=== PATIENT | male | born 1945 | race Caucasian/White ===

== ENCOUNTER 2017-05-01 19:16 | Inpatient (IN) | payer MEDICARE, BC ==
[2017-05-01 20:24] LABS: #Eosinphils 0.1 thou/uL (0.0-0.7); #Lymphocytes 1.3 thou/uL (1.20-3.40); #Monocytes 0.9 thou/uL (0.11-0.59); #Neutrophils 10.1 thou/uL (1.40-6.50); %Basophils 0.4 % (0.0-1.0); %Eosinophils 0.8 % (0.0-10.0); %Lymphocytes 10.8 % (21.0-51.0); %Monocytes 7.2 % (0.0-10.0); Hematocrit 45.2 % (42.0-52.0); Red Blood Cell (RBC) Count 4.47 mill/uL (4.70-6.10); White Blood Cell (WBC) Count 12.4 thou/uL (4.8-10.8)
[2017-05-01 20:28] LABS: Bilirubin Negative (Negative); Blood, Urine Negative (Negative); Glucose, Urine (Dipstick) 250 mg/dL (Negative); Ketone, Urine Negative (Negative); Nitrite Negative (Negative); Protein, Urine (Dipstick) Negative (Neg-Trace); Urobilinogen 0.2 mg/dL (0.2-1.0)
--- NOTE | 2017-05-01 20:31 | RAD ---
PORTABLE AP CHEST X-RAY 05/01/17 HISTORY: Chest pain. COMPARISON: 04/02/17. Multilead left subclavian AICD device remains in place. Postsurgical changes related to CABG are aga in noted. The cardiac silhouette remains enlarged. There again noted is calcification at the ventric ular apex. Pulmonary vasculature is within normal limits. Vascular calcifications are seen in the th oracic aorta. The lungs are clear. There has been no interval change from the prior exam. IMPRESSION: 1. No acute cardiopulmonary process. 2. Stable cardiomegaly with stable calcification along the left ventricular apex. POS: [facility]
[2017-05-01 20:47] LABS: ALT (SGPT) 32 U/L (8-55); AST (SGOT) 26 U/L (5-34); Alkaline Phosphatase 40 U/L (40-150); Anion Gap 14 mmol/L (10-20); BUN (Urea Nitrogen) 38 mg/dL (8.4-25.7); Bilirubin, Total 0.5 mg/dL (0.2-1.2); Calc. Creatinine Clearance 0 mL/min (70-130); Calcium 9.5 mg/dL (7.8-10.44); Carbon Dioxide 30 mmol/L (23-31); Chloride 85 mmol/L (98-107); Estimated GFR-MDRD 52; Globulin 3.3 g/dL (2.4-3.5); Lipase 48 U/L (8-78); Magnesium 2.2 mg/dL (1.6-2.6); Protein, Total 7.4 g/dL (5.8-8.1)
[2017-05-01 20:49] LABS: Troponin I 0.076 ng/mL (< 0.028)
[2017-05-01 21:43] LABS: Digoxin 0.42 ng/mL (0.8-2.0)
[2017-05-01] MEDS ORDERED: Ondansetron HCl/PF 4 MG/2 ML Vial ONE (21:49)
[2017-05-01 23:16] LABS: Troponin I 0.072 ng/mL (< 0.028)
[2017-05-02] MEDS ORDERED: HumaLOG 300 UNITS/3 ML VIAL SC PRN (02:07)
[2017-05-02] MEDS ORDERED: cloNIDine HCl 0.1 MG TAB PO PRN (02:07)
[2017-05-02] MEDS ORDERED: Acetaminophen 500 MG TAB PO PRN (02:07)
[2017-05-02] MEDS ORDERED: Dextrose 50% Abboject 50 ML SYRINGE SLOW IVP PRN (02:07)
[2017-05-02] MEDS ORDERED: Ondansetron HCl/PF 4 MG/2 ML Vial IVP PRN (02:07)
[2017-05-02] MEDS ORDERED: Lorazepam 1 MG TAB PO PRN (02:07)
[2017-05-02] MEDS ORDERED: Ondansetron ODT 4 MG TAB PO PRN (02:07)
[2017-05-02] MEDS ORDERED: Dextrose 5% in Water 1,000 ML IV PRN (02:07)
[2017-05-02 02:35] LABS: Hematocrit 39.2 % (42.0-52.0); Red Blood Cell (RBC) Count 3.89 mill/uL (4.70-6.10)
[2017-05-02 02:49] LABS: Anion Gap 13 mmol/L (10-20); BUN (Urea Nitrogen) 32 mg/dL (8.4-25.7); Calc. Creatinine Clearance 0 mL/min (70-130); Calcium 8.9 mg/dL (7.8-10.44); Carbon Dioxide 31 mmol/L (23-31); Chloride 90 mmol/L (98-107); Estimated GFR-MDRD 63
[2017-05-02 02:56] LABS: Band 5 % (5-11); Neutrophil 69 % (42-75)
[2017-05-02 03:00] VITALS: BMI 25.3
--- NOTE | 2017-05-02 03:18 | HP ---
DATE OF ADMISSION: 05/02/2017 PRIMARY CARE PROVIDER: Dr. Eddy Jaime. CHIEF COMPLAINT: Chest pressure and low blood pressure. HISTORY OF PRESENT ILLNESS: This is a 71-year-old male who presented to [facility] complaining of short duration chest pain and pressure with associated general malaise, which began approximately 10:00 a.m. on 05/01/2017. The patient states that he noticed his blood pressure was increasing in the 140 range and decided to take an extra Coreg and lisinopril for elevated bloo d pressure. The patient also states he took additional aspirin and noted that his blood pressure wa s decreasing. The patient became concerned when his blood pressure dropped and called EMS personnel . The patient was given aspirin as well as 500 mL of normal saline and transported to [facility] Emergency Department. The patient states he was just seen by his primary cardi ologist in [place], [place], without specific instructions on taking extra antihypertensive medications . The patient does admit to a significant history of ischemic cardiomyopathy with ejection fraction of 15%. The patient denies any recent fever, chills, cough, congestion, or exposure history. The patient denies any specific increased weight gain or lower extremity edema. The patient was evaluat ed in the emergency department with initial blood pressures in the 93-110 range systolic. The patie nt received an additional intravenous normal saline x1 liter as well as glucagon 2 mg x1 dose and in travenous Zofran. The patient symptomatically improved with supportive measures and IV fluid hydrat ion with overall stabilization of blood pressure readings. PAST MEDICAL HISTORY: 1. Ischemic cardiomyopathy with ejection fraction of 15%-20%. 2. Chronic atrial fibrillation with chronic Coumadin therapy. 3. Hypertension. 4. Diabetes mellitus type 2. 5. Dyslipidemia. 6. Coronary artery disease. 7. Chronic kidney disease stage 3. 8. Status post myocardial infarction. PAST SURGICAL HISTORY: 1. Status post AICD placement. 2. Status post coronary artery bypass grafting. 3. Status post appendectomy. 4. Status post cholecystectomy. 5. Status post cardiac catheterization with stent placement. CURRENT MEDICATIONS: 1. Amiodarone 100 mg 1 tab p.o. daily. 2. Enteric coated aspirin 81 mg 1 tab p.o. daily. 3. Carvedilol 12.5 mg p.o. b.i.d. 4. Vitamin D3 50,000 units p.o. daily. 5. Digoxin 0.125 mg p.o. daily. 6. Ativan 1 mg p.o. at bedtime p.r.n. 7. Potassium chloride 20 mEq one tab p.o. daily. 8. vitamin 1 tab p.o. daily. 9. Crestor 40 mg p.o. at bedtime. 10. Spironolactone/hydrochlorothiazide 25/25 mg 1 tab p.o. daily. 11. Demadex 20 mg p.o. daily. 12. Coumadin 10 mg p.o. daily except 7.5 mg on Friday and Friday. 13. Glyburide 7.5 mg p.o. daily. ALLERGIES: No known drug allergies. FAMILY HISTORY: No inheritable diseases per patient report. SOCIAL HISTORY: The patient is , residing in [place], [place]. Retired. No current alcohol, to bacco or illicit drug use. REVIEW OF SYSTEMS: The following complete review of systems was negative, unless otherwise mentione d in the HPI or below: Constitutional: Weight loss or gain, ability to conduct usual activities. Skin: Rash, itching. Eyes: Double vision, pain. ENT/Mouth: Nose bleeding, neck stiffness, pain, tenderness. Cardiovascular: Palpitations, dyspnea on exertion, orthopnea. Respiratory: Shortness of breath, wheezing, cough, hemoptysis, fever or night sweats. Gastrointestinal: Poor appetite, abdominal pain, heartburn, nausea, vomiting, constipation, or diar vidal. Genitourinary: Urgency, frequency, dysuria, nocturia. Musculoskeletal: Pain, swelling. Neurologic/Psychiatric: Anxiety, depression. Allergy/Immunologic: Skin rash, bleeding tendency. PHYSICAL EXAMINATION: VITAL SIGNS: On admission, blood pressure 113/61, pulse 76, respiratory rate 24, temperature 98.1 d egrees Fahrenheit, O2 saturation 98% on room air. GENERAL APPEARANCE: This is a 71-year-old male, alert and oriented x3, pleasant, conversant, in no acute distress. HEENT: Pupils are equal, round, and reactive to light and accommodation. Extraocular muscles are i ntact. No scleral icterus, no conjunctival injection. Nares patent. OP is clear. Teeth in good r epair. NECK: Supple, no cervical adenopathy, no thyromegaly, no carotid bruits, no JVD appreciated. Cervi denisha spine with full active and passive range of motion. CHEST: Diminished breath sounds in the bases bilaterally. CARDIOVASCULAR: S1, S2 with irregular rate and rhythm. ABDOMEN: Rounded, soft, nontender, nondistended. Bowel sounds are positive in all four quadrants. There is no hepatosplenomegaly, no abdominal bruits, no rebound or guarding appreciated. EXTREMITIES: Warm and dry with fair turgor. No clubbing, cyanosis or asymmetric edema appreciated. Pulses palpable distally at the dorsalis pedis, posterior tibial, and popliteal arteries bilateral ly. Capillary refill less than 2 seconds. NEUROLOGIC: Cranial nerves II through XII are grossly intact. No focal or lateralizing signs appre ciated. PERTINENT LABORATORY DATA AND X-RAY FINDINGS: Sodium 126, potassium 3.4, chloride 85, CO2 of 30, BU N 38, creatinine 1.35 with estimated GFR 52, glucose 211. Lactic acid level 1.0. Calcium 9.5, magn esium 2.2. LFTs within normal limits. Troponin I ranged between 0.072-0.076. BNP 264, albumin 4.1 , lipase 48. CBC showed a white blood cell count 12.4, hemoglobin 15, hematocrit 45, MCV 101, plate let count 211 with 81% neutrophils. Urinalysis positive for glucose. Digoxin level 0.42. Portable chest x-ray dated 05/01/2017 showed no acute cardiopulmonary process. Left subclavian AICD device in place. EKG dated 05/01/2017 by my interpretation shows sequential electronic pacemaker with hear t rates in the 70s. ASSESSMENT AND PLAN: 1. Hypotension, iatrogenic. We will continue symptomatic management. We will hold antihypertensiv e medications. Initially managed with intravenous normal saline. The patient took extra doses of b eta juvencio leading to current presentation. Patient will need education and reinforcement regardin g avoidance of this type of situation in the future. 2. Hyponatremia. Suspect iatrogenic with ongoing use of hydrochlorothiazide. Repeat sodium level in the a.m. 3. Hypokalemia. Mild. Continue potassium chloride supplementation and repeat potassium level in t he a.m. 4. Acute kidney injury on chronic kidney disease stage 3. 5. Status post intravenous normal saline. Avoid nephrotoxic agents and contrast media. Serial cre atinine monitoring. 6. Elevated troponin I. Chronic after review of the electronic medical record. No evidence to sug gest acute coronary syndrome. 7. Ischemic cardiomyopathy with ejection fraction of 15%-20%. Compensated currently. Continue joslyn e medication regimen including amiodarone 100 mg p.o. daily. 8. Chronic atrial fibrillation with chronic anticoagulation with Coumadin. Continue Coumadin 7.5 m g p.o. daily. Continue digoxin 0.125 mg p.o. daily. 9. Prophylaxis. Sequential compression devices while in bed, Pepcid 20 mg p.o. b.i.d. 10. Code status is full. Surrogate medical decision maker is patient's spouse.
[2017-05-02 05:36] LABS: Prothrombin Time 26.4 SEC (12.0-14.7)
[2017-05-02] MEDS ORDERED: Sodium Chloride 0.9% 10 ML ONE (08:00)
[2017-05-02] MEDS: glyBURIDE 5 MG TAB PO SCH (08:29)
[2017-05-02] MEDS: Aspirin 81 mg Enteric Coated Tablet PO SCH (08:30)
[2017-05-02] MEDS: Famotidine 20 MG TAB PO SCH ×2 (08:30→21:07)
[2017-05-02] MEDS ORDERED: FLU VACC TS2017-18 (>65YR) 0.5 ML SYRINGE IM ONE (09:00)
[2017-05-02] MEDS: HumaLOG 300 UNITS/3 ML VIAL SC PRN (12:04)
[2017-05-02] MEDS ORDERED: Warfarin Sodium 7.5 MG TAB PO SCH (17:00)
[2017-05-02] MEDS ORDERED: Milk Of Magnesia 30 ML UDCUP PO PRN (18:16)
--- NOTE | 2017-05-02 18:36 | PDOC.EVN ---
Event Note - Event Note Event Note: Follow up: vital signs improving, SBP rising while off his medications. Patient reports his EF has risen to 25% Denies MCKINNEY, orthopnea, PND, edema, chest pain, dizziness. Lungs: CTA, no rales, s1,s2, no lower ext edema. Patient reports he ingested additional doses of his lisinopril and coreg as his "blood pressure was rising" Now that BP is stable, will resume scheduled home meds in am and observe response.
[2017-05-02] MEDS: Carvedilol 6.25 MG TAB PO SCH (21:08)
[2017-05-02] MEDS ORDERED: guaiFENesin ER 600 MG TAB PO PRN (22:33)
[2017-05-02] MEDS ORDERED: Diabetic Tussin 200 MG/10 ML UDCUP PO PRN (22:33)
[2017-05-02] MEDS ORDERED: Benzonatate 100 MG CAP PO PRN (22:33)
[2017-05-03 06:19] LABS: Hematocrit 40.2 % (42.0-52.0)
[2017-05-03 06:24] LABS: Prothrombin Time 25.3 SEC (12.0-14.7)
[2017-05-03 06:36] LABS: Anion Gap 11 mmol/L (10-20); BUN (Urea Nitrogen) 21 mg/dL (8.4-25.7); Calc. Creatinine Clearance 76 mL/min (70-130); Calcium 9.1 mg/dL (7.8-10.44); Carbon Dioxide 31 mmol/L (23-31); Chloride 98 mmol/L (98-107); Estimated GFR-MDRD 79
[2017-05-03 06:39] LABS: Hematocrit 39.6 % (42.0-52.0); Mean Platelet Volume 8.3 fL (7.4-10.4); Neutrophil 69 % (42-75); Red Blood Cell (RBC) Count 3.88 mill/uL (4.70-6.10); White Blood Cell (WBC) Count 9.6 thou/uL (4.8-10.8)
[2017-05-03] MEDS: glyBURIDE 5 MG TAB PO SCH (08:50)
[2017-05-03] MEDS: Famotidine 20 MG TAB PO SCH (08:50)
[2017-05-03] MEDS: Carvedilol 6.25 MG TAB PO SCH (08:50)
[2017-05-03] MEDS: Aspirin 81 mg Enteric Coated Tablet PO SCH (08:51)
[2017-05-03] MEDS ORDERED: Potassium Chloride 20 MEQ TAB PO SCH (09:00)
[2017-05-03] MEDS ORDERED: Digoxin 0.125 MG TAB PO SCH (09:00)
[2017-05-03] MEDS ORDERED: Torsemide 10 MG TAB PO SCH (09:00)
[2017-05-03] MEDS ORDERED: Spironolactone/Hctz 25 MG/25 MG TABLET PO SCH (09:00)
[2017-05-03 12:23] VITALS: BP 110/70; TEMP 98
[2017-05-03] MEDS: HumaLOG 300 UNITS/3 ML VIAL SC PRN (13:26)
[2017-05-03] MEDS ORDERED: Warfarin Sodium 10 MG TAB PO SCH (17:00)
--- NOTE | 2017-05-03 18:25 | DIS ---
DATE OF ADMISSION: 05/02/2017 DATE OF DISCHARGE: 05/03/2017 IMPRESSION: At the time discharge; 1. Hypotension, iatrogenic resolved. 2. Hyponatremia, iatrogenic from diuretics, improved with sodium of 136 this morning. 3. Hypokalemia, mild, resolved. 4. Acute kidney injury on chronic kidney disease, improved. 5. Elevated troponin I chronic, no evidence to suggest acute coronary syndrome. 6. Ischemic cardiomyopathy with ejection fraction of 15%-20%, compensated currently. 7. Chronic atrial fibrillation with chronic anticoagulation with Coumadin. 8. Diabetes mellitus, type 2. 9. Dyslipidemia. 10. History of coronary artery disease. 11. History of myocardial infarction. 12. AICD in place. HOSPITAL COURSE: The patient is a 71-year-old male, who presented to [facility]. He was complaining about chest pain and pressure with associated some generalized ma laise. The patient noticed while at home that his blood pressure went up to about 140 and decided t o extra Coreg and lisinopril for this elevated blood pressure since his regular blood pressure is ru nning around 120. Then, he took also additional aspirin and noticed that blood pressure was decreas ing, but dropped significantly, so he called EMS. The EMS transported to give him IV fluids, and he was transported to [facility] Emergency Department. The patient has a histo ry of ischemic cardiomyopathy with ejection fraction of 20%. He denied any other symptoms like feve r, chills, cough, congestion and exposure history. He denied any specific increase of weight gain o r lower extremity edema. At the time of blood pressure evaluation in the emergency room, he was giv en IV fluids 1 liter and Zofran along with glucagon 2 mg x1 dose. His symptoms improved and he got admitted to the hospital. At the time of admission, his blood pressure was 113/61, pulse was 76, re spiratory rate was 24, his temperature was 98.1 degrees Fahrenheit. His sodium was 126, potassium 3 .4, chloride 85, creatinine 1.35, BUN 38, glucose 211. Lactic acid was 1.0, magnesium 2.2; troponin I 0.072-0.076. BNP was 264. CBC showed white count of 12.4, hemoglobin 15, hematocrit 45, MCV 101 , platelet count 211,000 with 81% of neutrophils. Urinalysis was positive for glucose. Digoxin lev el was 0.42. Portable chest x-ray was done and showed no acute cardiopulmonary process. Left subcl angelita AICD device in place was noticed. EKG showed electronic pacemaker with heart rate in the 70s. The patient got admitted to the hospital. His antihypertensives were put on hold. His hyponatrem ia was treated with IV fluids and hypokalemia with potassium replacement. His blood pressure recove red and he is feeling good. He had echocardiogram done and we do not have the results back on the t est he had. He is able to ambulate in the room, he ate his breakfast. He is instructed to wait if the blood pressure goes up to 140-150, get some rest, take a nap, and recheck the blood pressure and if the blood pressure is still elevated, contact his primary care physician or business development coordinator for fur ther recommendations how to deal with that. His blood pressure now is 104/58, pulse is 77. PHYSICAL EXAMINATION: LUNGS: Clear. HEART: S1, S2. Somewhat distant. No S3, no S4. ABDOMEN: Soft, nontender, bowel sounds are present. No organomegaly. He was seen and examined before he was discharged. He is going to be discharged home. ACTIVITIES: As tolerated. DIET: 2000 calories ADA diet with low salt is recommended. MEDICATIONS AT THE TIME OF DISCHARGE: vitamin, iron, and folic acid 1 a day, vitamin D3 of 2000 units once a day, aspirin 81 mg once a day, glyburide 7.5 mg once a day, warfarin 10 mg once a day, torsemide 20 mg once a day, spironolactone/hydrochlorothiazide 25 mg once a day, Crestor 40 mg once a day at bedtime, potassium chloride 20 mEq once a day, digoxin 0.125 mg once a day, amiodaron e 100 mg once a day and Coreg 12.5 mg twice a day. The patient is supposed to follow up with [facility] in 1 week. He was seen and examined before his discharge and discharge time is les s than 30 minutes.
== END 2017-05-03 13:55 | disposition home or self-care (01) | DRG 315 ==
LOC: ERS 19:16 → 2NO 22:00
PROVIDERS: ADMIT Family Medicine; ATTEND Family Medicine
DX: I95.89 Other hypotension (principal); I13.0 Hypertensive heart and chronic kidney disease with heart failure and stage 1 through stage 4 chronic kidney disease, or unspecified chronic kidney disease; N17.9 Acute kidney failure, unspecified; E11.22 Type 2 diabetes mellitus with diabetic chronic kidney disease; I50.9 Heart failure, unspecified; I48.2 Chronic atrial fibrillation; E87.1 Hypo-osmolality and hyponatremia; E86.0 Dehydration; E87.6 Hypokalemia; E78.5 Hyperlipidemia, unspecified; I25.2 Old myocardial infarction; Z86.73 Personal history of transient ischemic attack (TIA), and cerebral infarction without residual deficits; Z79.01 Long term (current) use of anticoagulants; N18.3 Chronic kidney disease, stage 3 (moderate); Z95.810 Presence of automatic (implantable) cardiac defibrillator; Z95.1 Presence of aortocoronary bypass graft; Z90.49 Acquired absence of other specified parts of digestive tract; I25.5 Ischemic cardiomyopathy; T44.7X5A Adverse effect of beta-adrenoreceptor antagonists, initial encounter
CPT/HCPCS: 36415; 36416; 71010; 80048; 80053; 80162; 81003; 82553; 83605; 83690; 83735; 83880; 84484; 85007; 85014; 85018; 85025; 85027; 85049; 85610; 90471; 90682; 93005; 93306; 96361; 96374; 96375; A4216; G0008; J1610; J2405; Q2036

== ENCOUNTER 2017-07-25 00:56 | Observation (INO) | payer MEDICARE, BC ==
[2017-07-25 01:46] LABS: #Basophils 0.1 thou/uL (0.0-0.2); #Eosinphils 0.1 thou/uL (0.0-0.7); #Lymphocytes 1.7 thou/uL (1.20-3.40); #Monocytes 0.9 thou/uL (0.11-0.59); #Neutrophils 7.6 thou/uL (1.40-6.50); %Basophils 0.9 % (0.0-1.0); %Eosinophils 1.3 % (0.0-10.0); %Lymphocytes 16.1 % (21.0-51.0); %Monocytes 8.8 % (0.0-10.0); %Neutrophils 72.8 % (42.0-75.0); Hemoglobin 16.6 g/dL (14.0-18.0); Mean Corpuscular HGB CONC 33.9 g/dL (32.0-36.0); Mean Corpuscular Hemoglobin 34.4 pg (27.0-31.0); Mean Platelet Volume 9.1 fL (7.4-10.4); Platelet Count 161 thou/uL (130-400); RBC Distribution Width 12.4 % (11.5-14.5); Red Blood Cell (RBC) Count 4.83 mill/uL (4.70-6.10); White Blood Cell (WBC) Count 10.5 thou/uL (4.8-10.8)
[2017-07-25 01:52] LABS: INR-International Normal Ratio 1.8; PTT 31.7 SEC (22.9-36.1); Prothrombin Time 21.3 SEC (12.0-14.7)
[2017-07-25 02:28] LABS: Magnesium 2.1 mg/dL (1.6-2.6)
[2017-07-25 02:32] LABS: Troponin I 0.151 ng/mL (< 0.028)
[2017-07-25 04:42] LABS: Digoxin 0.57 ng/mL (0.8-2.0)
[2017-07-25] MEDS ORDERED: Ondansetron ODT 4 MG TAB SL PRN (05:17)
[2017-07-25] MEDS ORDERED: Acetaminophen 325 MG TAB PO PRN ×2 (05:17→10:51)
[2017-07-25] MEDS ORDERED: Ondansetron HCl/PF 4 MG/2 ML Vial IVP PRN (05:17)
[2017-07-25 05:18] VITALS: BMI 24.4
[2017-07-25 06:51] LABS: Troponin I 0.184 ng/mL (< 0.028)
--- NOTE | 2017-07-25 08:26 | RAD ---
PORTABLE AP CHEST RADIOGRAPH: Date: 07-25-17 History: Chest pain. Comparison: 04-02-17 FINDINGS: A multi-lead left subclavian AICD device remains in place. Post-surgical changes related to median st ernotomy are again present. Curvilinear calcifications are again seen overlying the left ventricle wh ich may be related to calcifications at the ventricular apex or involving the pericardium. This is a stable finding. Cardiac silhouette is magnified by projection but is stable in size. Pulmonary vascul ature is within normal limits. Vascular calcifications of the thoracic aorta. The lungs are clear. Th ere has been no interval change from the prior exam. IMPRESSION: Stable chest without evidence of acute cardiopulmonary process. POS: [facility]
[2017-07-25 08:56] VITALS: TEMP 98.8
[2017-07-25 09:32] LABS: Troponin I 0.187 ng/mL (< 0.028)
[2017-07-25] MEDS ORDERED: HYDROcodone/Acetaminophen 10/325 mg Tablet PO PRN (10:51)
[2017-07-25] MEDS ORDERED: HYDROcodone/Acetaminophen 5/325 mg Tablet PO PRN (10:51)
[2017-07-25] MEDS ORDERED: Dextrose 5% in Water 1,000 ML IV PRN (10:51)
[2017-07-25] MEDS ORDERED: HumaLOG 300 UNITS/3 ML VIAL SC PRN (10:51)
[2017-07-25] MEDS ORDERED: Dextrose 50% Abboject 50 ML SYRINGE SLOW IVP PRN (10:51)
[2017-07-25] MEDS ORDERED: Ondansetron ODT 4 MG TAB PO PRN (10:51)
[2017-07-25] MEDS ORDERED: Enoxaparin Sodium 40 MG/0.4 ML SYRINGE SC SCH ×2 (11:00→12:15)
[2017-07-25 11:30] LABS: Hemoglobin A1c 7.5 % (4.0-6.0)
[2017-07-25 11:35] LABS: Anion Gap 13 mmol/L (10-20); BUN (Urea Nitrogen) 35 mg/dL (8.4-25.7); Calc. Creatinine Clearance 59 mL/min (70-130); Calcium 10.6 mg/dL (7.8-10.44); Carbon Dioxide 33 mmol/L (23-31); Chloride 90 mmol/L (98-107); Estimated GFR-MDRD 61; Glucose 168 mg/dL (80-115); Potassium 3.3 mmol/L (3.5-5.1); Sodium 133 mmol/L (136-145)
[2017-07-25 11:42] LABS: CKMB 3.6 ng/mL (0-6.6); Troponin I 0.146 ng/mL (< 0.028)
[2017-07-25] MEDS ORDERED: Lorazepam 1 MG TAB PO PRN (11:59)
[2017-07-25 12:03] VITALS: BP 105/68
[2017-07-25] MEDS ORDERED: Digoxin 0.125 MG TAB PO SCH ×2 (12:15→21:00)
[2017-07-25 14:19] LABS: CKMB 3.8 ng/mL (0-6.6); Troponin I 0.116 ng/mL (< 0.028)
--- NOTE | 2017-07-25 15:29 | HP ---
DATE OF ADMISSION: 07/25/2017 TIME OF SERVICE: 0800, placed in observation from the emergency department, 0300. PRIMARY CARE PHYSICIAN: Dr. Eddy Jaime at [facility]. PRIMARY PRINCIPLE INDUSTRIAL HYGIENIST: Dr. Bear Bond, currently. CHIEF COMPLAINT: Chest pain/palpitations. HISTORY OF PRESENT ILLNESS: Mr. Crockett is a 71-year-old male with history of cerebral vascular disease and a CVA in 2011 and 2012, ischemic cardiomyopathy with chronic systolic congestiv e heart failure, diabetes mellitus type 2, hyperlipidemia, and hypertension, coronary artery disease status post [place] in the 80s. He has an akinetic anterior wall. Per Dr. Bond's and my discussion, no chances of viability and negative perfusion studies. The patient states that on the day of admission, he had gone to cardiac rehab as an outpatient, just felt weak and unable to complete his exercises. He said, he had palpitations off and on during then. When he got home, he noted blood pressure varied from 140s-150s, so he decided to come to the emergen cy department for evaluation. There, his workup was negative, but given his history, he was admitted to the hospital. He denies any cough or chest pain, no sputum production, no shortness of breath. He has had no nause a, vomiting, diarrhea or constipation. We placed in observation, serial cardiac biomarkers were obtained after ER workup was negative and I called Dr. Bond. Dr. Bond explained to me that the patient's recurrent coronary artery disease, he had a PTCA and PC I back in May. He had 3 stents placed to the right coronary artery to see if it would improve h is function of the inferior and lateral dove. He did have an echocardiogram done last week that reportedly shows an EF around 25%-30%, which is mar kedly improved from his previous 15. I explained to him in the admission and current plan. He was in agreement. The patient does have a follow up with him next week. Today, the patient has had no further arrhythmias. He remained in the 80s. PAST MEDICAL HISTORY: 1. Cerebrovascular disease. 2. Coronary artery disease. 3. Status post myocardial infarction. 4. 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 5. Diabetes mellitus type 2. 6. Hyperlipidemia. 7. Hypertension. PAST SURGICAL HISTORY: Includes: 1. Appendectomy. 2. Cholecystectomy. 3. Coronary artery bypass grafting in 1984. 4. Pacemaker/AICD placement. 5. PTCA and 3 stents placed in 05/2017. HOME MEDICATIONS: 1. Glyburide 7.5 mg p.o. q.a.m. 2. Lorazepam 0.5-1 mg at bedtime p.r.n. anxiety. 3. Coreg 12.5 mg p.o. q.a.m., 6.25 mg p.o. q.p.m. 4. Digoxin 0.125 mg daily. 5. Crestor 40 mg p.o. at bedtime. 6. Plavix 75 mg daily. 7. Lasix 10 mg daily. 8. Aldactone 12.5 mg daily. 9. Entresto daily or b.i.d., he is not sure. 10. Warfarin 10-7.5 mg daily, changed frequently. 11. Aspirin. ALLERGIES: No known drug allergies. FAMILY HISTORY: Negative for clotting or bleeding disorder, no immune dysfunction. SOCIAL HISTORY: Negative for habits x3. Does have past tobacco, but none recent. REVIEW OF SYSTEMS: A 10-point review of systems was performed, negative for all other systems except as stated as per HPI. He stated he was tired and need to sleep and that was bothering him. PHYSICAL EXAMINATION: VITAL SIGNS: Temperature 98.0, pulse 74, blood pressure 130/67, respiratory 18, satting 95% on room air. Heart rate has been in the 80s to low 90s. GENERAL: He is awake. He is alert. He is oriented x3. He is a well-developed, well-nourished Lati n [place] male appears to be in no distress. HEENT: Head is normocephalic, atraumatic. Pupils equal, round, reactive to light bilaterally. Muco us membranes are moist. There is no visible lesion or thrush. NECK: Supple. There is no lymphadenopathy, JVD or thyromegaly. Normal carotid upstrokes. LUNGS: Clear. He has no wheezing, no rales, no rhonchi. CARDIOVASCULAR: Normal S1 and S2. He has no S3. There is a faint S4. He has an underlying regular rhythm with frequent ectopy. He has no audible murmurs. ABDOMEN: Soft, it is nontender, nondistended, no masses or organomegaly. EXTREMITIES: No cyanosis, no clubbing, no edema. NEUROLOGIC: Cranial nerves II through XII to be grossly intact. He has no focal neurologic deficits . Normal speech. He has 5/5 strength in all 4 extremities. MUSCULOSKELETAL: Normal to inspection. There is no inflamed joints. No palpable effusions. SKIN: Warm, moist and well perfused without rashes or lesions. AICD/pacemaker site is clean, dry, a nd intact. LABORATORY DATA: Magnesium 2.1. CBC showed a white count of 10.5, hemoglobin 16.6, hematocrit 49, a nd platelets of 161,000. CK was 131 with an MB fraction of 4.0, troponin I initially 0.151, repeat 0 .184, subsequent 0.15 and 0.14. BNP is 399. INR 1.8 and digoxin 0.57, slightly low. X-RAY FINDINGS: Chest x-ray showed no acute cardiopulmonary disease. ASSESSMENT AND PLAN: 1. Palpitations, no chest pain. We will get serial cardiac biomarkers. We will interrogate his pac emaker. If these are negative, we will likely sent home. 2. Chronic systolic congestive heart failure, no acute exacerbation. 3. Diabetes mellitus type 2, we will check hemoglobin A1c. Continue home medications. Sliding scal e insulin has been ordered. 4. Hyperlipidemia, on Crestor. 5. Hypertension. Continue regular medications. 6. History of atrial fibrillation. As above.
--- NOTE | 2017-07-25 15:59 | DIS ---
DATE OF ADMISSION: 07/25/2017, started at 0300. DATE OF DISCHARGE: 07/25/2017 at 1450. PRIMARY CARE PHYSICIAN: Dr. Eddy Jaime. PRIMARY FISH HATCHERY SPECIALIST: Dr. Bear Bond at [facility]. DISCHARGE DIAGNOSES: 1. Chronic systolic congestive heart failure. 2. Diabetes. 3. Hyperlipidemia. 4. Hypertension. 5. Palpitations without arrhythmia. PROCEDURE PERFORMED: Pacemaker interrogation on 07/25/2017 that revealed no abnormalities. CONSULTATIONS: None. I did spend approximately 20 minutes on the phone with Dr. Bear darnell history. HISTORY AND PHYSICAL: Mr. Crockett is a 71-year-old male admitted from the ER early this morning to ob servation status for further monitoring. He had developed some palpitations during cardiac rehab on 07/24, and blood pressure was fluctuating between 140 and 150 in the evenings, so he presented to the E mergency Department. Workup there was negative, but he was admitted to our service. HOSPITAL COURSE: The patient was placed in observation at 0300, transferred to the floor. I saw him initially at 0800. At that time, labs were reviewed. He had a magnesium that was normal, a CBC yamel t was normal, and EKG and telemetry that revealed no abnormalities. Cardiac biomarkers were borderli ne at 0.151 and 0.184, and review had been similar in the past. BNP was slightly elevated at 399 and INR was slightly low at 1.8. Digoxin was slightly low at 0.57. The patient was restarted on his home medications, he was given an extra dose of digoxin, and I conta cted Dr. Bond at [facility]. He states he is on Eliquis long-term for his akinetic left anter ior wall and left ventricular clot. He states the patient has only seen him one time and does have a follow up with him next week. He did also state about his coronary disease and where he has a PEYTNO inserting on the right coronary artery. There was some diffuse disease, and he did placed stents in those areas to see if that would improve his overall function. Echo last week showed an EF of around 25% to 30%. No further episodes. Telemetry monitoring was negative. The pacemaker interrogation. He revealed n o abnormalities. Biomarkers remained stable. He was discharged in stable condition. The patient wa s seen and examined on the day of discharge. Discharge plan and disposition was discussed with the patient face to face at the bedside. DISCHARGE MEDICATIONS: Resume his home medications. 1. Glyburide 7.5 mg daily. 2. Lorazepam bedtime as needed. 4. Coreg 12.5 mg p.o. q.a.m. and 6.25 mg p.o. q.p.m. 5. Digoxin 0.125 mg daily. 6. Crestor 40 mg p.o. at bedtime. 7. Plavix 75 mg daily. 8. Lasix 10 mg daily. 9. Aldactone 12.5 mg daily. 10. Entresto 24/ p.o. b.i.d. 11. Aspirin daily. 12. Eliquis 2.5 mg p.o. b.i.d. FOLLOWUP APPOINTMENTS: 1. Primary care physician within a week. 2. Dr. Bear Bond next Friday or as already scheduled. DISCHARGE CONDITION: Good. DISCHARGE DISPOSITION: Being discharged home via private vehicle. DISCHARGE ACTIVITY: Per cardiopulmonary limits. DISCHARGE DIET: As pre-admit. Heart healthy, calcium carbohydrate.
[2017-07-25] MEDS ORDERED: Carvedilol 6.25 MG TAB PO SCH (21:00)
[2017-07-25] MEDS ORDERED: Famotidine 20 MG TAB PO SCH (21:00)
[2017-07-25] MEDS ORDERED: Rosuvastatin 20 MG TAB PO SCH (21:00)
[2017-07-26] MEDS ORDERED: Carvedilol 6.25 MG TAB PO SCH (09:00)
[2017-07-26] MEDS ORDERED: Enoxaparin Sodium 40 MG/0.4 ML SYRINGE SC SCH (09:00)
[2017-07-26] MEDS ORDERED: Clopidogrel Bisulfate 75 MG TAB PO SCH (09:00)
[2017-07-26] MEDS ORDERED: glyBURIDE 5 MG TAB PO SCH (09:00)
[2017-07-26] MEDS ORDERED: Warfarin Sodium 5 MG TAB PO SCH ×2 (09:00→17:00)
--- NOTE | 2017-08-16 17:49 | EKG ---
Test Reason : Blood Pressure : / mmHG Vent. Rate : 083 BPM Atrial Rate : 083 BPM P-R Int : 000 ms QRS Dur : 188 ms QT Int : 462 ms P-R-T Axes : 000 -64 117 degrees QTc Int : 542 ms AV sequential or dual chamber electronic pacemaker Confirmed by JUMA DOCKERY D.O. ([id number]), film editor JACKLYN TAVAREZ ([id number] on 08/16/2017 5:47:49 PM Referred By: Confirmed By:JUMA DOCKERY D.O.
== END 2017-07-25 16:23 | disposition home or self-care (01) ==
LOC: ERS 00:56 → ERHOLD 03:00 → INTOOBSV 03:00 → 2NO 05:02
PROVIDERS: ADMIT Internal Medicine; ATTEND Internal Medicine
DX: I11.0 Hypertensive heart disease with heart failure (principal); I50.22 Chronic systolic (congestive) heart failure; R00.2 Palpitations; I25.10 Atherosclerotic heart disease of native coronary artery without angina pectoris; I25.5 Ischemic cardiomyopathy; I25.2 Old myocardial infarction; I67.9 Cerebrovascular disease, unspecified; I48.91 Unspecified atrial fibrillation; E11.9 Type 2 diabetes mellitus without complications; E78.5 Hyperlipidemia, unspecified; R79.1 Abnormal coagulation profile; Z86.73 Personal history of transient ischemic attack (TIA), and cerebral infarction without residual deficits; Z87.891 Personal history of nicotine dependence; Z79.82 Long term (current) use of aspirin; Z79.4 Long term (current) use of insulin; Z79.01 Long term (current) use of anticoagulants; Z79.899 Other long term (current) drug therapy; Z95.1 Presence of aortocoronary bypass graft; Z95.5 Presence of coronary angioplasty implant and graft; Z95.810 Presence of automatic (implantable) cardiac defibrillator; Z98.890 Other specified postprocedural states
CPT/HCPCS: 71045; 80048; 80162; 82550; 82553 ×2; 82962; 83036; 83735; 83880; 84484 ×2; 85025; 85610; 85730; 93005; 97139; 99285; G0378; 36415; 36416; J1650

== ENCOUNTER 2017-09-10 23:27 | Emergency (ER) | payer MEDICARE, BC ==
[2017-09-10 23:51] LABS: #Basophils 0.1 thou/uL (0.0-0.2); #Eosinphils 0.1 thou/uL (0.0-0.7); #Lymphocytes 2.1 thou/uL (1.20-3.40); #Monocytes 0.9 thou/uL (0.11-0.59); #Neutrophils 5.2 thou/uL (1.40-6.50); %Eosinophils 1.3 % (0.0-10.0); %Lymphocytes 24.8 % (21.0-51.0); %Monocytes 10.9 % (0.0-10.0); %Neutrophils 61.9 % (42.0-75.0); Hemoglobin 16.3 g/dL (14.0-18.0); Mean Corpuscular HGB CONC 32.1 g/dL (32.0-36.0); Mean Corpuscular Hemoglobin 32.3 pg (27.0-31.0); Mean Platelet Volume 8.8 fL (7.4-10.4); Platelet Count 178 thou/uL (130-400); RBC Distribution Width 13.2 % (11.5-14.5); Red Blood Cell (RBC) Count 5.05 mill/uL (4.70-6.10); White Blood Cell (WBC) Count 8.4 thou/uL (4.8-10.8)
--- NOTE | 2017-09-11 00:02 | RAD ---
PORTABLE UPRIGHT FRONTAL CHEST RADIOGRAPH 09/10/17 COMPARISON: 07/25/17 HISTORY: Chest pain. FINDINGS: There is curvilinear calcification overlying the cardiac silhouette in the region of the cardiac apex suggesting either calcification aneurysm or pericardial calcification, unchanged when compared to CT exam performed 07/20/16. Midline sternotomy wires and multilead left sided AICD noted, stable. No pn eumothorax, pleural fluid, focal consolidation, or alveolar edema. IMPRESSION: No acute findings. POS: [facility]
[2017-09-11 00:13] LABS: ALT (SGPT) 20 U/L (8-55); AST (SGOT) 26 U/L (5-34); Albumin 4.8 g/dL (3.4-4.8); Alkaline Phosphatase 47 U/L (40-150); Anion Gap 14 mmol/L (10-20); BUN (Urea Nitrogen) 21 mg/dL (8.4-25.7); Bilirubin, Total 0.5 mg/dL (0.2-1.2); CK (CPK) 192 U/L (30-200); Calc. Creatinine Clearance 0 mL/min (70-130); Calcium 10.5 mg/dL (7.8-10.44); Carbon Dioxide 33 mmol/L (23-31); Chloride 91 mmol/L (98-107); Estimated GFR-MDRD 60; Globulin 3.7 g/dL (2.4-3.5); Glucose 74 mg/dL (80-115); Potassium 3.6 mmol/L (3.5-5.1); Protein, Total 8.5 g/dL (5.8-8.1); Sodium 134 mmol/L (136-145)
[2017-09-11 00:18] LABS: CKMB 4.3 ng/mL (0-6.6); Troponin I 0.081 ng/mL (< 0.028)
[2017-09-11] MEDS ORDERED: Nitroglycerin 0.4 MG TAB (25 Tab Bottle) ONE (01:28)
== END 2017-09-11 03:10 | disposition short-term general hospital (02) ==
LOC: ERS 23:27
DX: I20.0 Unstable angina (principal); I11.0 Hypertensive heart disease with heart failure; I50.9 Heart failure, unspecified; E11.9 Type 2 diabetes mellitus without complications; E78.5 Hyperlipidemia, unspecified; Z87.891 Personal history of nicotine dependence; Z86.73 Personal history of transient ischemic attack (TIA), and cerebral infarction without residual deficits; Z79.84 Long term (current) use of oral hypoglycemic drugs; Z79.899 Other long term (current) drug therapy
CPT/HCPCS: 36416; 71045; 80053; 82550; 82553; 83880; 84484; 85025; 93005

== ENCOUNTER 2017-10-02 15:58 | Observation (INO) | payer MEDICARE, BC ==
[2017-10-02 16:34] LABS: #Eosinphils 0.1 thou/uL (0.0-0.7); #Lymphocytes 1.3 thou/uL (1.20-3.40); #Monocytes 0.9 thou/uL (0.11-0.59); #Neutrophils 7.3 thou/uL (1.40-6.50); %Basophils 0.4 % (0.0-1.0); %Eosinophils 0.8 % (0.0-10.0); %Lymphocytes 13.8 % (21.0-51.0); %Monocytes 9.3 % (0.0-10.0); %Neutrophils 75.7 % (42.0-75.0); Hemoglobin 15.2 g/dL (14.0-18.0); Mean Corpuscular HGB CONC 33.1 g/dL (32.0-36.0); Mean Corpuscular Volume 99.7 fl (80.0-94.0); Mean Platelet Volume 8.6 fL (7.4-10.4); Platelet Count 186 thou/uL (130-400); Red Blood Cell (RBC) Count 4.59 mill/uL (4.70-6.10); White Blood Cell (WBC) Count 9.6 thou/uL (4.8-10.8)
[2017-10-02 16:54] LABS: ALT (SGPT) 23 U/L (8-55); AST (SGOT) 25 U/L (5-34); Albumin 4.4 g/dL (3.4-4.8); Alkaline Phosphatase 38 U/L (40-150); Anion Gap 13 mmol/L (10-20); BUN (Urea Nitrogen) 27 mg/dL (8.4-25.7); Bilirubin, Total 0.7 mg/dL (0.2-1.2); CK (CPK) 231 U/L (30-200); Calc. Creatinine Clearance 0 mL/min (70-130); Calcium 9.6 mg/dL (7.8-10.44); Carbon Dioxide 31 mmol/L (23-31); Chloride 93 mmol/L (98-107); Estimated GFR-MDRD 54; Glucose 161 mg/dL (80-115); Potassium 3.8 mmol/L (3.5-5.1); Protein, Total 7.4 g/dL (5.8-8.1); Sodium 133 mmol/L (136-145)
[2017-10-02 16:59] LABS: CKMB 4.7 ng/mL (0-6.6); Troponin I 0.097 ng/mL (< 0.028)
--- NOTE | 2017-10-02 17:38 | RAD ---
PORTABLE CHEST ONE VIEW: 10/02/17 at 4:09 p.m. HISTORY: Chest pain. FINDINGS: Comparison is made with the exam dated 09/10/17. There are changes of median sternotomy. Left sided AICD remains in place. The heart size is stable. C urvilinear calcification overlying the cardiac silhouette is again noted. Lungs are well expanded wit hout focal areas of consolidation, pneumothorax, ayush pulmonary edema or pleural effusions. IMPRESSION: No radiographic evidence of acute cardiopulmonary process. POS: [facility]
[2017-10-02 19:56] LABS: CKMB 3.9 ng/mL (0-6.6); Troponin I 0.112 ng/mL (< 0.028)
[2017-10-02] MEDS ORDERED: Acetaminophen 325 MG TAB PO PRN (21:57)
[2017-10-02] MEDS ORDERED: Nitroglycerin 2% Ointment 1 INCH/1 GM Packet TOP SCH (22:00)
[2017-10-02 22:54] LABS: Troponin I 0.137 ng/mL (< 0.028)
[2017-10-02 23:16] VITALS: BMI 24.9
[2017-10-02] MEDS ORDERED: Lorazepam 1 MG TAB PO PRN (23:34)
[2017-10-03] MEDS ORDERED: Acetaminophen 325 MG TAB PO PRN (00:44)
[2017-10-03] MEDS ORDERED: Nitroglycerin 0.4 MG TAB (25 Tab Bottle) PO PRN (00:44)
[2017-10-03] MEDS ORDERED: Lorazepam 1 MG TAB PO PRN (00:44)
[2017-10-03] MEDS ORDERED: Ondansetron HCl/PF 4 MG/2 ML Vial IVP PRN (00:44)
[2017-10-03] MEDS ORDERED: Guaifenesin DM 100-10/5 ML UDCUP PO PRN (00:44)
[2017-10-03] MEDS ORDERED: Bisacodyl 5 MG TAB PO SCH ×2 (00:45→09:00)
[2017-10-03] MEDS ORDERED: Rosuvastatin 20 MG TAB PO SCH ×2 (01:00→21:00)
[2017-10-03] MEDS ORDERED: Digoxin 0.125 MG TAB PO SCH ×2 (01:00→21:00)
[2017-10-03 01:15] LABS: Prothrombin Time 32.1 SEC (12.0-14.7)
--- NOTE | 2017-10-03 01:29 | HP ---
REASON FOR ADMISSION: Palpitations, chest pain. HISTORY OF PRESENT ILLNESS: The patient gives history of taking half a tablet of Entresto in the morning. Thirty minutes after, the patient started to have generalized discomfort. He checked his heart rate to be in the 40s. This discomfort was coming off and on, lasting 5-10 minutes. Finally, it eased off and patient went to take his garbage can out. When he came back, he checked his blood pressure. The diastolic pressure was 89. The patient took his Coreg and went to his [place] outpatient cardiac rehabilitation. He was on the treadmill and he was found to have irregular heart rate then. The staff at [facility] advised him to go to the emergency room. Patient follows up with Dr. Bond for Cardiology at [facility] and he also follows up with Dr. Houser for his AICD pacemaker. His AICD was placed in 03/2012 and he states his battery still has 1 more year to go. He has a followup appointment on the to see Dr. Houser. Currently, he has no complaints of chest pain, palpitation, PND or orthopnea. He states he has been progressing well with his outpatient rehab. PAST MEDICAL AND SURGICAL HISTORY: History of CHF with ejection fraction of 30% , coronary artery disease with nearly 5 stents, last cardiac catheterization was in 03/2017 when he had 3 stents. He has had 2 stents placed in 2000. The patient has had coronary artery bypass graft [place] [address] Gallo, AICD likely biventricular pacer placed in 03/2012, varicose vein surgery, history of CVA with no residual weakness, prior history of HI, diabetes mellitus type 2, dyslipidemia, hypertension, appendectomy, cholecystectomy. CURRENT MEDICATIONS: Please note, patient does not recall all his medications. He goes to [facility] on [address] [place] [address] and we will obtain accurate list from them. Per prior records, patient is on glyburide 7.5 mg twice daily, lorazepam 0.5 mg at bedtime, Coreg 12.5 mg twice daily, digoxin 0.125 mg p.o. daily, Plavix 75 mg daily, Protonix 40 mg daily, Trulicity 0.7 mg subcu once a week, Coumadin, he is on Entresto half a tablet twice daily, Torsemide 10 mg daily, aspirin 81 mg daily. ALLERGIES: No known drug allergies. PERSONAL HISTORY: Quit smoking in 1984, prior to which has smoked 1 pack for a period of 5 years. Does not abuse alcohol or drugs. Lives with his . FAMILY HISTORY: Mother at the age of 91. She has had history of coronary artery disease. Father of HI at the age of 76 years. REVIEW OF SYSTEMS: The following complete review of systems was negative, unless otherwise mentioned in the HPI or below: Constitutional: Weight loss or gain, ability to conduct usual activities. Skin: Rash, itching. Eyes: Double vision, pain. ENT/Mouth: Nose bleeding, neck stiffness, pain, tenderness. Cardiovascular: Palpitations, dyspnea on exertion, orthopnea. Respiratory: Shortness of breath, wheezing, cough, hemoptysis, fever or night sweats. Gastrointestinal: Poor appetite, abdominal pain, heartburn, nausea, vomiting, constipation, or diarrhea. Genitourinary: Urgency, frequency, dysuria, nocturia. Musculoskeletal: Pain, swelling. Neurologic/Psychiatric: Anxiety, depression. Allergy/Immunologic: Skin rash, bleeding tendency. PHYSICAL EXAMINATION: GENERAL: The patient is a 72-year-old male who is currently not in any acute distress. VITAL SIGNS: Blood pressure 136/36, pulse 94 per minute, respiratory rate 18 per minute, temperature 97.7 degrees Fahrenheit, saturating 98% on room air. NECK: Supple, no elevated JVD. HEENT: Eyes, extraocular muscles intact. Pupils reacting to light. Oral cavity mucous membranes are moist. No exudates or congestion. CARDIOVASCULAR: S1, S2 heard. Regular rhythm. RESPIRATORY: Air entry 1+ bilateral. No rales or rhonchi. ABDOMEN: Soft, bowel sounds heard. No tenderness, rigidity or guarding. EXTREMITIES: No peripheral edema or calf tenderness. VASCULAR SYSTEM: Peripheral pulses 1+ bilateral, no ischemic ulcerations or gangrene. CENTRAL NERVOUS SYSTEM: No gross focal deficits seen. Patient is alert, awake , and oriented well. PSYCHIATRIC: The patient's mood is euthymic. No hallucinations or delusions. LABORATORY DATA AND X-RAY FINDINGS: EKG done shows atrial fibrillation at 88 beats per minute. White count of 9.6, H&H is 15 and 45, platelet count 186, MCV is 99 with 75% neutrophils. Sodium 133, serum bicarbonate 31, BUN 27, creatinine 1.3, glucose 161. Liver enzymes within normal limits. CK-MB 4.7, troponin I 0.09, second set is 0.11. BNP is 352, albumin is 4.4. Chest x-ray done shows no acute cardiopulmonary abnormalities. CLINICAL IMPRESSION AND PLAN: The patient will be under observation on telemetry for recurrent episodes of generalized discomfort, bradycardia despite having pacemaker with heart rates dipping into 40s and chest discomfort. The patient is currently asymptomatic. His initial EKG also showed atrial fibrillation, which is rate controlled at 88 beats per minute. We will obtain his [employer] pacemaker printout. We will also consult Cardiology application development team lead here. The patient has followup appointment with Dr. Houser on the . If his pacemaker is working appropriately, he can be safely discharged, I believe. The patient has known history of coronary artery disease likely ischemic cardiomyopathy with EF of around 30%. This has improved from prior EF of around 15%-20% per patient. His cardiac medications are also optimized and he is closely following up with his right of way supervisor, Dr. Bond. We will continue all his medications including digoxin, Plavix, Entresto, Coumadin along with glyburide, Trulicity for his diabetes. His Coreg will be held until the pacemaker printout to make sure he is not bradycardic. He is on Coumadin and we will continue the same dose here. Please note I have seen and examined patient on 10/02/2017. OLYA
[2017-10-03] MEDS ORDERED: Warfarin Sodium 10 MG TAB PO SCH ×2 (01:30→17:00)
[2017-10-03 04:58] LABS: #Basophils 0.1 thou/uL (0.0-0.2); #Eosinphils 0.1 thou/uL (0.0-0.7); #Lymphocytes 2.1 thou/uL (1.20-3.40); #Monocytes 0.8 thou/uL (0.11-0.59); %Basophils 0.6 % (0.0-1.0); %Eosinophils 1.4 % (0.0-10.0); %Lymphocytes 23.3 % (21.0-51.0); %Neutrophils 65.6 % (42.0-75.0); Mean Corpuscular Volume 97.1 fl (80.0-94.0); Mean Platelet Volume 8.3 fL (7.4-10.4); Platelet Count 160 thou/uL (130-400); RBC Distribution Width 13.1 % (11.5-14.5); Red Blood Cell (RBC) Count 4.25 mill/uL (4.70-6.10); White Blood Cell (WBC) Count 9.2 thou/uL (4.8-10.8)
[2017-10-03 05:21] LABS: Anion Gap 10 mmol/L (10-20); BUN (Urea Nitrogen) 16 mg/dL (8.4-25.7); Calc. Creatinine Clearance 83 mL/min (70-130); Calcium 9.4 mg/dL (7.8-10.44); Carbon Dioxide 32 mmol/L (23-31); Cardiac Risk 4.3 (Less than 4.5); Chloride 97 mmol/L (98-107); Cholesterol 138 mg/dl (< 200 Desired); Estimated GFR-MDRD 90; Glucose 96 mg/dL (80-115); HDL Cholesterol 32 mg/dL (>60 Neg Risk); LDL Cholesterol, Calculated 92 mg/dL; Potassium 3.4 mmol/L (3.5-5.1); Sodium 136 mmol/L (136-145); Triglycerides 72 mg/dL (Less than 150)
[2017-10-03] MEDS ORDERED: glyBURIDE 5 MG TAB PO SCH (08:00)
[2017-10-03] MEDS ORDERED: Aspirin 325 mg Enteric Coated Tablet PO SCH (09:00)
[2017-10-03] MEDS ORDERED: Clopidogrel Bisulfate 75 MG TAB PO SCH (09:00)
[2017-10-03] MEDS ORDERED: Sacubitril 24.5 MG/Valsartan 25.5 MG TABLET PO SCH (09:00)
[2017-10-03 11:29] LABS: Hemoglobin 15.2 g/dL (14.0-18.0); Platelet Count 167 thou/uL (130-400)
[2017-10-03] MEDS ORDERED: Carvedilol 3.125 MG TAB PO SCH ×2 (11:45→17:00)
[2017-10-03] MEDS ORDERED: Warfarin Sodium 7.5 MG TAB PO SCH (17:00)
[2017-10-03 19:35] VITALS: BP 123/69; TEMP 97.7
--- NOTE | 2017-10-03 22:20 | CON ---
DATE OF CONSULTATION: 10/03/2017 HISTORY OF PRESENT ILLNESS: Jeffery Crockett is a pleasant 72-year-old white male, who is followed with Dr. Ruiz in the past, who has longstanding cardiac history. He has had CABG as well as severe left ventricular dysfunction with placement of a biventricular ICD. He also has undergone coronary artery stent placement in 03/2017 with 3 stents being placed. Yesterday, he took his one- half dose of Entresto in the morning and 30 minutes later started to feel weak. He checked his heart rate and this was in the 40s on his wrist monitor. He then went to [facility] cardiac rehabilitation and on the treadmill was found to have an irregular heart rate. Recommend he go to the emergency room. He denies any chest discomfort at this time. PAST MEDICAL HISTORY: Coronary artery disease, diabetes, hypertension, hyperlipidemia, history of CVA, and varicose vein surgery. OPERATIONS: CABG, coronary artery stent placement most recently in 03/2017, biventricular ICD placement in 03/2012, appendectomy, and cholecystectomy. MEDICATIONS: Dulcolax 5 daily, carvedilol 3.125 b.i.d., Plavix 75 daily, digoxin 0.125 daily, Trulicity 0.5 mL every 7 days, glyburide 7.5 daily, Ativan 1 mg p.r.n., pantoprazole 40 daily, Crestor 40 at bedtime, Entresto / one- half tablet b.i.d., spironolactone/hydrochlorothiazide 25 daily, torsemide 10 mg daily, and warfarin 10 mg daily. ALLERGIES: None. SOCIAL HISTORY: He smoked 1 pack per day, but stopped in the 80s. He does not drink alcohol. FAMILY HISTORY: Mother had coronary artery disease. REVIEW OF SYSTEMS: Ten-point review of systems otherwise unremarkable. PHYSICAL EXAMINATION: HEENT: PERRL. NECK: Supple. CHEST: Clear. CARDIAC: S1 and S2 normal, without any S3, S4, or murmurs. ABDOMEN: Normal bowel sounds, without tenderness, organomegaly. EXTREMITIES: Revealed trace pretibial edema. NEUROLOGIC: Grossly intact. SKIN: Warm and dry. LABORATORY DATA: EKG revealed atrial fibrillation with rate of 88 per minute, nonspecific interventricular block. Another EKG shows ventricular pacing. ICD was interrogated and since early August been in atrial fibrillation 56% of the time. He is ventricularly paced 81% of the time. Also, his severe elevation of his fluid status which was higher that could be measured. Hemoglobin 14.0, hematocrit 41.3, white count 9200, platelets 160,000. INR 3.0. Sodium 136, potassium 3.4, chloride 97, carbon dioxide 32, BUN 16, creatinine 0.84. Cholesterol 138, triglycerides 72, HDL 32, LDL 92. Troponin I 0.137. CK-MB is normal. BNP 352.4. IMPRESSION: 1. Heart rate monitor at home registering 40 per minute; however, his ICD is functioning normally. 2. Paroxysmal atrial fibrillation with 56% of the time in atrial fibrillation and only ventricularly pacing 81% of the time. He is on beta juvencio and digoxin. 3. Elevated fluid status on checking the ICD. 4. History of coronary artery bypass grafting. 5. History of stent placement. 6. Hypertension. 7. Diabetes. 8. Hyperlipidemia, under poor control. 9. Distant smoker. 10. Positive family history. PLAN: I would tend to believe that his ICD is functioning normally rather than the wrist monitor that told him that he had a heart rate in the 40s. He certainly could have had PVCs that the device did not sense. He also has increased atrial fibrillation. I do not feel any further evaluation is needed at this time. I did recommend that he take torsemide and Aldactazide in the morning and at 2 or 3 in the afternoon for 3 days in the hopes of his elevated fluid status. He was also advised to see Dr. Bond in a week to 10 days for followup of this. OLYA
[2017-10-04] MEDS ORDERED: Warfarin Sodium 7.5 MG TAB PO SCH (17:00)
[2017-10-08] MEDS ORDERED: DULAGLUTIDE 0.75 MG/0.5 ML SC SCH (09:00)
== END 2017-10-03 19:57 | disposition home or self-care (01) ==
LOC: ERS 15:58 → 2SW 20:45
PROVIDERS: ADMIT Emergency Medicine; ATTEND Emergency Medicine
DX: R53.1 Weakness (principal); I25.10 Atherosclerotic heart disease of native coronary artery without angina pectoris; I25.2 Old myocardial infarction; E11.9 Type 2 diabetes mellitus without complications; E78.5 Hyperlipidemia, unspecified; I10 Essential (primary) hypertension; Z98.890 Other specified postprocedural states; Z79.84 Long term (current) use of oral hypoglycemic drugs; Z79.02 Long term (current) use of antithrombotics/antiplatelets; Z79.01 Long term (current) use of anticoagulants; Z79.899 Other long term (current) drug therapy; Z95.1 Presence of aortocoronary bypass graft; Z95.0 Presence of cardiac pacemaker; Z90.49 Acquired absence of other specified parts of digestive tract; Z86.73 Personal history of transient ischemic attack (TIA), and cerebral infarction without residual deficits; Z87.891 Personal history of nicotine dependence
CPT/HCPCS: 71045; 80048; 80053; 80061; 82550 ×2; 82553 ×2; 82962 ×3; 83880; 84484 ×2; 85014; 85018; 85025 ×2; 85049; 85610; 93005; 94760 ×2; 97139; 99285; G0378; 36415; 36416

== ENCOUNTER 2017-10-25 22:03 | Emergency (ER) | payer MEDICARE, BC ==
[2017-10-25 22:42] LABS: #Eosinphils 0.1 thou/uL (0.0-0.7); #Lymphocytes 1.2 thou/uL (1.20-3.40); #Monocytes 0.7 thou/uL (0.11-0.59); #Neutrophils 7.3 thou/uL (1.40-6.50); %Basophils 0.5 % (0.0-1.0); %Eosinophils 1.2 % (0.0-10.0); %Lymphocytes 13.1 % (21.0-51.0); %Monocytes 7.9 % (0.0-10.0); %Neutrophils 77.3 % (42.0-75.0); Hemoglobin 13.8 g/dL (14.0-18.0); Mean Corpuscular HGB CONC 34.1 g/dL (32.0-36.0); Mean Corpuscular Hemoglobin 33.8 pg (27.0-31.0); Mean Corpuscular Volume 99.2 fl (80.0-94.0); Mean Platelet Volume 8.2 fL (7.4-10.4); Platelet Count 196 thou/uL (130-400); Red Blood Cell (RBC) Count 4.07 mill/uL (4.70-6.10); White Blood Cell (WBC) Count 9.4 thou/uL (4.8-10.8)
[2017-10-25 22:48] LABS: INR-International Normal Ratio 1.9; Prothrombin Time 22.2 SEC (12.0-14.7)
--- NOTE | 2017-10-25 22:52 | RAD ---
PORTABLE AP CHEST X-RAY 10/25/17 HISTORY: High blood pressure, chest pain. COMPARISON: 10/02/17. FINDINGS: A multilead left subclavian AICD device remains in place. Postsurgical changes related to median ster notomy are present. The cardiac silhouette remains enlarged. Curvilinear calcifications are again see n overlying the left ventricle which may represent calcification of the ventricular apex or pericardi al calcifications. Pulmonary vasculature is within normal limits. Lungs are clear. IMPRESSION: 1. Stable chest without evidence of an acute cardiopulmonary process. 2. Cardiomegaly with stable calcifications overlying the left ventricle which may represent eith er calcifications of the pericardium or left ventricular apex. POS: [facility]
[2017-10-25 23:02] LABS: Digoxin 0.45 ng/mL (0.8-2.0)
[2017-10-25 23:04] LABS: ALT (SGPT) 31 U/L (8-55); AST (SGOT) 27 U/L (5-34); Albumin 4.1 g/dL (3.4-4.8); Alkaline Phosphatase 33 U/L (40-150); Anion Gap 15 mmol/L (10-20); BUN (Urea Nitrogen) 21 mg/dL (8.4-25.7); Bilirubin, Total 0.6 mg/dL (0.2-1.2); CK (CPK) 197 U/L (30-200); Calc. Creatinine Clearance 0 mL/min (70-130); Calcium 9.2 mg/dL (7.8-10.44); Carbon Dioxide 28 mmol/L (23-31); Chloride 96 mmol/L (98-107); Estimated GFR-MDRD 58; Globulin 2.9 g/dL (2.4-3.5); Glucose 175 mg/dL (80-115); Lipase 42 U/L (8-78); Potassium 3.8 mmol/L (3.5-5.1); Sodium 135 mmol/L (136-145)
[2017-10-25 23:06] LABS: CKMB 3.9 ng/mL (0-6.6); Troponin I 0.095 ng/mL (< 0.028)
== END 2017-10-26 00:17 | disposition home or self-care (01) ==
LOC: ERS 22:03
DX: Z87.891 Personal history of nicotine dependence; Z79.899 Other long term (current) drug therapy; Z86.73 Personal history of transient ischemic attack (TIA), and cerebral infarction without residual deficits; Z79.01 Long term (current) use of anticoagulants; I50.9 Heart failure, unspecified; I11.0 Hypertensive heart disease with heart failure
CPT/HCPCS: 71045; 80053; 80162; 82553; 83690; 84484; 85025; 85610; 85730; 93005

== ENCOUNTER 2017-11-05 16:53 | Observation (INO) | payer MEDICARE, BC ==
[2017-11-05 18:56] LABS: #Basophils 0.1 thou/uL (0.0-0.2); #Lymphocytes 1.3 thou/uL (1.20-3.40); #Monocytes 0.8 thou/uL (0.11-0.59); %Basophils 0.5 % (0.0-1.0); %Eosinophils 0.4 % (0.0-10.0); %Lymphocytes 11.6 % (21.0-51.0); %Monocytes 7.5 % (0.0-10.0); Mean Corpuscular HGB CONC 33.9 g/dL (32.0-36.0); Mean Corpuscular Hemoglobin 33.5 pg (27.0-31.0); Mean Corpuscular Volume 98.8 fl (80.0-94.0); Platelet Count 243 thou/uL (130-400); RBC Distribution Width 13.5 % (11.5-14.5); Red Blood Cell (RBC) Count 4.17 mill/uL (4.70-6.10); White Blood Cell (WBC) Count 11.2 thou/uL (4.8-10.8)
[2017-11-05 19:04] LABS: INR-International Normal Ratio 1.8
[2017-11-05 19:15] LABS: ALT (SGPT) 22 U/L (8-55); AST (SGOT) 23 U/L (5-34); Albumin 4.1 g/dL (3.4-4.8); Alkaline Phosphatase 35 U/L (40-150); Anion Gap 14 mmol/L (10-20); BUN (Urea Nitrogen) 20 mg/dL (8.4-25.7); Bilirubin, Total 0.8 mg/dL (0.2-1.2); CK (CPK) 64 U/L (30-200); Calc. Creatinine Clearance 0 mL/min (70-130); Calcium 9.4 mg/dL (7.8-10.44); Carbon Dioxide 28 mmol/L (23-31); Chloride 94 mmol/L (98-107); Estimated GFR-MDRD 81; Globulin 2.8 g/dL (2.4-3.5); Glucose 137 mg/dL (80-115); Lipase 30 U/L (8-78); Magnesium 2.3 mg/dL (1.6-2.6); Protein, Total 6.9 g/dL (5.8-8.1); Sodium 132 mmol/L (136-145)
[2017-11-05 19:19] LABS: Troponin I 0.063 ng/mL (< 0.028)
[2017-11-05 20:36] LABS: Bilirubin Negative (Negative); Blood, Urine Negative (Negative); Clarity CLEAR (Clear); Glucose, Urine (Dipstick) Negative (Negative); Leukocyte Negative (Negative); Nitrite Negative (Negative); Protein, Urine (Dipstick) Negative (Neg-Trace); Specific Gravity, Urine 1.002 (1.002-1.036); Urobilinogen 0.2 mg/dL (0.2-1.0); pH, Urine 7.5 (5.0-9.0)
--- NOTE | 2017-11-05 21:02 | RAD ---
SINGLE VIEW CHEST: INDICATIONS: Elevated blood pressure. Epigastric abdominal pain. COMPARISON: 10/25/2017 FINDINGS: There is stable moderate cardiomegaly. The calcification involving the left ventricle appears stable . Midline sternotomy changes are stable. AICD is unchanged. The pulmonary vasculature is within no rmal limits. No focal consolidation, pleural effusion, or pneumothorax is evident. No acute osseous abnormality is evident. IMPRESSION: 1. Stable cardiomegaly without evidence of cardiac decompensation. 2. Stable calcification involving the left ventricle. POS: [facility]
[2017-11-05 23:18] LABS: Troponin I 0.068 ng/mL (< 0.028)
[2017-11-05] MEDS ORDERED: Polyethylene Glycol 3350 17 GM Packet PO PRN (23:25)
[2017-11-05] MEDS ORDERED: Warfarin Sodium 7.5 MG TAB PO SCH (23:30)
[2017-11-05] MEDS ORDERED: Lorazepam 0.5 MG TAB PO SCH (23:30)
[2017-11-05] MEDS ORDERED: Clopidogrel Bisulfate 75 MG TAB PO SCH (23:30)
[2017-11-05 23:52] VITALS: BMI 24.0
[2017-11-06] MEDS ORDERED: Ondansetron HCl/PF 4 MG/2 ML Vial IVP PRN (00:02)
[2017-11-06] MEDS ORDERED: Acetaminophen 325 MG TAB PO PRN ×2 (00:02→05:42)
[2017-11-06] MEDS ORDERED: Ondansetron ODT 4 MG TAB SL PRN (00:02)
[2017-11-06 02:29] LABS: Troponin I 0.072 ng/mL (< 0.028)
[2017-11-06] MEDS ORDERED: Dextrose 50% Abboject 50 ML SYRINGE SLOW IVP PRN (05:42)
[2017-11-06] MEDS ORDERED: Nitroglycerin 0.4 MG TAB (25 Tab Bottle) PO PRN (05:42)
[2017-11-06] MEDS ORDERED: Calcium Carbonate 500 MG ChewTAB PO PRN (05:42)
[2017-11-06] MEDS ORDERED: Dextrose 5% in Water 1,000 ML IV PRN (05:42)
[2017-11-06] MEDS ORDERED: Senokot 8.6 MG TAB PO PRN (05:42)
[2017-11-06] MEDS ORDERED: Mag-Al 1200 mg/1200 mg/30 ML UDCUP PO PRN (05:42)
[2017-11-06] MEDS ORDERED: Insulin Regular 300 UNITS/3 ML VIAL SC PRN ×2 (05:42)
[2017-11-06] MEDS ORDERED: Milk Of Magnesia 30 ML UDCUP PO PRN (05:42)
[2017-11-06] MEDS ORDERED: traMADol HCl 50 MG TAB PO PRN (05:46)
--- NOTE | 2017-11-06 06:22 | HP ---
DATE OF ADMISSION: 11/05/2017 The patient was seen and examined on 11/05/2017. CHIEF COMPLAINT: Chest discomfort. HISTORY OF PRESENT ILLNESS: Patient is a 72-year-old male with coronary artery disease, status post stent and CABG; chronic systolic heart failure, ejection fraction 30% range, status post AICD; hypert ension; diabetes mellitus type 2; and dyslipidemia, who presented to the emergency room with chest di scomfort since this morning. The chest discomfort was mainly localized in the epigastric region radi ating towards the precordial area. It was more or less constant without any aggravating or relieving factor. He also noticed that his blood pressure was high and he took 2 sublingual nitroglycerin wit h improvement in his symptoms. He denies any palpitations or syncope. No recent immobilization, tra win, fever, chills, heartburn reported. He was recently diagnosed with H. pylori and was unable to t olerate the treatment after 9 days. In the emergency room, initial vital signs showed temperature 97.5, respiration of 10, pulse rate of 97 with blood pressure of 117/75 with O2 saturation 95% on room air. His EKG showed paced rhythm. H e received 1 liter IV fluid in the emergency room due to blood pressure in the lower range. PAST MEDICAL HISTORY: 1. Chronic systolic heart failure, ejection fraction 30% range, status post AICD. 2. Coronary artery disease, status post stent placement and CABG. 3. Carotid artery stenosis, status post recent stent placement. 4. History of CVA without significant residual deficit. 5. Hypertension. 6. Hyperlipidemia. 7. Diabetes mellitus type 2. 8. Paroxysmal atrial fibrillation, on anticoagulation. PAST SURGICAL HISTORY: 1. AICD placement. 2. Appendectomy. 3. Cholecystectomy. ALLERGIES: No known drug allergies. CURRENT HOME MEDICATIONS: Family to get accurate list of medication. He is unable to recall all of his medications. SOCIAL HISTORY: Patient currently lives at home. He has quit smoking in 1984. No alcohol or drug u se. He makes his own decisions with the help of his family. He is FULL CODE. FAMILY HISTORY: Heart disease runs in his family. REVIEW OF SYSTEMS: The following complete review of systems was negative, unless otherwise mentioned in the HPI or below: Constitutional: Weight loss or gain, ability to conduct usual activities. Sk in: Rash, itching. Eyes: Double vision, pain. ENT/Mouth: Nose bleeding, neck stiffness, pain, te nderness. Cardiovascular: Palpitations, dyspnea on exertion, orthopnea. Respiratory: Shortness of breath, wheezing, cough, hemoptysis, fever or night sweats. Gastrointestinal: Poor appetite, abdom inal pain, heartburn, nausea, vomiting, constipation, or diarrhea. Genitourinary: Urgency, frequenc y, dysuria, nocturia. Musculoskeletal: Pain, swelling. Neurologic/Psychiatric: Anxiety, depressio n. Allergy/Immunologic: Skin rash, bleeding tendency. PHYSICAL EXAMINATION: VITAL SIGNS: In the emergency room showed temperature 97.5, respiration of 18, pulse rate of 97, blo od pressure 117/75 with O2 saturation 95% on room air. GENERAL: A 72-year-old male in no apparent distress, chest discomfort improved after nitroglycerin. HEENT: Head atraumatic, normocephalic. Sclerae are anicteric. Moist mucous membrane. No oral lesi on. NECK: Supple. No JVD appreciated. No carotid bruit. LUNGS: Clear to auscultation bilaterally. No wheezing or rales. HEART: S1, S2 present. Regular rate and rhythm. 2/6 systolic murmur over the mitral area. No heav es or pulsation. Healed midline scar from previous CABG. ABDOMEN: Soft, nontender, bowel sounds present. EXTREMITIES: No edema or calf tenderness. NEUROLOGIC: Grossly nonfocal. Moves all four extremities. PSYCHIATRY: Alert, awake, oriented x3. SKIN: Warm and dry. LYMPH NODES: No palpable lymph nodes in the neck. PERIPHERAL VASCULAR: Radial pulses palpable bilaterally. MUSCULOSKELETAL: No joint swelling or tenderness. LABORATORY FINDINGS: CBC showed WBC 11.2 with hemoglobin 14, hematocrit 41.2, platelet 243. INR was 1.8. Chemistries showed sodium 132, potassium 4, chloride 94, bicarbonate 28, BUN 20, creatinine 0. 92. BNP was 346. Troponin 0.068. Urinalysis was negative. Chest x-ray by my review showed cardiom egaly. EKG by my review as discussed above. IMPRESSION: 1. Atypical chest pain, improved after nitroglycerin. 2. Elevated troponins, probably secondary to demand ischemia. Please note that patient has chronica lly elevated troponins. 3. Recent diagnosis of H. pylori at [place] [facility] [place]. Patient was unable to tolerate the treatment a fter 9 days. 4. Mild hyponatremia, probably secondary to diuretics. 5. Chronic systolic heart failure, ejection fraction 30% range, status post automated implantable ca rdioverter defibrillator. 6. Paroxysmal atrial fibrillation on anticoagulation. INR is therapeutic. 7. Coronary artery disease, status post coronary artery bypass graft and stent placement. 8. Hypertension. 9. Hyperlipidemia. 10. Diabetes mellitus type 2. 11. Former smoker. 12. Positive family history. PLAN: The patient will be monitored on the telemetry unit as observation. Serial troponins will be obtained. We will continue Plavix with Coumadin. His echocardiogram last year showed ejection fract ion 20-25% range. We will resume his home medications once confirmed. He was advised to follow up w [facility] at [facility] after discharge. Plan of care was discussed with the patient in detail, he stated understanding.
[2017-11-06 07:13] LABS: INR-International Normal Ratio 1.9; Prothrombin Time 21.9 SEC (12.0-14.7)
[2017-11-06 07:24] LABS: Troponin I 0.084 ng/mL (< 0.028)
[2017-11-06] MEDS ORDERED: Spironolactone/Hctz 25 MG/25 MG TABLET PO SCH (09:00)
[2017-11-06] MEDS ORDERED: Carvedilol 3.125 MG TAB PO SCH (09:00)
--- NOTE | 2017-11-06 09:35 | PDOC.PN ---
- Subjective Encounter Start Date: 11/06/17 Encounter Start Time: 09:33 Subjective: patient gets sob with exertion, feels like BP, takes NTG and gets faint - Objective Resuscitation Status: Resuscitation Status FULL:Full Resuscitation MAR Reviewed: Yes Vital Signs & Weight: Vital Signs (12 hours) Temp Pulse Resp BP Pulse Ox 11/06/17 07:50 98.4 F 76 16 11/06/17 07:46 98.4 F 76 16 93/60 97 11/06/17 03:38 75 16 100/59 L 95 11/05/17 23:49 98.5 F 75 22 H 100/57 L 96 Weight Weight 153 lb 6.4 oz I&O: 11/05/17 11/06/17 11/07/17 06:59 06:59 06:59 Intake Total 100 Output Total 400 Balance -300 Result Diagrams: 11/05/17 18:44 11/05/17 18:25 Additional Labs: Accuchecks 11/06/17 11/06/17 06:09 00:00 POC Glucose 96 161 H Phys Exam - Physical Examination Neck: no JVD Respiratory: clear to auscultation bilateral Cardiovascular: no significant murmur, irregular Gastrointestinal: soft, non-tender, positive bowel sounds Musculoskeletal: no edema Dx/Plan (1) Demand ischemia Code(s): I24.8 - OTHER FORMS OF ACUTE ISCHEMIC HEART DISEASE Status: Chronic (2) Atrial fibrillation Code(s): I48.91 - UNSPECIFIED ATRIAL FIBRILLATION Status: Chronic Qualifiers: Atrial fibrillation type: chronic Qualified Code(s): I48.2 - Chronic atrial fibrillation (3) CAD (coronary artery disease) Code(s): I25.10 - ATHSCL HEART DISEASE OF [place] CORONARY ARTERY W/O ANG PCTRS Status: Chronic Qualifiers: Coronary Disease-Associated Artery/Lesion type: [place] artery [place] vs. transplanted heart: [place] heart Associated angina: without angina Qualified Code(s): I25.10 - Atherosclerotic heart disease of [place] coronary artery without angina pectoris (4) Chronic anticoagulation Code(s): Z79.01 - HALF-WAY (CURRENT) USE OF ANTICOAGULANTS Status: Chronic (5) DM type 2 (diabetes mellitus, type 2) Status: Chronic Qualifiers: Diabetes mellitus complication status: without complication (6) Dyslipidemia Code(s): E78.5 - HYPERLIPIDEMIA, UNSPECIFIED Status: Chronic (7) Hypertension Code(s): I10 - ESSENTIAL (PRIMARY) HYPERTENSION Status: Chronic (8) Ischemic cardiomyopathy Code(s): I25.5 - ISCHEMIC CARDIOMYOPATHY Status: Chronic - Plan suspect patient taking NTG for symptomatic, AF WITH RVR -: cont home meds, consult cardiology * .
[2017-11-06] MEDS: Docusate 100 MG CAP PO SCH ×2 (10:21→20:21)
[2017-11-06] MEDS: Sacubitril 24.5 MG/Valsartan 25.5 MG TABLET PO SCH ×2 (10:23→11:40)
[2017-11-06] MEDS ORDERED: Hydrochlorothiazide 25 MG TAB PO SCH (11:45)
[2017-11-06] MEDS ORDERED: Spironolactone 25 MG TAB PO SCH (11:45)
[2017-11-06] MEDS: Torsemide 10 MG TAB PO SCH (12:58)
--- NOTE | 2017-11-06 16:10 | CON ---
DATE OF CONSULTATION: 11/06/2017 HISTORY OF PRESENT ILLNESS: The patient is a pleasant 72-year-old gentleman with a history of ischemic cardiomyopathy who presents after developing abdominal and chest discomfort. The patient has a long history of coronary artery disease. In March of last year, he also had several stents placed. The patient has been admitted on several occasions with chest discomfort and dyspnea. He states that yesterday he noted that his blood pressure was elevated. He developed midsternal chest discomfort and epigastric discomfort. He took a nitroglycerin. After taking nitroglycerin, his chest pain resolved and returned later in the day. He eventually came to the emergency room for further evaluation. The patient notes when his blood pressure is elevated, he develops discomfort. PAST MEDICAL HISTORY: 1. Coronary artery disease. 2. Cardiomyopathy. 3. Hypertension. 4. Cerebrovascular accident. 5. Diabetes mellitus. 6. Hypertension. 7. Hyperlipidemia. 8. Paroxysmal atrial fibrillation. PAST SURGICAL HISTORY: Cholecystectomy. MEDICATIONS: See nursing list. ALLERGIES: None. SOCIAL HISTORY: Former smoker. FAMILY HISTORY: Strong family history of heart disease. REVIEW OF SYSTEMS: Unremarkable. No history of bright red blood per rectum, hematuria. PHYSICAL EXAMINATION: GENERAL: Well-developed gentleman in no acute distress. VITAL SIGNS: Blood pressure 109/66. NECK: No jugular distention, no carotid bruits. LUNGS: Clear to auscultation. HEART: Regular rate and rhythm, normal S1 and S2. ABDOMEN: Distended. EXTREMITIES: Show trace edema. VASCULAR: Radial pulses are 2+. NEUROLOGIC: Examination is nonfocal. LABORATORY DATA AND IMAGING DATA: White blood cell count 11.2, hemoglobin 14.0 , hematocrit 41.2, his platelets are 243. Sodium is 132, potassium 4.0, chloride 94, bicarbonate 28, BUN 20, creatinine 0.92, glucose 137, troponin was 0.68. His EKG revealed dual chamber electronic pacemaker. IMPRESSION: 1. Chest pain/abdominal discomfort. 2. Hypertension. 3. History of atrial flutter. 4. History of coronary bypass surgery. 5. History of automated implantable cardioverter-defibrillator placement. 6. History of paroxysmal atrial fibrillation. 7. History of cerebrovascular accident. 8. Diabetes mellitus. 9. Hypertension. This gentleman presents with chest and abdominal discomfort. He states that whenever his blood pressure is high, he develops discomfort. He uses nitro to lower his blood pressure. He also has difficulty with hypotension. From a cardiac standpoint, I would recommend that he spread his medication now throughout the day while slowly increase the dosing and monitoring it several times throughout the day. We will change his medications to four times daily. We will monitor his blood pressure through his hospitalization. OLYA
[2017-11-06] MEDS ORDERED: Warfarin Sodium 5 MG TAB PO SCH ×2 (17:00)
--- NOTE | 2017-11-06 17:09 | PDOC.EVN ---
Event Note - Event Note Event Note: now complains of abd pain x 24hrs.mild RUQ tenderness. order abd US
[2017-11-06] MEDS: Carvedilol 6.25 MG TAB PO SCH (20:21)
--- NOTE | 2017-11-06 20:46 | ULT ---
COMPLETE ABDOMINAL ULTRASOUND: 11/06/17 INDICATION: Abdominal pain. FINDINGS: Overlying bowel gas heavily limits image detail. Visualized aspects of the proximal abdominal aorta appear within normal limits. IVC was normal appear ing. There is diffuse increased echogenicity of the liver. The spleen measures 8.8 cm. The gallbladder was normal appearing. No sonographic Infante's sign was reported. The common bile duct measures 4 mm. The pancreas is obscured by overlying bowel gas. The right kidney measures 10.2 x 4.6 x 5 cm. The left kidney measures 10.9 x 4.7 x 5.3 cm. No focal r enal lesion or hydronephrosis is evident. IMPRESSION: 1. Fatty liver. 2. Limitation to the examination due to overlying bowel gas. POS: [facility]
[2017-11-06] MEDS ORDERED: Rosuvastatin 20 MG TAB PO SCH (21:00)
[2017-11-06] MEDS ORDERED: Clopidogrel Bisulfate 75 MG TAB PO SCH (21:00)
[2017-11-06] MEDS ORDERED: Lorazepam 1 MG TAB PO SCH (22:15)
[2017-11-07] MEDS: Sacubitril 24.5 MG/Valsartan 25.5 MG TABLET PO SCH ×2 (00:17→12:11)
[2017-11-07] MEDS ORDERED: Lorazepam 0.5 MG TAB PO SCH (00:30)
[2017-11-07 04:52] LABS: INR-International Normal Ratio 1.9; Prothrombin Time 22.3 SEC (12.0-14.7)
[2017-11-07 04:57] LABS: Anion Gap 14 mmol/L (10-20); BUN (Urea Nitrogen) 14 mg/dL (8.4-25.7); Calc. Creatinine Clearance 74 mL/min (70-130); Calcium 9.4 mg/dL (7.8-10.44); Carbon Dioxide 31 mmol/L (23-31); Chloride 92 mmol/L (98-107); Estimated GFR-MDRD 81; Glucose 103 mg/dL (80-115); Potassium 3.3 mmol/L (3.5-5.1); Sodium 134 mmol/L (136-145)
[2017-11-07] MEDS: Carvedilol 6.25 MG TAB PO SCH (06:37)
[2017-11-07] MEDS ORDERED: Spironolactone 25 MG TAB PO SCH ×2 (08:00)
[2017-11-07] MEDS ORDERED: Hydrochlorothiazide 25 MG TAB PO SCH (08:00)
[2017-11-07] MEDS: Torsemide 10 MG TAB PO SCH (09:05)
[2017-11-07] MEDS: Docusate 100 MG CAP PO SCH (09:05)
[2017-11-07 10:17] LABS: Platelet Count 243 thou/uL (130-400)
[2017-11-07 11:45] VITALS: TEMP 97.5
[2017-11-07] MEDS ORDERED: Saccharomyces boulardii 250 MG CAP PO SCH (12:45)
[2017-11-07 13:26] VITALS: BP 123/83
--- NOTE | 2017-11-07 14:19 | DIS ---
DATE OF ADMISSION: 11/05/2017 DATE OF DISCHARGE: 11/07/2017 DISCHARGE DIAGNOSES: 1. Chest pain, atypical, noncardiac. 2. Elevated troponin I secondary to demand ischemia, chronic. 3. Chronic hyponatremia. 4. Chronic systolic congestive heart failure with ejection fraction of 30%, compensated. 5. Paroxysmal atrial fibrillation, on chronic anticoagulation. 6. Coronary artery disease, chronic and stable. 7. Abdominal pain, questionable etiology. CONSULTATION: Dr. Burden with Cardiology Service. PERTINENT LABORATORY AND X-RAY FINDINGS: Sodium 132, creatinine 0.92, magnesium is 2.3. LFTs within normal limits. Troponin I ranged between 0.063-0.084. BNP 346, previously noted 352 on 10/02/2017. Lipase is 30. CBC showed a white blood cell count 11.2, hemoglobin 15, hematocrit 44, and platelet count 243. PT 22.3, INR 1.9. Portable chest x-ray dated 11/05/2017 showed no acute cardiopulmonary process. Abdominal ultrasound dated 11/06/2017 showed fatty liver changes. No acute process identi fied. HOSPITAL COURSE: The patient was observed on the telemetry unit after initially presenting with ches t pain in the context of known coronary artery disease and chronic systolic congestive heart failure. The patient underwent serial troponin I showing chronic elevation without evidence of acute process and consistent with demand ischemia, which is chronic. The patient was evaluated by the Cardiology Service without recommendations for an acute intervention. The patient was continued on his home med ication regimen to include Plavix 75 mg daily. The patient did complain of dizziness and some genera lized weakness, undergoing extensive evaluation metabolically and radiographically without specific e tiology identified. The patient underwent interrogation of his AICD device showing normal functionin g mechanism and chronic atrial fibrillation. Vital signs remained stable throughout the hospital cou rse and the patient was able to tolerate regular p.o. intake. I have examined the patient at the mj e of discharge and discussed laboratory findings, radiological studies and answer all questions regar ding disposition and discharge planning. The patient verbalizes understanding and ready for discharg e on 11/07/2017. DISCHARGE MEDICATIONS: 1. Carvedilol 3.125 mg p.o. b.i.d. 2. Vitamin D3 of 2000 units p.o. daily. 3. Plavix 75 mg 1 tablet p.o. daily. 4. Digoxin 0.125 mg p.o. at bedtime. 5. Trulicity 0.75 mg subcutaneously every 7 days. 6. Glyburide 7.5 mg p.o. daily. 7. Ativan 1 mg p.o. at bedtime p.r.n. 8. Protonix 40 mg 1 tablet p.o. daily. 9. Crestor 40 mg p.o. at bedtime. 10. Florastor 250 mg p.o. daily. 11. Entresto 24/26 mg half a tablet p.o. b.i.d. 12. Aldactazide 25/25 mg 1 tablet p.o. daily. 13. Demadex 20 mg p.o. daily. 14. Tramadol 50 mg p.o. q.6 hours p.r.n. 15. Coumadin 2 mg p.o. daily. FOLLOWUP: The patient is to follow up with Dr. Jaime at [facility] and to call his office for appointment time and date. The patient will follow up with the Heart Failure Clinic at [facility]. The patient will follow up with the Coumadin Clinic for INR monitoring. CONDITION ON DISCHARGE: Stable. ACTIVITY: Ad evelia. DIET: Heart healthy and ADA. CODE STATUS: FULL. DISPOSITION: Home on 11/07/2017.
[2017-11-07] MEDS ORDERED: Warfarin Sodium 7.5 MG TAB PO SCH (17:00)
== END 2017-11-07 14:39 | disposition home or self-care (01) ==
LOC: ERS 16:53 → 2SW 22:31
PROVIDERS: ADMIT Internal Medicine; ATTEND Internal Medicine
DX: R07.89 Other chest pain (principal); I24.8 Other forms of acute ischemic heart disease; E87.1 Hypo-osmolality and hyponatremia; I11.0 Hypertensive heart disease with heart failure; I50.22 Chronic systolic (congestive) heart failure; I48.0 Paroxysmal atrial fibrillation; I25.10 Atherosclerotic heart disease of native coronary artery without angina pectoris; R10.9 Unspecified abdominal pain; E78.5 Hyperlipidemia, unspecified; B96.81 Helicobacter pylori [H. pylori] as the cause of diseases classified elsewhere; I48.92 Unspecified atrial flutter; Z79.84 Long term (current) use of oral hypoglycemic drugs; Z79.02 Long term (current) use of antithrombotics/antiplatelets; Z79.01 Long term (current) use of anticoagulants; Z79.899 Other long term (current) drug therapy; Z95.1 Presence of aortocoronary bypass graft; Z95.5 Presence of coronary angioplasty implant and graft; Z95.810 Presence of automatic (implantable) cardiac defibrillator; Z90.49 Acquired absence of other specified parts of digestive tract; Z86.73 Personal history of transient ischemic attack (TIA), and cerebral infarction without residual deficits; Z87.891 Personal history of nicotine dependence
CPT/HCPCS: 71045; 76700; 80048; 80053; 81003; 82550; 82553; 82962 ×3; 83690; 83735; 83880; 84484 ×4; 85014; 85018; 85025; 85049; 85610 ×3; 93005; 94760; 96360; 96361; 97139; 99285; G0378; 36415; 36416

== ENCOUNTER 2018-11-27 01:14 | Inpatient (IN) | payer MEDICARE, BC ==
[2018-11-27] MEDS ORDERED: methylPREDNISolone Sod Succ/PF 125 MG/2 ML VIAL ONE (01:18)
[2018-11-27] MEDS ORDERED: Furosemide 40 MG/4 ML VIAL ONE (01:21)
[2018-11-27 01:38] LABS: Actual Bicarbonate (HCO3a) 20.9 mEq/L (22-28); Analyzer IN Cardio ER; Base Excess (BEa) -8.1 mEq/L (-2.0 to +3.0); CO2 Tension 55.7 mmHg (35.0-45.0); Calcium, Ionized 1.08 mmol/L (1.12-1.30); Carboxyhemoglobin (COHb) 0.2 gm% (0.0-3.0); Hemoglobin (Hb) 17.9 g/dL (14.0-18.0); O2 Tension (PaO2) 76.1 mmHg (> 70.0); Potassium - ABG Lab 4.74 mmol/L (3.70-5.30)
[2018-11-27 01:39] LABS: pH, Arterial 7.19 (7.35-7.45)
[2018-11-27 01:40] LABS: ALV-art Gradient 210.775 (0-20)
[2018-11-27 01:56] LABS: Hemoglobin 17.1 g/dL (14.0-18.0); Mean Corpuscular HGB CONC 32.8 g/dL (32.0-36.0); Mean Corpuscular Hemoglobin 34.4 pg (27.0-31.0); Mean Platelet Volume 9.8 fL (7.4-10.4); Platelet Count 155 thou/uL (130-400); RBC Distribution Width 12.8 % (11.5-14.5); Red Blood Cell (RBC) Count 4.96 mill/uL (4.70-6.10); White Blood Cell (WBC) Count 14.3 thou/uL (4.8-10.8)
[2018-11-27 02:13] LABS: ALT (SGPT) 36 U/L (8-55); AST (SGOT) 53 U/L (5-34); Albumin 4.4 g/dL (3.4-4.8); Alkaline Phosphatase 85 U/L (40-150); Anion Gap 24 mmol/L (10-20); BUN (Urea Nitrogen) 26 mg/dL (8.4-25.7); Bilirubin, Total 0.8 mg/dL (0.2-1.2); Calc. Creatinine Clearance 0 mL/min (70-130); Calcium 9.6 mg/dL (7.8-10.44); Carbon Dioxide 23 mmol/L (23-31); Chloride 90 mmol/L (98-107); Estimated GFR-MDRD 33; Globulin 3.5 g/dL (2.4-3.5); Glucose 339 mg/dL (83-110); Potassium 4.5 mmol/L (3.5-5.1); Protein, Total 7.9 g/dL (5.8-8.1); Sodium 132 mmol/L (136-145)
[2018-11-27] MEDS ORDERED: Nitroglycerin 50 MG/250 ML BOT 250 ML ONE (02:14)
[2018-11-27 02:16] LABS: #Basophils 0.1 thou/uL (0.0-0.2); #Eosinphils 0.2 thou/uL (0.0-0.7); #Lymphocytes 4.8 thou/uL (1.20-3.40); #Monocytes 1.2 thou/uL (0.11-0.59); #Neutrophils 8.1 thou/uL (1.40-6.50); %Basophils 0.5 % (0.0-1.0); %Eosinophils 1.4 % (0.0-10.0); %Lymphocytes 33.4 % (21.0-51.0); %Monocytes 8.5 % (0.0-10.0); %Neutrophils 56.2 % (42.0-75.0); MDiff Complete? YES; Macrocytosis SLIGHT = 6-15 cells (100X) (0-5/hpf); Platelet Morphology Comment Appears Adequate
[2018-11-27] MEDS ORDERED: Lidocaine Viscous Sol 2% 15 ml UD Cup ONE (02:27)
[2018-11-27 02:35] LABS: CKMB 2.5 ng/mL (0-6.6)
[2018-11-27 02:48] LABS: INR-International Normal Ratio 2.3; PTT 35.1 SEC (22.9-36.1); Prothrombin Time 24.9 SEC (12.0-14.7)
[2018-11-27] MEDS ORDERED: Ondansetron PF 4 MG/2 ML Vial IVP PRN (02:59)
[2018-11-27] MEDS ORDERED: Ondansetron ODT 4 MG TAB PO PRN (02:59)
[2018-11-27] MEDS ORDERED: cefTRIAXone\\ROCEPHIN 1 GM VIAL ONE (03:16)
[2018-11-27] MEDS ORDERED: Dextrose 5% in Water 1,000 ML IV PRN ×2 (03:48→15:32)
[2018-11-27] MEDS ORDERED: HumaLOG 300 UNITS/3 ML VIAL SC PRN (03:48)
[2018-11-27] MEDS ORDERED: Dextrose 50% Abboject 50 ML SYRINGE SLOW IVP PRN ×2 (03:48→15:32)
[2018-11-27 04:51] VITALS: BMI 24.5
--- NOTE | 2018-11-27 04:51 | HP ---
PRIMARY CARE PHYSICIAN: The patient goes to [facility]. CODE STATUS: Full code. TIME OF EVALUATION: 3:00 a.m. CHIEF COMPLAINT: Shortness of breath. HISTORY OF PRESENT ILLNESS: This is a 73-year-old male patient with past medical history of CVA, congestive heart failure, diabetes, hyperlipidemia, hypertension , came to the hospital after having severe gradually worsening shortness of breath , symptoms started suddenly when the patient was ready to go to sleep. Prior to the symptoms onset, he was asymptomatic. The saturation dropped to the 70s. He received some nitroglycerins and DuoNebs and the patient did not improve. He was brought in and found to be hypertensive, placed on nitroglycerin drip and BiPAP. Chest x-ray show flash pulmonary edema. The patient is getting better now. Symptoms are severe. REVIEW OF SYSTEMS: CONSTITUTIONAL: No fever, chills, or generalized weakness. RESPIRATORY: The patient has cough, sputum production that is whitish, shortness of breath. CARDIOVASCULAR: No chest pain, or palpitation. GASTROINTESTINAL: No nausea, vomiting, diarrhea, or abdominal pain. SOFTWARE DESIGN ENGINEER: No dizziness, headache, or feeling lightheaded. GENITOURINARY: No burning on urination. EXTREMITIES: Bilateral leg swelling. All other systems were reviewed and negative except for the findings mentioned above. PAST MEDICAL HISTORY: As mentioned in HPI. PAST SURGICAL HISTORY: CABG, 2 vessels, pacemaker, varicose vein surgery. PSYCHIATRIC HISTORY: No previous psychiatric history. FAMILY HISTORY: Reviewed and noncontributory for current presentation. SOCIAL HISTORY: No alcohol, no drugs. No smoking history. The patient lives with his spouse. KNOWN ALLERGIES: No known drug allergies. REPORTED MEDICATIONS: 1. Calcium. 2. Carvedilol. 3. Digoxin. 4. Trulicity. 5. Eplerenone. 6. Famotidine. 7. Glyburide. 8. Hydrochlorothiazide. 9. Isosorbide mononitrate. 10. Lorazepam. 11. Nitroglycerin. 12. Pantoprazole. 13. MiraLAX. 14. Potassium chloride. 15. Ranexa. 16. Crestor. 17. Florastor. 18. Torsemide. 19. Tramadol. 20. Warfarin. PHYSICAL EXAMINATION: VITAL SIGNS: On presentation, the patient had a blood pressure of 150/107, heart rate 89, respiratory rate was 33, oxygen saturation was 93% on BiPAP. GENERAL APPEARANCE: The patient is alert, oriented, mild respiratory distress. HEENT: Eyes, normal conjunctivae. Moist oral mucosa. Anicteric. Bilateral JVD. RESPIRATORY: The patient has bilateral air entry. Has decreased bilateral rales and wheezing and rhonchi. Symmetric expansion. The patient is on BiPAP. CARDIOVASCULAR: The patient is tachycardic. Regular rhythm. No murmurs. No gallop. Bilateral leg edema. ABDOMEN: Soft. Normal bowel sounds. MUSCULOSKELETAL: Baseline range of motion and strength. No tenderness. SKIN: Warm, intact. No pallor. No rash. No redness. Peripheral pulses are present. Capillary refill seems to be intact. NEUROLOGIC: No evidence of any new focal weakness. Baseline speech. Cranial nerves seems to be intact. PSYCHIATRIC: The patient is in good mood. No anxiety. Optimal judgment. IMAGING STUDIES: EKG shows sinus tachycardia with a paced rhythm, some PVCs. Chest x-ray was reviewed. The official report is pending. The patient had AICD and pacemaker in place. The patient has a sternotomy. The patient has bilateral pulmonary edema, some air distention in the stomach and NG tube in the right side. LABORATORY DATA: Labs were reviewed. White count 14.3, hemoglobin 17.1, MCV 105, platelet count 155. Coagulation; PT 24.9, INR 2.3, PTT 35.1, D-dimer 2.22. Blood gas; pH 7.19, pCO2 55.7, PO2 76.1. Chemistry; sodium 132, potassium 4.5, chloride 90, carbon dioxide 23, anion gap 24, BUN 26, creatinine 1.99, GFR 33, glucose 339, lactic acid 6.9, calcium 9.6, total bilirubin 0.8, AST 53, ALT 36, alkaline phosphatase 85. Troponin 0.121. Beta-natriuretic peptide . ASSESSMENT AND PLAN: The patient will be placed in the hospital with following medical problems: 1. Flash pulmonary edema. The patient is in BiPAP due to acute hypoxic respiratory failure. We will continue for now. The patient is improving. The patient is also being treated with nitroglycerin drip. Blood pressure is in the normal range right now, mildly tachycardic, we will continue diuresis, reconcile home medications once updated. 2. Acute hypoxic respiratory failure secondary to flash pulmonary edema. Treatment as above. 3. Severe acute respiratory acidosis with pH 7.19 and pCO2 55.7. The patient is clinically improving. We will monitor and place in ICU and consult Pulmonary. 4. Hyponatremia of 132. This is likely dilutional due to underlying congestive heart failure, the patient receiving diuresis. This can be monitored and treatment to be adjusted as per the patient's clinical response. 5. Acute kidney injury. The patient has creatinine 1.99, previous creatinine was 0.92. The patient is likely cardiorenal and the patient is receiving diuresis. We will monitor kidney function, adjust as needed. If not improving, might need Nephrology transition assistant with the patient. 6. Uncontrolled diabetes. The patient's glucose is 339. We will place the patient on sliding scale. 7. Lactic acidosis. Lactic acid 6.9 is likely secondary to hypoxia due to congestive heart failure. We will treat underlying condition. 8. Vow-[id number] myocardial infarction likely type 2. The patient has troponin 0.121. We will trend troponins, we will treat accordingly. Cardiology consultation. 9. Hyperlipidemia. Low-cholesterol diet is advised. Reconcile home medications. 10. Hypertensive emergency. The patient presented with hypertension and flash pulmonary edema needing nitroglycerin drip for control of the blood pressure, we will place him in ICU and nitroglycerin drip. We will monitor. Medications to be adjusted when the patient is well controlled. Job ID: [id number] MTDD
[2018-11-27] MEDS: cefTRIAXone\\ROCEPHIN 1 GM in Sodium Chloride 0.9% 100 ML IVPB SCH (06:01)
[2018-11-27 06:08] LABS: Lactic Acid 2.9 mmol/L (0.5-2.2)
[2018-11-27 06:24] LABS: Troponin I 0.256 ng/mL (< 0.028)
--- NOTE | 2018-11-27 06:24 | ULT ---
VENOUS DOPPLER ULTRASOUND OF BILATERAL LOWER EXTREMITIES: INDICATIONS: Bilateral lower extremity pain and swelling with dyspnea and elevated D-dimer. TECHNIQUE: Gonsalves-scale, color Doppler, and vascular duplex with spectral analysis was performed of the deep venou s structures of both lower extremities. The common femoral vein, superficial femoral vein, popliteal vein, posterior tibial vein, proximal greater saphenous, and proximal profunda veins were assessed bi laterally. FINDINGS: There is normal compression, flow, and augmentation seen within the deep venous structures of both lo wer extremities. IMPRESSION: No evidence of deep venous thrombosis in both lower extremities. POS: BH
--- NOTE | 2018-11-27 06:31 | RAD ---
CHEST ONE VIEW: INDICATIONS: Post NG tube placement. COMPARISON: Prior exam dated 11/27/2018. FINDINGS: Bilateral infrahilar opacities are stable. Calcification involving the left heart border is stable. Cardiomegaly is similar appearing. Pulmonary vascular congestion persists. AICD is unchanged. Mid line sternotomy change is similar appearing. Gastric catheter projects in the region of a gastric fu ndus. No pneumothorax is evident. Osseous structures are unchanged. IMPRESSION: 1. Largely stable examination. 2. Interval placement of gastric catheter with tip projecting in the region of the gastric fundus. POS: BH
[2018-11-27] MEDS: Furosemide 40 MG/4 ML VIAL SLOW IVP SCH ×2 (06:47→14:27)
--- NOTE | 2018-11-27 06:52 | RAD ---
CHEST ONE VIEW: INDICATIONS: Worsening dyspnea. COMPARISON: Prior exam dated 11/05/2017. FINDINGS: Calcification along the left heart border is stable. There is pulmonary vascular congestion with himanshu ateral perihilar opacity, suspicious for edema. There are small bilateral pleural effusions. No pne umothorax is evident. There is a multilead AICD overlying the left chest wall. There are midline st ernotomy changes. No acute osseous abnormality is evident. IMPRESSION: Findings suspicious for congestive heart failure. Pulmonary vascular congestion, cardiomegaly, and p erihilar air space opacity, suspicious for edema. Atypical infectious process inducing the perihilar infiltrates cannot be entirely excluded. POS: BH
[2018-11-27] MEDS ORDERED: Nitroglycerin 50 MG/250 ML BOT 250 ML IVPB SCH (08:00)
[2018-11-27] MEDS: Heparin 5,000 UNITS/ML VIAL SC SCH (08:13)
[2018-11-27 08:29] LABS: Troponin I 0.398 ng/mL (< 0.028)
[2018-11-27] MEDS ORDERED: Nitroglycerin 0.4 MG TAB (25 Tab Bottle) SL SCH (09:45)
[2018-11-27] MEDS ORDERED: Aspirin 81 mg Enteric Coated Tablet PO SCH (10:00)
[2018-11-27] MEDS: Digoxin 0.25 MG TAB PO SCH (10:42)
[2018-11-27] MEDS: Sacubitril 24.5 MG/Valsartan 25.5 MG TABLET PO SCH ×2 (10:42→21:12)
[2018-11-27 11:40] LABS: CKMB 5.1 ng/mL (0-6.6)
[2018-11-27] MEDS: Lorazepam 0.5 MG TAB PO PRN ×2 (12:16→21:13)
[2018-11-27] MEDS: Nitroglycerin 2% Ointment 1 INCH/1 GM Packet TOP SCH ×2 (14:26→21:13)
--- NOTE | 2018-11-27 15:17 | PDOC.PN ---
- Subjective Encounter Start Date: 11/27/18 Encounter Start Time: 15:15 Subjective: feels a little better.off of Bipap and hungry -: mild SOB w exertion.no chest pain -: at bedside and all Qs answered regarding home meds - Objective Resuscitation Status - Order Detail: 11/27/18 02:59 Resuscitation Status Routine Resuscitation Status: FULL: Full Resuscitation MAR Reviewed: Yes Vital Signs & Weight: Vital Signs (12 hours) Temp Pulse Pulse Ox 11/27/18 12:00 98.5 F 11/27/18 10:42 90 11/27/18 09:00 98.1 F 11/27/18 08:00 100 11/27/18 06:45 99 11/27/18 05:00 98.9 F 11/27/18 04:34 90 11/27/18 04:30 98 Weight Weight 156 lb 15.506 oz Most Recent Monitor Data Heart Rate from ECG 80 NIBP 95/57 NIBP BP-Mean 69 Respiration from ECG 20 SpO2 98 I&O: 11/26/18 11/27/18 11/28/18 06:59 06:59 06:59 Intake Total 290 Output Total 500 1100 Balance -500 -810 Result Diagrams: 11/27/18 01:36 11/27/18 01:36 Additional Labs: Accuchecks 11/27/18 11/27/18 11/27/18 12:03 11:02 05:27 POC Glucose 277 H 293 H 299 H Laboratory Tests 11/06/17 11/27/18 11/27/18 06:57 01:36 01:36 INR Lactic Acid 6.9 H* Troponin I 0.084 H 0.121 H 11/27/18 11/27/18 11/27/18 01:36 04:50 05:32 INR 2.3 Lactic Acid 2.9 H Troponin I 0.256 H 11/27/18 11/27/18 07:45 10:26 INR Lactic Acid Troponin I 0.398 H* 0.372 H* Phys Exam - Physical Examination Constitutional: NAD pale and tried looking HEENT: PERRLA, moist MMs, sclera anicteric, oral pharynx no lesions Neck: no nodes, no JVD, supple, full ROM Respiratory: no wheezing, no rales, no rhonchi, clear to auscultation bilateral Cardiovascular: RRR, no significant murmur Gastrointestinal: soft, non-tender, no distention, positive bowel sounds Musculoskeletal: no edema, pulses present Neurological: non-focal, normal sensation, moves all 4 limbs Psychiatric: normal affect, A&O x 3 Skin: no rash Dx/Plan (1) Acute respiratory failure with hypoxia and hypercapnia Code(s): J96.01 - ACUTE RESPIRATORY FAILURE WITH HYPOXIA; J96.02 - ACUTE RESPIRATORY FAILURE WITH HYPERCAPNIA Status: Acute Comment: Improving w BP control and fluid removal w diuresis. Due to flash pumonary edema. (2) Acute cardiac pulmonary edema Status: Acute Comment: cont lasix. strict I/Os. (3) Hypertensive urgency Code(s): I16.0 - HYPERTENSIVE URGENCY Status: Acute Comment: Stop NG drip and add TD NG paste.restart Ranexa,Entresto.Restart Coreg if BP not too low (4) Type [address] elevation Code(s): I21.A1 - MYOCARDIAL INFARCTION TYPE 2 Status: Acute Comment: Due to #1 and #2.trending troponin.ECHO ordered. ASA 1 dose . Cant gibve any thrombolytics as pt on Coumadin & INR therapeutic. Restart ranexa, Entresto,Elprenone,BB as BP permits (5) Afib Code(s): I48.91 - UNSPECIFIED ATRIAL FIBRILLATION Status: Chronic Qualifiers: Comment: restart Digoxin.Cont Coumadin.Monitor INR daily.rate controlled. restart BB if BP permits (6) CAD (coronary artery disease) Code(s): I25.10 - ATHSCL HEART DISEASE OF [place] CORONARY ARTERY W/O ANG PCTRS Status: Chronic Qualifiers: Comment: restart cardioprudent meds as per # 4. (7) Chronic anticoagulation Code(s): Z79.01 - SCIENTIFIC ILLUSTRATOR (CURRENT) USE OF ANTICOAGULANTS Status: Chronic Comment: Pharmcy to dose and monitor (8) DM type 2 (diabetes mellitus, type 2) Status: Chronic Comment: On Trulicity.Hold glipizide.add ISS w accuchecks (9) Dyslipidemia Code(s): E78.5 - HYPERLIPIDEMIA, UNSPECIFIED Status: Chronic (10) Hypertension Code(s): I10 - ESSENTIAL (PRIMARY) HYPERTENSION Status: Chronic (11) Ischemic cardiomyopathy Code(s): I25.5 - ISCHEMIC CARDIOMYOPATHY Status: Chronic Comment: last EF 20 -25% in [address]Primary computer analyst supervisor is Dr. Bond (12) Chronic systolic CHF, NYHA class 2 and ABIGAIL/AHA stage C Code(s): I50.22 - CHRONIC SYSTOLIC (CONGESTIVE) HEART FAILURE Status: Chronic - Plan continue antibiotics, PT/OT, respiratory therapy, incentive spirometry, out of bed/ambulate, DVT proph w/SCDs empiric ABx though not sure if there is any PNA.off of Bipap -: restart home meds and await further cardiology recs -: am labs -: lactic acid trending down.likley due to tissue hypoperfusion from hypoxia * . Review of Systems - Review of Systems Constitutional: weakness, malaise Respiratory: SOB with Excertion. negative: Cough, Dry, Shortness of Breath, Hemoptysis, Pleuritic Pain, Sputum, Wheezing Cardiovascular: negative: chest pain, palpitations, orthopnea, paroxysmal nocturnal dyspnea, edema, light headedness, other Gastrointestinal: Nausea. negative: Vomiting, Abdominal Pain, Diarrhea, Constipation, Melena, Hematochezia, Other Genitourinary: negative: Dysuria, Frequency, Incontinence, Hematuria, Retention , Other Musculoskeletal: negative: Neck Pain, Shoulder Pain, Arm Pain, Back Pain, Hand Pain, Leg Pain, Foot Pain, Other Skin: negative: Rash, Lesions, Isai, Bruising, Other Neurological: negative: Weakness, Numbness, Incoordination, Change in Speech, Confusion, Seizures, Other - Medications/Allergies Allergies/Adverse Reactions: Allergies Allergy/AdvReac Type Severity Reaction Status Date / Time No Known Drug Allergies Allergy Verified 11/06/17 00:05 Medications: Current Medications Acetaminophen (Tylenol) 650 mg PO Q4H PRN PRN Reason: Headache/Fever/Mild Pain (1-3) Betamethasone Valerate (Valisone 0.1% Cream) 0 gm TOP BID PRN PRN Reason: ECZEMA Dextrose/Water (Dextrose 50%) 25 gm SLOW IVP PRN PRN PRN Reason: Hypoglycemia Digoxin (Lanoxin) 0.25 mg PO DAILY [facility] Last Admin: 11/27/18 10:42 Dose: 0.25 mg Furosemide (Lasix) 40 mg SLOW IVP 0600,1400 [facility] Last Admin: 11/27/18 14:27 Dose: 40 mg Glucagon (Glucagon) 1 mg IM PRN PRN PRN Reason: Hypoglycemia Ceftriaxone Sodium 1 gm/ (Sodium Chloride) 100 mls @ 200 mls/hr IVPB Q24HR [facility] Last Admin: 11/27/18 06:01 Dose: Not Given Azithromycin 500 mg/ Sodium (Chloride) 250 mls @ 250 mls/hr IVPB Q24HR [facility] Dextrose/Water (D5w) 1,000 mls @ 0 mls/hr IV .Q0M PRN PRN Reason: Hypoglycemia Insulin Human Lispro (Humalog) 0 units SC .MILD SLIDING SCALE PRN PRN Reason: Mild Correctional Scale Last Admin: 11/27/18 11:01 Dose: 4 unit Lorazepam (Ativan) 0.5 mg PO Q8H PRN PRN Reason: Anxiety Last Admin: 11/27/18 12:16 Dose: 0.5 mg Miscellaneous Medication (Pharmacy To Dose) 0 each PO 1700 [facility] Nitroglycerin (Nitro-Bid 2% Ointment) 0.5 inch TOP Q8HR [facility] Last Admin: 11/27/18 14:26 Dose: 0.5 inch Nitroglycerin (Nitrostat) 0.4 mg SL Q5MIN [facility] Non-Formulary Medication (Eplerenone [Eplerenone]) 25 mg PO DAILY [facility] Ondansetron HCl (Zofran Odt) 4 mg PO Q6H PRN PRN Reason: Nausea/Vomiting Ondansetron HCl (Zofran) 4 mg IVP Q6H PRN PRN Reason: Nausea/Vomiting Pantoprazole Sodium (Protonix) 40 mg PO DAILY [facility] Last Admin: 11/27/18 10:39 Dose: 40 mg Ranolazine (Ranexa) 500 mg PO BID [facility] Last Admin: 11/27/18 13:02 Dose: 500 mg Rosuvastatin Calcium (Crestor) 40 mg PO HS [facility] Sacubitril/Valsartan (Entresto 24.5 Mg-25.5 Mg Tablet) 1 tab PO BID [facility] Last Admin: 11/27/18 10:42 Dose: 1 tab Sodium Chloride (Flush - Normal Saline) 10 ml IVF Q12HR [facility] Last Admin: 11/27/18 10:44 Dose: 10 ml Sodium Chloride (Flush - Normal Saline) 10 ml IVF PRN PRN PRN Reason: Saline Flush Warfarin Sodium (Coumadin) 10 mg PO 1700 [facility]
[2018-11-27] MEDS ORDERED: Warfarin Sodium 5 MG TAB PO SCH (17:00)
[2018-11-27] MEDS: HumaLOG 300 UNITS/3 ML VIAL SC PRN ×2 (17:16→21:14)
--- NOTE | 2018-11-27 19:27 | CON ---
DATE OF CONSULTATION: 11/27/2018 HISTORY OF PRESENT ILLNESS: Mr. Crockett is a 73-year-old male followed by Dr. Miller. He presented with two days of shortness of breath. He has a history of a cardiomyopathy. Denied having chest pain associated with this. He says he feels better now. He denies purulent sputum, cough, or fever prior to admission. PAST MEDICAL HISTORY: Remarkable for; 1. CVA in the past. 2. History of cardiomyopathy. 3. History of diabetes. 4. History of lipid disorder. 5. History of hypertension. 6. History of coronary artery bypass grafting in the past. 7. History of multiple admissions last year for cardiac issues. 8. History of an ejection fraction of 30%. 9. History of placement of five stents according to old records in the past. 10. History of coronary artery bypass grafting [place] [address] Gallo. 11. History of a defibrillator placed in 2011. 12. History of varicose vein stripping. 13. History of myocardial infarction in the past. 14. History of an appendectomy. 15. History of cholecystectomy. SOCIAL HISTORY: He is a smoker till 1984, not a drinker. ALLERGIES: HE HAS NO DRUG ALLERGIES. FAMILY HISTORY: Mother at 91 with vascular disease. Father passed at 76 with vascular disease. REVIEW OF SYSTEMS: A 10-point review of systems completed, otherwise negative. PHYSICAL EXAMINATION: GENERAL: He is on a nitroglycerin drip. VITAL SIGNS: Blood pressure is 112/61, heart rate is 94, respiratory rate is 18 , and oximetry is in the mid 90s. HEENT: Pupils are equal. Sclerae are anicteric. Extraocular movements are full. Throat is clear. NECK: Supple. No lymphadenopathy. LUNGS: Remarkable for crackles both lung bases residential up. HEART: Regular rhythm. S1 and S2 are normal. ABDOMEN: Soft and nontender. EXTREMITIES: Without clubbing, cyanosis, or edema. ABDOMEN: He says his abdomen was hurting yesterday, but he has no tenderness today. LABORATORY DATA: White count 14.3, hemoglobin 17.1, and platelets 155,000. Sodium 132, potassium 4.5, chloride 90, bicarb 23, BUN 26, and creatinine 1.99 and creatinine a year ago was 0.92. Chest radiograph reviewed by me shows pulmonary findings consistent with pulmonary edema. BNP was 722 and in 2017, it was as high as 1598. IMPRESSION AND PLAN: 1. Congestive heart failure, clinically improved. 2. Hypertension, poorly controlled on admission, reportedly improved. 3. Borderline erythrocytosis. With his elevated creatinine, I wonder if he would intravascularly volume depleted, although pulmonary edema was related to elevated blood pressure. I will be happy to follow the other physicians caring for him. TIME SPENT: This was a 70-minute consult, with greater than 50% time was spent on the unit coordinating care. Job ID: [id number] MTDD
[2018-11-27] MEDS ORDERED: Betamethasone 0.1% Cream 15 GM TUBE TOP PRN (21:00)
[2018-11-27] MEDS: Rosuvastatin 20 MG TAB PO SCH (21:11)
[2018-11-27] MEDS: Acetaminophen 325 MG TAB PO PRN (21:13)
--- NOTE | 2018-11-27 21:32 | CON ---
DATE OF CONSULTATION: HISTORY: Jeffery Crockett is a 73-year-old male with history of ischemic cardiomyopathy. He has been followed by Dr. Ruiz in the past, but then apparently started seeing Anmol and Franky doctors and is followed by Dr. Bond at the present time. He has undergone CABG as well as stent placement and placement of a biventricular ICD, which is a [employer] device. He was getting ready to go to bed last night and he had increasing shortness of breath. His oxygen saturation dropped to the 70s. With nitroglycerin, DuoNebs , he did not have any improvement and was brought to the emergency room and placed on BiPAP. Chest x-ray shows pulmonary edema. At the present time, he denies any chest discomfort or shortness of breath. He also did not have any chest discomfort last night. PAST MEDICAL HISTORY: Coronary artery disease, diabetes, hypertension, hyperlipidemia, history of CVA, varicose vein surgery. PAST SURGICAL HISTORY: CABG, coronary artery stent placement, most recently in about August,; biventricular ICD placement in March 2012; appendectomy; and cholecystectomy. MEDICATIONS: As listed in the chart. ALLERGIES: NONE. SOCIAL HISTORY: He does not smoke or drink. REVIEW OF SYSTEMS: 12-point review of systems otherwise unremarkable except for the shortness of breath. PHYSICAL EXAMINATION: VITAL SIGNS: Blood pressure 112/61, pulse of 91. HEENT: PERRL. NECK: Supple. CHEST: Reveals crackles at the bases. CARDIOVASCULAR EXAMINATION: S1, S2 normal without any S3, S4, or murmurs. ABDOMEN: Normal bowel sounds without tenderness or organomegaly. EXTREMITIES: Reveals no clubbing, cyanosis, or edema. NEUROLOGIC: Grossly intact except for some mild dysarthria. LABORATORY DATA: EKG revealed paced rhythm. Chest x-ray reveals pulmonary edema. Hemoglobin 17.1, hematocrit 52.0, white count 14,300, platelets 155,000. INR 2.3. PH 7.19, pCO2 of 55.7, PO2 of 76.1. Troponin I 0.398. Lactic acid 6.9. Sodium 133, potassium 4.5, chloride 90, carbon dioxide 23, BUN 26, creatinine 1.99. IMPRESSION: 1. Acute pulmonary edema. 2. Hypoxic respiratory failure. 3. Respiratory acidosis. 4. Acute kidney injury. 5. History of ischemic cardiomyopathy. 6. History of biventricular ICD. 7. Hyperlipidemia. 8. Chronic atrial fibrillation. 9. CABG and stent placement. 11.Hypertension. 12. History of CVA. PLAN: The patient will continue to be diuresed. His ICD was interrogated and is programmed to VVIR. I will follow the patient with you. Job ID: [id number] MTDD
[2018-11-28] MEDS: cefTRIAXone\\ROCEPHIN 1 GM in Sodium Chloride 0.9% 100 ML IVPB SCH (03:37)
[2018-11-28] MEDS: Heparin 5,000 UNITS/ML VIAL SC SCH (04:00)
[2018-11-28] MEDS: Azithromycin 500 MG in Sodium Chloride 0.9% 250 ML 250 ML IVPB SCH (05:36)
[2018-11-28] MEDS: Furosemide 40 MG/4 ML VIAL SLOW IVP SCH ×2 (05:36→11:32)
[2018-11-28] MEDS: Nitroglycerin 2% Ointment 1 INCH/1 GM Packet TOP SCH ×3 (05:36→22:06)
[2018-11-28] MEDS: HumaLOG 300 UNITS/3 ML VIAL SC PRN ×2 (05:48→11:34)
[2018-11-28 06:31] LABS: INR-International Normal Ratio 2.9; Prothrombin Time 30.5 SEC (12.0-14.7)
[2018-11-28 06:44] LABS: Anion Gap 16 mmol/L (10-20); BUN (Urea Nitrogen) 35 mg/dL (8.4-25.7); Calc. Creatinine Clearance 43 mL/min (70-130); Calcium 8.8 mg/dL (7.8-10.44); Carbon Dioxide 28 mmol/L (23-31); Chloride 93 mmol/L (98-107); Estimated GFR-MDRD 43; Glucose 211 mg/dL (83-110); Potassium 3.8 mmol/L (3.5-5.1); Sodium 133 mmol/L (136-145)
[2018-11-28 06:55] LABS: Band 2 % (5-11); Hemoglobin 15.3 g/dL (14.0-18.0); Lymphocytes 2 % (21-51); MDiff Complete? YES; Mean Corpuscular HGB CONC 33.7 g/dL (32.0-36.0); Mean Platelet Volume 9.6 fL (7.4-10.4); Monocytes 5 % (0-10); Neutrophil 91 % (42-75); Platelet Count 143 thou/uL (130-400); RBC Distribution Width 12.9 % (11.5-14.5); White Blood Cell (WBC) Count 24.6 thou/uL (4.8-10.8)
[2018-11-28] MEDS ORDERED: Warfarin Sodium 5 MG TAB PO SCH ×2 (09:38→17:00)
[2018-11-28] MEDS: Sacubitril 24.5 MG/Valsartan 25.5 MG TABLET PO SCH ×2 (10:05→22:08)
[2018-11-28] MEDS: Digoxin 0.25 MG TAB PO SCH (10:05)
[2018-11-28] MEDS ORDERED: Phytonadione 10 MG/ML AMP PO SCH (12:30)
--- NOTE | 2018-11-28 13:13 | PRG ---
DATE OF SERVICE: 11/28/2018 SUBJECTIVE: Mr. Crockett states he wants to go home. His wants him to go home as well. OBJECTIVE: VITAL SIGNS: Heart rate 90, blood pressure 104/59, respiratory rate 16, and oximetry is 99%. LUNGS: Still remarkable for crackles in both lung bases, but his exam is improved compared to yesterday. HEART: Regular rhythm. ABDOMEN: Soft and nontender. EXTREMITIES: Without edema. DIAGNOSTIC DATA: Echocardiogram shows an ejection fraction of 25% to 30%. IMPRESSION: 1. Congestive heart failure. 2. Pulmonary edema. 3. Acute on chronic kidney disease. 4. History of an ischemic cardiomyopathy with multiple akinetic segments on echocardiogram. 5. History of defibrillator. 6. Chronic atrial fibrillation. 7. History of coronary artery bypass grafting and stenting in the past. 8. Hypertension. 9. History of cerebrovascular accident. PLAN: He is clinically stable at this point, can move out of the critical care unit. I do not feel he is ready to go home. This will ultimately be something that needs to be cleared with Cardiology. Job ID: [id number]
--- NOTE | 2018-11-28 14:10 | PDOC.PN ---
- Subjective Encounter Start Date: 11/28/18 Encounter Start Time: 14:09 Subjective: feels better. no more SOB.no Chest pain -: no overnight events - Objective Resuscitation Status - Order Detail: 11/27/18 02:59 Resuscitation Status Routine Resuscitation Status: FULL: Full Resuscitation MAR Reviewed: Yes Vital Signs & Weight: Vital Signs (12 hours) Temp Pulse Pulse Ox 11/28/18 12:00 98 F 11/28/18 10:05 90 11/28/18 08:00 98.7 F 96 11/28/18 04:00 98.1 F Weight Weight 156 lb 15.506 oz Most Recent Monitor Data Heart Rate from ECG 83 NIBP 99/68 NIBP BP-Mean 78 Respiration from ECG 17 SpO2 99 I&O: 11/27/18 11/28/18 11/29/18 06:59 06:59 06:59 Intake Total 1260 620 Output Total 500 2875 650 Balance -500 -1615 -30 Result Diagrams: 11/28/18 06:14 11/28/18 06:14 Additional Labs: Accuchecks 11/28/18 11/28/18 11/28/18 11:26 05:49 00:18 POC Glucose 280 H 188 H 192 H 11/27/18 11/27/18 19:53 17:14 POC Glucose 251 H 297 H Microbiology 11/27/18 02:04 Nasal swab Influenza Types A,B Direct EIA - Final 11/27/18 03:25 Venous blood - Right Hand Blood Culture - Preliminary Specimen has been received and culture in progress. No Growth to date. 11/27/18 03:21 Venous blood - Left Arm Blood Culture - Preliminary Specimen has been received and culture in progress. No Growth to date. Laboratory Tests 11/27/18 11/27/18 11/27/18 01:36 01:36 01:36 INR 2.3 Creatinine 1.99 H B-Natriuretic Peptide 722.6 H 11/28/18 11/28/18 06:14 06:14 INR 2.9 Creatinine 1.58 H B-Natriuretic Peptide Phys Exam - Physical Examination Constitutional: NAD HEENT: PERRLA, moist MMs, sclera anicteric, oral pharynx no lesions Neck: no nodes, no JVD, supple, full ROM Respiratory: no wheezing, no rales, no rhonchi, clear to auscultation bilateral Cardiovascular: RRR, no significant murmur Gastrointestinal: soft, non-tender, no distention, positive bowel sounds Musculoskeletal: no edema, pulses present Neurological: non-focal, normal sensation, moves all 4 limbs Psychiatric: normal affect, A&O x 3 Skin: no rash Dx/Plan (1) Acute respiratory failure with hypoxia and hypercapnia Code(s): J96.01 - ACUTE RESPIRATORY FAILURE WITH HYPOXIA; J96.02 - ACUTE RESPIRATORY FAILURE WITH HYPERCAPNIA Status: Acute Comment: Improving w BP control and fluid removal w diuresis. Due to flash pumonary edema. (2) Acute cardiac pulmonary edema Status: Acute Comment: cont lasix. strict I/Os.change to OD as BP on lower side (3) Hypertensive urgency Code(s): I16.0 - HYPERTENSIVE URGENCY Status: Acute Comment: Stop TD NG paste.restarted Ranexa,Entresto.Restart Coreg if BP not too low (4) Type [address] elevation Code(s): I21.A1 - MYOCARDIAL INFARCTION TYPE 2 Status: Acute Comment: Due to #1 and #2.trending troponin.ECHO ordered. ASA 1 dose . Cant give any thrombolytics as pt on Coumadin & INR therapeutic. Restart ranexa, Entresto,Elprenone,BB as BP permits (5) Afib Code(s): I48.91 - UNSPECIFIED ATRIAL FIBRILLATION Status: Chronic Qualifiers: Comment: restart Digoxin.Cont Coumadin.Monitor INR daily.rate controlled. restart BB if BP permits (6) CAD (coronary artery disease) Code(s): I25.10 - ATHSCL HEART DISEASE OF [place] CORONARY ARTERY W/O ANG PCTRS Status: Chronic Qualifiers: Comment: restart cardioprudent meds as per # 4. (7) Chronic anticoagulation Code(s): Z79.01 - LEVEL VIAL SETTER (CURRENT) USE OF ANTICOAGULANTS Status: Chronic Comment: Pharmcy to dose and monitor (8) DM type 2 (diabetes mellitus, type 2) Status: Chronic Comment: On Trulicity.Hold glipizide.add ISS w accuchecks (9) Dyslipidemia Code(s): E78.5 - HYPERLIPIDEMIA, UNSPECIFIED Status: Chronic (10) Hypertension Code(s): I10 - ESSENTIAL (PRIMARY) HYPERTENSION Status: Chronic (11) Ischemic cardiomyopathy Code(s): I25.5 - ISCHEMIC CARDIOMYOPATHY Status: Chronic Comment: last EF 20 -25% in [address]Primary installation & maintenance executive is Dr. Bond (12) Chronic systolic CHF, NYHA class 2 and ABIGAIL/AHA stage C Code(s): I50.22 - CHRONIC SYSTOLIC (CONGESTIVE) HEART FAILURE Status: Chronic - Plan continue antibiotics, PT/OT, respiratory therapy, incentive spirometry, out of bed/ambulate, DVT proph w/SCDs cont care as above -: follwo cardiology recs -: change lasix to once a day .Monitor BP -: OK to transfer to tele -: daily INR .BMP in am * . Review of Systems - Review of Systems Constitutional: weakness. negative: fever, chills, sweats, malaise, other ENT: negative: Ear Pain, Ear Discharge, Nose Pain, Nose Discharge, Nose Congestion, Mouth Pain, Mouth Swelling, Throat Pain, Throat Swelling, Other Respiratory: negative: Cough, Dry, Shortness of Breath, Hemoptysis, SOB with Excertion, Pleuritic Pain, Sputum, Wheezing Cardiovascular: negative: chest pain, palpitations, orthopnea, paroxysmal nocturnal dyspnea, edema, light headedness, other Gastrointestinal: negative: Nausea, Vomiting, Abdominal Pain, Diarrhea, Constipation, Melena, Hematochezia, Other Genitourinary: negative: Dysuria, Frequency, Incontinence, Hematuria, Retention , Other Musculoskeletal: negative: Neck Pain, Shoulder Pain, Arm Pain, Back Pain, Hand Pain, Leg Pain, Foot Pain, Other Skin: negative: Rash, Lesions, Isai, Bruising, Other Neurological: negative: Weakness, Numbness, Incoordination, Change in Speech, Confusion, Seizures, Other - Medications/Allergies Allergies/Adverse Reactions: Allergies Allergy/AdvReac Type Severity Reaction Status Date / Time No Known Drug Allergies Allergy Verified 11/06/17 00:05 Medications: Current Medications Acetaminophen (Tylenol) 650 mg PO Q4H PRN PRN Reason: Headache/Fever/Mild Pain (1-3) Last Admin: 11/27/18 21:13 Dose: 650 mg Betamethasone Valerate (Valisone 0.1% Cream) 0 gm TOP BID PRN PRN Reason: ECZEMA Dextrose/Water (Dextrose 50%) 25 gm SLOW IVP PRN PRN PRN Reason: Hypoglycemia Digoxin (Lanoxin) 0.25 mg PO DAILY [facility] Last Admin: 11/28/18 10:05 Dose: 0.25 mg Furosemide (Lasix) 40 mg SLOW IVP 0600 [facility] Glucagon (Glucagon) 1 mg IM PRN PRN PRN Reason: Hypoglycemia Ceftriaxone Sodium 1 gm/ (Sodium Chloride) 100 mls @ 200 mls/hr IVPB Q24HR [facility] Last Admin: 11/28/18 03:37 Dose: 100 mls Azithromycin 500 mg/ Sodium (Chloride) 250 mls @ 250 mls/hr IVPB Q24HR [facility] Last Admin: 11/28/18 05:36 Dose: 250 mls Dextrose/Water (D5w) 1,000 mls @ 0 mls/hr IV .Q0M PRN PRN Reason: Hypoglycemia Insulin Human Lispro (Humalog) 0 units SC .MODERATE SLIDING SC PRN PRN Reason: Moderate Correctional Scale Last Admin: 11/28/18 11:34 Dose: 6 unit Lorazepam (Ativan) 0.5 mg PO Q8H PRN PRN Reason: Anxiety Last Admin: 11/27/18 21:13 Dose: 0.5 mg Miscellaneous Medication (Pharmacy To Dose) 0 each PO 1700 [facility] Last Admin: 11/28/18 11:33 Dose: Not Given Nitroglycerin (Nitro-Bid 2% Ointment) 0.5 inch TOP Q8HR [facility] Last Admin: 11/28/18 11:32 Dose: Not Given Nitroglycerin (Nitrostat) 0.4 mg SL Q5MIN [facility] Non-Formulary Medication (Eplerenone [Eplerenone]) 25 mg PO DAILY [facility] Ondansetron HCl (Zofran Odt) 4 mg PO Q6H PRN PRN Reason: Nausea/Vomiting Ondansetron HCl (Zofran) 4 mg IVP Q6H PRN PRN Reason: Nausea/Vomiting Pantoprazole Sodium (Protonix) 40 mg PO DAILY [facility] Last Admin: 11/28/18 10:05 Dose: 40 mg Phytonadione (Aquamephyton) 10 mg PO NOW [facility] Stop: 11/28/18 14:30 Last Admin: 11/28/18 12:47 Dose: 10 mg Ranolazine (Ranexa) 500 mg PO BID [facility] Last Admin: 11/28/18 10:06 Dose: 500 mg Rosuvastatin Calcium (Crestor) 40 mg PO HS [facility] Last Admin: 11/27/18 21:11 Dose: 40 mg Sacubitril/Valsartan (Entresto 24.5 Mg-25.5 Mg Tablet) 1 tab PO BID [facility] Last Admin: 11/28/18 10:05 Dose: 1 tab Sodium Chloride (Flush - Normal Saline) 10 ml IVF Q12HR [facility] Last Admin: 11/28/18 10:07 Dose: 10 ml Sodium Chloride (Flush - Normal Saline) 10 ml IVF PRN PRN PRN Reason: Saline Flush
[2018-11-28] MEDS ORDERED: Warfarin Sodium 2 MG TAB PO SCH (17:00)
[2018-11-28] MEDS: Rosuvastatin 20 MG TAB PO SCH (22:07)
[2018-11-28] MEDS: Lorazepam 0.5 MG TAB PO PRN (22:08)
[2018-11-29] MEDS: cefTRIAXone\\ROCEPHIN 1 GM in Sodium Chloride 0.9% 100 ML IVPB SCH (03:32)
[2018-11-29] MEDS: Acetaminophen 325 MG TAB PO PRN (04:22)
[2018-11-29] MEDS: Azithromycin 500 MG in Sodium Chloride 0.9% 250 ML 250 ML IVPB SCH (04:22)
[2018-11-29 04:41] LABS: INR-International Normal Ratio 1.6; Prothrombin Time 18.7 SEC (12.0-14.7)
[2018-11-29 04:54] LABS: Anion Gap 12 mmol/L (10-20); BUN (Urea Nitrogen) 31 mg/dL (8.4-25.7); Calc. Creatinine Clearance 61 mL/min (70-130); Calcium 9.2 mg/dL (7.8-10.44); Carbon Dioxide 30 mmol/L (23-31); Cardiac Risk 3.8 (Less than 4.5); Chloride 97 mmol/L (98-107); Cholesterol 132 mg/dl (< 200 Desired); Digoxin 1.74 ng/mL (0.8-2.0); Estimated GFR-MDRD 65; Glucose 173 mg/dL (83-110); HDL Cholesterol 35 mg/dL (>60 Neg Risk); LDL Cholesterol, Calculated 60 mg/dL; Sodium 135 mmol/L (136-145); Triglycerides 185 mg/dL (Less than 150)
[2018-11-29] MEDS: Nitroglycerin 2% Ointment 1 INCH/1 GM Packet TOP SCH ×3 (05:58→20:44)
[2018-11-29] MEDS ORDERED: Furosemide 40 MG/4 ML VIAL SLOW IVP SCH (06:00)
--- NOTE | 2018-11-29 07:38 | RAD ---
XR Chest 1 View History: [Pulmonary edema] Comparison: Radiograph November 27, 2018 Findings: The pulmonary edema has improved. Heart size is markedly enlarged. Left ventricular calcifications are similar with dilatation of the left ventricle. No pneumothorax. Impression: Interval improvement of pulmonary edema.
[2018-11-29] MEDS: Sacubitril 24.5 MG/Valsartan 25.5 MG TABLET PO SCH ×2 (09:20→20:39)
[2018-11-29] MEDS: Digoxin 0.25 MG TAB PO SCH (09:20)
[2018-11-29] MEDS ORDERED: Polyethylene Glycol 3350 17 GM Packet PO PRN (10:55)
[2018-11-29] MEDS: HumaLOG 300 UNITS/3 ML VIAL SC PRN (12:24)
--- NOTE | 2018-11-29 13:54 | PDOC.PN ---
- Subjective Encounter Start Date: 11/29/18 Encounter Start Time: 13:48 Subjective: c/p epigastric pain."Brea gastritis".no N/V/D -: no chest pain. breathing better - Objective Resuscitation Status - Order Detail: 11/27/18 02:59 Resuscitation Status Routine Resuscitation Status: FULL: Full Resuscitation MAR Reviewed: Yes Vital Signs & Weight: Vital Signs (12 hours) Temp Pulse Resp BP Pulse Ox 11/29/18 12:26 97.6 F 69 17 110/61 97 11/29/18 09:21 80 17 108/59 L 11/29/18 07:36 98.3 F 73 17 104/71 98 11/29/18 03:24 97 11/29/18 03:02 97.5 F L 85 16 96/53 L 95 Weight Weight 154 lb 12.8 oz Most Recent Monitor Data Heart Rate from ECG 81 NIBP 99/68 NIBP BP-Mean 78 Respiration from ECG 19 SpO2 99 I&O: 11/28/18 11/29/18 11/30/18 06:59 06:59 06:59 Intake Total 1260 1370 Output Total 2875 1790 Balance -1615 -420 Result Diagrams: 11/28/18 06:14 11/29/18 04:04 Additional Labs: Accuchecks 11/29/18 11/29/18 11/28/18 11:02 05:09 23:37 POC Glucose 173 H 214 H 150 H 11/28/18 11/28/18 20:32 16:55 POC Glucose 204 H 150 H Phys Exam - Physical Examination Constitutional: NAD HEENT: PERRLA, moist MMs, sclera anicteric, oral pharynx no lesions Neck: no nodes, no JVD, supple, full ROM Respiratory: no wheezing, no rales, no rhonchi, clear to auscultation bilateral Cardiovascular: RRR, no significant murmur Gastrointestinal: soft, non-tender, no distention, positive bowel sounds epigastric tenderness Musculoskeletal: no edema, pulses present Neurological: non-focal, normal sensation, moves all 4 limbs Psychiatric: normal affect, A&O x 3 Skin: no rash Dx/Plan (1) Acute respiratory failure with hypoxia and hypercapnia Code(s): J96.01 - ACUTE RESPIRATORY FAILURE WITH HYPOXIA; J96.02 - ACUTE RESPIRATORY FAILURE WITH HYPERCAPNIA Status: Acute Comment: Improving w BP control and fluid removal w diuresis. Due to flash pumonary edema. (2) Acute cardiac pulmonary edema Status: Acute Comment: Hold lasix as clinically on dry side now . strict I/Os. (3) Hypertensive urgency Code(s): I16.0 - HYPERTENSIVE URGENCY Status: Acute Comment: Stoped TD NG paste.restarted Ranexa,Entresto.Restart Coreg if BP not too low (4) Type [address] elevation Code(s): I21.A1 - MYOCARDIAL INFARCTION TYPE 2 Status: Acute Comment: Due to #1 and #2.trending troponin.ECHO ordered. ASA 1 dose . Cant give any thrombolytics as pt on Coumadin & INR therapeutic. Restart ranexa, Entresto,Elprenone,BB as BP permits (5) Afib Code(s): I48.91 - UNSPECIFIED ATRIAL FIBRILLATION Status: Chronic Qualifiers: Comment: restart Digoxin.Cont Coumadin.Monitor INR daily.rate controlled. restart BB if BP permits (6) CAD (coronary artery disease) Code(s): I25.10 - ATHSCL HEART DISEASE OF [place] CORONARY ARTERY W/O ANG PCTRS Status: Chronic Qualifiers: Comment: restart cardioprudent meds as per # 4. (7) Chronic anticoagulation Code(s): Z79.01 - BELLSTAFF (CURRENT) USE OF ANTICOAGULANTS Status: Chronic Comment: Pharmcy to dose and monitor (8) DM type 2 (diabetes mellitus, type 2) Status: Chronic Comment: On Trulicity.Hold glipizide.add ISS w accuchecks (9) Dyslipidemia Code(s): E78.5 - HYPERLIPIDEMIA, UNSPECIFIED Status: Chronic (10) Hypertension Code(s): I10 - ESSENTIAL (PRIMARY) HYPERTENSION Status: Chronic (11) Ischemic cardiomyopathy Code(s): I25.5 - ISCHEMIC CARDIOMYOPATHY Status: Chronic Comment: last EF 20 -25% in [address]Primary cpo is Dr. Bond (12) Chronic systolic CHF, NYHA class 2 and ABIGAIL/AHA stage C Code(s): I50.22 - CHRONIC SYSTOLIC (CONGESTIVE) HEART FAILURE Status: Chronic - Plan PT/OT, respiratory therapy, incentive spirometry, DVT proph w/lovenox, DVT proph w/SCDs add Miralax and Maalox.cont PPI for possible gastritis -: Hold coumadin and 1 dose Vit K in anticipation of cath tomorrow -: HD stable.BP still on lower side for restarting Coreg -: DC lasix. Monitor renal Fx as Cr slightly high.am labs * . Review of Systems - Review of Systems Constitutional: weakness, malaise. negative: fever, chills, sweats, other ENT: negative: Ear Pain, Ear Discharge, Nose Pain, Nose Discharge, Nose Congestion, Mouth Pain, Mouth Swelling, Throat Pain, Throat Swelling, Other Respiratory: negative: Cough, Dry, Shortness of Breath, Hemoptysis, SOB with Excertion, Pleuritic Pain, Sputum, Wheezing Cardiovascular: negative: chest pain, palpitations, orthopnea, paroxysmal nocturnal dyspnea, edema, light headedness, other Gastrointestinal: negative: Nausea, Vomiting, Abdominal Pain, Diarrhea, Constipation, Melena, Hematochezia, Other Genitourinary: negative: Dysuria, Frequency, Incontinence, Hematuria, Retention , Other Musculoskeletal: negative: Neck Pain, Shoulder Pain, Arm Pain, Back Pain, Hand Pain, Leg Pain, Foot Pain, Other Neurological: negative: Weakness, Numbness, Incoordination, Change in Speech, Confusion, Seizures, Other - Medications/Allergies Allergies/Adverse Reactions: Allergies Allergy/AdvReac Type Severity Reaction Status Date / Time No Known Drug Allergies Allergy Verified 11/06/17 00:05 Medications: Current Medications Acetaminophen (Tylenol) 650 mg PO Q4H PRN PRN Reason: Headache/Fever/Mild Pain (1-3) Last Admin: 11/29/18 04:22 Dose: 650 mg Al Hydroxide/Mg Hydroxide (Maalox Plus) 30 ml PO Q6H PRN PRN Reason: Heartburn or Indigestion Betamethasone Valerate (Valisone 0.1% Cream) 0 gm TOP BID PRN PRN Reason: ECZEMA Dextrose/Water (Dextrose 50%) 25 gm SLOW IVP PRN PRN PRN Reason: Hypoglycemia Digoxin (Lanoxin) 0.25 mg PO DAILY [facility] Last Admin: 11/29/18 09:20 Dose: 0.25 mg Glucagon (Glucagon) 1 mg IM PRN PRN PRN Reason: Hypoglycemia Ceftriaxone Sodium 1 gm/ (Sodium Chloride) 100 mls @ 200 mls/hr IVPB Q24HR [facility] Last Admin: 11/29/18 03:32 Dose: 100 mls Azithromycin 500 mg/ Sodium (Chloride) 250 mls @ 250 mls/hr IVPB Q24HR [facility] Last Admin: 11/29/18 04:22 Dose: 250 mls Dextrose/Water (D5w) 1,000 mls @ 0 mls/hr IV .Q0M PRN PRN Reason: Hypoglycemia Insulin Human Lispro (Humalog) 0 units SC .MODERATE SLIDING SC PRN PRN Reason: Moderate Correctional Scale Last Admin: 11/29/18 12:24 Dose: 2 unit Lorazepam (Ativan) 0.5 mg PO Q8H PRN PRN Reason: Anxiety Last Admin: 11/28/18 22:08 Dose: 0.5 mg Miscellaneous Medication (Pharmacy To Dose) 0 each PO 1700 [facility] Last Admin: 11/28/18 11:33 Dose: Not Given Nitroglycerin (Nitro-Bid 2% Ointment) 0.5 inch TOP Q8HR [facility] Last Admin: 11/29/18 05:58 Dose: Not Given Nitroglycerin (Nitrostat) 0.4 mg SL Q5MIN [facility] Ondansetron HCl (Zofran Odt) 4 mg PO Q6H PRN PRN Reason: Nausea/Vomiting Ondansetron HCl (Zofran) 4 mg IVP Q6H PRN PRN Reason: Nausea/Vomiting Pantoprazole Sodium (Protonix) 40 mg PO DAILY [facility] Last Admin: 11/29/18 09:20 Dose: 40 mg Eplerenone 25 Mg Tab 0 each PO DAILY [facility] Polyethylene Glycol (Miralax) 17 gm PO DAILY [facility] Polyethylene Glycol (Miralax) 17 gm PO DAILYPRN PRN PRN Reason: Constipation Ranolazine (Ranexa) 500 mg PO BID [facility] Last Admin: 11/29/18 09:20 Dose: 500 mg Rosuvastatin Calcium (Crestor) 40 mg PO HS [facility] Last Admin: 11/28/18 22:07 Dose: 40 mg Sacubitril/Valsartan (Entresto 24.5 Mg-25.5 Mg Tablet) 1 tab PO BID [facility] Last Admin: 11/29/18 09:20 Dose: 1 tab Sodium Chloride (Flush - Normal Saline) 10 ml IVF Q12HR [facility] Last Admin: 11/29/18 09:21 Dose: 10 ml Sodium Chloride (Flush - Normal Saline) 10 ml IVF PRN PRN PRN Reason: Saline Flush
--- NOTE | 2018-11-29 15:32 | PRG ---
DATE OF SERVICE: 11/29/2018 SUBJECTIVE: Mr. Crockett says he feels better. He has no complaints. OBJECTIVE: VITAL SIGNS: He is afebrile. Heart rate 69, respiratory rate 17, oximetry is 97% on room air, blood pressure 110/61. LUNGS: Remarkable for improved crackles at both bases. HEART: Regular rhythm. S1 and S2 are normal. ABDOMEN: Soft and nontender. EXTREMITIES: Without edema. IMAGING: Chest radiograph today shows improved edema. ASSESSMENT AND PLAN: The patient tells me that he is being considered for cardiac catheterization tomorrow. The actually had numerous questions that are more appropriate for the license and permit specialist that I could not answer. He does appear to be improving. Yesterday, she told me she wanted him to go home that he was fine and she again said that today. I have encouraged her to allow us to complete the workup and care for him while he is in the hospital. Job ID: [id number]
[2018-11-29] MEDS ORDERED: Enoxaparin Sodium 80 MG/0.8 ML SYRINGE SC SCH (17:15)
[2018-11-29] MEDS ORDERED: Communication Order-Pharmacy FS SCH (17:45)
[2018-11-29] MEDS: Rosuvastatin 20 MG TAB PO SCH (20:34)
[2018-11-29] MEDS: Lorazepam 0.5 MG TAB PO PRN (22:50)
[2018-11-30] MEDS: Acetaminophen 325 MG TAB PO PRN (02:53)
[2018-11-30] MEDS: cefTRIAXone\\ROCEPHIN 1 GM in Sodium Chloride 0.9% 100 ML IVPB SCH (04:30)
[2018-11-30] MEDS: Azithromycin 500 MG in Sodium Chloride 0.9% 250 ML 250 ML IVPB SCH (04:40)
[2018-11-30] MEDS: Nitroglycerin 2% Ointment 1 INCH/1 GM Packet TOP SCH ×4 (05:32→23:12)
[2018-11-30] MEDS: Digoxin 0.25 MG TAB PO SCH (05:34)
[2018-11-30] MEDS: Sacubitril 24.5 MG/Valsartan 25.5 MG TABLET PO SCH ×2 (05:47→20:47)
[2018-11-30] MEDS ORDERED: Sodium Chloride 0.9% 1,000 ML IV SCH ×2 (06:00→12:14)
[2018-11-30] MEDS ORDERED: Furosemide 40 MG TAB PO SCH (07:30)
[2018-11-30 07:41] LABS: INR-International Normal Ratio 1.2; Prothrombin Time 15.6 SEC (12.0-14.7)
[2018-11-30 07:57] LABS: Anion Gap 11 mmol/L (10-20); BUN (Urea Nitrogen) 27 mg/dL (8.4-25.7); Calc. Creatinine Clearance 57 mL/min (70-130); Calcium 8.9 mg/dL (7.8-10.44); Carbon Dioxide 31 mmol/L (23-31); Chloride 101 mmol/L (98-107); Estimated GFR-MDRD 62; Glucose 127 mg/dL (83-110); Potassium 4.1 mmol/L (3.5-5.1); Sodium 139 mmol/L (136-145)
[2018-11-30] MEDS ORDERED: Heparin 10,000 UNITS/1 ML VIAL ONE (09:36)
--- NOTE | 2018-11-30 10:37 | PRG ---
DATE OF SERVICE: 11/30/2018 SERVICE: Pulmonary Medicine. INTERVAL HISTORY: The patient is doing really well from respiratory standpoint. He has been weaned back down to room air. Denies any current chest pain, fevers, chills, nausea, vomiting, or diarrhea. Otherwise, there has been no change to his condition. PHYSICAL EXAMINATION: VITAL SIGNS: Afebrile, pulse 81, blood pressure 104/63, respirations 18, and saturation 96% on room air. GENERAL: The patient is awake and alert, in no apparent distress. LUNGS: Decent air entry. Dependent crackles are much improved. HEART: Normal rate and regular. ABDOMEN: Soft, nontender, and nondistended. Bowel sounds are positive. MUSCULOSKELETAL: No cyanosis or clubbing. There is no pitting in the bilateral lower extremities. NEUROLOGIC: Grossly nonfocal. LABORATORY DATA: INR 1.2. A pH 7.19, pCO2 of 56, pO2 of 76. Creatinine 1.16, and roughly stable. Basic metabolic profile is otherwise unremarkable. Bicarb 31 and stable. Blood cultures x2 are negative. Influenza A and B are negative. ASSESSMENT: 1. Acute hypoxic and hypercapnic respiratory failure, resolved. 2. Acute on chronic systolic heart failure. 3. Atrial fibrillation, chronic. 4. Hypertensive emergency, resolved. 5. Acute kidney injury. DISCUSSION AND PLAN: At this point, the patient has no additional requirements for inpatient Pulmonary or Critical Care opinion. As such, we will follow from a distance. Please call with additional questions or concerns through time. Job ID: [id number] MTDD
[2018-11-30] MEDS ORDERED: Midazolam HCl 2 mg/2 ml Vial ONE (10:55)
[2018-11-30] MEDS ORDERED: Fentanyl 100 MCG/2 ML VIAL ONE (10:56)
[2018-11-30] MEDS ORDERED: Bivalirudin 250 MG VIAL ONE (11:22)
[2018-11-30] MEDS ORDERED: Iopamidol 370 76% 100 ML VIAL ONE (11:47)
[2018-11-30] MEDS ORDERED: Iopamidol 370 76% 50 ML VIAL FS ONE (11:47)
[2018-11-30] MEDS ORDERED: Clopidogrel Bisulfate 300 MG TAB ONE (11:51)
[2018-11-30] MEDS ORDERED: Mag-Al 1200 mg/1200 mg/30 ML UDCUP ONE (13:00)
[2018-11-30] MEDS ORDERED: Acetaminophen 500 MG TAB ONE (13:01)
[2018-11-30] MEDS ORDERED: Mag-Al 1200 mg/1200 mg/30 ML UDCUP PO SCH (13:30)
--- NOTE | 2018-11-30 16:22 | PDOC.PN ---
- Subjective Encounter Start Date: 11/30/18 Encounter Start Time: 16:20 Subjective: no overnight events ,no new complaints. Abd pain is better.Anitha for cath tod -: Pt's very upset about the delay in Cath & become agitated during visit -: reassurance provided but she feels that he doesn't need any Cardiac Workup She keeps repeating that ; "he did not have a heart attack" tried to educate about the diagnosis and treatment plan again but she would not let me talk. Charge nurse notified - Objective Resuscitation Status - Order Detail: 11/27/18 02:59 Resuscitation Status Routine Resuscitation Status: FULL: Full Resuscitation MAR Reviewed: Yes Vital Signs & Weight: Vital Signs (12 hours) Temp Pulse Resp BP Pulse Ox 11/30/18 07:15 98.3 F 60 18 87/52 L 95 11/30/18 05:34 81 11/30/18 05:30 81 104/63 11/30/18 04:28 96 Weight Weight 152 lb 8 oz Most Recent Monitor Data Heart Rate from ECG 81 NIBP 99/68 NIBP BP-Mean 78 Respiration from ECG 19 SpO2 99 I&O: 11/29/18 11/30/18 12/01/18 06:59 06:59 06:59 Intake Total 1370 800 Output Total 1790 500 Balance -420 300 Result Diagrams: 11/28/18 06:14 11/30/18 07:10 Additional Labs: Accuchecks 11/30/18 11/29/18 11/29/18 05:46 20:42 20:14 POC Glucose 133 H 182 H 208 H 11/29/18 16:57 POC Glucose 185 H Laboratory Tests 11/27/18 11/27/18 11/28/18 01:36 01:36 06:14 INR 2.3 2.9 Creatinine 1.99 H 11/28/18 11/29/18 11/29/18 06:14 04:04 04:04 INR 1.6 Creatinine 1.58 H 1.11 11/30/18 11/30/18 07:10 07:10 INR 1.2 Creatinine 1.16 Phys Exam - Physical Examination Constitutional: NAD HEENT: PERRLA, moist MMs, sclera anicteric, oral pharynx no lesions Neck: no nodes, no JVD, supple, full ROM Respiratory: no wheezing, no rales, no rhonchi, clear to auscultation bilateral Cardiovascular: RRR, no significant murmur Gastrointestinal: soft, non-tender, no distention, positive bowel sounds Musculoskeletal: no edema, pulses present Neurological: non-focal, normal sensation, moves all 4 limbs Psychiatric: normal affect, A&O x 3 Skin: no rash Dx/Plan (1) Acute respiratory failure with hypoxia and hypercapnia Code(s): J96.01 - ACUTE RESPIRATORY FAILURE WITH HYPOXIA; J96.02 - ACUTE RESPIRATORY FAILURE WITH HYPERCAPNIA Status: Acute Comment: Improving w BP control and fluid removal w diuresis. Due to flash pumonary edema. CARDIAC CATH TODAY (2) Acute cardiac pulmonary edema Status: Acute Comment: Hold lasix as clinically on dry side now . strict I/Os. (3) Hypertensive urgency Code(s): I16.0 - HYPERTENSIVE URGENCY Status: Acute Comment: Stoped TD NG paste.restarted Ranexa,Entresto.Restart Coreg if BP not too low (4) Type [address] elevation Code(s): I21.A1 - MYOCARDIAL INFARCTION TYPE 2 Status: Acute Comment: Due to #1 and #2.trending troponin.ECHO ordered. ASA 1 dose . Cant give any thrombolytics as pt on Coumadin & INR therapeutic. Restart ranexa, Entresto,Elprenone,BB as BP permits (5) Afib Code(s): I48.91 - UNSPECIFIED ATRIAL FIBRILLATION Status: Chronic Qualifiers: Comment: restart Digoxin.Cont Coumadin.Monitor INR daily.rate controlled. restart BB if BP permits (6) CAD (coronary artery disease) Code(s): I25.10 - ATHSCL HEART DISEASE OF [place] CORONARY ARTERY W/O ANG PCTRS Status: Chronic Qualifiers: Comment: restart cardioprudent meds as per # 4. (7) Chronic anticoagulation Code(s): Z79.01 - LONG-TERM (CURRENT) USE OF ANTICOAGULANTS Status: Chronic Comment: Pharmcy to dose and monitor (8) DM type 2 (diabetes mellitus, type 2) Status: Chronic Comment: On Trulicity.Hold glipizide.add ISS w accuchecks (9) Dyslipidemia Code(s): E78.5 - HYPERLIPIDEMIA, UNSPECIFIED Status: Chronic (10) Hypertension Code(s): I10 - ESSENTIAL (PRIMARY) HYPERTENSION Status: Chronic (11) Ischemic cardiomyopathy Code(s): I25.5 - ISCHEMIC CARDIOMYOPATHY Status: Chronic Comment: last EF 20 -25% in [address]Primary correctional treatment specialist is Dr. Bond (12) Chronic systolic CHF, NYHA class 2 and ABIGAIL/AHA stage C Code(s): I50.22 - CHRONIC SYSTOLIC (CONGESTIVE) HEART FAILURE Status: Chronic - Plan respiratory therapy, incentive spirometry, out of bed/ambulate, DVT proph w/SCDs clinically better and HD stable. -: follow Cath results -: cont cardioprudent meds as above outlined -: likley home in next 24 hours * . Review of Systems - Review of Systems Constitutional: negative: fever, chills, sweats, weakness, malaise, other Respiratory: negative: Cough, Dry, Shortness of Breath, Hemoptysis, SOB with Excertion, Pleuritic Pain, Sputum, Wheezing Other: limited ROS due to 's aggressive behaviour.She hampered my interview with pt - Medications/Allergies Allergies/Adverse Reactions: Allergies Allergy/AdvReac Type Severity Reaction Status Date / Time No Known Drug Allergies Allergy Verified 11/06/17 00:05 Medications: Current Medications Acetaminophen (Tylenol) 650 mg PO Q4H PRN PRN Reason: Headache/Fever/Mild Pain (1-3) Last Admin: 11/30/18 02:53 Dose: 650 mg Acetaminophen (Tylenol) 1,000 mg PO Q6H PRN PRN Reason: Pain Al Hydroxide/Mg Hydroxide (Maalox Plus) 30 ml PO Q6H PRN PRN Reason: Heartburn or Indigestion Aspirin (Aspirin Chewable) 81 mg PO DAILY [facility] Betamethasone Valerate (Valisone 0.1% Cream) 0 gm TOP BID PRN PRN Reason: ECZEMA Clopidogrel Bisulfate (Plavix) 75 mg PO DAILY [facility] Dextrose/Water (Dextrose 50%) 25 gm SLOW IVP PRN PRN PRN Reason: Hypoglycemia Digoxin (Lanoxin) 0.25 mg PO DAILY [facility] Last Admin: 11/30/18 05:34 Dose: 0.25 mg Glucagon (Glucagon) 1 mg IM PRN PRN PRN Reason: Hypoglycemia Ceftriaxone Sodium 1 gm/ (Sodium Chloride) 100 mls @ 200 mls/hr IVPB Q24HR [facility] Last Admin: 11/30/18 04:30 Dose: 100 mls Azithromycin 500 mg/ Sodium (Chloride) 250 mls @ 250 mls/hr IVPB Q24HR [facility] Last Admin: 11/30/18 04:40 Dose: 250 mls Dextrose/Water (D5w) 1,000 mls @ 0 mls/hr IV .Q0M PRN PRN Reason: Hypoglycemia Sodium Chloride (Normal Saline 0.9%) 1,000 mls @ 125 mls/hr IV .Q8H [facility] Stop: 11/30/18 17:00 Insulin Human Lispro (Humalog) 0 units SC .MODERATE SLIDING SC PRN PRN Reason: Moderate Correctional Scale Last Admin: 11/29/18 12:24 Dose: 2 unit Lorazepam (Ativan) 0.5 mg PO Q8H PRN PRN Reason: Anxiety Last Admin: 11/29/18 22:50 Dose: 0.5 mg Miscellaneous Medication (Pharmacy To Dose) 0 each PO 1700 [facility] Last Admin: 11/29/18 17:48 Dose: Not Given Nitroglycerin (Nitro-Bid 2% Ointment) 0.5 inch TOP Q8HR [facility] Last Admin: 11/30/18 05:32 Dose: Not Given Nitroglycerin (Nitrostat) 0.4 mg SL Q5MIN [facility] Ondansetron HCl (Zofran Odt) 4 mg PO Q6H PRN PRN Reason: Nausea/Vomiting Ondansetron HCl (Zofran) 4 mg IVP Q6H PRN PRN Reason: Nausea/Vomiting Pantoprazole Sodium (Protonix) 40 mg PO DAILY [facility] Last Admin: 11/30/18 05:35 Dose: 40 mg Eplerenone 25 Mg Tab 0 each PO DAILY [facility] Polyethylene Glycol (Miralax) 17 gm PO DAILY [facility] Polyethylene Glycol (Miralax) 17 gm PO DAILYPRN PRN PRN Reason: Constipation Last Admin: 11/29/18 15:51 Dose: 17 gm Ranolazine (Ranexa) 500 mg PO BID [facility] Last Admin: 11/29/18 20:39 Dose: 500 mg Rosuvastatin Calcium (Crestor) 40 mg PO HS [facility] Last Admin: 11/29/18 20:34 Dose: 40 mg Sacubitril/Valsartan (Entresto 24.5 Mg-25.5 Mg Tablet) 1 tab PO BID [facility] Last Admin: 11/30/18 05:47 Dose: 1 tab Sodium Chloride (Flush - Normal Saline) 10 ml IVF Q12HR [facility] Last Admin: 11/30/18 05:36 Dose: Not Given Sodium Chloride (Flush - Normal Saline) 10 ml IVF PRN PRN PRN Reason: Saline Flush Torsemide (Demadex) 20 mg PO DAILY [facility] Warfarin Sodium (Coumadin) 7.5 mg PO 1700 ANITHA
[2018-11-30] MEDS: Polyethylene Glycol 3350 17 GM Packet PO SCH (16:59)
--- NOTE | 2018-11-30 17:29 | EKG ---
Test Reason : POST STENT Blood Pressure : / mmHG Vent. Rate : 084 BPM Atrial Rate : 084 BPM P-R Int : 000 ms QRS Dur : 208 ms QT Int : 460 ms P-R-T Axes : 000 -86 096 degrees QTc Int : 543 ms Paced with frequent PVC's Abnormal ECG When compared with ECG of 05-NOV-2017 17:05, (Unconfirmed) Current undetermined rhythm precludes rhythm comparison, needs review Confirmed by DR. Lilly CURRAN (3) on 11/30/2018 5:28:33 PM Referred By: CARY Confirmed By:DR. Lilly CURRAN
[2018-11-30] MEDS: Warfarin Sodium 7.5 MG TAB PO SCH (17:55)
[2018-11-30] MEDS: Eplerenone 25 MG TAB PO SCH (17:56)
[2018-11-30] MEDS: Rosuvastatin 20 MG TAB PO SCH (20:47)
[2018-11-30] MEDS: Acetaminophen 500 MG TAB PO PRN (22:27)
[2018-11-30] MEDS: Lorazepam 0.5 MG TAB PO PRN (22:28)
[2018-11-30] MEDS: Mag-Al Plus 1200 MG/1200 MG/120 MG/30 ML UDCUP PO PRN (22:51)
[2018-12-01] MEDS: cefTRIAXone\\ROCEPHIN 1 GM in Sodium Chloride 0.9% 100 ML IVPB SCH (05:06)
[2018-12-01] MEDS: Azithromycin 500 MG in Sodium Chloride 0.9% 250 ML 250 ML IVPB SCH (05:06)
[2018-12-01] MEDS: Nitroglycerin 2% Ointment 1 INCH/1 GM Packet TOP SCH (05:06)
[2018-12-01 07:26] LABS: #Basophils 0.1 thou/uL (0.0-0.2); #Eosinphils 0.2 thou/uL (0.0-0.7); #Lymphocytes 1.7 thou/uL (1.20-3.40); #Monocytes 0.9 thou/uL (0.11-0.59); #Neutrophils 7.7 thou/uL (1.40-6.50); %Basophils 0.5 % (0.0-1.0); %Eosinophils 2.2 % (0.0-10.0); %Lymphocytes 15.8 % (21.0-51.0); %Monocytes 8.5 % (0.0-10.0); %Neutrophils 72.9 % (42.0-75.0); Hemoglobin 15.2 g/dL (14.0-18.0); Mean Platelet Volume 9.5 fL (7.4-10.4); Platelet Count 156 thou/uL (130-400); Red Blood Cell (RBC) Count 4.33 mill/uL (4.70-6.10); White Blood Cell (WBC) Count 10.6 thou/uL (4.8-10.8)
[2018-12-01 07:30] LABS: INR-International Normal Ratio 1.1; Prothrombin Time 14.5 SEC (12.0-14.7)
[2018-12-01 07:47] LABS: ALT (SGPT) 18 U/L (8-55); AST (SGOT) 31 U/L (5-34); Albumin 3.6 g/dL (3.4-4.8); Alkaline Phosphatase 43 U/L (40-150); Anion Gap 11 mmol/L (10-20); BUN (Urea Nitrogen) 17 mg/dL (8.4-25.7); Bilirubin, Total 1.2 mg/dL (0.2-1.2); Calc. Creatinine Clearance 64 mL/min (70-130); Calcium 9.1 mg/dL (7.8-10.44); Carbon Dioxide 30 mmol/L (23-31); Chloride 100 mmol/L (98-107); Estimated GFR-MDRD 68; Globulin 2.7 g/dL (2.4-3.5); Glucose 134 mg/dL (83-110); Potassium 4.3 mmol/L (3.5-5.1); Protein, Total 6.3 g/dL (5.8-8.1); Sodium 137 mmol/L (136-145)
[2018-12-01] MEDS: Polyethylene Glycol 3350 17 GM Packet PO SCH (09:42)
[2018-12-01] MEDS: Clopidogrel Bisulfate 75 MG TAB PO SCH (09:43)
[2018-12-01] MEDS: Aspirin Chewable 81 MG TAB PO SCH (09:43)
[2018-12-01] MEDS: Sacubitril 24.5 MG/Valsartan 25.5 MG TABLET PO SCH ×2 (09:43→19:50)
[2018-12-01] MEDS: Torsemide 20 MG TAB PO SCH (09:43)
[2018-12-01] MEDS: Digoxin 0.25 MG TAB PO SCH (09:43)
[2018-12-01] MEDS: Eplerenone 25 MG TAB PO SCH (10:07)
[2018-12-01] MEDS: HumaLOG 300 UNITS/3 ML VIAL SC PRN (12:36)
[2018-12-01 13:38] LABS: Magnesium 2.3 mg/dL (1.6-2.6); Phosphorus 2.6 mg/dL (2.3-4.7)
--- NOTE | 2018-12-01 13:46 | PDOC.PN ---
- Subjective Encounter Start Date: 12/01/18 Encounter Start Time: 13:44 Subjective: feels better -: RN reports 22 sec run of Vtach yesterday w HR as high as 250s -: feels better this morning.no palpitations/chest pain/sob - Objective Resuscitation Status - Order Detail: 11/27/18 02:59 Resuscitation Status Routine Resuscitation Status: FULL: Full Resuscitation Vital Signs & Weight: Vital Signs (12 hours) Temp Pulse Resp BP Pulse Ox 12/01/18 09:43 83 12/01/18 08:00 96 12/01/18 07:40 97.8 F 83 20 98/59 L 96 12/01/18 03:20 98.4 F 80 20 110/62 99 Weight Weight 156 lb 9.6 oz Most Recent Monitor Data Heart Rate from ECG 81 NIBP 99/68 NIBP BP-Mean 78 Respiration from ECG 19 SpO2 99 I&O: 11/30/18 12/01/18 12/02/18 06:59 06:59 06:59 Intake Total 800 400 Output Total 500 500 Balance 300 -100 Result Diagrams: 12/01/18 07:11 12/01/18 07:11 Additional Labs: Accuchecks 12/01/18 12/01/18 11/30/18 11:12 05:35 22:33 POC Glucose 219 H 111 H 139 H 11/30/18 11/30/18 20:12 17:23 POC Glucose 131 H 130 H Laboratory Tests 11/27/18 11/27/18 11/28/18 01:36 01:36 06:14 WBC 14.3 H INR 2.3 2.9 Phosphorus Magnesium Total Bilirubin AST ALT Alkaline Phosphatase 11/28/18 11/29/18 11/30/18 06:14 04:04 07:10 WBC 24.6 H INR 1.6 1.2 Phosphorus Magnesium Total Bilirubin AST ALT Alkaline Phosphatase 12/01/18 12/01/18 12/01/18 07:11 07:11 07:11 WBC 10.6 INR 1.1 Phosphorus Magnesium Total Bilirubin 1.2 AST 31 ALT 18 Alkaline Phosphatase 43 12/01/18 07:11 WBC INR Phosphorus 2.6 Magnesium 2.3 Total Bilirubin AST ALT Alkaline Phosphatase Phys Exam - Physical Examination Constitutional: NAD HEENT: PERRLA, moist MMs, sclera anicteric, oral pharynx no lesions Neck: no nodes, no JVD, supple, full ROM Respiratory: no wheezing, no rales, no rhonchi, clear to auscultation bilateral Cardiovascular: RRR, no significant murmur Gastrointestinal: soft, non-tender, no distention, positive bowel sounds Musculoskeletal: no edema, pulses present Neurological: non-focal, normal sensation, moves all 4 limbs Psychiatric: normal affect, A&O x 3 Skin: no rash Dx/Plan (1) Acute respiratory failure with hypoxia and hypercapnia Code(s): J96.01 - ACUTE RESPIRATORY FAILURE WITH HYPOXIA; J96.02 - ACUTE RESPIRATORY FAILURE WITH HYPERCAPNIA Status: Acute Comment: Improving w BP control and fluid removal w diuresis. Due to flash pumonary edema. CARDIAC CATH 11/30/18 w TERE in R PDA in-stent restenosis (2) Acute cardiac pulmonary edema Status: Acute Comment: Euvolemic now. restart Demadex at home dose . strict I/Os. (3) Hypertensive urgency Code(s): I16.0 - HYPERTENSIVE URGENCY Status: Acute Comment: Stoped TD NG paste.restarted Ranexa,Entresto.Restart Coreg if BP not too low (4) Type [address] elevation Code(s): I21.A1 - MYOCARDIAL INFARCTION TYPE 2 Status: Acute Comment: Due to #1 and #2.trending troponin.ECHO ordered. ASA 1 dose . Cant give any thrombolytics as pt on Coumadin & INR therapeutic. Restart ranexa, Entresto,Elprenone,BB as BP permits (5) Afib Code(s): I48.91 - UNSPECIFIED ATRIAL FIBRILLATION Status: Chronic Qualifiers: Comment: restart Digoxin.Cont Coumadin.Monitor INR daily.rate controlled. restart BB if BP permits (6) CAD (coronary artery disease) Code(s): I25.10 - ATHSCL HEART DISEASE OF [place] CORONARY ARTERY W/O ANG PCTRS Status: Chronic Qualifiers: Comment: restart cardioprudent meds as per # 4. (7) Chronic anticoagulation Code(s): Z79.01 - ROENTGENOLOGIST (CURRENT) USE OF ANTICOAGULANTS Status: Chronic Comment: Pharmcy to dose and monitor (8) DM type 2 (diabetes mellitus, type 2) Status: Chronic Comment: On Trulicity.Hold glipizide.add ISS w accuchecks (9) Dyslipidemia Code(s): E78.5 - HYPERLIPIDEMIA, UNSPECIFIED Status: Chronic (10) Hypertension Code(s): I10 - ESSENTIAL (PRIMARY) HYPERTENSION Status: Chronic (11) Ischemic cardiomyopathy Code(s): I25.5 - ISCHEMIC CARDIOMYOPATHY Status: Chronic Comment: last EF 20 -25% in [address]Primary carpenter railcar is Dr. Bond (12) Chronic systolic CHF, NYHA class 2 and ABIGAIL/AHA stage C Code(s): I50.22 - CHRONIC SYSTOLIC (CONGESTIVE) HEART FAILURE Status: Chronic - Plan PT/OT, incentive spirometry, out of bed/ambulate, DVT proph w/heparin Plavix for 1 year w ASA.cont statin,ranexa,entresto -: Monitor for arrythmias -: Discussed w Cardiology.Mag /Phos and lytes WNL today -: Arrythmia expected w cardiomyopathy.EF 25% -: marlene NAIK w OP CR tomorrow. feels tired today * . Review of Systems - Review of Systems Constitutional: weakness. negative: fever, chills, sweats, malaise, other ENT: negative: Ear Pain, Ear Discharge, Nose Pain, Nose Discharge, Nose Congestion, Mouth Pain, Mouth Swelling, Throat Pain, Throat Swelling, Other Respiratory: negative: Cough, Dry, Shortness of Breath, Hemoptysis, SOB with Excertion, Pleuritic Pain, Sputum, Wheezing Cardiovascular: negative: chest pain, palpitations, orthopnea, paroxysmal nocturnal dyspnea, edema, light headedness, other Gastrointestinal: negative: Nausea, Vomiting, Abdominal Pain, Diarrhea, Constipation, Melena, Hematochezia, Other Genitourinary: negative: Dysuria, Frequency, Incontinence, Hematuria, Retention , Other Musculoskeletal: negative: Neck Pain, Shoulder Pain, Arm Pain, Back Pain, Hand Pain, Leg Pain, Foot Pain, Other Skin: negative: Rash, Lesions, Isai, Bruising, Other Neurological: negative: Weakness, Numbness, Incoordination, Change in Speech, Confusion, Seizures, Other - Medications/Allergies Allergies/Adverse Reactions: Allergies Allergy/AdvReac Type Severity Reaction Status Date / Time No Known Drug Allergies Allergy Verified 11/06/17 00:05 Medications: Current Medications Acetaminophen (Tylenol) 650 mg PO Q4H PRN PRN Reason: Headache/Fever/Mild Pain (1-3) Last Admin: 11/30/18 02:53 Dose: 650 mg Acetaminophen (Tylenol) 1,000 mg PO Q6H PRN PRN Reason: Pain Last Admin: 11/30/18 22:27 Dose: 1,000 mg Al Hydroxide/Mg Hydroxide (Maalox Plus) 30 ml PO Q6H PRN PRN Reason: Heartburn or Indigestion Last Admin: 11/30/18 22:51 Dose: 30 ml Aspirin (Aspirin Chewable) 81 mg PO DAILY [facility] Last Admin: 12/01/18 09:43 Dose: 81 mg Betamethasone Valerate (Valisone 0.1% Cream) 0 gm TOP BID PRN PRN Reason: ECZEMA Clopidogrel Bisulfate (Plavix) 75 mg PO DAILY [facility] Last Admin: 12/01/18 09:43 Dose: 75 mg Dextrose/Water (Dextrose 50%) 25 gm SLOW IVP PRN PRN PRN Reason: Hypoglycemia Digoxin (Lanoxin) 0.25 mg PO DAILY [facility] Last Admin: 12/01/18 09:43 Dose: 0.25 mg Glucagon (Glucagon) 1 mg IM PRN PRN PRN Reason: Hypoglycemia Dextrose/Water (D5w) 1,000 mls @ 0 mls/hr IV .Q0M PRN PRN Reason: Hypoglycemia Insulin Human Lispro (Humalog) 0 units SC .MODERATE SLIDING SC PRN PRN Reason: Moderate Correctional Scale Last Admin: 12/01/18 12:36 Dose: 4 unit Levofloxacin (Levaquin) 500 mg PO 1000 [facility] Stop: 12/03/18 10:01 Last Admin: 12/01/18 10:10 Dose: 500 mg Lorazepam (Ativan) 0.5 mg PO Q8H PRN PRN Reason: Anxiety Last Admin: 11/30/18 22:28 Dose: 0.5 mg Miscellaneous Medication (Pharmacy To Dose) 0 each PO 1700 [facility] Last Admin: 11/30/18 18:21 Dose: 7.5 each Nitroglycerin (Nitrostat) 0.4 mg SL Q5MIN [facility] Ondansetron HCl (Zofran Odt) 4 mg PO Q6H PRN PRN Reason: Nausea/Vomiting Ondansetron HCl (Zofran) 4 mg IVP Q6H PRN PRN Reason: Nausea/Vomiting Pantoprazole Sodium (Protonix) 40 mg PO DAILY [facility] Last Admin: 12/01/18 09:43 Dose: 40 mg Eplerenone 25 Mg Tab 0 each PO DAILY [facility] Last Admin: 12/01/18 10:07 Dose: 1 each Polyethylene Glycol (Miralax) 17 gm PO DAILY [facility] Last Admin: 12/01/18 09:42 Dose: 17 gm Polyethylene Glycol (Miralax) 17 gm PO DAILYPRN PRN PRN Reason: Constipation Last Admin: 11/29/18 15:51 Dose: 17 gm Ranolazine (Ranexa) 500 mg PO BID [facility] Last Admin: 12/01/18 09:43 Dose: 500 mg Rosuvastatin Calcium (Crestor) 40 mg PO HS [facility] Last Admin: 11/30/18 20:47 Dose: 40 mg Sacubitril/Valsartan (Entresto 24.5 Mg-25.5 Mg Tablet) 1 tab PO BID [facility] Last Admin: 12/01/18 09:43 Dose: 1 tab Sodium Chloride (Flush - Normal Saline) 10 ml IVF Q12HR [facility] Last Admin: 12/01/18 09:46 Dose: 10 ml Sodium Chloride (Flush - Normal Saline) 10 ml IVF PRN PRN PRN Reason: Saline Flush Torsemide (Demadex) 20 mg PO DAILY [facility] Last Admin: 12/01/18 09:43 Dose: 20 mg Warfarin Sodium (Coumadin) 7.5 mg PO 1700 [facility] Last Admin: 11/30/18 17:55 Dose: 7.5 mg
--- NOTE | 2018-12-01 16:49 | EKG ---
Test Reason : Blood Pressure : / mmHG Vent. Rate : 092 BPM Atrial Rate : 192 BPM P-R Int : 150 ms QRS Dur : 140 ms QT Int : 374 ms P-R-T Axes : 147 254 098 degrees QTc Int : 462 ms Paced rhythm with frequent ectopics When compared with ECG of 30-NOV-2018 12:40, Current undetermined rhythm precludes rhythm comparison, needs review Questionable change in QRS duration Questionable change in initial forces of Anterior leads Questionable change in initial forces of Inferior leads Confirmed by DR. Lilly CURRAN (3) on 12/01/2018 4:49:09 PM Referred By: CHANTELL Confirmed By:DR. Lilly CURRAN
--- NOTE | 2018-12-01 16:52 | EKG ---
Test Reason : Blood Pressure : / mmHG Vent. Rate : 086 BPM Atrial Rate : 092 BPM P-R Int : 000 ms QRS Dur : 194 ms QT Int : 460 ms P-R-T Axes : 000 -13 089 degrees QTc Int : 550 ms Electronic ventricular pacemaker Frequent ectopics When compared with ECG of 30-NOV-2018 23:00, (Unconfirmed) Previous ECG has undetermined rhythm, needs review Confirmed by DR. Lilly CURRAN (3) on 12/01/2018 4:51:56 PM Referred By: CARY Confirmed By:DR. Lilly CURRAN
[2018-12-01] MEDS: Warfarin Sodium 7.5 MG TAB PO SCH (17:18)
[2018-12-01] MEDS: Rosuvastatin 20 MG TAB PO SCH (19:50)
[2018-12-01] MEDS: Lorazepam 0.5 MG TAB PO PRN (19:50)
[2018-12-02] MEDS: Mag-Al Plus 1200 MG/1200 MG/120 MG/30 ML UDCUP PO PRN (03:40)
[2018-12-02] MEDS: Acetaminophen 500 MG TAB PO PRN (03:40)
[2018-12-02 07:20] LABS: INR-International Normal Ratio 1.3; Prothrombin Time 15.9 SEC (12.0-14.7)
[2018-12-02 07:33] LABS: Anion Gap 12 mmol/L (10-20); BUN (Urea Nitrogen) 21 mg/dL (8.4-25.7); Calc. Creatinine Clearance 60 mL/min (70-130); Calcium 9.9 mg/dL (7.8-10.44); Carbon Dioxide 32 mmol/L (23-31); Chloride 95 mmol/L (98-107); Estimated GFR-MDRD 65; Glucose 127 mg/dL (83-110); Potassium 3.7 mmol/L (3.5-5.1); Sodium 135 mmol/L (136-145)
[2018-12-02 10:45] VITALS: TEMP 97.8
[2018-12-02] MEDS: Digoxin 0.25 MG TAB PO SCH (10:47)
[2018-12-02] MEDS: Clopidogrel Bisulfate 75 MG TAB PO SCH (10:47)
[2018-12-02] MEDS: Aspirin Chewable 81 MG TAB PO SCH (10:47)
[2018-12-02] MEDS: Polyethylene Glycol 3350 17 GM Packet PO SCH (10:48)
[2018-12-02] MEDS: Eplerenone 25 MG TAB PO SCH (10:48)
[2018-12-02] MEDS: Torsemide 20 MG TAB PO SCH (10:49)
[2018-12-02] MEDS: Sacubitril 24.5 MG/Valsartan 25.5 MG TABLET PO SCH (10:49)
[2018-12-02] MEDS: HumaLOG 300 UNITS/3 ML VIAL SC PRN (11:17)
--- NOTE | 2018-12-02 12:39 | PQF ---
DATE: 12-02-18 ATTN: DR. PORTIA BOLAND Please exercise your independent, professional judgment in responding to the clarification form. Clinical indicators are provided on the bottom of this form for your review Please check appropriate box(s): HEART FAILURE: A. TYPE: [ X ] Systolic / HFrEF [ ] Diastolic / HFpEF [ ] Combined Systolic / Diastolic B. ACUITY [ ] Acute [ ] Acute on Chronic [ X ] Chronic [ ] Other diagnosis [ ] Unable to determine In addition, please specify: Present on Admission (POA): [ X] Yes [ ] No [ ] Unable to determine For continuity of documentation, please document condition throughout progress notes and discharge summary. Thank You. CLINICAL INDICATORS - SIGNS / SYMPTOMS / LABS: 11-27 (Jacobo): CHF clinically improved 11-27 (Aishwarya): acute cardiac pulmonary edema ; chronic systolic CHF 11-28 (Jacobo): CHF pulmonary edema 11-30 (Cleve): acute on chronic systolic heart failure 11-28 ECHO: EF 25-30% BNP: 11-27-18: 722.6 11-28-18: 795.1 RISKS: H&P: HX OF CVA, CHF, DIABETES, HYPERLIPIDEMIA, HTN, CXR SHOW FLASH PULMONARY EDEMA ER: HX CVA, CHF, DM, HYPERLIPEMIA, HTN, CABG, FORMER SMOKER TREATMENTS: ER: NITRO IV, LASIX IV MAR: 12-01-18: ASA, PLAVIX, DIGOXIN, DEMADEX CARDIOLOGY CONSULT 11-27-18 (This form is maintained as a part of the permanent medical record) 2014 [employer]. All Rights Reserved [email or web address] Office: [phone] [facility]
[2018-12-02 15:31] VITALS: BP 121/73
--- NOTE | 2018-12-02 16:38 | DIS ---
DATE OF ADMISSION: 11/27/2018 DATE OF DISCHARGE: 12/02/2018 CONDITION AT THE TIME OF DISCHARGE: Stable and improved. DISCHARGE DISPOSITION: Home with outpatient cardiac rehab. PRIMARY CARE PHYSICIAN: Dr. Jaime. PRIMARY E LEARNING DEVELOPER: Dr. Bond. DISCHARGE DIAGNOSES: 1. Acute respiratory failure with hypoxia and hypercapnia. 2. Acute cardiac pulmonary edema, resolved. 3. Hypertensive urgency, resolved. 4. Type 2 myocardial infarction due to acute cardiopulmonary edema and uncontrolled hypertension. 5. Chronic atrial fibrillation, on chronic Coumadin. 6. Coronary artery disease. 7. Chronic anticoagulation with Coumadin for chronic atrial fibrillation. 8. Diabetes mellitus, type 2. 9. Dyslipidemia. 10. Hypertension. 11. History of ischemic cardiomyopathy with ejection fraction of 20% to 25% with automatic implantable cardioverter defibrillator in place. 12. Chronic systolic congestive heart failure, [place] Heart Association class 2. DISCHARGE MEDICATIONS: 1. Stop medication hydrochlorothiazide. 2. Hold medication for systolic blood pressure less than 110, isosorbide. 3. New medications. a. Levofloxacin 500 mg p.o. daily for 3 more days. b. Plavix 75 mg daily. c. Aspirin 81 mg daily. 4. Resume home medications as follows: a. Carvedilol 3.125 mg p.o. b.i.d. b. Digoxin 0.25 mg daily. c. Sublingual nitroglycerin p.r.n. d. MiraLAX p.r.n. e. Kenalog cream p.r.n. f. Multivitamin, vitamin D, and calcium daily. g. Trulicity 0.5 mL subcu every 7 days. h. Eplerenone 25 mg daily. i. Ativan p.r.n. j. Protonix 40 mg daily. k. Klor-Con 20 mEq daily. l. Ranexa 500 mg p.o. b.i.d. m. Crestor 40 mg daily. n. Florastor 500 mg daily. o. Entresto one tablet p.o. b.i.d. p. Demadex 20 mg daily. q. Warfarin 10 mg daily. r. Glyburide 7.5 mg daily. IN-HOUSE CONSULTATIONS: 1. Pulmonary Medicine, Dr. Centeno. 2. Cardiology, Dr. Umana. PROCEDURES DONE IN THE HOSPITAL: 1. Doppler ultrasound of bilateral lower extremities. This is negative for any evidence of DVT. 2. Cardiac catheterization, which shows left main and 3-vessel coronary artery disease and one out of two bypass grafts patent. He has severely impaired ventricular function. He underwent a successful placement of drug-eluting stent of the right posterior descending coronary artery in-stent restenosis. 3. Transthoracic echocardiogram, which shows severely depressed left ventricular function with EF of 25% to 30% and akinesis of the apical inferior and septal wall in the left ventricle. Defibrillator via the right ventricle. He has [id number] tricuspid regurgitation. Left atrium is also dilated. HISTORY OF PRESENTING ILLNESS: Mr. Crockett is a pleasant 73-year-old male with past medical history of chronic systolic congestive heart failure as well as coronary artery disease, history of CVA, dyslipidemia, hypertension, and diabetes, who presented to the emergency room with complaints of worsening shortness of breath. His oxygen saturation dropped to 70s according to the EMS. He was brought into the emergency room and was found to be significantly hypertensive. He was started on nitroglycerin drip and BiPAP. Chest x-ray done in the ER showed flash pulmonary edema. He was admitted to Critical Care Unit on nitroglycerin drip. He was started on diuresis as well. Cardiology was consulted. Pulmonary and Critical Care Medicine were also consulted. His troponin on admission was elevated to 0.121 and lactic acid was elevated to 6.9. Please see admission history and physical dictated by Dr. Razo on 11/27/2018 for full details. HOSPITAL COURSE: The patient was weaned off BiPAP quickly after good diuresis was obtained and his blood pressure was under control. Nitroglycerin drip was slowly tapered off and he was restarted on his home medications. He was also treated with transdermal nitroglycerin after the nitroglycerin drip was switched off. His cardiac enzymes were trended and his troponin levels went from 0.256 to as high as 0.398 and then started to trend down again at 0.372. Cardiology saw the patient and Dr. Umana's recommended a cardiac catheterization. The patient underwent cardiac cath on 11/30/2018 and underwent placement of a new drug-eluting stent in the right proximal descending artery. He was started on aspirin and Plavix for this. His echocardiogram was done and it also showed findings consistent with low ejection fraction as known from earlier. Medications were restarted, but he was hypotensive for the rest of his hospitalizations with systolic hovering from 80s to 90s. For this, the patient was asymptomatic. At this time, his hydrochlorothiazide is stopped and his isosorbide has been held. I have educated this patient extensively with regard to taking his medications, especially the Ranexa, Entresto, and carvedilol by time to prevent significant hypotension and to monitor his blood pressure at least 2 or 3 times a day until he is seen by his own health and safety tech, Dr. Bond. His INR was monitored throughout his hospitalization. It was 2.3 upon presentation, but the Coumadin was held for cardiac catheterization. Now, the Coumadin has been restarted and his discharge INR is 1.3. He will resume his home dosages and follow up with his primary care physician for the INR workup early next week. This has been discussed with the patient extensively as well. He was treated with empiric IV antibiotics for some questionable opacities in the lower lung zones. He had no signs or symptoms to suggest infection and his elevated lactic acid was most likely secondary to hypoxic respiratory failure. It improved to 2.9 the next day. Antibiotics were interrupted and he was just continued on oral levofloxacin, but there was no clear evidence of infection. Blood cultures were negative. Influenza testing was negative. As of this morning, he is feeling well and has been cleared to discharge from Pulmonary and Cardiology standpoint. I have seen and examined the patient prior to discharge. PHYSICAL EXAMINATION: This morning, VITAL SIGNS: Temperature 97.8, pulse of 81, respirations 20, saturating 95% on room air, and blood pressure 105/60. GENERAL: No acute distress. Awake, alert, and oriented x3. CHEST: Clear to auscultation bilaterally without any wheezing, rales, or rhonchi. Rate and rhythm are regular without any murmurs, rubs, or gallops. DISCHARGE PLAN: Discharge planning was discussed with the patient who verbalized understanding. Discharge planning was also discussed with his primary care physician, Dr. Jaime. The patient is at high risk of bleeding complications as he is now on aspirin, Plavix, and Coumadin. I have clarified this with our health and safety tech, Dr. Umana, and at this time, the patient requires all 3 because of his complex cardiac history. TIME SPENT: Total time spent in the discharge, 38 minutes. Job ID: [id number]
== END 2018-12-02 14:48 | disposition home or self-care (01) | DRG 246 ==
LOC: ERS 01:14 → CCU 02:54 → 2NO 11-28 16:34
PROVIDERS: ADMIT Hospitalist; ATTEND Hospitalist
PROC: 5A09357 Assistance with Respiratory Ventilation, Less than 24 Consecutive Hours, Continuous Positive Airway Pressure (ICD-10-PCS; principal; 2018-11-27)
PROC: 027034Z Dilation of Coronary Artery, One Artery with Drug-eluting Intraluminal Device, Percutaneous Approach (ICD-10-PCS; 2018-11-30)
PROC: 4A023N7 Measurement of Cardiac Sampling and Pressure, Left Heart, Percutaneous Approach (ICD-10-PCS; 2018-11-30)
PROC: B2111ZZ Fluoroscopy of Multiple Coronary Arteries using Low Osmolar Contrast (ICD-10-PCS; 2018-11-30)
PROC: B2151ZZ Fluoroscopy of Left Heart using Low Osmolar Contrast (ICD-10-PCS; 2018-11-30)
PROC: B2121ZZ Fluoroscopy of Single Coronary Artery Bypass Graft using Low Osmolar Contrast (ICD-10-PCS; 2018-11-30)
PROC: B2171ZZ Fluoroscopy of Right Internal Mammary Bypass Graft using Low Osmolar Contrast (ICD-10-PCS; 2018-11-30)
DX: I11.0 Hypertensive heart disease with heart failure (principal); I21.A1 Myocardial infarction type 2; J96.01 Acute respiratory failure with hypoxia; J96.02 Acute respiratory failure with hypercapnia; E87.2 Acidosis; E87.1 Hypo-osmolality and hyponatremia; N17.9 Acute kidney failure, unspecified; T82.855A Stenosis of coronary artery stent, initial encounter; I16.0 Hypertensive urgency; I50.22 Chronic systolic (congestive) heart failure; E11.65 Type 2 diabetes mellitus with hyperglycemia; I95.9 Hypotension, unspecified; I25.10 Atherosclerotic heart disease of native coronary artery without angina pectoris; I48.2 Chronic atrial fibrillation; E78.5 Hyperlipidemia, unspecified; I25.5 Ischemic cardiomyopathy; Z86.73 Personal history of transient ischemic attack (TIA), and cerebral infarction without residual deficits; Z87.891 Personal history of nicotine dependence; Z79.01 Long term (current) use of anticoagulants; Z79.84 Long term (current) use of oral hypoglycemic drugs; Z79.899 Other long term (current) drug therapy; Z95.1 Presence of aortocoronary bypass graft; Z95.810 Presence of automatic (implantable) cardiac defibrillator; Z95.5 Presence of coronary angioplasty implant and graft; Y83.1 Surgical operation with implant of artificial internal device as the cause of abnormal reaction of the patient, or of later complication, without mention of misadventure at the time of the procedure
CPT/HCPCS: 36415; 36416; 71045; 80048; 80053; 80061; 80162; 82553; 82805; 83605; 83735; 83880; 84100; 84484; 85025; 85347; 85379; 85610; 85730; 87040; 87804; 92928; 93005; 93010; 93306; 93459; 93798; 93970; 94640; 94660; 96365; 96366; 96368; 96375; 99152; 99153; C1725; C1769; C1874; C1887; C9600; J0456; J0583; J0696; J1644; J1650; J1940; J2250; J2930; J3010; J3430; J3490; J7050; J7620; Q0162; Q9967

== ENCOUNTER 2019-01-11 01:36 | Inpatient (IN) | payer MEDICARE, BC ==
[2019-01-11 02:22] LABS: Analyzer IN Cardio ER; Base Excess (BEa) -5.2 mEq/L (-2.0 to +3.0); CO2 Tension 38.6 mmHg (35.0-45.0); Calcium, Ionized 1.13 mmol/L (1.12-1.30); Carboxyhemoglobin (COHb) 0.3 gm% (0.0-3.0); Hemoglobin (Hb) 18.9 g/dL (14.0-18.0); O2 Tension (PaO2) 88.1 mmHg (> 70.0); pH, Arterial 7.33 (7.35-7.45)
[2019-01-11 02:22] LABS: ALT (SGPT) 26 U/L (8-55); AST (SGOT) 39 U/L (5-34); Albumin 5.1 g/dL (3.4-4.8); Alkaline Phosphatase 50 U/L (40-150); Anion Gap 26 mmol/L (10-20); BUN (Urea Nitrogen) 35 mg/dL (8.4-25.7); Bilirubin, Total 1.2 mg/dL (0.2-1.2); Calc. Creatinine Clearance 0 mL/min (70-130); Carbon Dioxide 22 mmol/L (23-31); Chloride 91 mmol/L (98-107); Estimated GFR-MDRD 36; Globulin 4.6 g/dL (2.4-3.5); Glucose 273 mg/dL (83-110); Potassium 5.7 mmol/L (3.5-5.1); Protein, Total 9.7 g/dL (5.8-8.1); Sodium 133 mmol/L (136-145)
[2019-01-11 02:24] LABS: Puncture Site RBA
[2019-01-11 02:46] LABS: Band 3 % (5-11); Eosinophils 3 % (0-10); Hemoglobin 18.4 g/dL (14.0-18.0); Lymphocytes 22 % (21-51); MDiff Complete? YES; Mean Corpuscular Hemoglobin 34.1 pg (27.0-31.0); Mean Platelet Volume 9.9 fL (7.4-10.4); Monocytes 8 % (0-10); Neutrophil 64 % (42-75); Platelet Count 191 thou/uL (130-400); White Blood Cell (WBC) Count 17.8 thou/uL (4.8-10.8)
[2019-01-11] MEDS ORDERED: Piperacillin/Tazobactam 4.5 GM VIAL ONE (03:05)
[2019-01-11] MEDS ORDERED: Lorazepam 2 MG/ML VIAL ONE (03:13)
[2019-01-11] MEDS ORDERED: Acetaminophen 650 MG Suppository PR PRN (04:19)
[2019-01-11] MEDS ORDERED: Ondansetron ODT 4 MG TAB PO PRN (04:19)
[2019-01-11] MEDS ORDERED: Ondansetron PF 4 MG/2 ML Vial IVP PRN (04:19)
[2019-01-11] MEDS ORDERED: Dextrose 5% in Water 1,000 ML IV PRN (04:28)
[2019-01-11] MEDS ORDERED: Dextrose 50% Abboject 50 ML SYRINGE SLOW IVP PRN (04:28)
[2019-01-11] MEDS ORDERED: Ondansetron PF 4 MG/2 ML Vial ONE (04:37)
[2019-01-11] MEDS ORDERED: Rocuronium Bromide 10 MG/ML (10ML VIAL) ONE (04:42)
[2019-01-11] MEDS ORDERED: Midazolam HCl 5 mg/ml Vial ONE (05:03)
[2019-01-11 05:15] LABS: Actual Bicarbonate (HCO3a) 20.5 mEq/L (22-28); Analyzer IN Cardio ER; Base Excess (BEa) -6.3 mEq/L (-2.0 to +3.0); CO2 Tension 45.2 mmHg (35.0-45.0); Calcium, Ionized 1.09 mmol/L (1.12-1.30); Carboxyhemoglobin (COHb) 0.2 gm% (0.0-3.0); Hemoglobin (Hb) 16.7 g/dL (14.0-18.0); O2 Tension (PaO2) 104.3 mmHg (> 70.0); Potassium - ABG Lab 4.88 mmol/L (3.70-5.30); pH, Arterial 7.28 (7.35-7.45)
[2019-01-11] MEDS ORDERED: Norepinephrine 4 MG/4 ML VIAL ONE ×2 (05:20)
[2019-01-11] MEDS ORDERED: Ventilator Sedation Protocol 1 EACH FS SCH (05:54)
[2019-01-11 05:56] LABS: Puncture Site LBA
[2019-01-11] MEDS ORDERED: DISCONTINUE PREVIOUS NARCOTIC PAIN MEDICATIONS AND BENZODIAZEPINES FS SCH (06:09)
[2019-01-11] MEDS ORDERED: Lorazepam 2 MG/ML VIAL SLOW IVP PRN (06:09)
[2019-01-11] MEDS ORDERED: Morphine 2 MG/ML SYRINGE SLOW IVP PRN (06:09)
[2019-01-11] MEDS ORDERED: Propofol BOLUS 1,000 MG/100 ML VIAL IV PRN (06:09)
[2019-01-11] MEDS ORDERED: fentaNYL Citrate/PF 2,000 MCG in Sodium Chloride 0.9% 60 ML IV SCH (06:09)
[2019-01-11] MEDS ORDERED: Fentanyl BOLUS 250 ML IVPB PRN (06:09)
[2019-01-11] MEDS: Propofol 1,000 MG/100 ML VIAL IV PRN ×3 (06:19→23:43)
[2019-01-11] MEDS: HumaLOG 300 UNITS/3 ML VIAL SC PRN ×4 (06:28→23:43)
[2019-01-11 06:34] LABS: Lactic Acid 2.1 mmol/L (0.5-2.2)
[2019-01-11 06:43] LABS: Troponin I 0.291 ng/mL (< 0.028)
[2019-01-11] MEDS ORDERED: Norepinephrine 8 MG in Sodium Chloride 0.9% 250 ML 250 ML IVPB PRN (06:55)
[2019-01-11] MEDS: Nitroglycerin 2% Ointment 1 INCH/1 GM Packet TOP SCH ×3 (07:26→23:40)
--- NOTE | 2019-01-11 07:52 | RAD ---
EXAM: Single view of the chest HISTORY: Status post intubation for respiratory failure COMPARISON: 01/11/2019 FINDINGS: Single view of the chest shows an enlarged but stable cardiomediastinal silhouette. The pa cemaker is unchanged in position. The patient is status post sternotomy. An endotracheal tube is seen with its tip at the lower border of the clavicles. An NG tube courses off the inferior aspect of the film. Diffuse hazy airspace opacities are seen in both lungs. IMPRESSION: 1. Appropriate position of endotracheal tube and NG tube 2. Diffuse hazy opacities may represent pulmonary edema or infiltrates.
--- NOTE | 2019-01-11 07:54 | RAD ---
EXAM: Single view of the chest HISTORY: Dyspnea/CHF COMPARISON: 11/27/2018 FINDINGS: Single view of the chest shows an enlarged but stable cardiomediastinal silhouette. The pa tient is status post sternotomy. The pacemaker is unchanged in position. Calcifications projecting over the left heart may represent calcifications in the heart or pericardium. Diffuse mixed hazy opa cities are seen in the lungs. Degenerative changes are seen in the spine. IMPRESSION: Diffuse hazy opacities in the lungs may represent volume overload.
--- NOTE | 2019-01-11 07:57 | RAD ---
EXAM: Single view of the chest HISTORY: Central line placement COMPARISON: 01/11/2019 at 4:49 AM FINDINGS: Single view of the chest shows an enlarged but stable cardiomediastinal silhouette. The pa tient is status post sternotomy. The pacemaker is unchanged in position. The endotracheal tube and NG tube are unchanged in position. There is a right subclavian central venous catheter with its tip i n the superior vena cava. No pneumothorax is seen. Diffuse hazy opacities in the lungs may represent volume overload/pulmonary edema. IMPRESSION: Status post central line placement without evidence of pneumothorax.
[2019-01-11] MEDS ORDERED: Albumin 25% 25 GM/100 ML BOT IVPB ONE (08:15)
[2019-01-11] MEDS ORDERED: Vancomycin HCl 500 MG in Sodium Chloride 0.9% 100 ML IVPB SCH ×2 (08:45→09:45)
[2019-01-11] MEDS ORDERED: HOLD VANCOMYCIN FOR LEVEL >20 FS SCH (08:45)
[2019-01-11] MEDS ORDERED: Vancomycin HCl 750 MG in Sodium Chloride 0.9% 250 ML 250 ML IVPB SCH (08:45)
[2019-01-11] MEDS ORDERED: Prevnar 13-Val Conj/PF 0.5 ML SYRINGE IM ONE (08:45)
[2019-01-11] MEDS ORDERED: Vancomycin HCl 250 MG in Sodium Chloride 0.9% 100 ML IVPB SCH (08:45)
[2019-01-11] MEDS ORDERED: Vancomycin Sliding Scale 1 EACH FS ONE (08:45)
[2019-01-11] MEDS ORDERED: Vancomycin HCl 1 GM in Premix Bag 1 BAG IVPB SCH (08:45)
[2019-01-11] MEDS ORDERED: Cefepime 1 GM in Sodium Chloride 0.9% 100 ML IVPB SCH (09:00)
[2019-01-11] MEDS ORDERED: Famotidine/PF 20 mg/2ml Vial SLOW IVP SCH (09:00)
[2019-01-11] MEDS ORDERED: Enoxaparin Sodium 30 MG/0.3 ML SYRINGE SC SCH (09:00)
[2019-01-11 09:03] LABS: Troponin I 0.294 ng/mL (< 0.028)
[2019-01-11] MEDS: Furosemide 40 MG/4 ML VIAL SLOW IVP SCH ×2 (09:22→13:38)
[2019-01-11] MEDS: Sodium Chloride 0.9% 1,000 ML IV SCH (09:35)
[2019-01-11] MEDS: Cefepime 1 GM in Sodium Chloride 0.9% 100 ML IVPB SCH (10:06)
[2019-01-11 10:30] LABS: INR-International Normal Ratio 1.9; Prothrombin Time 21.4 SEC (12.0-14.7)
--- NOTE | 2019-01-11 10:39 | CON ---
DATE OF CONSULTATION: 01/11/2019 HISTORY OF PRESENT ILLNESS: This is a 73-year-old white male, I am seeing in the ICU A06, here at [facility]. He is intubated so I can get no history. There is no family here currently. Apparently, he was admitted late last night from the emergency room here where he came in with shortness of breath and high blood pressure. He is intubated currently. I am assuming is intubated downstairs in the ER. He has history of diabetes, hypertension. When he came in, I think he felt like he was in congestive heart failure. In talking with the nurse here in the ICU here, that is his third working diagnosis. He has been in the hospital many times in looking at his history here at [facility]. PAST MEDICAL HISTORY: He has medical history of CVA that has left him with some mild deficit. He has a history of congestive heart failure, history of diabetes, history of hyperlipidemia, and history of hypertension. PAST SURGICAL HISTORY: He has had bypass surgery. He has had a pacemaker placement. He has had varicose vein surgery on his lower extremities. ALLERGIES: HE HAS NO KNOWN DRUG ALLERGIES. MEDICATIONS: He takes a number of different medicines, which are listed on the computer, but they do include Plavix and Coumadin. I have been asked to see him as he does not have a Garcia catheter, and then, two of the nurses and one of the doctors in the ER were unable to pass a Garcia catheter. On examining him, he has no incisions along his lower abdomen nor any tattoos that would suggest that he has had prior prostate surgery. I see nothing that would suggest near hip replacement surgery. He is circumcised. There are no lesions. Testicles are descended. No mass tenderness. The bladder was not obviously distended. We did not do a rectal. I went ahead and prepped and draped him. The nurse here at his bedside, gave him a dose of some pain medicine, and when we were able to pass an 18-Algerian coude tip catheter into the bladder and obtained clear urine which was sent for urinalysis and a culture. 10 mL was placed in the balloon and it was secured to a drainage bag. It can be left in until it is no longer really needed for monitoring. I will check on him tomorrow, and hopefully, they will talk to his and see if he has already established care with the urologist here. We could transfer his care back to him. If not, I can follow while they are in the hospital. Job ID: [id number]
[2019-01-11] MEDS ORDERED: Piperacillin/Tazobactam 4.5 GM in Sodium Chloride 0.9% 100 ML IVPB SCH (12:00)
[2019-01-11 14:23] LABS: Anion Gap 15 mmol/L (10-20); BUN (Urea Nitrogen) 38 mg/dL (8.4-25.7); Calc. Creatinine Clearance 43 mL/min (70-130); Calcium 8.8 mg/dL (7.8-10.44); Carbon Dioxide 28 mmol/L (23-31); Chloride 97 mmol/L (98-107); Estimated GFR-MDRD 42; Glucose 173 mg/dL (83-110); Potassium 4.1 mmol/L (3.5-5.1); Sodium 136 mmol/L (136-145)
[2019-01-11] MEDS ORDERED: Warfarin Sodium 10 MG TAB PO SCH (17:00)
--- NOTE | 2019-01-11 21:09 | CON ---
DATE OF CONSULTATION: HISTORY: This is a 73-year-old gentleman, who was just discharged from the hospital no more than 2 weeks ago, presented to the ER with shortness of breath. Respiratory rate was 30, blood pressure 155/102. Upon arrival, he was diaphoretic. History is extensively outlined in his recent medical records. He was unable to breathe. He was intubated. PAST MEDICAL HISTORY: Pertinent for CVA in 2012, history of coronary disease, congestive heart failure being followed at [facility], history of hyperlipidemia, hypertension. PAST SURGICAL HISTORY: Bypass, pacemaker, leg surgery. HABITS: Alcohol, none. Tobacco, none, former smoker. HOME MEDICATIONS: Prior to discharge included presumably, 1. Coumadin 7.5. 2. Tramadol 50. 3. Demadex 20. 4. Entresto one tablet twice a day. 5. Ranexa 500. 6. Potassium. 7. Nitroglycerin. 8. Digoxin 0.25. 9. Coreg 3.125. ALLERGIES: NONE. SOCIAL HISTORY: Unobtainable. FAMILY HISTORY: Unobtainable. PHYSICAL EXAMINATION: GENERAL: Intubated in the vent, responsive. VITAL SIGNS: He is on Levophed with , pulse 89, saturations 98%, . CHEST: Bilateral crackles. CARDIAC: Normal S1, S2. No gallops. ABDOMEN: Soft without any masses. NEUROLOGIC: He opens eyes. Moves all 4 extremities. IMAGING DATA: His x-ray shows congestive heart failure. LABORATORY DATA: His lab otherwise shows this morning, white count 17,000, H and H of 18 and 55, platelet count is normal. His PO2 is 104, pCO2 45, pH 7.28, at a rate of 18, 8 of PEEP. Creatinine 1.86 was normal 2 weeks ago. Glucose 325. BNP is 499. ASSESSMENT: Respiratory failure secondary to congestive heart failure. Previous echo shows ejection fraction of 30%, hypertension, renal failure. PLAN: At this stage, he is not weanable. We will start low-dose nutrition. Continue cardiac care as per Cardiology. Albumin is given. Empiric antibiotics. We will wean when stable in the next 24 to 48 hours. This is a 45-minute critical care. Job ID: [id number]
--- NOTE | 2019-01-11 21:34 | HP ---
PRIMARY CARE DOCTOR: Dr. Eddy Jaime CODE STATUS: Full code. TIME OF EVALUATION: 04:34 a.m. CHIEF COMPLAINT: Shortness of breath. HISTORY OF PRESENT ILLNESS: This is a 73-year-old male patient with past medical history of CVA in the past, congestive heart failure, diabetes, hyperlipidemia, hypertension, came to the hospital after having severe gradually worsening shortness of breath. The symptoms started around 01:00 a.m. with no clear triggers, no alleviating factors, associated with diaphoresis. The patient went into respiratory failure, needing BiPAP and that is the reason why he is admitted to ICU. We will place the patient and monitor him closely the patient will need intubation, although he seems to start recovering right now. REVIEW OF SYSTEMS: CONSTITUTIONAL: No fever or chills. The patient has generalized weakness. RESPIRATORY: The patient has cough. No sputum production, shortness of breath, wheezing, or crackles. CARDIOVASCULAR: No chest pain or palpitations. The patient is diaphoretic. GASTROINTESTINAL: No nausea, vomiting, diarrhea, or abdominal pain. BRAKE DRUM LATHE OPERATOR: No dizziness, headache, or feeling lightheaded. GENITOURINARY: urinary retention. The patient is urinating well. EXTREMITIES: No leg swelling. All other systems were reviewed and negative except for the findings mentioned above. PAST MEDICAL HISTORY: As mentioned in the HPI. FAMILY HISTORY: Reviewed, noncontributory for current presentation. PAST SURGICAL HISTORY: CABG x2 vessels, pacemaker placement, varicose vein surgery. PSYCHIATRIC HISTORY: No previous psych history. SOCIAL HISTORY: No alcohol. No drugs. The patient smokes cigarettes. The patient lives with his spouse. KNOWN ALLERGIES: No known drug allergies. REPORTED MEDICATIONS: 1. Calcium 600. 2. Carvedilol. 3. Digoxin. 4. Trulicity. 5. Eplerenone. 6. Famotidine. 7. Glyburide. 8. Hydrochlorothiazide. 9. Isosorbide. 10. Lorazepam. 11. Nitroglycerin. 12. Pantoprazole. 13. MiraLAX. 14. Potassium chloride. 15. Ranexa. 16. Crestor. 17. Florastor. 18. Torsemide. 19. Tramadol. 20. Warfarin. PHYSICAL EXAMINATION: VITAL SIGNS: On presentation, blood pressure 155/102 with heart rate 82, respiratory rate was 30, oxygen saturation was 90 on 3 L. The patient is on BiPAP. GENERAL APPEARANCE: The patient is alert, oriented, in distress due to respiratory failure. HEENT: Eyes, normal conjunctiva. Moist oral mucosa. Bilateral JVD. RESPIRATORY: Bilateral air entry is decreased. The patient has bilateral rales, wheezing. Symmetric expansion. CARDIOVASCULAR: The patient is tachycardic. Regular rhythm. No murmurs. No gallop. Bilateral leg edema. ABDOMEN: Soft. Normal bowel sounds. MUSCULOSKELETAL: Baseline range of motion and strength. Skin is warm and intact. No pallor. No rash. No redness. Capillary refill seems to be intact. NEUROLOGIC: No evidence of any new focal weakness. Cranial nerves seem to be intact. PSYCH: The patient is anxious due to respiratory distress. DIAGNOSTIC STUDIES: EKG was reviewed. The patient has atrial fibrillation with rapid ventricular response, LBBB, ventricular rate 104, QRS 198, QT corrected 536. Chest x-ray was reviewed. The patient has bilateral pulmonary edema, AICD and pacemaker in place. LABORATORY DATA: Reviewed. The patient has white count 17.8, hemoglobin 18.4, MCV 104, platelet count 191. ABG was done, pH 7.33, pCO2 38.6, pO2 88 that was on BiPAP at 40% inspired oxygen, 04/24. Chemistry; sodium 133, potassium 5.7, chloride 91, carbon dioxide 22, anion gap 36, BUN 35, creatinine 1.86, in previous admission the creatinine was 1.1, GFR 36, glucose 273, lactic acid 7.7, total bilirubin 1.2, AST 39, ALT 26, alkaline phosphatase 50. Troponin 0.177. Beta-natriuretic peptide 499. Serum total protein 9.7, albumin 5.1, globulin 4.6, albumin-globulin ratio is 1.1. ASSESSMENT AND PLAN: The patient will be placed in the hospital with following medical problems: 1. Acute severe congestive heart failure exacerbation. The patient went into respiratory failure. The patient initially was started on BiPAP with no significant improvement and the patient is being intubated as we dictate this note by the ER physician. We will place in the ICU, we will call Pulmonary for assistance. We will continue diuresis. Reconcile home medications. 2. Possible pneumonia, underlying pulmonary edema is difficult to say. The patient has leukocytosis, has been started on broad-spectrum antibiotics, we will continue for now until we get some cultures back and can make a decision on continuing the coverage or not. 3. Acute hypoxic respiratory failure due to congestive heart failure exacerbation. Treatment as mentioned above. 4. Hyponatremia, sodium 133, this is likely dilutional. The patient is on diureses and fluid restriction. We will monitor and treat accordingly. 5. Hyperkalemia. Potassium 5.7. The patient is receiving high dose of Lasix, we will monitor potassium and treat accordingly. 6. High anion gap metabolic acidosis. The patient has lactic acidosis of 7.7 and also has a creatinine of 1.8. This is likely secondary to lactic acidosis and kidney failure. We will treat underlying condition. 7. Acute kidney injury. On previous admission, the patient had a creatinine of 1.1; in this admission, the creatinine is 1.8, there is an increase of more than 0.3 mg/dL. We will treat the underlying condition. Possible etiologies could be probably cardiorenal syndrome, we will diurese and monitor creatinine. If not improving, might need Nephrology for assistance with fluid balance and kidney function. 8. Uncontrolled diabetes, blood sugar 273. We will place the patient on sliding scale for optimal control. 9. Lactic acidosis likely secondary to hypoxia or possible underlying hyperadrenergic state of sepsis. We will treat the underlying condition. 10. Hypercalcemia, calcium 11. We will monitor and treat accordingly. Not likely the etiology for current presentation. 11. Elevated troponin of 0.177. The patient has no significant EKG changes, probably could be secondary to underlying congestive heart failure. 12. Deep venous thrombosis prophylaxis. We will reconcile . Job ID: [id number]
--- NOTE | 2019-01-11 23:03 | CON ---
DATE OF CONSULTATION: 01/11/2019 REASON FOR CONSULTATION: Heart failure. HISTORY OF PRESENT ILLNESS: Mr. Crockett is a 73-year-old gentleman who comes to the hospital for shortness of breath. He had gradually worsening shortness of breath per chart review. He eventually was seen in the ER and initially was placed on a BiPAP, but eventually became more tachypneic and hypoxic, so he had to be intubated to protect his airway. On my evaluation, he is sedated, intubated and unable to give any more history. PAST MEDICAL HISTORY: 1. Chronic systolic heart failure, EF of 15% to 20%. 2. History of CVA in the past. 3. Type 2 diabetes. 4. Hyperlipidemia. 5. Hypertension. SURGICAL HISTORY: 1. Varicose vein surgery. 2. CABG x3. 3. Stents as recent as August 2017. 4. Biventricular AICD in March 2012. 5. Appendectomy. 6. Cholecystectomy. OUTPATIENT MEDICATIONS: Include: 1. Tramadol. 2. Glyburide. 3. Warfarin. 4. Triamcinolone cream. 5. Torsemide 20 mg daily. 6. Entresto 24/26 b.i.d. 7. Florastor. 8. Crestor 40 mg at bedtime. 9. Ranexa 500 mg b.i.d. 10. Potassium chloride. 11. MiraLAX. 12. Pantoprazole. 13. Sublingual nitroglycerin. 14. Maalox. 15. Ativan. 16. Levaquin. 17. Imdur. 18. Famotidine. 19. Eplerenone 25 mg daily. 20. Trulicity. 21. Digoxin 0.25 daily. 22. Plavix 75 mg daily. 23. Vitamin D3. 24. Coreg 3.125 b.i.d. 25. Aspirin 81 daily. 26. Tylenol p.r.n. ALLERGIES: NO KNOWN DRUG ALLERGIES. FAMILY HISTORY: Noncontributory. SOCIAL HISTORY: No alcohol, tobacco, or drugs. REVIEW OF SYSTEMS: Unobtainable as he is intubated and sedated. PHYSICAL EXAMINATION: VITAL SIGNS: Temperature 100.5, pulse 20, respiratory rate is 18, satting 98% on 30% FiO2. GENERAL: Sedated, intubated. LUNGS: Clear anteriorly. CARDIOVASCULAR: S1 and S2. No S3 or S4. ABDOMEN: Soft. EXTREMITIES: No edema. SKIN: Warm and dry. LABORATORY DATA: Laboratory work was reviewed. White count of 17, hemoglobin of 18, hematocrit 55, platelet count a 191. Coags, INR are 1.9. ABG was reviewed. Chemistry with a BUN of 38, creatinine 1.63, creatinine decreased decrease from 1.8 to 1.6 with diuresis. Troponin is in the indeterminate range at 0.17, 0.29, 0.29. Cortisol was 22. BNP was 499, certainly not as high as it has been in the past, up to 1500. IMAGING: Most recent echocardiogram was done a month ago with EF at 25% to 30%. ASSESSMENT AND PLAN: 1. Recent heart catheterization showed left main and three vessel coronary artery disease. There was 1 of 2 bypass grafts patent with severely reduced left ventricular function. 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 This was just about a little bit over a month ago. 2. [id number]-wrhxsvd systolic heart failure. 3. Severe ischemic cardiomyopathy. 4. Fever and elevated white count. Concern for an infectious process. PLAN: 1. Agree with empiric antibiotics. 2. Continue IV diuresis as tolerated. 3. Wean Levophed off and if this is weaned off, we need to restart a pressor. I would actually pick an inotrope, I would do dobutamine instead. 4. We will follow. Job ID: [id number]
[2019-01-12 03:16] LABS: #Basophils 0.1 thou/uL (0.0-0.2); #Lymphocytes 1.7 thou/uL (1.20-3.40); #Monocytes 1.2 thou/uL (0.11-0.59); #Neutrophils 14.5 thou/uL (1.40-6.50); %Basophils 0.5 % (0.0-1.0); %Eosinophils 0.1 % (0.0-10.0); %Lymphocytes 9.5 % (21.0-51.0); Hemoglobin 14.5 g/dL (14.0-18.0); Mean Corpuscular HGB CONC 34.4 g/dL (32.0-36.0); Mean Corpuscular Hemoglobin 34.8 pg (27.0-31.0); Mean Platelet Volume 9.3 fL (7.4-10.4); Platelet Count 169 thou/uL (130-400); RBC Distribution Width 12.9 % (11.5-14.5); Red Blood Cell (RBC) Count 4.17 mill/uL (4.70-6.10); White Blood Cell (WBC) Count 17.4 thou/uL (4.8-10.8)
[2019-01-12 03:21] LABS: INR-International Normal Ratio 1.8; Prothrombin Time 21.2 SEC (12.0-14.7)
[2019-01-12 03:36] LABS: Vancomycin, Trough 5.5 ug/mL
[2019-01-12 03:44] LABS: Anion Gap 14 mmol/L (10-20); BUN (Urea Nitrogen) 33 mg/dL (8.4-25.7); Calc. Creatinine Clearance 48 mL/min (70-130); Calcium 9.5 mg/dL (7.8-10.44); Carbon Dioxide 30 mmol/L (23-31); Chloride 97 mmol/L (98-107); Estimated GFR-MDRD 48; Glucose 188 mg/dL (83-110); Potassium 3.6 mmol/L (3.5-5.1); Sodium 137 mmol/L (136-145)
[2019-01-12] MEDS: Acetaminophen 325 MG TAB PO PRN ×2 (03:44→21:21)
[2019-01-12] MEDS: HumaLOG 300 UNITS/3 ML VIAL SC PRN ×4 (04:50→21:18)
[2019-01-12] MEDS: Vancomycin HCl 1 GM in Premix Bag 1 BAG IVPB SCH (04:57)
[2019-01-12] MEDS: Furosemide 40 MG/4 ML VIAL SLOW IVP SCH ×2 (05:21→14:09)
[2019-01-12 06:42] LABS: Base Excess (BEa) 4.9 mEq/L (-2.0 to +3.0); CO2 Tension 28.8 mmHg (35.0-45.0); Calcium, Ionized 1.11 mmol/L (1.12-1.30); Carboxyhemoglobin (COHb) 0.7 gm% (0.0-3.0); Hemoglobin (Hb) 14.9 g/dL (14.0-18.0); O2 Tension (PaO2) 138.1 mmHg (> 70.0); Potassium - ABG Lab 3.21 mmol/L (3.70-5.30)
[2019-01-12 07:12] LABS: Puncture Site RBA; pH, Arterial 7.57 (7.35-7.45)
[2019-01-12] MEDS: Sodium Chloride 0.9% 1,000 ML IV SCH (08:02)
[2019-01-12] MEDS: Nitroglycerin 2% Ointment 1 INCH/1 GM Packet TOP SCH ×3 (08:02→22:38)
--- NOTE | 2019-01-12 08:05 | RAD ---
PORTABLE CHEST: Date: 01/12/19 HISTORY: Respiratory distress. COMPARISON: Prior day's study. FINDINGS: Heart size is enlarged. Calcification is again noted along the left ventricle. This has been shown to be dystrophic calcification along the ventricular wall. Pulmonary vessels are engorged with some inc reased parahilar markings. These changes are improved. Endotracheal and NG tubes are in satisfactory position. Right subclavian line is unchanged. IMPRESSION: Improving pulmonary edema. POS: MEMO
[2019-01-12] MEDS: Cefepime 1 GM in Sodium Chloride 0.9% 100 ML IVPB SCH (08:53)
[2019-01-12] MEDS ORDERED: Famotidine/PF 20 mg/2ml Vial SLOW IVP SCH (09:00)
--- NOTE | 2019-01-12 09:57 | PDOC.CTH ---
Cardiology Progress Note - Subjective Remains sedated, intubated. - Objective Vital Signs Temp Pulse Resp BP Pulse Ox 01/12/19 08:48 99 01/12/19 08:45 98 01/12/19 08:00 99.1 F 16 01/12/19 07:00 99.1 F 01/12/19 06:31 99 106/68 01/12/19 06:30 84 20 99 01/12/19 06:00 100 F H 20 01/12/19 05:26 20 01/12/19 05:00 101.2 F H 01/12/19 04:00 101 F H 20 01/12/19 03:29 88 99 01/12/19 03:00 100.5 F H 01/12/19 02:00 100.3 F H 20 01/12/19 01:00 100.6 F H 01/12/19 00:00 100.3 F H 20 01/11/19 23:11 94 109/80 01/11/19 23:00 100.5 F H 01/11/19 22:00 20 Admit Weight 159 lb 9.8 oz Weight 158 lb 4.67 oz 01/11/19 01/12/19 01/13/19 06:59 06:59 06:59 Intake Total 8.9 2031 30 Output Total 0 2935 1055 Balance 8.9 904 -1025 - Physical Examination General/Neuro: other: (S/I) Neck: no JVD present Lungs: unlabored respirations Heart: RRR Abdomen: NT/ND Extremities: other: (no edema) - Telemetry Telemetry Rhythm: Paced rhythm - Labs Result Diagrams: 01/12/19 03:05 01/12/19 03:05 Troponin/CKMB CK-MB (CK-2) 3.0 ng/mL (0-6.6) 01/11/19 01:42 Troponin I 0.294 ng/mL (< 0.028) H 01/11/19 08:26 - Assessment/Plan 1. Acute on chronic systolic heart failure 2. Severe ischemic CM EF at 15-20% 3. CAD s//p CABg, 1/2 bypasses patent with TERE to RPDA 1 month ago with good results. 4. Fever/elevated WBC 5. Acute hypoxic respiratory insufficiency. PLAN: - Continue diuresis. - Supportive care. - Pulmonary edema improving. - Would do Innotrope if hypotensive.
[2019-01-12 12:10] LABS: Bilirubin Negative (Negative); Blood, Urine Trace (Negative); Clarity Clear (Clear); Glucose, Urine (Dipstick) >=1000 mg/dL (Negative); Leukocyte Negative (Negative); Nitrite Negative (Negative); Protein, Urine (Dipstick) 30 mg/dL (Neg-Trace); Specific Gravity, Urine 1.015 (1.005-1.030); Urobilinogen 0.2 mg/dL (0.2-1.0); pH, Urine 5.5 (5.0-9.0)
[2019-01-12 12:17] LABS: Bacteria/HPF None Seen HPF (None Seen); Hyaline Casts/LPF NONE SEEN LPF (0-3 Hyaline); RBC/HPF None Seen HPF (0-3); Squamous Epithelial 0-3 HPF (0-3); WBC/HPF None Seen HPF (0-3)
--- NOTE | 2019-01-12 12:59 | PRG ---
DATE OF SERVICE: 01/12/2019 This patient was seen in the ICU bed A6. His is present with him today. He has had a low-grade temperature since yesterday, 99.1 at 8 this morning, 100 degrees at 6:00 a.m., and 101.2 at 5:00 a.m. His vital signs have otherwise been stable. He has had good urine output through the Garcia catheter and the urine is clear. His white count is still elevated at 17.4, hemoglobin is stable. Platelet count is normal. Creatinine is 1.45, it was 1.6 yesterday. Blood culture set up that are still in preliminary, but are negative. I cannot find urinalysis, urine culture, and retained urine from his catheter placement yesterday. I called microbiology. They have urine down there, but they did not receive any orders, so I have written order for urinalysis, sent for urine culture to be done on this. He is currently still on cefepime. I was able to talk with him and his . He has been in [facility] many times. He had a Garcia catheter only one time before that was years ago assuming possibly when he had his bypass. He has not had a catheter since. He generally has no trouble urinating. No history of prostate cancer, prostate surgery, urinary tract infections, burning with urination, blood in the urine, or any significant difficulty with urination. As mentioned today, his urine is clear. He has never seen another urologist. He sees many just Dr. Jaime his family practice doctor. I have placed an order for the lab to do the urine culture and urinalysis. He is currently on antibiotics. I think his Garcia catheter could be removed whenever it is no longer needed for monitoring. I will leave that up to his primary team to make that decision. I will check on him tomorrow and the next day until the culture results and urinalysis are final. Job ID: [id number]
--- NOTE | 2019-01-12 14:28 | PRG ---
DATE OF SERVICE: 01/12/2019 SUBJECTIVE: This patient is well known to me from past admissions. OBJECTIVE: GENERAL: He is in no distress. VITAL SIGNS: He is afebrile. Heart rate is 86, blood pressure 109/67, respiratory rate 19, oximetry is 98%. Intake and outputs -1200. LUNGS: Clear. HEART: Regular rhythm. ABDOMEN: Soft. He is having a bowel movement when I am in the room. IMAGING DATA: He is in a paced rhythm. LABORATORY DATA: Hemoglobin 14.5, white count 17.4, platelets 169. BUN is 33, creatinine 1.45. IMPRESSION: 1. Acute on chronic systolic heart failure. 2. Severe ischemic cardiomyopathy. 3. Pulmonary edema, clinically improved. 4. Coronary artery disease, status post coronary artery bypass grafting with one occluded graft. 5. Fever this admission. Blood cultures are negative so far. urine culture. His fever will continue to be monitored. It does not appear clinically that he has pneumonia. I answered all the 's questions. Job ID: [id number]
[2019-01-12] MEDS ORDERED: Warfarin Sodium 7.5 MG TAB PO SCH (17:00)
--- NOTE | 2019-01-12 20:18 | PDOC.PN ---
- Subjective Encounter Start Date: 01/12/19 Encounter Start Time: 16:00 Patient seen and examined for resp failure/CHF. Sitting on chair. SOB improving. Dry cough +. No new complaints. No overnight events - Objective Resuscitation Status - Order Detail: 01/11/19 04:19 Resuscitation Status Routine Resuscitation Status: FULL: Full Resuscitation MAR Reviewed: Yes Vital Signs & Weight: Vital Signs (12 hours) Temp Pulse Resp BP Pulse Ox 01/12/19 18:38 98.1 F 86 18 130/62 100 01/12/19 18:26 88 16 96 01/12/19 16:00 98 F 01/12/19 14:23 81 16 95 01/12/19 12:00 98.1 F 01/12/19 10:36 94 19 99 01/12/19 08:48 99 01/12/19 08:45 98 Weight Admit Weight 158 lb 4.67 oz Weight 158 lb 4.67 oz Most Recent Monitor Data Heart Rate from ECG 100 NIBP 117/69 NIBP BP-Mean 85 Respiration from ECG 27 SpO2 97 I&O: 01/11/19 01/12/19 01/13/19 06:59 06:59 06:59 Intake Total 8.9 2031 880 Output Total 0 2935 2390 Balance 8.9 904 -1510 Result Diagrams: 01/13/19 05:47 01/12/19 03:05 Additional Labs: Accuchecks 01/11/19 22:05 POC Glucose 185 H Radiology Reviewed by me: Yes (CXR - CHF) EKG Reviewed by me: Yes (Tele paced) Phys Exam - Physical Examination Constitutional: NAD Respiratory: no wheezing, no rhonchi few rales at bases, Symmetrical, no accessory muscle use Cardiovascular: RRR, no rub no heaves/pulsations Gastrointestinal: soft, non-tender, no distention, positive bowel sounds helms+ Musculoskeletal: no edema, pulses present Neurological: non-focal, normal sensation, moves all 4 limbs Psychiatric: normal affect, A&O x 3 Dx/Plan - Plan DVT proph w/lovenox, DVT proph w/SCDs IMPRESSION: Acute hypoxic resp failure s/p mech ventilation. Extubated today Acute on chronic systolic HF exacerbation Sepsis with acute organ dysfunction ?etio - on Cefepime JUSTIN on CKD 2 Hyperkalemia due to Metabolic acidoiss Lactic acidosis due to Sepsis vs hypoperfusion Hypotension requiring pressors ?Cardiogenic shock Chronic anticoag with Warfarin Ischemic CM DM2 PLAN: Transfer to tele Resume Ranexa/ASA/Plavix and Nitrates DC Nitro patch AM labs Resume Entresto and Eplerenone once renal function improves PT/INR daily with Warfarin monitoring Add fluid restriction DC Helms at discharge (Was placed by Dr Godinez) Cardiac rehab Counselled on CHF Cont sliding scale Resume Glyburide once renal function improves Review of Systems - Review of Systems Cardiovascular: negative: chest pain, palpitations, orthopnea, paroxysmal nocturnal dyspnea, edema, light headedness, other Gastrointestinal: negative: Nausea, Vomiting, Abdominal Pain, Diarrhea, Constipation, Melena, Hematochezia, Other - Medications/Allergies Allergies/Adverse Reactions: Allergies Allergy/AdvReac Type Severity Reaction Status Date / Time No Known Drug Allergies Allergy Verified 11/06/17 00:05 Medications: Current Medications Acetaminophen (Tylenol) 650 mg PO Q4H PRN PRN Reason: Headache/Fever/Mild Pain (1-3) Last Admin: 01/12/19 03:44 Dose: 650 mg Acetaminophen (Tylenol) 650 mg MI Q4H PRN PRN Reason: Headache/Fever/Mild Pain (1-3) Albuterol/Ipratropium (Duoneb) 3 ml NEB [id number] [facility] Last Admin: 01/12/19 18:26 Dose: 3 ml Dextrose/Water (Dextrose 50%) 25 gm SLOW IVP PRN PRN PRN Reason: Hypoglycemia Famotidine (Pepcid) 20 mg SLOW IVP DAILY [facility] Last Admin: 01/12/19 08:54 Dose: 20 mg Furosemide (Lasix) 40 mg SLOW IVP 0600,1400 [facility] Last Admin: 01/12/19 14:09 Dose: 40 mg Glucagon (Glucagon) 1 mg IM PRN PRN PRN Reason: Hypoglycemia Dextrose/Water (D5w) 1,000 mls @ 0 mls/hr IV .Q0M PRN PRN Reason: Hypoglycemia Midazolam HCl (Versed) 100 mls @ 0 mls/hr IVPB INF ANA; Protocol Fentanyl Citrate 2,000 mcg/ (Sodium Chloride) 100 mls @ 0 mls/hr IV INF ANA; Protocol Stop: 02/10/19 06:09 Fentanyl Citrate (Fentanyl Bolus) 250 mls @ 0 mls/hr IVPB PRN PRN PRN Reason: Breakthrough pain/agitation Stop: 02/10/19 06:09 Norepinephrine Bitartrate 8 mg (/ Sodium Chloride) 258 mls @ 0 mls/hr IVPB INF PRN PRN Reason: Blood Pressure Last Admin: 01/12/19 04:58 Dose: 258 mls Cefepime HCl 1 gm/ Sodium (Chloride) 100 mls @ 200 mls/hr IVPB Q24HR [facility] Last Admin: 01/12/19 08:53 Dose: 100 mls Vancomycin HCl 1 gm/ Device 200 mls @ 200 mls/hr IVPB 0500 [facility] Last Admin: 01/12/19 04:57 Dose: 200 mls Insulin Human Lispro (Humalog) 0 units SC .MILD SLIDING SCALE PRN PRN Reason: Mild Correctional Scale Last Admin: 01/12/19 16:28 Dose: 2 unit Lorazepam (Ativan) 2 mg SLOW IVP Q1H PRN PRN Reason: Breakthrough agitation Stop: 02/10/19 06:09 Miscellaneous Medication (Pharmacy To Dose) 1 each IVPB ASDIR [facility] Miscellaneous Medication (Ventilator Sedation Protocol) 1 each FS ASDIR [facility] Miscellaneous Medication (Pharmacy To Dose) 1 each PO .WARFARIN [facility] Morphine Sulfate (Morphine) 2 mg SLOW IVP Q1H PRN PRN Reason: BREAKTHROUGH PAIN/Agitation Stop: 02/10/19 06:09 Nitroglycerin (Nitro-Bid 2% Ointment) 0.5 inch TOP Q8HR [facility] Last Admin: 01/12/19 12:01 Dose: Not Given Discontinue Previous Narcotic Pain Medications And Benzodiazepines 1 each FS .ONE [facility] Stop: 02/10/19 06:09 Ondansetron HCl (Zofran Odt) 4 mg PO Q6H PRN PRN Reason: Nausea/Vomiting Ondansetron HCl (Zofran) 4 mg IVP Q6H PRN PRN Reason: Nausea/Vomiting Propofol (Diprivan) 1,000 mg IV INF PRN; Protocol PRN Reason: TO ACHIEVE GOAL RASS Stop: 02/10/19 06:09 Last Admin: 01/11/19 23:43 Dose: 1,000 mg Propofol (Diprivan Bolus) 20 mg IV Q5MIN PRN PRN Reason: BREAKTHROUGH AGITATION Stop: 02/10/19 06:09 Sodium Chloride (Flush - Normal Saline) 10 ml IVF Q12HR [facility] Last Admin: 01/12/19 08:54 Dose: 10 ml Sodium Chloride (Flush - Normal Saline) 10 ml IVF PRN PRN PRN Reason: Saline Flush Warfarin Sodium (Coumadin) 10 mg PO MWF@1700 [facility] Last Admin: 01/11/19 17:12 Dose: 10 mg Warfarin Sodium (Coumadin) 7.5 mg PO SuTuThSa@1700 [facility] Last Admin: 01/12/19 16:28 Dose: 7.5 mg
[2019-01-13] MEDS: Vancomycin HCl 1 GM in Premix Bag 1 BAG IVPB SCH (05:48)
[2019-01-13] MEDS: Furosemide 40 MG/4 ML VIAL SLOW IVP SCH ×2 (05:48→14:47)
[2019-01-13] MEDS: Nitroglycerin 2% Ointment 1 INCH/1 GM Packet TOP SCH (05:52)
[2019-01-13 05:58] LABS: #Basophils 0.1 thou/uL (0.0-0.2); #Eosinphils 0.1 thou/uL (0.0-0.7); #Lymphocytes 1.4 thou/uL (1.20-3.40); #Monocytes 1.1 thou/uL (0.11-0.59); %Basophils 0.7 % (0.0-1.0); %Eosinophils 1.1 % (0.0-10.0); %Lymphocytes 10.9 % (21.0-51.0); %Monocytes 8.4 % (0.0-10.0); %Neutrophils 78.8 % (42.0-75.0); Hemoglobin 13.3 g/dL (14.0-18.0); Mean Corpuscular HGB CONC 33.4 g/dL (32.0-36.0); Mean Corpuscular Hemoglobin 34.2 pg (27.0-31.0); Mean Platelet Volume 8.9 fL (7.4-10.4); Platelet Count 149 thou/uL (130-400); RBC Distribution Width 12.8 % (11.5-14.5); Red Blood Cell (RBC) Count 3.88 mill/uL (4.70-6.10); White Blood Cell (WBC) Count 12.7 thou/uL (4.8-10.8)
[2019-01-13 06:04] LABS: INR-International Normal Ratio 2.1; Prothrombin Time 23.2 SEC (12.0-14.7)
[2019-01-13] MEDS ORDERED: DC Sedation Protocol FS ONE (06:25)
[2019-01-13] MEDS ORDERED: Polyethylene Glycol 3350 17 GM Packet PO PRN (06:26)
[2019-01-13] MEDS ORDERED: Non-Formulary Item 1 EACH (Acetaminophen [Acetaminophen] 650 MG) PO PRN (06:26)
[2019-01-13 06:31] LABS: Vancomycin, Trough 6.7 ug/mL
[2019-01-13 06:42] LABS: Anion Gap 13 mmol/L (10-20); BUN (Urea Nitrogen) 31 mg/dL (8.4-25.7); Calc. Creatinine Clearance 67 mL/min (70-130); Calcium 9.3 mg/dL (7.8-10.44); Carbon Dioxide 35 mmol/L (23-31); Chloride 94 mmol/L (98-107); Estimated GFR-MDRD 71; Glucose 127 mg/dL (83-110); Magnesium 1.9 mg/dL (1.6-2.6); Potassium 3.5 mmol/L (3.5-5.1); Sodium 138 mmol/L (136-145)
[2019-01-13] MEDS ORDERED: Non-Formulary Item 1 EACH (Cholecalciferol (Vitamin D3) [D3-2000] 2,000 UNIT) PO SCH (09:00)
[2019-01-13] MEDS ORDERED: Non-Formulary Item 1 EACH (Carvedilol [Carvedilol] 3.125 MG) PO SCH (09:00)
[2019-01-13] MEDS: Polyethylene Glycol 3350 17 GM Packet PO SCH (09:19)
[2019-01-13] MEDS: Potassium Chloride 10 MEQ TAB PO SCH (09:20)
[2019-01-13] MEDS: Saccharomyces boulardii 250 MG CAP PO SCH (09:21)
[2019-01-13] MEDS: Clopidogrel Bisulfate 75 MG TAB PO SCH (09:21)
[2019-01-13] MEDS: Aspirin Chewable 81 MG TAB PO SCH (09:22)
[2019-01-13] MEDS: Cefepime 1 GM in Sodium Chloride 0.9% 100 ML IVPB SCH (09:23)
[2019-01-13] MEDS: Carvedilol 3.125 MG TAB PO SCH ×2 (09:49→20:28)
[2019-01-13] MEDS: HumaLOG 300 UNITS/3 ML VIAL SC PRN (10:57)
[2019-01-13] MEDS ORDERED: Nitroglycerin 0.4 MG TAB (25 Tab Bottle) SL PRN (11:24)
--- NOTE | 2019-01-13 11:46 | PDOC.PN ---
- Subjective Encounter Start Date: 01/13/19 (f/u heart failure) Encounter Start Time: 11:44 Subjective: Pt without complaints today, had nausea/vomiting last night, had some -: blood around the helms cath today, and some leakage. - Objective Resuscitation Status - Order Detail: 01/11/19 04:19 Resuscitation Status Routine Resuscitation Status: FULL: Full Resuscitation Vital Signs & Weight: Vital Signs (12 hours) Temp Pulse Resp BP BP Pulse Ox 01/13/19 07:35 97.9 F 65 16 102/58 L 96 01/13/19 03:43 98.1 F 109 H 14 128/75 96 Weight Admit Weight 158 lb 4.67 oz Weight 158 lb 4.67 oz Most Recent Monitor Data Heart Rate from ECG 100 NIBP 117/69 NIBP BP-Mean 85 Respiration from ECG 27 SpO2 97 I&O: 01/12/19 01/13/19 01/14/19 06:59 06:59 06:59 Intake Total 2031 880 Output Total 2930 2840 Balance -904 -1960 Result Diagrams: 01/13/19 16:16 01/13/19 05:47 Additional Labs: Accuchecks 01/13/19 01/13/19 01/12/19 10:34 05:07 20:22 POC Glucose 260 H 112 H 191 H 01/12/19 01/12/19 15:56 10:07 POC Glucose 192 H 182 H EKG Reviewed by me: Yes (tele - v paced with underlying a fib 80-90's) Phys Exam - Physical Examination Constitutional: NAD Respiratory: no wheezing, no rales, no rhonchi, clear to auscultation bilateral Cardiovascular: no significant murmur, irregular Gastrointestinal: soft, non-tender, no distention, positive bowel sounds Musculoskeletal: no edema Neurological: non-focal, moves all 4 limbs Psychiatric: normal affect Dx/Plan (1) Acute on chronic systolic (congestive) heart failure Code(s): I50.23 - ACUTE ON CHRONIC SYSTOLIC (CONGESTIVE) HEART FAILURE Status : Acute (2) Acute respiratory failure with hypoxia and hypercapnia Code(s): J96.01 - ACUTE RESPIRATORY FAILURE WITH HYPOXIA; J96.02 - ACUTE RESPIRATORY FAILURE WITH HYPERCAPNIA Status: Acute (3) Atrial fibrillation Code(s): I48.91 - UNSPECIFIED ATRIAL FIBRILLATION Status: Chronic Qualifiers: Atrial fibrillation type: chronic Qualified Code(s): I48.2 - Chronic atrial fibrillation (4) CAD (coronary artery disease) Code(s): I25.10 - ATHSCL HEART DISEASE OF [place] CORONARY ARTERY W/O ANG PCTRS Status: Chronic Qualifiers: Coronary Disease-Associated Artery/Lesion type: bypass graft (5) DM type 2 (diabetes mellitus, type 2) Status: Chronic Qualifiers: Diabetes mellitus halfway insulin use: unspecified long term care pharmacist insulin use status (6) Dyslipidemia Code(s): E78.5 - HYPERLIPIDEMIA, UNSPECIFIED Status: Chronic (7) Hypertension Code(s): I10 - ESSENTIAL (PRIMARY) HYPERTENSION Status: Chronic - Plan * Systolic HF - appreciate Cards consult - responding well to diuresis with IV lasix bid * continue holding some home meds * DM - holding home meds, continue ISS with meals/bedtime * d/c helms cath - appreciate Urology consult, urine cx neg * Fever on admission - last fever yesterday morning, and neg blood/urine cultures so far. * d/c Vanc * if remains afebrile and cx neg - will d/c cefepime tomorrow. * follow fever curve * d/c nitropaste - has a patch on chest now * * dvt prophy - fully anti-coag with coumadin (pharmacy dosing) * gi prophy - on ppi and h2 juvencio at home - resume h2 juvencio * code status full * * reviewed plan of care with patient/, no questions or further needs at end of eval * pt remains at high risk in current condition
--- NOTE | 2019-01-13 12:20 | PRG ---
DATE OF SERVICE: 01/13/2019 This patient is now on the telemetry floor, room 286. He has been afebrile overnight. His urine is clear. His urinalysis following the catheter was placed was negative. Urine cultures, no growth at 24 hours. His white count is down to normal. His creatinine has improved to 1.03. He seems to clinically be doing better. I think his Garcia catheter can be removed whenever it is no longer needed for monitoring. I will sign off on him at this time. Job ID: [id number]
[2019-01-13 12:30] VITALS: BMI 24.7
--- NOTE | 2019-01-13 14:26 | PQF ---
YUAN MEREDITH DENA [id number] [facility]-286 [id number] CLINICAL DOCUMENTATION IMPROVEMENT CLARIFICATION FORM: ICD-10 Updated PLEASE DO AN ADDENDUM TO THE PROGRESS NOTE WITH ANY DOCUMENTATION UPDATES OR ADDITIONS AND CARRY THROUGH TO DC SUMMARY. THANK YOU. DATE: 01/13/19 ATTN:DR. Alfonzo GUSTAFSON Please exercise your independent, professional judgment in responding to the clarification form. Clinical indicators are provided on the bottom of this form for your review. Please check appropriate box(s): [ ] Empirically treating Gram Negative Pneumonia [ ] Empirically treating Anaerobic Pneumonia [ ] Simple Pneumonia (community acquired - nosocomial) [ ] Other diagnosis [ XX ] Unable to determine - more likely pulmonary edema In addition, please specify: Present on Admission (POA): [ XX] Yes [ ] No [ ] Unable to determine For continuity of documentation, please document condition throughout progress notes and discharge summary. Thank You. CLINICAL INDICATORS - SIGNS / SYMPTOMS / LABS 01/11 ED PHYSICIAN DX: PULMONARY EDEMA 01/11 H & P (JOSE) ASSESSMENT AND PLAN: 2). POSSIBLE PNEUMONIA, UNDERLYING PULMONARY EDEMA IS DIFFICULT TO SAY. THE PT HAS LEUKOCYTOSIS, HAS BEEN STARTED ON BROAD SPECTRUM ANTIBIOTICS, WE WILL CONTINUE FOR NOW UNTIL WE GET SOME CULTURES BACK AND CAN MAKE A DECISION ON CONTINUING THE COVERAGE OR NOT. 01/11 CONSULT (COURTNEY) ASSESSMENT AND PLAN: 4) FEVER AND ELEVATED WHITE COUNT. CONCERN FOR INFECTIOUS PROCESS. 01/11 CHEST X-RAY IMPRESSION: DIFFUSE HAZY OPACITIES MAY REPRESENT PULMONARY EDEMA OR INFILTRATES 01/12 CHEST X-RAY IMPRESSION: IMPROVING PULMONARY EDEMA NO FURTHER MENTION OF PNEUMONIA TO DATE RISK: INTUBATED (01/11-01/12) DX OF SEPSIS (LADHA PN) ADVANCED AGE ( 73) HX OF CHF (COURTNEY H & P) TREATMENT MAXIPIME IV ( 01/11-PRESENT) SERIAL CXR PLMONOLOGY CONSULT THANK YOU! [employer]CHA (This form is maintained as a part of the permanent medical record) 2014 [email or web address]. All Rights Reserved [email or web address] [phone] MTDD
[2019-01-13] MEDS: traMADol HCl 50 MG TAB PO SCH ×2 (14:47→23:29)
--- NOTE | 2019-01-13 15:24 | PRG ---
DATE OF SERVICE: 01/13/2019 SUBJECTIVE: Mr. Crockett has no complaints. He says he is feeling better. OBJECTIVE: VITAL SIGNS: He is afebrile, heart rate is 84, respiratory rate 18, oximetry is 98% on room air, blood pressure 122/56. LUNGS: Remarkable for fine crackles at lung bases. HEART: Regular rhythm. ABDOMEN: Soft. IMPRESSION: 1. Congestive heart failure, clinically improved with diuresis. 2. Atrial fibrillation. 3. Coronary artery disease. 4. Diabetes. 5. Lipid disorder. 6. Hypertension. 7. Fever. No clear-cut source of infection at this point. PLAN: Answered all of 's questions which today, there were none. My past experience was that every time we made rounds she said he was ready to go home. In any event, he appears to be stable. We will sign off. Job ID: [id number]
--- NOTE | 2019-01-13 16:05 | PDOC.EVN ---
Event Note - Event Note Event Note: Informed by the RN that pt had bm and urine - blood in toilet bowl. He did have blood around the helms catheter earlier. Pt on aspirin, plavix and fully anti=coagulated with coumadin. Will hold tonight's dose of coumadin and check urine for the amount of blood. Will also check stool for blood, and check h/h now.
[2019-01-13] MEDS ORDERED: Vancomycin HCl 750 MG in Sodium Chloride 0.9% 250 ML 250 ML IVPB SCH (17:00)
--- NOTE | 2019-01-13 18:30 | PDOC.CTH ---
Cardiology Progress Note - Subjective He is doing much better. No chest pain, tightness, pressure, SOB. - Objective Vital Signs Temp Pulse Resp BP BP Pulse Ox 01/13/19 16:50 97.8 F 58 L 18 103/66 97 01/13/19 12:50 98.7 F 84 18 122/56 L 98 01/13/19 07:35 97.9 F 65 16 102/58 L 96 Admit Weight 158 lb 4.67 oz Weight 158 lb 4.67 oz 01/12/19 01/13/19 01/14/19 06:59 06:59 06:59 Intake Total 1 880 Output Total 2935 2840 950 Balance -604 -0961 -668 - Physical Examination General/Neuro: alert & oriented x3, NAD Neck: no JVD present Lungs: CTA, unlabored respirations Heart: RRR Abdomen: NT/ND Extremities: other: (no edema.) - Telemetry Telemetry Rhythm: NSR - Labs Result Diagrams: 01/13/19 16:16 01/13/19 05:47 Troponin/CKMB CK-MB (CK-2) 3.0 ng/mL (0-6.6) 01/11/19 01:42 Troponin I 0.294 ng/mL (< 0.028) H 01/11/19 08:26 - Assessment/Plan 1. Acute on chronic systolic heart failure 2. Severe ischemic CM EF at 15-20% 3. CAD s/p CABG, 1/2 bypasses patent with TERE to RPDA 1 month ago with good results. 4. Fever/elevated WBC 5. Acute hypoxic respiratory insufficiency, resolved. PLAN: - Continue diuresis. - Pulmonary edema resolved. - He seems at his baseline as far as volume. - Will switch IV lasix to his home PO dose of torsemide.
[2019-01-13] MEDS: Acetaminophen 325 MG TAB PO PRN (20:30)
[2019-01-14] MEDS ORDERED: Lorazepam 0.5 MG TAB PO SCH (01:45)
[2019-01-14 05:25] LABS: #Basophils 0.1 thou/uL (0.0-0.2); #Eosinphils 0.2 thou/uL (0.0-0.7); #Lymphocytes 1.7 thou/uL (1.20-3.40); #Monocytes 1.1 thou/uL (0.11-0.59); #Neutrophils 6.9 thou/uL (1.40-6.50); %Basophils 0.9 % (0.0-1.0); %Eosinophils 2.2 % (0.0-10.0); %Lymphocytes 16.7 % (21.0-51.0); %Monocytes 10.8 % (0.0-10.0); %Neutrophils 69.4 % (42.0-75.0); Hemoglobin 13.2 g/dL (14.0-18.0); Mean Corpuscular HGB CONC 34.3 g/dL (32.0-36.0); Mean Corpuscular Hemoglobin 35.1 pg (27.0-31.0); Mean Platelet Volume 9.1 fL (7.4-10.4); Platelet Count 155 thou/uL (130-400); RBC Distribution Width 12.7 % (11.5-14.5); Red Blood Cell (RBC) Count 3.77 mill/uL (4.70-6.10); White Blood Cell (WBC) Count 9.9 thou/uL (4.8-10.8)
[2019-01-14 05:32] LABS: Prothrombin Time 22.3 SEC (12.0-14.7)
[2019-01-14 05:47] LABS: Anion Gap 13 mmol/L (10-20); BUN (Urea Nitrogen) 31 mg/dL (8.4-25.7); Calc. Creatinine Clearance 63 mL/min (70-130); Calcium 9.5 mg/dL (7.8-10.44); Carbon Dioxide 33 mmol/L (23-31); Chloride 93 mmol/L (98-107); Estimated GFR-MDRD 67; Glucose 125 mg/dL (83-110); Sodium 135 mmol/L (136-145)
[2019-01-14] MEDS: traMADol HCl 50 MG TAB PO SCH ×3 (05:58→22:23)
[2019-01-14] MEDS: Polyethylene Glycol 3350 17 GM Packet PO SCH (08:37)
[2019-01-14] MEDS: Clopidogrel Bisulfate 75 MG TAB PO SCH (08:38)
[2019-01-14] MEDS: Carvedilol 3.125 MG TAB PO SCH ×2 (08:39→19:41)
[2019-01-14] MEDS: Potassium Chloride 10 MEQ TAB PO SCH (08:39)
[2019-01-14] MEDS: Aspirin Chewable 81 MG TAB PO SCH (08:39)
[2019-01-14] MEDS: Torsemide 20 MG TAB PO SCH (08:39)
[2019-01-14] MEDS: Cefepime 1 GM in Sodium Chloride 0.9% 100 ML IVPB SCH (08:42)
[2019-01-14] MEDS: Saccharomyces boulardii 250 MG CAP PO SCH (10:16)
[2019-01-14] MEDS ORDERED: Lorazepam 0.5 MG TAB PO PRN (10:58)
--- NOTE | 2019-01-14 11:24 | PDOC.PN ---
- Subjective Encounter Start Date: 01/14/19 (f/u heart failure) Encounter Start Time: 11:21 Subjective: Pt continues to have hematuria s/p helms cath removal yesterday. Denies -: any pain. - Objective Resuscitation Status - Order Detail: 01/11/19 04:19 Resuscitation Status Routine Resuscitation Status: FULL: Full Resuscitation Vital Signs & Weight: Vital Signs (12 hours) Temp Pulse Resp BP Pulse Ox 01/14/19 03:45 97.9 F 80 14 111/67 99 Weight Admit Weight 158 lb 4.67 oz Weight 151 lb 11.2 oz Most Recent Monitor Data Heart Rate from ECG 100 NIBP 117/69 NIBP BP-Mean 85 Respiration from ECG 27 SpO2 97 I&O: 01/13/19 01/14/19 01/15/19 06:59 06:59 06:59 Intake Total 880 695 Output Total 2840 1350 Balance -1960 -655 Result Diagrams: 01/14/19 04:51 01/14/19 04:51 Additional Labs: Accuchecks 01/14/19 01/14/19 01/13/19 10:52 05:20 20:32 POC Glucose 180 H 125 H 179 H 01/13/19 16:18 POC Glucose 165 H EKG Reviewed by me: Yes (tele - v paced with afib 70-100's, 7 beats of NSVT) Phys Exam - Physical Examination Constitutional: NAD Respiratory: no wheezing, no rales, no rhonchi, clear to auscultation bilateral Cardiovascular: no significant murmur, irregular Gastrointestinal: soft, non-tender, no distention, positive bowel sounds Musculoskeletal: no edema Psychiatric: normal affect Skin: no rash Dx/Plan (1) Acute on chronic systolic (congestive) heart failure Code(s): I50.23 - ACUTE ON CHRONIC SYSTOLIC (CONGESTIVE) HEART FAILURE Status : Acute (2) Acute respiratory failure with hypoxia and hypercapnia Code(s): J96.01 - ACUTE RESPIRATORY FAILURE WITH HYPOXIA; J96.02 - ACUTE RESPIRATORY FAILURE WITH HYPERCAPNIA Status: Acute (3) Atrial fibrillation Code(s): I48.91 - UNSPECIFIED ATRIAL FIBRILLATION Status: Chronic Qualifiers: Atrial fibrillation type: chronic Qualified Code(s): I48.2 - Chronic atrial fibrillation (4) CAD (coronary artery disease) Code(s): I25.10 - ATHSCL HEART DISEASE OF [place] CORONARY ARTERY W/O ANG PCTRS Status: Chronic Qualifiers: Coronary Disease-Associated Artery/Lesion type: bypass graft (5) DM type 2 (diabetes mellitus, type 2) Status: Chronic Qualifiers: Diabetes mellitus terminal worker insulin use: unspecified terminal worker insulin use status (6) Dyslipidemia Code(s): E78.5 - HYPERLIPIDEMIA, UNSPECIFIED Status: Chronic (7) Hypertension Code(s): I10 - ESSENTIAL (PRIMARY) HYPERTENSION Status: Chronic - Plan * Systolic HF - appreciate Cards consult - responded well to IV lasix, now back on oral torsemide * continue holding some home meds such as entresto and eplerenone. Plan to resume entresto first - when bp can tolerate (120 systolic or above) * 7 beats VT - his AICD did not discharge. Check mag level * DM - holding home meds, continue ISS with meals/bedtime * hematuria with neg culture - requested that Dr. Godinez be contacted with this information, warfarin held last night. Will continue to hold until cleared by Urology. Hb stable, no indication to reverse the coumadin * Fever on admission - last fever 2 days ago and cultures neg. Vanc d/c yesterday and will d/c cefepime today. * dvt prophy - fully anti-coag with coumadin (pharmacy dosing) * gi prophy - on ppi and h2 juvencio at home - resume h2 juvencio * code status full * * reviewed plan of care with patient, no questions or further needs at end of eval * pt remains at high risk in current condition. * pt here for monitoring of hematuria at this point, anticipate d/c to home soon.
[2019-01-14] MEDS: HumaLOG 300 UNITS/3 ML VIAL SC PRN (12:08)
--- NOTE | 2019-01-14 17:48 | PRG ---
DATE OF SERVICE: 01/14/2019 I am seeing Mr. Crockett today at the request of the hospitalist. The nurse has called me and told me that he had had blood in his urine this morning. He is on Coumadin and he is on Plavix. I believe his Coumadin dose was held last night because there may have been some blood in his urine last night also. I asked him to send off a urine culture. It does not appear that the culture has been set up. His initial culture was negative. His initial urinalysis was negative. Looking at his vital signs, he just had a temperature of 99.1. His white count is completely normal at 9.9. His hemoglobin is 13.2. His creatinine is 1.09. His INR this morning was 2.0. On talking with the patient again, he has never had blood in his urine. I have looked at a serial 3-glass urine that was set up after the nurse has called me earlier today and his urine right now is grossly clear yellow, it is not bloody. I think I would not further hold this patient's Coumadin pass tonight. He could probably hold it tonight, but then restart it tomorrow. We will see what his urine culture shows. I will get an office followup for him in 4-6 weeks to recheck his urine in the office. At this point, I think most likely, the bleeding is related to the use of Plavix, Coumadin, and the fact that he had 2-3 attempts at passage of a Garcia catheter when he was in the emergency center without success. I think this is probably why he has had some hematuria. My initial urinalysis from when I placed the catheter was clear. I would not at this point run through any upper tract studies and do nothing more than just a check the urine culture which has already been ordered. Job ID: [id number]
--- NOTE | 2019-01-14 17:55 | PDOC.EVN ---
Event Note - Event Note Event Note: talked with RN - no gross hematuria visualized today. By report Dr. Godinez stopped by - unable to reach by phone (cell or answering service that is deferring to another Urologist for tonight) for his recommendations. Given the improvement in hematuria, will resume the coumadin at his usual 7.5 mg dose.
[2019-01-14] MEDS ORDERED: Warfarin Sodium 7.5 MG TAB PO SCH (18:00)
--- NOTE | 2019-01-14 18:47 | PDOC.CTH ---
Cardiology Progress Note - Subjective He is doing much better. Breathing back to baseline. - Objective Vital Signs Temp Pulse Pulse Pulse Resp BP BP 01/14/19 14:32 80 75 106/63 107/72 01/14/19 12:15 97.7 F 88 16 01/14/19 08:35 01/14/19 07:45 99.1 F 77 14 BP BP Pulse Ox Pulse Ox Pulse Ox 01/14/19 14:32 93 L 96 01/14/19 12:15 114/73 99 01/14/19 08:35 133/90 01/14/19 07:45 118/71 98 Admit Weight 158 lb 4.67 oz Weight 151 lb 11.2 oz 01/13/19 01/14/19 01/15/19 06:59 06:59 06:59 Intake Total 880 695 Output Total 2840 1350 Balance -1960 -655 - Physical Examination General/Neuro: alert & oriented x3, NAD Neck: no JVD present Lungs: CTA, unlabored respirations Heart: RRR Abdomen: NT/ND Extremities: other: (no ederma) - Telemetry Telemetry Rhythm: 7 beat run of VT - Labs Result Diagrams: 01/14/19 04:51 01/14/19 04:51 Troponin/CKMB CK-MB (CK-2) 3.0 ng/mL (0-6.6) 01/11/19 01:42 Troponin I 0.294 ng/mL (< 0.028) H 01/11/19 08:26 - Assessment/Plan 1. Acute on chronic systolic heart failure 2. Severe ischemic CM EF at 15-20% 3. CAD s/p CABG, 1/2 bypasses patent with TERE to RPDA 1 month ago with good results. 4. Fever/elevated WBC 5. Acute hypoxic respiratory insufficiency, resolved. 6. Non sutained VT. He has had several episodes in the past, all non sustained. PLAN: - Pulmonary edema resolved. - He seems at his baseline as far as volume. - May discharge home any time from cardiac perspective. - Follow up with his Senior Electronics Engineer in 2-4 weeks.
[2019-01-14] MEDS: Acetaminophen 325 MG TAB PO PRN (19:42)
[2019-01-15 05:48] LABS: #Basophils 0.1 thou/uL (0.0-0.2); #Eosinphils 0.3 thou/uL (0.0-0.7); #Lymphocytes 1.7 thou/uL (1.20-3.40); #Neutrophils 6.3 thou/uL (1.40-6.50); %Monocytes 10.6 % (0.0-10.0); %Neutrophils 67.4 % (42.0-75.0); Hemoglobin 13.2 g/dL (14.0-18.0); Mean Corpuscular HGB CONC 32.5 g/dL (32.0-36.0); Mean Corpuscular Hemoglobin 33.3 pg (27.0-31.0); Mean Platelet Volume 9.2 fL (7.4-10.4); Platelet Count 178 thou/uL (130-400); RBC Distribution Width 12.6 % (11.5-14.5); Red Blood Cell (RBC) Count 3.98 mill/uL (4.70-6.10); White Blood Cell (WBC) Count 9.4 thou/uL (4.8-10.8)
[2019-01-15 05:53] LABS: INR-International Normal Ratio 1.5; Prothrombin Time 18.3 SEC (12.0-14.7)
[2019-01-15 06:09] LABS: Anion Gap 14 mmol/L (10-20); BUN (Urea Nitrogen) 31 mg/dL (8.4-25.7); Calc. Creatinine Clearance 53 mL/min (70-130); Calcium 9.4 mg/dL (7.8-10.44); Carbon Dioxide 32 mmol/L (23-31); Chloride 92 mmol/L (98-107); Estimated GFR-MDRD 59; Glucose 125 mg/dL (83-110); Sodium 134 mmol/L (136-145)
[2019-01-15] MEDS: traMADol HCl 50 MG TAB PO SCH ×3 (07:12→14:06)
[2019-01-15] MEDS: Clopidogrel Bisulfate 75 MG TAB PO SCH (08:39)
[2019-01-15] MEDS: Carvedilol 3.125 MG TAB PO SCH (08:39)
[2019-01-15] MEDS: Saccharomyces boulardii 250 MG CAP PO SCH (08:40)
[2019-01-15] MEDS: Torsemide 20 MG TAB PO SCH (08:40)
[2019-01-15] MEDS: Potassium Chloride 10 MEQ TAB PO SCH (08:40)
[2019-01-15] MEDS: Polyethylene Glycol 3350 17 GM Packet PO SCH (08:42)
[2019-01-15] MEDS: Acetaminophen 325 MG TAB PO PRN (08:42)
[2019-01-15] MEDS: Aspirin Chewable 81 MG TAB PO SCH (08:43)
[2019-01-15] MEDS ORDERED: Famotidine 20 MG TAB PO SCH (09:00)
[2019-01-15] MEDS: HumaLOG 300 UNITS/3 ML VIAL SC PRN (11:22)
--- NOTE | 2019-01-15 11:25 | PDOC.PN ---
- Subjective Encounter Start Date: 01/15/19 (f/u resp failure) Encounter Start Time: 11:23 Subjective: Pt feeling good today, denies any complaints today, is walking with -: cardiac rehab. Denies any cp/sob - Objective Resuscitation Status - Order Detail: 01/11/19 04:19 Resuscitation Status Routine Resuscitation Status: FULL: Full Resuscitation Vital Signs & Weight: Vital Signs (12 hours) Temp Pulse Resp BP Pulse Ox 01/15/19 07:14 98.0 F 80 16 109/63 96 01/15/19 03:25 98.7 F 72 18 97 Weight Admit Weight 158 lb 4.67 oz Weight 149 lb 14.4 oz Most Recent Monitor Data Heart Rate from ECG 100 NIBP 117/69 NIBP BP-Mean 85 Respiration from ECG 27 SpO2 97 I&O: 01/14/19 01/15/19 01/16/19 06:59 06:59 06:59 Intake Total 695 Output Total 1350 Balance -655 Result Diagrams: 01/15/19 05:23 01/15/19 05:23 Additional Labs: Accuchecks 01/15/19 01/14/19 01/14/19 05:27 21:11 16:33 POC Glucose 131 H 152 H 161 H EKG Reviewed by me: Yes (tele - v paced 70-80 with underlying a fib) Phys Exam - Physical Examination Constitutional: NAD Respiratory: no wheezing, no rales, no rhonchi, clear to auscultation bilateral Cardiovascular: no significant murmur, irregular Gastrointestinal: soft, non-tender, no distention, positive bowel sounds Musculoskeletal: no edema Neurological: non-focal, moves all 4 limbs Dx/Plan (1) Acute on chronic systolic (congestive) heart failure Code(s): I50.23 - ACUTE ON CHRONIC SYSTOLIC (CONGESTIVE) HEART FAILURE Status : Acute (2) Acute respiratory failure with hypoxia and hypercapnia Code(s): J96.01 - ACUTE RESPIRATORY FAILURE WITH HYPOXIA; J96.02 - ACUTE RESPIRATORY FAILURE WITH HYPERCAPNIA Status: Acute (3) Atrial fibrillation Code(s): I48.91 - UNSPECIFIED ATRIAL FIBRILLATION Status: Chronic Qualifiers: Atrial fibrillation type: chronic Qualified Code(s): I48.2 - Chronic atrial fibrillation (4) CAD (coronary artery disease) Code(s): I25.10 - ATHSCL HEART DISEASE OF [place] CORONARY ARTERY W/O ANG PCTRS Status: Chronic Qualifiers: Coronary Disease-Associated Artery/Lesion type: bypass graft (5) DM type 2 (diabetes mellitus, type 2) Status: Chronic Qualifiers: Diabetes mellitus penitentiary insulin use: unspecified terminal supervisor insulin use status (6) Dyslipidemia Code(s): E78.5 - HYPERLIPIDEMIA, UNSPECIFIED Status: Chronic (7) Hypertension Code(s): I10 - ESSENTIAL (PRIMARY) HYPERTENSION Status: Chronic - Plan * * Systolic HF - appreciate Cards consult - responded well and now back on oral torsemide * continue holding some home meds such as entresto and eplerenone. Plan to resume entresto first - when bp can tolerate (120 systolic or above) * INR subtherapeutic = 1 dose of coumadin was held 2 nights ago due to gross hematuria. It was resumed last night at 7.5 mg and today INR is 1.5. Will recheck this afternoon and determine with pharmacist what dose to rx tonight. Will keep patient in the hospital until INR is closer to goal. D/w Dr. Paige - hold on covering with lovenox due to gross hematuria that resolved yesterday. * DM - holding home meds, continue ISS with meals/bedtime * hematuria resolved - appreciate Dr. Godinez following patient - pt to f/u in 4- 6 weeks as an outpatient. Cx from yesterday is negative. * Fever on admission - resolved, blood and urine cx negative, cefepime was d/c yesterday, and vanc d/c 2 days ago. * * dvt prophy - subtherapeutic on coumadin - adjusting dosing, and ambulatory * gi prophy - on ppi and h2 juvencio per home routine * code status full * * reviewed plan of care with patient, no questions or further needs at end of eval * pt remains at high risk in current condition. * pt here for monitoring of INR
--- NOTE | 2019-01-15 12:08 | EKG ---
Test Reason : INCREASED PAIN Blood Pressure : / mmHG Vent. Rate : 104 BPM Atrial Rate : 072 BPM P-R Int : 000 ms QRS Dur : 198 ms QT Int : 408 ms P-R-T Axes : 000 122 006 degrees QTc Int : 536 ms Atrial fibrillation with rapid ventricular response with premature ventricular or aberrantly conducte d complexes Left bundle branch block Abnormal ECG Confirmed by RACQUEL VOGT DO ([id number]), material expeditor ASIYA VILLELA ([id number]) on 01/15/2019 12:07:42 PM Referred By: RUTH Confirmed By:RACQUEL VOGT DO
[2019-01-15 12:22] VITALS: TEMP 97.8
--- NOTE | 2019-01-15 12:45 | PRG ---
DATE OF SERVICE: 01/15/2019 This patient maintained stable vital signs, voiding without difficulty, and urine remains clear yellow. My office is setting up a visit for him in four to six weeks. We will check his urine in the office. I would not further workup the hematuria at this time. He does not seem to be having any difficulty with urination since his Garcia has been removed and his urine culture, which we repeated yesterday is no growth at 24 hours. I will see him as an outpatient in my office. Job ID: [id number]
[2019-01-15 15:10] LABS: INR-International Normal Ratio 1.5; Prothrombin Time 17.8 SEC (12.0-14.7)
[2019-01-15 15:17] VITALS: BP 130/70
[2019-01-15] MEDS ORDERED: Warfarin Sodium 10 MG TAB PO SCH (17:00)
--- NOTE | 2019-01-15 17:17 | PDOC.CTH ---
Cardiology Progress Note - Subjective No new issues. Back to baseline. - Objective Vital Signs Temp Pulse Pulse Pulse Resp BP BP 01/15/19 11:25 97.8 F 83 18 01/15/19 11:01 92 78 130/70 116/71 01/15/19 07:14 98.0 F 80 16 BP Pulse Ox Pulse Ox Pulse Ox 01/15/19 11:25 117/77 98 01/15/19 11:01 96 98 01/15/19 07:14 109/63 96 Admit Weight 158 lb 4.67 oz Weight 149 lb 14.4 oz 01/14/19 01/15/19 01/16/19 06:59 06:59 06:59 Intake Total 695 Output Total 1350 Balance -655 - Physical Examination General/Neuro: alert & oriented x3, NAD Neck: no JVD present Lungs: CTA, unlabored respirations Heart: RRR Abdomen: NT/ND Extremities: other: (no edema.) - Telemetry Telemetry Rhythm: Afib HR 60's. - Labs Result Diagrams: 01/15/19 05:23 01/15/19 05:23 Troponin/CKMB CK-MB (CK-2) 3.0 ng/mL (0-6.6) 01/11/19 01:42 Troponin I 0.294 ng/mL (< 0.028) H 01/11/19 08:26 - Assessment/Plan 1. Acute on chronic systolic heart failure 2. Severe ischemic CM EF at 15-20% 3. CAD s/p CABG, 1/2 bypasses patent with TERE to RPDA 1 month ago with good results. 4. Fever/elevated WBC 5. Acute hypoxic respiratory insufficiency, resolved. 6. Non sutained VT. He has had several episodes in the past, all non sustained. 7. Chronic fib, rate controlled. PLAN: - Pulmonary edema resolved. - At his baseline as far as volume. - May discharge home any time from cardiac perspective. - Follow up with his Application Coordinator in 2-4 weeks. - Will sign off. Please call with any questions.
--- NOTE | 2019-01-15 23:46 | DIS ---
DATE OF ADMISSION: 01/11/2019 DATE OF DISCHARGE: 01/15/2019 CONSULTANTS: 1. Pulmonology, Dr. Centeno. 2. Urology, Dr. Godinez. 3. Cardiology, Dr. Paige. PROCEDURE PERFORMED: Intubation secondary to respiratory distress. MEDICATIONS: Medications are reconciled at discharge. Changed medication: 1. Warfarin 5 mg changed to 10 mg Friday night, 10 mg Friday night, 7.5 mg Friday night, and an INR check on Friday with [facility]. Medication discontinued: 1. Spironolactone hydrochlorothiazide, discontinued temporarily until followup with Dr. Miller, the rubber stamp maker. Medications to resume are: 1. Acetaminophen 650 mg as needed every 6 hours. 2. Calcium and vitamin D 1 tablet daily. 3. Carvedilol 3.125 b.i.d. 4. Plavix 75 mg daily. 5. Digoxin 0.25 mg daily. 6. Trulicity 1.5 mg subcutaneous q.7 days. 7. Famotidine 20 mg at bedtime. 8. Hydrocortisone cream b.i.d. 9. Imdur extended release one-half tablet daily of the 30 mg dose. 10. Ketoconazole topical at bedtime. 11. Ativan 1 mg q.8 hours p.r.n. anxiety. 12. Nitroglycerin 0.4 mg sublingual every 5 minutes as needed. 13. Pantoprazole 40 mg daily. 14. MiraLAX 17 g daily as needed. 15. Potassium chloride 20 mEq daily. 16. Rosuvastatin 40 mg daily. 17. Florastor 500 mg daily. 18. Entresto 24-26 mg one tablet b.i.d. 19. Torsemide 20 mg daily. 20. Kenalog cream twice daily as needed. 21. Glyburide 7.5 mg b.i.d. with meals. 22. Tramadol 50 mg every 8 hours as needed. Of note, the patient's current medication list was obtained from [facility] from his health portal today to reconcile this. FINAL DIAGNOSES: 1. Acute hypoxic respiratory failure, resolved. 2. Acute on chronic systolic heart failure with exacerbation, now compensated 3. Hyponatremia, resolved. 4. Hyperkalemia, resolved. 5. Acute kidney injury, resolved. 6. Fever, resolved. 7. Chronic atrial fibrillation on full anticoagulation with warfarin. 8. Mild anemia. SECONDARY DIAGNOSES: 1. Diabetes mellitus. 2. Coronary artery disease. 3. Dyslipidemia. 4. History of stroke. HISTORY OF PRESENT ILLNESS: Mr. Crockett is a 73-year-old male, who presented to the emergency room with shortness of breath that had been gradually worsening without any precipitating events. He has known systolic heart failure with an EF of 15 % to 20%. He was started on BiPAP and eventually because of respiratory distress, he was intubated and transferred to the ICU. HOSPITAL COURSE: The patient was started on broad-spectrum antibiotics due to fever and concern of a possible pneumonia. His cultures have been negative, both blood and urine. Vancomycin was stopped 2 days ago and cefepime was stopped yesterday. The patient is not having any symptoms of infection, has been afebrile, no indication for antibiotics at discharge. His initial WBC count was 17.8 and has decreased to 9.4 today. For acute on chronic systolic heart failure, the patient was diuresed with IV Lasix and responded well. He was transitioned back to his oral torsemide and will be discharged with this. He was kept on his beta juvencio through this hospitalization. However, his normal Entresto, hydrochlorothiazide, spironolactone were discontinued. The other medications that were continued here are the Ranexa and Imdur. The patient is breathing well, ambulating well. He will resume his Entresto, this was not restarted as his blood pressures have been 100-110 systolic here, after discharge. He will follow up closely with Dr. Miller, his rubber stamp maker, in the outpatient setting to determine when to resume the hydrochlorothiazide spironolactone. It was unknown until the day of discharge, the patient was on digoxin, this will be resumed at discharge for the known chronic atrial fibrillation. The patient is ventricularly paced. The patient's diabetes medications have been held while here. His blood sugars have ranged from 125-187 over the past 24 hours. He will resume his usual glyburide and Trulicity. The patient did have gross hematuria while here. He did have traumatic Garcia attempts on admission. Dr. Godinez was consulted, who was able to place a Garcia catheter. The gross hematuria was attributed to the catheter and has since resolved. No intervention was indicated. However, because of this, one dose of his Coumadin on January 13 was held. The hematuria has completely resolved and his Coumadin was resumed last night. He will need followup with Dr. Godinez in the next 4 to 6 weeks for outpatient follow up on the hematuria. The patient is fully anticoagulated due to atrial fibrillation on Coumadin. His Coumadin was continued while here and his INR ranged from 1.8 until 2.1, until today, with the exception of 1 dose held for gross hematuria. Please note, the patient's medications were reconciled as has being on aspirin, consistent with his last discharge from here last month. In discussion with both the patient and his as well as Dr. Miller, his rubber stamp maker, the aspirin was discontinued in the outpatient setting due to a history of GI bleeding. Given the gross hematuria here, the patient was kept on Coumadin was held for 1 dose, and the patient's INR is 1.5 today. The aspirin is being discontinued at discharge, and the patient and his were aware that these were continued while here. The attempts at a Garcia catheter placement as well as dual anti-platelet therapy and full anticoagulation are considered the source of the gross hematuria, again which has since resolved. The patient will be discharged to continue the Plavix. His INR today is 1.5 and I discussed this with him and his . They do have good support at the [facility] at [facility] and will follow up there on Friday. Our plan is that instead of his usual routine of 7.5 mg alternating with 10 mg, he will instead take 10 mg tonight, 10 mg tomorrow night , 7.5 mg on Friday night, and have his INR checked on Friday. The goal is to gradually trend up to an INR goal between 2 and 3. The patient and his are aware that the purpose of Coumadin is for stroke risk reduction associated with chronic atrial fibrillation, and that with an INR of 1.5 places him at a higher risk. I reviewed this with Dr. Miller, who reports the patient has been off Coumadin in the past and has tolerated it. The patient and his do request discharge to home, rather than monitoring here in the hospital and adjustment here in the hospital over the weekend. PHYSICAL EXAMINATION: Please see note on the chart for today. GUERRERO FINDINGS AND TEST RESULTS: CBC; 9.4, 13.2, 40.7, 178. INR today is 1.5. On 01/11, 1.9; 01/12, it was 1.8; 01/13, 2.1; 01/14, 2.0. His chemistry 134, 4.0, 92, 32, 31, 1.22, 125 with a calcium of 9.4. Troponin series 0.291. BNP 499. LFTs on admission: AST 39, ALT 26, alkaline phosphatase 50, total protein 9.7, albumin 5.1. Chest x-ray on 01/12, showed improving pulmonary edema. Chest x-ray on 01/11, status post central line placement without evidence of pneumothorax. Chest x-ray on 01/11, diffuse hazy opacities may represent volume overload. Chest x-ray prior to that, appropriate position of the endotracheal tube and NG tubes. Micro urine culture on 01/14, no growth at 24 hours. Urine culture on 01/11, no growth at 48 hours. Blood cultures on January 11, negative x2. DIET: Diabetic heart healthy, fluid restricted diet. ACTIVITY: As tolerated. FOLLOWUP: 1. Follow up is with Dr. Godinez of Urology in 4-[address] Jaime recommend early next week to review this hospitalization and address any other health issues. 3. Follow up with Dr. Miller. An appointment is set up as a work-in appointment on February 03 at 11:30, however, please call to discuss a sooner appointment to discuss when to resume the spironolactone hydrochlorothiazide. 4. Follow up with Coumadin Clinic on Friday, three days from now for an INR check and instructions on how to proceed to become therapeutic with an INR between 2 and 3. 5. Follow up with the [facility]. Reviewed with the patient and his all of the events of this hospitalization to include the INR, the medication changes, the importance of followup and to seek care precautions. They demonstrate understanding and again stated a preference to go home and follow up closely with the Coumadin Clinic. No questions or further needs at the end of discharge. The patient is at high risk for recurrent admissions due to heart failure given the known severe chronic systolic heart failure. TIME SPENT: Total time coordinating discharge has been 90 minutes. Job ID: [id number] [facility]PITALAlfonzo
[2019-01-16] MEDS ORDERED: Warfarin Sodium 7.5 MG TAB PO SCH ×2 (17:00)
== END 2019-01-15 17:40 | disposition home or self-care (01) | DRG 291 ==
LOC: ERS 01:36 → CCU 03:24 → 2NO 01-12 18:56
PROVIDERS: ADMIT Hospitalist; ATTEND Hospitalist
PROC: 0BH17EZ Insertion of Endotracheal Airway into Trachea, Via Natural or Artificial Opening (ICD-10-PCS; principal; 2019-01-11)
PROC: 5A1945Z Respiratory Ventilation, 24-96 Consecutive Hours (ICD-10-PCS; 2019-01-11)
PROC: 5A09357 Assistance with Respiratory Ventilation, Less than 24 Consecutive Hours, Continuous Positive Airway Pressure (ICD-10-PCS; 2019-01-11)
PROC: 0T9B70Z Drainage of Bladder with Drainage Device, Via Natural or Artificial Opening (ICD-10-PCS; 2019-01-11)
DX: I11.0 Hypertensive heart disease with heart failure (principal); J96.01 Acute respiratory failure with hypoxia; J96.02 Acute respiratory failure with hypercapnia; E87.1 Hypo-osmolality and hyponatremia; N17.9 Acute kidney failure, unspecified; E87.2 Acidosis; J81.1 Chronic pulmonary edema; E11.9 Type 2 diabetes mellitus without complications; E78.5 Hyperlipidemia, unspecified; E87.5 Hyperkalemia; E83.52 Hypercalcemia; I25.10 Atherosclerotic heart disease of native coronary artery without angina pectoris; I25.5 Ischemic cardiomyopathy; I50.23 Acute on chronic systolic (congestive) heart failure; I48.2 Chronic atrial fibrillation; D64.9 Anemia, unspecified; T45.525A Adverse effect of antithrombotic drugs, initial encounter; R31.9 Hematuria, unspecified; Z95.1 Presence of aortocoronary bypass graft; Z79.899 Other long term (current) drug therapy; Z79.01 Long term (current) use of anticoagulants; Z86.73 Personal history of transient ischemic attack (TIA), and cerebral infarction without residual deficits; Z79.4 Long term (current) use of insulin; Z79.84 Long term (current) use of oral hypoglycemic drugs; Z90.49 Acquired absence of other specified parts of digestive tract; Z95.810 Presence of automatic (implantable) cardiac defibrillator; Z79.82 Long term (current) use of aspirin
CPT/HCPCS: 31500; 36415; 36416; 36556; 71045; 80048; 80053; 80202; 81001; 82533; 82553; 82805; 83605; 83735; 83880; 84484; 85025; 85610; 87040; 87086; 93005; 93798; 94002; 94003; 94640; 94660; 94760; 96361; 96365; 96367; 96375; J0692; J1650; J1940; J2060; J2250; J2405; J2543; J2704; J3370; J3490; J7050; J7620; P9047; S0028

== ENCOUNTER 2019-09-10 18:20 | Inpatient (IN) | payer MEDICARE, BC ==
[2019-09-10] MEDS ORDERED: Furosemide 40 MG/4 ML VIAL ONE ×3 (18:43→20:40)
[2019-09-10] MEDS ORDERED: Nitroglycerin 50 MG/250 ML BOT 250 ML ONE (18:43)
[2019-09-10 18:55] LABS: Hemoglobin 17.3 g/dL (14.0-18.0); Mean Corpuscular HGB CONC 33.4 g/dL (32.0-36.0); Mean Corpuscular Hemoglobin 35.3 pg (27.0-31.0); Mean Platelet Volume 10.2 fL (7.4-10.4); Platelet Count 170 thou/uL (130-400); RBC Distribution Width 12.8 % (11.5-14.5); White Blood Cell (WBC) Count 19.9 thou/uL (4.8-10.8)
[2019-09-10 19:00] LABS: INR-International Normal Ratio 1.9; PTT 35.2 SEC (22.9-36.1); Prothrombin Time 21.5 SEC (12.0-14.7)
--- NOTE | 2019-09-10 19:14 | RAD ---
Chest one view HISTORY: Dyspnea. COMPARISON: 01/12/2019. FINDINGS: Cardiac silhouette is magnified and enlarged. Pulmonary vasculature more engorged with bila teral perihilar and bibasilar infiltrates. Mediastinum is midline with aortic calcification, postoperative changes, and a multi lead left subclavian cardiac electronic device. Calcification over the left ventricle. No evidence of pneumothorax. IMPRESSION: Cardiomegaly with pulmonary edema. CHF. Atherosclerosis. Other chronic-type findings are stable.
[2019-09-10 19:17] LABS: #Basophils 0.2 thou/uL (0.0-0.2); #Eosinphils 0.4 thou/uL (0.0-0.7); #Lymphocytes 4.8 thou/uL (1.20-3.40); #Monocytes 1.6 thou/uL (0.11-0.59); #Neutrophils 12.9 thou/uL (1.40-6.50); %Basophils 0.9 % (0.0-1.0); %Eosinophils 2.2 % (0.0-10.0); %Lymphocytes 24.1 % (21.0-51.0); %Neutrophils 64.8 % (42.0-75.0); Large Platelets SLIGHT; MDiff Complete? YES; Macrocytosis SLIGHT = 6-15 cells (100X) (0-5/hpf); Platelet Clumps SLIGHT; Platelet Morphology Comment Appears Adequate
[2019-09-10] MEDS ORDERED: Insulin Regular 300 UNITS/3 ML VIAL ONE (19:34)
[2019-09-10 19:36] LABS: CKMB 3.5 ng/mL (0-6.6)
[2019-09-10 19:42] LABS: Actual Bicarbonate (HCO3a) 18.6 mEq/L (22-28); Analyzer IN Cardio ER; Base Excess (BEa) -8.3 mEq/L (-2.0 to +3.0); CO2 Tension 43.2 mmHg (35.0-45.0); Calcium, Ionized 1.05 mmol/L (1.12-1.30); Carboxyhemoglobin (COHb) 0.2 gm% (0.0-3.0); Hemoglobin (Hb) 17.2 g/dL (14.0-18.0); O2 Tension (PaO2) 135.5 mmHg (> 70.0); Potassium - ABG Lab 6.04 mmol/L (3.70-5.30)
[2019-09-10 19:43] LABS: pH, Arterial 7.25 (7.35-7.45)
[2019-09-10 19:58] LABS: Calcium 8.6 mg/dL (7.8-10.44); Chloride 92 mmol/L (98-107); Sodium 126 mmol/L (136-145)
[2019-09-10 19:59] LABS: Globulin 3.1 g/dL (2.4-3.5); Glucose 413 mg/dL (83-110); Protein, Total 7.1 g/dL (5.8-8.1)
[2019-09-10 20:00] LABS: Anion Gap 19 mmol/L (10-20); Carbon Dioxide 23 mmol/L (23-31)
[2019-09-10 20:01] LABS: Bilirubin, Total 0.6 mg/dL (0.2-1.2)
[2019-09-10 20:02] LABS: Alkaline Phosphatase 51 U/L (40-110); Calc. Creatinine Clearance 0 mL/min (70-130); Estimated GFR-MDRD 31
[2019-09-10 20:03] LABS: BUN (Urea Nitrogen) 26 mg/dL (8.4-25.7)
[2019-09-10 20:04] LABS: AST (SGOT) 49 U/L (5-34)
[2019-09-10 20:05] LABS: ALT (SGPT) 42 U/L (8-55); CK (CPK) 122 U/L (30-200)
[2019-09-10 20:08] LABS: Potassium 7.7 mmol/L (3.5-5.1)
[2019-09-10] MEDS ORDERED: Albuterol Sulfate 2.5 mg/3 ml Neb ONE (20:18)
[2019-09-10] MEDS ORDERED: Sodium Bicarb 50 MEQ/50 ML VIAL ONE (20:19)
[2019-09-10] MEDS ORDERED: Dextrose 50% Abboject 50 ML SYRINGE ONE (20:19)
[2019-09-10 20:40] LABS: Digoxin 1.78 ng/mL (0.8-2.0)
[2019-09-10 22:23] LABS: Troponin I 0.611 ng/mL (< 0.028)
[2019-09-10] MEDS ORDERED: Dextrose 50% Abboject 50 ML SYRINGE SLOW IVP PRN (23:14)
[2019-09-10] MEDS ORDERED: Senokot S 8.6-50 MG TAB PO PRN (23:14)
[2019-09-10] MEDS ORDERED: Bisacodyl 10 MG SUPP PR PRN (23:14)
[2019-09-10] MEDS ORDERED: Dextrose 5% in Water 1,000 ML IV PRN (23:14)
[2019-09-10] MEDS ORDERED: Guaifenesin DM 100-10/5 ML UDCUP PO PRN (23:14)
[2019-09-10] MEDS ORDERED: Ondansetron PF 4 MG/2 ML Vial IVP PRN (23:14)
[2019-09-10] MEDS ORDERED: Acetaminophen 650 MG Suppository PR PRN (23:14)
[2019-09-10] MEDS ORDERED: Sodium Chloride 0.45% 1,000 ML IV SCH (23:45)
[2019-09-10] MEDS ORDERED: cefTRIAXone\\ROCEPHIN 1 GM in Sodium Chloride 0.9% 100 ML IVPB SCH (23:59)
--- NOTE | 2019-09-11 00:01 | HP ---
REASON FOR ADMISSION: Acute respiratory failure with hypoxia, CHF exacerbation with known systolic dysfunction, hyperkalemia, acute kidney injury on top of chronic kidney disease, hyponatremia. HISTORY OF PRESENTING ILLNESS: The patient gives history of being on the treadmill this morning which he normally does at an outpatient rehab. He was on it for 10 minutes then developed shortness of breath. He normally goes on for 20 minutes. This was unusual for him. This progressively got worse by afternoon. His called EMS and the patient was brought here. He has known history of CHF with ejection fraction of around 20% to 25%. He sees Dr. Bond at [facility]. The also mentions that he has had a change in his medications around 2 months back. He was previously on spironolactone and torsemide, which was changed over to eplerenone and torsemide. Currently, has no complaints of chest pain or palpitation. No complaints of PND, but had orthopnea prior to arrival here. Mr. Crockett states he is very active in life. He was in fact normal yesterday. He follows strict diet and takes all his medications. The at bedside also confirms the same. No complaints of fever, cough, or expectoration. No history of diarrhea. No abdominal pain, nausea, or vomiting. His last bowel movement was this afternoon, which was looking normal per patient. PAST MEDICAL AND SURGICAL HISTORY: History of CABG for 3-vessel disease, AICD, biventricular pacer. Last echo done in November of 2018 showed ejection fraction of 25% with multiple wall motion abnormalities. History of CVA with no residual paralysis. The patient is a right-handed person. The CVA was on the right side. Diabetes mellitus type 2, hypertension, dyslipidemia, chronic kidney disease. The prior history of nearly 5 stents for his coronary artery disease, varicose vein surgery, appendectomy, cholecystectomy. PERSONAL HISTORY: Does not abuse alcohol or drugs. No history of smoking. He lives with his . FAMILY HISTORY: Mother at the age of 91. She had history of coronary artery disease. Father at the age of 76 years from natural causes as far as he knows. CURRENT MEDICATIONS: The patient is on; 1. Carvedilol 3.125 mg p.o. twice daily. 2. Digoxin 0.25 mg p.o. daily. 3. Trulicity 1.5 mg subcu weekly. 4. Glyburide 7.5 mg twice daily. 5. Protonix 40 mg daily. 6. MiraLAX 17 g daily. 7. K-Dur 20 mEq p.o. daily. 8. Crestor 40 mg p.o. daily. 9. Entresto 24/26 mg 1 tablet twice daily. 10. Demadex 20 mg daily. 11. Ultram p.r.n. for pain. 12. Plavix 75 mg daily. 13. Imdur extended release 15 mg daily. 14. Coumadin 2 mg p.o. at bedtime. ALLERGIES: NO KNOWN DRUG ALLERGIES. CODE STATUS: Full. Power of senior benefits specialist is his review. REVIEW OF SYSTEMS: CONSTITUTIONAL: Negative for weight loss or gain, ability to conduct usual activities. SKIN: Negative for rash, itching. EYES: Negative for double vision, pain. ENT/MOUTH: Negative for nose bleeding, neck stiffness, pain, tenderness. CARDIOVASCULAR: Negative for palpitations, dyspnea on exertion, orthopnea. RESPIRATORY: Negative for shortness of breath, wheezing, cough, hemoptysis, fever or night sweats. GASTROINTESTINAL: Negative for poor appetite, abdominal pain, heartburn, nausea , vomiting, constipation, or diarrhea. GENITOURINARY: Negative for urgency, frequency, dysuria, nocturia. MUSCULOSKELETAL: Negative for pain, swelling. NEUROLOGIC/PSYCHIATRIC: Negative for anxiety, depression. ALLERGY/IMMUNOLOGIC: Negative for skin rash, bleeding tendency. PHYSICAL EXAMINATION: GENERAL: The patient is a 73-year-old male, who is currently on BiPAP and is comfortable breathing through it. VITAL SIGNS: Blood pressure 140/86, pulse 100 per minute, respiratory rate 22 per minute, saturating 100% on BiPAP, temperature is 96.8 degrees Fahrenheit. NECK: Supple. There is elevated JVD. HEENT: Eyes; extraocular muscles intact. Pupils reacting to light. Oral cavity, mucous membranes are dry. No exudates or congestion. CARDIOVASCULAR SYSTEM: S1, S2 heard. Murmur plus. RESPIRATORY SYSTEM: Air entry 1+ bilateral. Scattered rales plus bilateral, rhonchi plus bilateral. ABDOMEN: Soft. Bowel sounds heard. No tenderness, rigidity, or guarding. EXTREMITIES: No peripheral edema or calf tenderness. VASCULAR SYSTEM: Peripheral pulses 1+ bilateral. No ischemic ulcerations or gangrene. CENTRAL NERVOUS SYSTEM: No gross focal motor deficits noted. The patient is alert, awake, and oriented well. PSYCHIATRIC SYSTEM: The patient's mood is euthymic. No hallucinations or delusions. LABORATORY DATA: EKG done shows paced rhythm at 84 beats per minute, QRS duration is 170 milliseconds, corrected QT is 491 milliseconds. White count of 19, H and H 17 and 51, MCV 105, platelet count is 170 with 64% neutrophils, PT/INR, and PTT are 21, 1.9, and 35. Blood gas done shows a pH of 7.25, pCO2 43, PO2 135, bicarb is 18 on the blood gas. Potassium is 6.0 on the blood gas. Serum sodium is 126, serum potassium 7.7, serum bicarb 23, BUN 26, creatinine 2.1, serum glucose 413. BNP 795. Troponin I 0.13, second set 0.61. Albumin 4.0. Digoxin levels are 1.78. Chest x-ray done shows pulmonary vascular congestion with cardiomegaly. CLINICAL IMPRESSION AND PLAN: The patient will be admitted to ICU for acute respiratory failure with hypoxia secondary to congestive heart failure exacerbation. The patient also has elevated white count with multiple electrolyte abnormalities including hyperkalemia, metabolic acidosis, acute kidney injury on top of chronic kidney disease. We will give a dose of Kayexalate now. He has received Lasix 80 mg x2 doses in the ER along with hyperkalemia cocktail including insulin, dextrose , 1 amp of bicarb, albuterol nebulization. He was also placed on nitroglycerin drip in the ER for uncontrolled hypertension, which will be discontinued now. We will obtain blood cultures and urine cultures. We will repeat a metabolic panel to see if his hyperkalemia is resolved. He has combination of hyponatremia and hyperkalemia with clinical findings of dehydration as well. The patient wants to be full code. I have discussed this with him and his . He has known ejection fraction of around 25%. We will continue him on small dose of Coreg, Lasix, aspirin, Plavix , Humalog coverage, Protonix, Crestor for now. We will obtain a repeat echo with 2D Doppler for LV function. I have spoken to Dr. Tinoco who will be consulting for Nephrology and we will place a consult for Dr. Yo and Dr. Ruiz for the morning. His overall prognosis is guarded. Job ID: [id number] [facility]
[2019-09-11 00:04] LABS: Anion Gap 16 mmol/L (10-20); BUN (Urea Nitrogen) 33 mg/dL (8.4-25.7); Calc. Creatinine Clearance 44 mL/min (70-130); Calcium 8.3 mg/dL (7.8-10.44); Carbon Dioxide 27 mmol/L (23-31); Chloride 95 mmol/L (98-107); Estimated GFR-MDRD 40; Glucose 266 mg/dL (83-110); Potassium 4.1 mmol/L (3.5-5.1); Sodium 134 mmol/L (136-145)
[2019-09-11] MEDS: Acetaminophen 325 MG TAB PO PRN ×2 (00:34→23:09)
[2019-09-11] MEDS: HumaLOG 300 UNITS/3 ML VIAL SC PRN ×4 (00:48→17:10)
[2019-09-11 01:38] LABS: Troponin I 1.992 ng/mL (< 0.028)
[2019-09-11 01:55] LABS: Bacteria/HPF None Seen HPF (None Seen); Bilirubin Negative (Negative); Blood, Urine Trace (Negative); Clarity Clear (Clear); Glucose, Urine (Dipstick) 500 mg/dL (Negative); Leukocyte Negative Leu/uL (Negative); Nitrite Negative (Negative); Protein, Urine (Dipstick) Negative (Neg-Trace); RBC/HPF 0-3 HPF (0-3); Squamous Epithelial 0-3 HPF (0-3); Urobilinogen Normal mg/dL (Less than 2); WBC/HPF 0-3 HPF (0-3)
[2019-09-11 01:56] LABS: Urine Culture Reflex No No
[2019-09-11] MEDS ORDERED: Sodium Chloride 0.45% 1,000 ML IV SCH (02:45)
[2019-09-11] MEDS ORDERED: Lorazepam 1 MG TAB PO SCH (02:45)
[2019-09-11] MEDS ORDERED: Furosemide 40 MG/4 ML VIAL SLOW IVP SCH (06:00)
[2019-09-11 06:47] VITALS: BMI 26.4
[2019-09-11] MEDS: Rosuvastatin 20 MG TAB PO SCH (08:57)
[2019-09-11] MEDS: Saccharomyces boulardii 250 MG CAP PO SCH (08:58)
[2019-09-11] MEDS: Carvedilol 6.25 MG TAB PO SCH ×2 (08:58→17:12)
[2019-09-11] MEDS: Aspirin Chewable 81 MG TAB PO SCH (08:58)
[2019-09-11] MEDS: Clopidogrel Bisulfate 75 MG TAB PO SCH (08:58)
[2019-09-11] MEDS: Heparin 5,000 UNITS/ML VIAL SC SCH ×2 (08:58→22:08)
[2019-09-11] MEDS ORDERED: Carvedilol 3.125 MG TAB PO SCH (09:00)
[2019-09-11 09:11] LABS: Mean Corpuscular Hemoglobin 35.1 pg (27.0-31.0); Mean Platelet Volume 9.4 fL (7.4-10.4); Platelet Count 202 thou/uL (130-400); RBC Distribution Width 12.8 % (11.5-14.5); Red Blood Cell (RBC) Count 4.26 mill/uL (4.70-6.10); White Blood Cell (WBC) Count 26.6 thou/uL (4.8-10.8)
[2019-09-11 09:28] LABS: Anion Gap 18 mmol/L (10-20); BUN (Urea Nitrogen) 29 mg/dL (8.4-25.7); Calc. Creatinine Clearance 47 mL/min (70-130); Carbon Dioxide 27 mmol/L (23-31); Chloride 94 mmol/L (98-107); Estimated GFR-MDRD 44; Glucose 262 mg/dL (83-110); Potassium 3.7 mmol/L (3.5-5.1); Sodium 135 mmol/L (136-145)
[2019-09-11 09:38] LABS: Band 2 % (5-11); Lymphocytes 7 % (21-51); MDiff Complete? YES; Monocytes 5 % (0-10); Neutrophil 86 % (42-75); Ovalocytes SLIGHT = 2-5 cells (100X) (0-1/hpf); Platelet Morphology Comment Appears Adequate
[2019-09-11] MEDS: Piperacillin/Tazobactam 3.375 GM in Sodium Chloride 0.9% 100 ML IVPB SCH ×2 (11:47→22:08)
--- NOTE | 2019-09-11 14:11 | CON ---
DATE OF CONSULTATION: 09/11/2019 REASON FOR CONSULTATION: ICU care. HISTORY OF PRESENT ILLNESS: This patient was apparently at outpatient rehab yesterday. He developed some shortness of breath, got in the car, in about a mile from the hospital, called EMS because of the shortness of breath. He was thought to be in heart failure. He was put on a nitroglycerin drip. He was also found to be acutely hyperkalemic, but his potassium is easily corrected with Kayexalate. I do not think he ever was really put on the BiPAP. He looks fine this morning and has no complaints. He denies any fever, chills, nausea, vomiting, or chest pain. PAST MEDICAL HISTORY: 1. Coronary artery disease, requiring bypass surgery. 2. Cardiomyopathy. 3. Diabetes mellitus. 4. Hyperlipidemia. 5. Hypertension. 6. Defibrillator placement. 7. Varicose vein stripping. 8. Appendectomy. 9. Cholecystectomy. SOCIAL HISTORY: Quit smoking in 1984. Does not consume alcohol. ALLERGIES: NONE. FAMILY MEDICAL HISTORY: Remarkable for peripheral vascular disease. REVIEW OF SYSTEMS: Twelve-point review of systems is otherwise negative. PHYSICAL EXAMINATION: VITAL SIGNS: Temperature 98.5, pulse 91, blood pressure 103/48, and O2 saturation 100%. GENERAL: He is resting comfortably in bed and is in no distress. HEENT: Unremarkable. NECK: No adenopathy, JVD, or bruits. CHEST: He has a palpable pacemaker defibrillator in left upper quadrant. His heart rhythm is partially paced and is regular. His breath sounds are clear. ABDOMEN: Soft and nontender. EXTREMITIES: No clubbing, cyanosis, or edema. NEUROLOGIC: Nonfocal. LABORATORY DATA: Sodium 135, potassium 3.7, chloride 94, CO2 of 27, BUN 29, creatinine 1.6, and glucose 262. Troponin 1.9. White blood cell count 26.6, hematocrit 44, and platelet count 202. IMAGING DATA: His chest x-ray showed bilateral infiltrates suggestive of heart failure. ASSESSMENT: 1. Acute hypoxic respiratory failure, probably secondary to congestive heart failure, but cannot completely rule out the possibility of pneumonia. 2. Hyperkalemia, resolved. 3. Underlying cardiomyopathy. 4. Multiple other medical problems listed above. PLAN: 1. This patient can be moved out to the floor. 2. We would continue the antibiotics for at least 48 hours until we better know what we are dealing with. 3. Stop IV fluids. 4. We would recommend resuming most of his home medications. Job ID: [id number]
[2019-09-11] MEDS ORDERED: Famotidine 20 MG TAB PO SCH (14:15)
[2019-09-11] MEDS: Mag-Al 1200 mg/1200 mg/30 ML UDCUP PO PRN (15:04)
--- NOTE | 2019-09-11 15:23 | PDOC.HOSPP ---
- Subjective Encounter Date: 09/11/19 Encounter Time: 12:10 Subjective: off nitro gtt, pt and wnats to [facility]. wbcs high. prefers transfer. - Objective Vital Signs & Weight: Vital Signs (12 hours) Temp BP Pulse Ox 09/11/19 08:58 122/48 L 09/11/19 07:11 100 09/11/19 05:00 98.5 F 09/11/19 04:00 100 Weight Weight 168 lb 10.458 oz Most Recent Monitor Data Heart Rate from ECG 83 NIBP 90/59 NIBP BP-Mean 69 Respiration from ECG 20 SpO2 100 I&O: 09/10/19 09/11/19 09/12/19 06:59 06:59 06:59 Intake Total 1790 Output Total 1135 Balance 655 Result Diagrams: 09/11/19 08:31 09/11/19 08:31 Additional Labs: Accuchecks 09/11/19 09/11/19 09/11/19 11:38 06:45 00:43 POC Glucose 168 H 210 H 255 H 09/10/19 09/10/19 22:04 19:25 POC Glucose 263 H 375 H Hospitalist ROS - Medication Medications: Active Medications Generic Name Dose Route Start Last Admin Trade Name Freq PRN Reason Stop Dose Admin Acetaminophen 650 mg 09/10/19 23:14 09/11/19 00:34 Tylenol PO 650 mg Q4H PRN Administration Headache/Fever/Mild Pain (1-3) Al Hydroxide/Mg Hydroxide 30 ml 09/11/19 14:05 09/11/19 15:04 Maalox PO 30 ml Q4H PRN Administration Heartburn or Indigestion Aspirin 81 mg 09/11/19 09:00 09/11/19 08:58 Aspirin Chewable PO 81 mg DAILY ANA Administration Carvedilol 6.25 mg 09/11/19 08:00 09/11/19 08:58 Coreg PO 6.25 mg BID-WM ANA Administration Clopidogrel Bisulfate 75 mg 09/11/19 09:00 09/11/19 08:58 Plavix PO 75 mg DAILY ANA Administration Famotidine 20 mg 09/11/19 14:15 09/11/19 15:08 Pepcid PO 09/11/19 16:00 20 mg NOW ANA Administration Heparin Sodium (Porcine) 5,000 units 09/11/19 09:00 09/11/19 08:58 Heparin SC 5,000 units BID ANA Administration Piperacillin Sod/Tazobactam 100 mls @ 200 mls/hr 09/11/19 10:00 09/11/19 11: 47 Sod 3.375 gm/ Sodium Chloride IVPB 100 mls 1000,2200 ANA Administration Insulin Human Lispro 0 units 09/10/19 23:14 09/11/19 11:36 Humalog SC 2 unit .MODERATE SLIDING SC PRN Administration Moderate Correctional Scale Insulin Human Lispro 0 units 09/10/19 23:14 09/11/19 00:48 Humalog SC 3 unit .BEDTIME SLIDING SC PRN Administration Bedtime Correctional Scale Pantoprazole Sodium 40 mg 09/11/19 09:00 09/11/19 08:58 Protonix PO 40 mg DAILY ANA Administration Rosuvastatin Calcium 40 mg 09/11/19 09:00 09/11/19 08:57 Crestor PO 40 mg DAILY ANA Administration Saccharomyces Boulardii 500 mg 09/11/19 09:00 09/11/19 08:58 Florastor PO 500 mg DAILY ANA Administration - Exam General Appearance: NAD, awake alert Eye: PERRL ENT: normocephalic atraumatic Neck: supple, no JVD Heart: RRR Respiratory: CTAB Gastrointestinal: normal bowel sounds Hosp A/P - Plan Hypoxic resp failure - change ctx to zosyn as wbcs high =no blood tara done at the time of admission -UA is claer - but urine tara is cooking? acute on chorninc chf exacerbation cardiomyoptahy with current echo w.. EF of 25% asa/plavix, coreg - on coumadin at home?--we have to verify on that. renal has to see the pt. if needed, will transfer but prefer until wbcs improves is agreeable for the time being
--- NOTE | 2019-09-11 16:17 | CON ---
DATE OF CONSULTATION: PRIMARY CARDIOLOGISTS: At [facility], Dr. Williams Paige. In General, is his physician, Dr. Bond at [facility]. HISTORY OF PRESENT ILLNESS: Mr. Crockett is a 73-year-old gentleman with history of severe advanced heart failure. He was working out yesterday, began feeling increasingly weak and fatigued and had some chest pain. He came into the emergency room. He is found to be severely hyperkalemic. He was given medicines to reduce the hyperkalemia. The patient has also been found to be in congestive heart failure. The patient continues to complain of some epigastric pain, but no chest pain. He desires to have some medicine for the epigastric pain. PAST HISTORY: A long cardiac history as outlined in the chart extensively with coronary artery disease, previous stent implantation, previous bypass surgery. The patient is being maintained on a regimen for congestive heart failure. MEDICATIONS: As an outpatient, please see the nurse's note that included: 1. Entresto. 2. Eplerenone (he was taken off spironolactone due to breast tenderness). 3. Torsemide. 4. Carvedilol. 5. Digoxin. 6. Warfarin. REVIEW OF SYSTEMS: GENERAL: Positive for epigastric discomfort, he thinks it is indigestion. VISION: No changes. HEARING: No changes. PULMONARY: No cough or wheezing. GASTROINTESTINAL: Positive for epigastric discomfort. SKIN: No rashes. NEUROLOGIC: No unilateral weakness or numbness. FAMILY HISTORY: Noncontributory. SOCIAL HISTORY: No alcohol or tobacco. PAST MEDICAL HISTORY: As outlined above. 1. Previous stent implantation and also restenosis of a stent in his posterior descending artery, successfully re-stented. 2. Previous bypass. PHYSICAL EXAMINATION: GENERAL: He is an elderly gentleman, resting comfortably, in no distress. VITAL SIGNS: Blood pressure 94/52, pulse 80 and it is regular. LUNGS: Clear anteriorly and laterally. CARDIAC: Normal S1 and normal S2. I do not hear a murmur, rub, or gallop. ABDOMEN: Soft and nontender. EXTREMITIES: Warm and dry. No clubbing or cyanosis. There is no edema. PERTINENT LABORATORY DATA: Creatinine is 1.57, it was 2.13 yesterday. Potassium was 7.7, down to 3.7 today. Echocardiogram, technically difficult study with ejection fraction appears to be about 20%. Chest x-ray shows congestive heart failure. ASSESSMENT: 1. Congestive heart failure, systolic, acute on chronic with advanced heart failure. 2. Severe hyperkalemia related to eplerenone and also was taking potassium. 3. [id number] myocardial infarction. Troponin 1.992. 4. Renal failure, stage 3. 5. Hypotension. PLAN: 1. He is receiving fluid very slowly. 2. Consideration for resuming diuretics tomorrow. 3. Entresto on hold until he stabilized including blood pressure. 4. The patient has a wide-complex QRS, consideration for upgrading the pacemaker defibrillator to a biventricular device could be given. 5. The patient and family wish to be transferred to [facility] where his finish off operator is. The nurse tells me they called [facility]. There are no beds available. The patient wishes to be discharged and drive over to [facility]. We told him that he is not stable for discharge, for now, we will continue medical therapy here. Job ID: [id number]
--- NOTE | 2019-09-11 17:20 | PRG ---
DATE OF SERVICE: 09/11/2019 SUBJECTIVE: The patient was seen and examined, seems to be doing very well. Noted with the following vital signs. OBJECTIVE: VITAL SIGNS: Blood pressure 100/56, pulse 84, respiratory rate HEENT: Unremarkable. CARDIOVASCULAR: First and second heart sounds were heard. RESPIRATORY: Clear to auscultation. DIGESTIVE: Revealed a benign abdomen. EXTREMITIES: No peripheral edema. SKIN: No new gross rash. LYMPHATICS: No peripheral lymphadenopathy. IMPRESSION: 1. Severe hyperkalemia, seems to have resolved. 2. Acute on chronic kidney disease, much improved. PLAN: 1. Continue current management. 2. Consider either decrease in the dose of Entresto and monitor or place this patient on [place] on daily basis while on Entresto. 3. Outpatient Nephrology followup, status post discharge. Job ID: [id number]
--- NOTE | 2019-09-11 21:20 | CON ---
DATE OF CONSULTATION: CONSULTING PHYSICIAN: Earnest Sullivan MD REQUESTING PHYSICIAN: Martha Grier MD REASON FOR CONSULTATION: Acute on chronic kidney disease, severe hyperkalemia. IMPRESSION: 1. Severe hyperkalemia. This is likely in the context of Entresto medication usage compounded by reduced GFR. 2. Acute on chronic kidney disease, possibly cardiorenal. PLAN: 1. Rehydrate this patient. 2. Kayexalate, insulin, calcium gluconate and albuterol. 3. If potassium persists, will undergo hemodialysis. Otherwise, this could be managed medically. HISTORY OF PRESENT ILLNESS: History is that of 73-year-old gentleman with significant cardiac history including systolic congestive heart failure, who was in his usual state of health undergoing treadmill exercise and low shortness of breath, presented here and noted to be severely hyperkalemic with potassium of 7.7, elevated creatinine above his baseline of 2.13. As a result of these findings, decision was taken to involve Renal in the management of this case. PAST MEDICAL HISTORY: Significant for coronary artery disease, status post three vessel CABG, AICD, biventricular pacer, systolic congestive heart failure, hypertension, type 2 diabetes, dyslipidemia, chronic kidney disease. MEDICATIONS: Reviewed and as documented on [place]. FAMILY HISTORY: Not significantly related to presenting illness. No family history of kidney disease. SOCIAL HISTORY: No alcohol. No tobacco. No illicit drug use. ALLERGIES: NO KNOWN DRUG ALLERGIES. REVIEW OF SYSTEMS: As documented in the body of history. All the other systems were reviewed and found not to be significantly related to present illness. PHYSICAL EXAMINATION: GENERAL: The patient was found not to be in any obvious distress, noted with the following vital signs. VITAL SIGNS: Blood pressure 100/72, pulse 83, respiratory rate of 20, O2 saturation 100%. HEENT: Unremarkable. CARDIOVASCULAR: First and second heart sounds were heard. RESPIRATORY: Clear to auscultation. DIGESTIVE: Revealed a benign abdomen. Positive bowel sounds. EXTREMITIES: No peripheral edema. SKIN: No new gross rash. LYMPHATICS: No peripheral lymphadenopathy. SUMMARY: A 73-year-old gentleman, who presented here as severely hyperkalemic in the context of Entresto usage and acute on chronic kidney disease. Thank you for this consultation. We will follow with you. Job ID: [id number]
[2019-09-11] MEDS ORDERED: Lorazepam 0.5 MG TAB PO PRN (21:51)
[2019-09-11] MEDS: Famotidine 20 MG TAB PO SCH (22:08)
[2019-09-12 03:54] LABS: #Eosinphils 0.1 thou/uL (0.0-0.7); #Lymphocytes 1.9 thou/uL (1.20-3.40); #Monocytes 0.9 thou/uL (0.11-0.59); #Neutrophils 10.8 thou/uL (1.40-6.50); %Basophils 0.3 % (0.0-1.0); %Eosinophils 0.8 % (0.0-10.0); %Lymphocytes 13.9 % (21.0-51.0); %Monocytes 6.5 % (0.0-10.0); %Neutrophils 78.5 % (42.0-75.0); Hemoglobin 12.4 g/dL (14.0-18.0); Mean Corpuscular HGB CONC 35.2 g/dL (32.0-36.0); Mean Corpuscular Hemoglobin 36.2 pg (27.0-31.0); Mean Platelet Volume 9.2 fL (7.4-10.4); Platelet Count 157 thou/uL (130-400); RBC Distribution Width 12.8 % (11.5-14.5); Red Blood Cell (RBC) Count 3.41 mill/uL (4.70-6.10); White Blood Cell (WBC) Count 13.7 thou/uL (4.8-10.8)
[2019-09-12] MEDS: Mag-Al 1200 mg/1200 mg/30 ML UDCUP PO PRN (04:46)
[2019-09-12] MEDS: Acetaminophen 325 MG TAB PO PRN ×2 (06:22→12:47)
[2019-09-12] MEDS: Carvedilol 6.25 MG TAB PO SCH ×2 (08:15→18:06)
[2019-09-12] MEDS: Saccharomyces boulardii 250 MG CAP PO SCH (08:18)
[2019-09-12] MEDS: Clopidogrel Bisulfate 75 MG TAB PO SCH (08:18)
[2019-09-12] MEDS: Aspirin Chewable 81 MG TAB PO SCH (08:18)
[2019-09-12] MEDS: Rosuvastatin 20 MG TAB PO SCH (08:18)
[2019-09-12] MEDS: Heparin 5,000 UNITS/ML VIAL SC SCH ×2 (08:18→19:21)
[2019-09-12] MEDS: Famotidine 20 MG TAB PO SCH ×2 (08:18→19:20)
--- NOTE | 2019-09-12 09:45 | PRG ---
DATE OF SERVICE: 09/12/2019 SUBJECTIVE: The patient is unhappy about everything. His is wanting him to move to [facility], but there are no beds over there. They will not allow him to be moved out of the ICU because they do not think the care on the floor is very good here. OBJECTIVE: VITAL SIGNS: Temperature is 98.5, pulse 100, and blood pressure 96/59. HEENT: Unremarkable. NECK: No adenopathy or JVD. CHEST: Clear anteriorly. CARDIAC: S1 and S2. Regular. ABDOMEN: Soft. EXTREMITIES: No edema. LABORATORY DATA: White blood cell count 13.7, hematocrit 35, and platelet count 157. Chemistry was not done today. ASSESSMENT: 1. Systolic heart failure. 2. Vague abdominal pain. 3. Resolved hyperkalemia. 4. Cardiomyopathy. PLAN: I do not think the patient has pneumonia. There is some disagreement as to whether he has a gallbladder or not. In any event, I think he can be moved out to the floor for further workup. If a bed opens up at [facility], I would transfer him over there. Job ID: [id number]
[2019-09-12 09:46] LABS: Anion Gap 14 mmol/L (10-20); BUN (Urea Nitrogen) 21 mg/dL (8.4-25.7); Calc. Creatinine Clearance 60 mL/min (70-130); Calcium 8.2 mg/dL (7.8-10.44); Carbon Dioxide 28 mmol/L (23-31); Chloride 95 mmol/L (98-107); Estimated GFR-MDRD 59; Glucose 162 mg/dL (83-110); Potassium 3.7 mmol/L (3.5-5.1); Sodium 133 mmol/L (136-145)
[2019-09-12] MEDS: Piperacillin/Tazobactam 3.375 GM in Sodium Chloride 0.9% 100 ML IVPB SCH ×2 (09:59→21:07)
[2019-09-12] MEDS: HumaLOG 300 UNITS/3 ML VIAL SC PRN ×2 (10:58→16:08)
--- NOTE | 2019-09-12 11:09 | PRG ---
DATE OF SERVICE: 09/12/2019 SUBJECTIVE: Mr. Crockett complains of abdominal discomfort and bloating this morning. He is not short of breath. He is not having chest pain. OBJECTIVE: VITAL SIGNS: His blood pressure is improved to 110 systolic . LUNGS: Clear. CARDIAC: Normal S1 and normal S2. ABDOMEN: Somewhat distended, but soft. EXTREMITIES: No edema. ASSESSMENT: 1. Status post severe hyperkalemia, resolved. 2. Severe underlying coronary artery disease and congestive heart failure. 3. Abdominal bloating. PLAN: 1. Resume low-dose torsemide tomorrow. 2. Stop Plavix. The family says it upsets the stomach. 3. Dr. Paige to resume care from a cardiac standpoint tomorrow. The patient wishes to be transferred to [facility]. There are still no bed available. Job ID: [id number]
--- NOTE | 2019-09-12 18:13 | PDOC.HOSPP ---
- Subjective Encounter Date: 09/12/19 Encounter Time: 11:45 Subjective: is mostly giving the symptoms and concerns. pt is comfortable - denies nay chest or stomach pain this am but last night he had epigastric pain requirng maalox, PPi. [facility] denied accepting the pt there. wants to stay in ICU and does not want to be moved to the floor. Pt is stable to go to the tele bed. - Objective Vital Signs & Weight: Vital Signs (12 hours) Temp Pulse Pulse BP BP BP Pulse Ox 09/12/19 18:06 117/78 09/12/19 16:00 98.2 F 09/12/19 12:44 98 92 115/73 108/62 09/12/19 08:15 109/66 09/12/19 08:00 98.5 F 99 Pulse Ox Pulse Ox 09/12/19 18:06 09/12/19 16:00 09/12/19 12:44 100 100 09/12/19 08:15 09/12/19 08:00 Weight Weight 167 lb 1.766 oz Most Recent Monitor Data Heart Rate from ECG 81 NIBP 122/53 NIBP BP-Mean 76 Respiration from ECG 18 SpO2 96 I&O: 09/11/19 09/12/19 09/13/19 06:59 06:59 06:59 Intake Total 1790 2306 450 Output Total 1135 2100 490 Balance 655 206 -40 Result Diagrams: 09/12/19 03:21 09/12/19 09:14 Additional Labs: Accuchecks 09/12/19 09/12/19 09/12/19 16:08 11:01 06:19 POC Glucose 184 H 183 H 95 09/11/19 22:11 POC Glucose 187 H Hospitalist ROS - Medication Medications: Active Medications Generic Name Dose Route Start Last Admin Trade Name Freq PRN Reason Stop Dose Admin Acetaminophen 650 mg 09/10/19 23:14 09/12/19 12:47 Tylenol PO 650 mg Q4H PRN Administration Headache/Fever/Mild Pain (1-3) Al Hydroxide/Mg Hydroxide 30 ml 09/11/19 14:05 09/12/19 04:46 Maalox PO 30 ml Q4H PRN Administration Heartburn or Indigestion Aspirin 81 mg 09/11/19 09:00 02/23/20 08:18 Aspirin Chewable PO 81 mg DAILY ANA Administration Carvedilol 6.25 mg 09/11/19 08:00 09/12/19 18:06 Coreg PO 6.25 mg BID-WM ANA Administration Famotidine 20 mg 09/11/19 21:00 09/12/19 08:18 Pepcid PO 20 mg BID ANA Administration Heparin Sodium (Porcine) 5,000 units 09/11/19 09:00 09/12/19 08:18 Heparin SC 5,000 units BID ANA Administration Piperacillin Sod/Tazobactam 100 mls @ 200 mls/hr 09/11/19 10:00 09/12/19 09: 59 Sod 3.375 gm/ Sodium Chloride IVPB 100 mls 1000,2200 ANA Administration Insulin Human Lispro 0 units 09/10/19 23:14 09/12/19 16:08 Humalog SC 2 unit .MODERATE SLIDING SC PRN Administration Moderate Correctional Scale Insulin Human Lispro 0 units 09/10/19 23:14 09/11/19 00:48 Humalog SC 3 unit .BEDTIME SLIDING SC PRN Administration Bedtime Correctional Scale Pantoprazole Sodium 40 mg 09/11/19 09:00 09/12/19 08:15 Protonix PO 40 mg DAILY [facility] Administration Rosuvastatin Calcium 40 mg 09/11/19 09:00 09/12/19 08:18 Crestor PO 40 mg DAILY ANA Administration Saccharomyces Boulardii 500 mg 09/11/19 09:00 09/12/19 08:18 Florastor PO 500 mg DAILY ANA Administration Senna/Docusate Sodium 2 tab 09/10/19 23:14 09/12/19 10:55 Senokot S PO 2 tab BID PRN Administration Constipation - Exam General Appearance: NAD, awake alert Eye: PERRL, anicteric sclera ENT: normocephalic atraumatic Neck: supple Heart: RRR Respiratory: CTAB, normal chest expansion Gastrointestinal: soft, normal bowel sounds Gastrointestinal - other findings: no scars in the stomach area Neurological: cranial nerve grossly intact, no focal deficits Musculoskeletal: normal tone Psychiatric: normal affect Hosp A/P - Plan Hypoxic resp failure - change ctx to zosyn as wbcs high =no blood tara done at the time of admission -UA is claer - but urine tara is cooking? acute on chorninc chf exacerbation cardiomyoptahy with current echo w.. EF of 25% asa/plavix, coreg - on coumadin at home?--we have to verify on that. renal has to see the pt. if needed, will transfer but prefer until wbcs improves is agreeable for the time being 23drd Acute on chronic Sys CHF exacerbation -starting back on his torsemide 20mg -hold plavix, as stomach upset. Leukocytosis -trending down -tara neg. -cw zosyn for now Mild Hyponatremia w.. Na of 133 is mostly giving the symptoms and concerns. pt is comfortable - denies nay chest or stomach pain this am but last night he had epigastric pain requirng maalox, PPi. [facility] denied accepting the pt there. wants to stay in ICU and does not want to be moved to the floor. Pt is stable to go to the tele bed.
[2019-09-12] MEDS: traMADol HCl 50 MG TAB PO PRN (19:19)
[2019-09-12] MEDS: Lorazepam 1 MG TAB PO PRN (21:56)
[2019-09-13] MEDS: Acetaminophen 325 MG TAB PO PRN ×2 (01:06→08:14)
[2019-09-13] MEDS: Mag-Al 1200 mg/1200 mg/30 ML UDCUP PO PRN ×2 (02:09→06:31)
[2019-09-13 03:58] LABS: #Basophils 0.1 thou/uL (0.0-0.2); #Eosinphils 0.1 thou/uL (0.0-0.7); #Lymphocytes 1.3 thou/uL (1.20-3.40); #Neutrophils 13.5 thou/uL (1.40-6.50); %Basophils 0.5 % (0.0-1.0); %Eosinophils 0.7 % (0.0-10.0); %Lymphocytes 8.4 % (21.0-51.0); %Monocytes 6.2 % (0.0-10.0); %Neutrophils 84.2 % (42.0-75.0); Hemoglobin 13.5 g/dL (14.0-18.0); Mean Corpuscular Hemoglobin 36.4 pg (27.0-31.0); Mean Platelet Volume 9.8 fL (7.4-10.4); Platelet Count 174 thou/uL (130-400); Red Blood Cell (RBC) Count 3.71 mill/uL (4.70-6.10)
[2019-09-13] MEDS: HumaLOG 300 UNITS/3 ML VIAL SC PRN ×3 (05:33→20:43)
[2019-09-13] MEDS: traMADol HCl 50 MG TAB PO PRN (05:54)
[2019-09-13] MEDS: Famotidine 20 MG TAB PO SCH ×2 (05:58→20:39)
[2019-09-13] MEDS: Carvedilol 6.25 MG TAB PO SCH ×2 (08:12→16:39)
[2019-09-13] MEDS: Rosuvastatin 20 MG TAB PO SCH (08:13)
[2019-09-13] MEDS: Aspirin Chewable 81 MG TAB PO SCH (08:13)
[2019-09-13] MEDS: Heparin 5,000 UNITS/ML VIAL SC SCH ×2 (08:13→20:39)
[2019-09-13] MEDS: Polyethylene Glycol 3350 17 GM Packet PO SCH (08:13)
[2019-09-13] MEDS: Torsemide 20 MG TAB PO SCH (08:14)
[2019-09-13] MEDS: Saccharomyces boulardii 250 MG CAP PO SCH (08:14)
[2019-09-13] MEDS ORDERED: Iopamidol 370 76% 100 ML VIAL ONE (09:00)
--- NOTE | 2019-09-13 09:35 | PRG ---
DATE OF SERVICE: 09/13/2019 SUBJECTIVE: The patient is seen and examined noted with the following vital signs. OBJECTIVE: VITAL SIGNS: Afebrile, temperature 98.3, blood pressure 117/78, pulse of 104, respiratory rate of 15. HEENT: Unremarkable. CARDIOVASCULAR SYSTEM: First and second heart sounds were heard. RESPIRATORY SYSTEM: Clear to auscultation. DIGESTIVE SYSTEM: Revealed a benign abdomen with positive bowel sounds. EXTREMITIES: No peripheral edema. SKIN: No new gross rash. LYMPHATICS: No peripheral lymphadenopathy. IMPRESSION: 1. Hyperkalemia, which seems to have resolved. 2. Acute on chronic kidney disease, currently resolved. PLAN: 1. Continue current management. 2. We will sign off at this point. Job ID: [id number]
[2019-09-13 09:49] LABS: Anion Gap 17 mmol/L (10-20); BUN (Urea Nitrogen) 25 mg/dL (8.4-25.7); Calc. Creatinine Clearance 49 mL/min (70-130); Calcium 8.3 mg/dL (7.8-10.44); Carbon Dioxide 23 mmol/L (23-31); Chloride 93 mmol/L (98-107); Estimated GFR-MDRD 49; Glucose 295 mg/dL (83-110); Potassium 4.2 mmol/L (3.5-5.1); Sodium 129 mmol/L (136-145)
[2019-09-13] MEDS ORDERED: Lidocaine 2% Viscous Solution 20 ML, Aluminum & Magnesium Hydroxide 30 ML, Donnatal Eli... SSW SCH (10:45)
[2019-09-13] MEDS ORDERED: Lidocaine 1% (PF) 30 ML VIAL ONE (11:40)
[2019-09-13] MEDS ORDERED: Nitroglycerin 0.4 MG TAB (25 Tab Bottle) SL PRN (12:08)
[2019-09-13] MEDS ORDERED: Sodium Chloride 0.9% 200 ML IV PRN (12:08)
[2019-09-13] MEDS ORDERED: Acetaminophen/Codeine 30-300mg Tablet PO PRN (12:08)
[2019-09-13] MEDS ORDERED: Sodium Chloride 0.9% 250 ML IV SCH (12:15)
[2019-09-13] MEDS: Piperacillin/Tazobactam 3.375 GM in Sodium Chloride 0.9% 100 ML IVPB SCH ×2 (13:52→22:58)
--- NOTE | 2019-09-13 14:08 | PDOC.HOSPP ---
- Subjective Encounter Date: 09/13/19 Encounter Time: 12:30 Subjective: at bedside, i have to ask her politely that i need to talk to pt and get as much info as possible before i can talk to her. pt states that his CP at one point, worse with swallowing pills, and no pain when lying flat. able to sleep at night as he takes ativan. no difficulty during chewing or swallowing. - Objective Vital Signs & Weight: Vital Signs (12 hours) Temp Pulse Pulse BP BP BP Pulse Ox 09/13/19 11:19 98.3 F 09/13/19 09:45 95 85 93/68 132/68 09/13/19 08:12 117/78 09/13/19 08:00 98 09/13/19 07:36 98.3 F 09/13/19 03:19 97.2 F L Pulse Ox Pulse Ox 09/13/19 11:19 09/13/19 09:45 100 99 09/13/19 08:12 09/13/19 08:00 09/13/19 07:36 09/13/19 03:19 Weight Weight 162 lb 7 oz Most Recent Monitor Data Heart Rate from ECG 82 NIBP 112/60 NIBP BP-Mean 77 Respiration from ECG 14 SpO2 95 I&O: 09/12/19 09/13/19 09/14/19 06:59 06:59 06:59 Intake Total 2306 1040 Output Total 2100 1165 Balance 206 -125 Result Diagrams: 09/13/19 03:05 09/13/19 09:09 Additional Labs: Accuchecks 09/13/19 09/13/19 09/13/19 10:35 05:30 00:59 POC Glucose 306 H 219 H 128 H 09/12/19 09/12/19 09/10/19 20:41 16:08 21:45 POC Glucose 190 H 184 H 276 H 09/10/19 20:32 POC Glucose 309 H Hospitalist ROS - Medication Medications: Active Medications Generic Name Dose Route Start Last Admin Trade Name Freq PRN Reason Stop Dose Admin Acetaminophen 650 mg 09/10/19 23:14 09/13/19 08:14 Tylenol PO 650 mg Q4H PRN Administration Headache/Fever/Mild Pain (1-3) Al Hydroxide/Mg Hydroxide 30 ml 09/11/19 14:05 09/13/19 06:31 Maalox PO 30 ml Q4H PRN Administration Heartburn or Indigestion Aspirin 81 mg 09/11/19 09:00 09/13/19 08:13 Aspirin Chewable PO 81 mg DAILY ANA Administration Carvedilol 6.25 mg 09/11/19 08:00 09/13/19 08:12 Coreg PO 6.25 mg BID-WM ANA Administration Famotidine 20 mg 09/11/19 21:00 09/13/19 05:58 Pepcid PO 20 mg BID ANA Administration Heparin Sodium (Porcine) 5,000 units 09/11/19 09:00 09/13/19 08:13 Heparin SC 5,000 units BID ANA Administration Piperacillin Sod/Tazobactam 100 mls @ 200 mls/hr 09/11/19 10:00 09/13/19 13: 52 Sod 3.375 gm/ Sodium Chloride IVPB 100 mls 1000,2200 ANA Administration Sodium Chloride 250 mls @ 50 mls/hr 09/13/19 12:15 09/13/19 13:57 Normal Saline 0.9% IV 09/13/19 17:14 250 mls .Q5H ANA Administration Insulin Human Lispro 0 units 09/10/19 23:14 09/13/19 10:45 Humalog SC 8 unit .MODERATE SLIDING SC PRN Administration Moderate Correctional Scale Insulin Human Lispro 0 units 09/10/19 23:14 09/11/19 00:48 Humalog SC 3 unit .BEDTIME SLIDING SC PRN Administration Bedtime Correctional Scale Lorazepam 1 mg 09/12/19 16:42 09/12/19 21:56 Ativan PO 1 mg Q8H PRN Administration Anxiety/Agitation Pantoprazole Sodium 40 mg 09/11/19 09:00 09/13/19 08:13 Protonix PO 40 mg DAILY ANA Administration Polyethylene Glycol 17 gm 09/13/19 09:00 09/13/19 08:13 Miralax PO 17 gm DAILY ANA Administration Rosuvastatin Calcium 40 mg 09/11/19 09:00 09/13/19 08:13 Crestor PO 40 mg DAILY ANA Administration Saccharomyces Boulardii 500 mg 09/11/19 09:00 09/13/19 08:14 Florastor PO 500 mg DAILY ANA Administration Senna/Docusate Sodium 2 tab 09/10/19 23:14 09/12/19 10:55 Senokot S PO 2 tab BID PRN Administration Constipation Torsemide 20 mg 09/13/19 09:00 09/13/19 08:14 Demadex PO 20 mg DAILY ANA Administration Tramadol HCl 50 mg 09/12/19 14:39 09/13/19 05:54 Ultram PO 50 mg Q6H PRN Administration Pain - Exam General Appearance: NAD, awake alert Eye: PERRL ENT: normocephalic atraumatic Neck: supple Heart: RRR Respiratory: CTAB Gastrointestinal: normal bowel sounds Extremities: no cyanosis Neurological: no focal deficits Hosp A/P - Plan Hypoxic resp failure - change ctx to zosyn as wbcs high =no blood tara done at the time of admission -UA is claer - but urine tara is cooking? acute on chorninc chf exacerbation cardiomyoptahy with current echo w.. EF of 25% asa/plavix, coreg - on coumadin at home?--we have to verify on that. renal has to see the pt. if needed, will transfer but prefer until wbcs improves is agreeable for the time being 23drd Acute on chronic Sys CHF exacerbation -starting back on his torsemide 20mg -hold plavix, as stomach upset. Leukocytosis -trending down -tara neg. -cw zosyn for now Mild Hyponatremia w.. Na of 133 is mostly giving the symptoms and concerns. pt is comfortable - denies nay chest or stomach pain this am but last night he had epigastric pain requirng maalox, PPi. [facility] denied accepting the pt there. wants to stay in ICU and does not want to be moved to the floor. Pt is stable to go to the tele bed. he had cath again today- rpt'dly negative. prior cath on -- LAD 100% steno of 24 mm length s/p stent at Prox RCA; R.PDA and ramus fw w.. CTA FW w.. speech therapy eval and GI input. if GI workup neg., and cTA neg and ST have no recomn, then we maximized our hospital workup for this pt and to be dc'd home in 1 to 2 days.
[2019-09-13] MEDS: NS 0.9% w/ 20 MEQ KCL 1,000 ML/1,000 ML BAG IV SCH (16:39)
[2019-09-13] MEDS: Lorazepam 1 MG TAB PO PRN (16:39)
--- NOTE | 2019-09-13 23:37 | CON ---
DATE OF CONSULTATION: 09/13/2019 CHIEF COMPLAINT: Abdominal pain. HISTORY OF PRESENT ILLNESS: Mr. Crockett is a 73-year-old man, who complains of epigastric burning abdominal pain. This has been fairly continuous over the last 2 or 3 years. He has been previously followed at [facility] for evaluation of this. He was found to have positive H pylori and was treated with 10 days of antibiotics for that. His states that after the antibiotics, he had persistent abdominal pain. He also had a heart cath and stent placed previously and was started on Plavix for that. They are also concerned that his abdominal pain might be caused by Plavix and after six months of treatment with Plavix, this was discontinued. He had an upper endoscopy by . He and his are unsure if they have had a colonoscopy, but think maybe that he has. He has had a CT scan for evaluation of his abdominal pain in the more distant past. He has been treated with pantoprazole in the morning and Pepcid in the evening. He has been given Carafate in the past but this caused nausea, so it was stopped. Most recently, in addition to the pantoprazole and Pepcid, he has been taking tramadol for the abdominal pain daily. He has had associated constipation. He states that he is supposed to be taking MiraLAX twice a day, but he does not really take that. He may take MiraLAX twice per week. At other times more frequently he takes Dulcolax a couple of times per week. He has also taken a stimulant laxative herbal tea. He had a small bowel movement yesterday and a small bowel movement the day before. He has had no visible blood in the stool. He was admitted to the hospital this hospital stay on 09/10/2019 with shortness of breath and epigastric chest pain. He was treated with diuretics and his troponin was noted to be somewhat elevated. He underwent a heart catheterization today that showed no worsening of his chronic coronary artery disease. He has had prior stents and bypass surgery. He has cardiomyopathy with echocardiogram showing an EF of 20% to 25%. He has been followed by Nephrology this hospital stay for hyperkalemia and acute renal failure. The hyperkalemia was thought to be secondary to Entresto and this was held. PAST MEDICAL HISTORY: 1. Cardiomyopathy with EF of 20% to 25%. Coronary artery disease, status post coronary artery bypass graft and coronary stents. He has also had AICD placement. 2. Stroke, diabetes mellitus type 2, hypertension, hyperlipidemia, chronic kidney disease. PAST SURGICAL HISTORY: Coronary artery bypass graft, AICD placement, multiple coronary stents, varicose vein surgery, appendectomy, and cholecystectomy. FAMILY HISTORY: Negative for GI malignancy. SOCIAL HISTORY: No alcohol, tobacco, or drugs. ALLERGIES: NO KNOWN DRUG ALLERGIES. OUTPATIENT MEDICATIONS: Prior to admission: 1. Tramadol as needed. 2. Warfarin. 3. Glyburide. 4. Rosuvastatin. 5. Florastor. 6. Entresto. 7. Torsemide. 8. Lorazepam. 9. Pantoprazole. 10. MiraLAX as needed as stated above. 11. Potassium. 12. Pepcid. 13. Isosorbide mononitrate. 14. Carvedilol. 15. Calcium carbonate. 16. Digoxin. 17. Trulicity. 18. Acetaminophen. REVIEW OF SYSTEMS: Negative x10 systems reviewed, except as stated in the history of present illness. PHYSICAL EXAMINATION: VITAL SIGNS: Temperature 98.2, blood pressure is 117/78, pulse 90. GENERAL: He is in no acute distress. Alert and oriented x3, but he falls asleep while I am not directly addressing him. He did have Ativan earlier. HEENT: His eyes have no scleral icterus. Oropharynx is clear without lesions. No cervical or supraclavicular lymphadenopathy. LUNGS: Clear to auscultation bilaterally. HEART: Regular rate and rhythm without murmur. ABDOMEN: Soft, nontender, and nondistended. Bowel sounds are present. EXTREMITIES: No lower extremity edema. Cranial nerves are grossly intact. LABORATORY DATA: White blood cell count 16.0, hemoglobin 13.5, platelets 174. Sodium 129, creatinine 1.43. His INR was 1.9 on 09/10. IMPRESSION: 1. Chronic epigastric pain, which apparently has acutely worsened over the last week. He has had this evaluated previously over the last 3 years at [facility] and has undergone apparently upper endoscopy and CT in the past. Possibly colonoscopy, however, we need to request these records. He has been treated for Helicobacter pylori and followup Helicobacter pylori stool test was reportedly negative. Most recently, he has been on pantoprazole in the morning, Pepcid in the evening, and tramadol as needed for abdominal pain. 2. Chronic constipation. He states that he is supposed to be taking MiraLAX twice a day, but states he has been taking MiraLAX sporadically and Dulcolax sporadically and stimulant laxative T sporadically. Certainly, the tramadol might be worsening underlying constipation. 3. Coronary artery disease with prior bypass and multiple coronary stents. Cardiac cath yesterday shows no acute change. 4. Cardiomyopathy with an EF of 20% to 25%. 5. Chronic renal insufficiency. RECOMMENDATIONS: 1. We will follow through with CT scan of the abdomen and pelvis for tomorrow. If this is negative, consider repeat upper endoscopy and evaluation of the burning upper epigastric pain. However, we will need to obtain prior endoscopy reports from [facility] before pursuing this. He has been on a proton pump inhibitor and H2 juvencio chronically already, which makes a new peptic ulcer less likely. He has not been on any NSAIDs. There appears to be a significant functional component to this pain and it appears that previously the medications including Plavix and H pylori treatment has concerns by the family as a cause for the pain. It seems unlikely that these would be an ongoing source for pain given that he has been off these for quite sometime. 2. I would avoid opioid pain medications as these are likely not helping functional chronic abdominal pain and may just be worsening the constipation. Job ID: [id number]
[2019-09-14] MEDS: Mag-Al 1200 mg/1200 mg/30 ML UDCUP PO PRN ×3 (00:27→18:35)
[2019-09-14] MEDS: Acetaminophen 325 MG TAB PO PRN (00:58)
[2019-09-14 04:02] LABS: Anion Gap 15 mmol/L (10-20); BUN (Urea Nitrogen) 32 mg/dL (8.4-25.7); Calc. Creatinine Clearance 40 mL/min (70-130); Calcium 8.3 mg/dL (7.8-10.44); Carbon Dioxide 28 mmol/L (23-31); Chloride 95 mmol/L (98-107); Estimated GFR-MDRD 39; Glucose 141 mg/dL (83-110); Potassium 3.7 mmol/L (3.5-5.1); Sodium 134 mmol/L (136-145)
[2019-09-14 04:03] LABS: #Basophils 0.1 thou/uL (0.0-0.2); #Eosinphils 0.1 thou/uL (0.0-0.7); #Monocytes 0.9 thou/uL (0.11-0.59); %Basophils 0.5 % (0.0-1.0); %Eosinophils 0.7 % (0.0-10.0); %Lymphocytes 16.7 % (21.0-51.0); %Monocytes 7.7 % (0.0-10.0); %Neutrophils 74.4 % (42.0-75.0); Hemoglobin 11.9 g/dL (14.0-18.0); Mean Corpuscular HGB CONC 34.5 g/dL (32.0-36.0); Mean Corpuscular Hemoglobin 35.4 pg (27.0-31.0); Platelet Count 96 thou/uL (130-400); Platelet Morphology Comment Appears Decreased; RBC Distribution Width 12.9 % (11.5-14.5); Red Blood Cell (RBC) Count 3.35 mill/uL (4.70-6.10); White Blood Cell (WBC) Count 12.1 thou/uL (4.8-10.8)
[2019-09-14] MEDS: traMADol HCl 50 MG TAB PO PRN (06:46)
[2019-09-14] MEDS: HumaLOG 300 UNITS/3 ML VIAL SC PRN ×3 (06:50→21:52)
--- NOTE | 2019-09-14 10:08 | EKG ---
Test Reason : STAT Blood Pressure : / mmHG Vent. Rate : 092 BPM Atrial Rate : 092 BPM P-R Int : 000 ms QRS Dur : 188 ms QT Int : 464 ms P-R-T Axes : 000 012 119 degrees QTc Int : 573 ms Atrial fibrillation Electronic ventricular pacemaker Abnormal ECG Confirmed by JENNY BELLE ([id number]) on 09/14/2019 10:08:30 AM Referred By: GERDA Confirmed By:JENNY BELLE
--- NOTE | 2019-09-14 10:12 | EKG ---
Test Reason : Blood Pressure : / mmHG Vent. Rate : 109 BPM Atrial Rate : 120 BPM P-R Int : 000 ms QRS Dur : 178 ms QT Int : 396 ms P-R-T Axes : 000 069 166 degrees QTc Int : 533 ms Atrial fibrillation with rapid ventricular response with premature ventricular or aberrantly conducte d complexes Left bundle branch block Abnormal ECG Confirmed by JENNY BELLE ([id number]) on 09/14/2019 10:12:11 AM Referred By: EWA Confirmed By:JENNY BELLE
--- NOTE | 2019-09-14 10:55 | CT ---
CTA Angio Chest W WO Con 09/14/2019 8:00 AM Indication: Rule out pulmonary embolism; history of hypoxia elevated white count and persistent epig astric abdominal pain Technique: Multiple CTA images were obtained of the thorax with IV contrast. 3-D rendering: MIP fan nstructed images were created and reviewed. Comparison: Prior CT of the thorax dated July 20, 2016 Findings: Pulmonary arteries: No central or segmental pulmonary embolus is evident. Heart and Aorta: There is stable prominent cardiomegaly. 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 Mediastinum:There is a persistent enlarged right paratracheal and precarinal lymphadenopathy. There i s a seen in precarinal lymph node measuring 1.9 cm is stable. There is slight interval enlargement of the AP window lymph node now measuring 1.5 cm where previously it measured 9 mm. There is enlargem ent of the right paratracheal lymph node now measuring 1.4 cm were previously measured 1.3 cm. Lungs:There are hazy airspace opacities bilaterally suspicious for edema Pleural space: There are [id number] bilateral pleural effusions Upper Abdomen: No acute abnormality. Osseous Structures: No acute osseous abnormality. Soft tissues:No abnormality. Other findings:There is a left chest wall AICD and midline sternotomy changes Impression: 1. No central or segmental pulmonary embolus. 2. Stable prominent cardiomegaly with a left apical ventricular aneurysm which is stable to the prior exam. 3. Findings of moderate CHF.
[2019-09-14] MEDS ORDERED: Iopamidol-370 76% 500 ML 1 ML ONE (11:10)
--- NOTE | 2019-09-14 11:53 | CT ---
CT ABDOMEN AND PELVIS WITH IV CONTRAST: Date: 09/14/2019 Multiple axial tomograms obtained. Predominant arterial phase enhancement is present. INDICATION: Abdominal pain. No comparison CT abdomen and pelvis. FINDINGS: Small to moderate volume bilateral pleural effusions in accompanying CT chest. Liver, spleen, and pancreas are unremarkable. Stomach and duodenum are unremarkable. Adrenal glands are normal. Kidneys are unremarkable. No hydronephrosis. Urinary bladder mildly distended. Tiny amount of gas in the bladder anteriorly is noted. Has there be en recent bladder instrumentation? Aorta shows atherosclerotic change. No aneurysm. Small bowel loops normal caliber. Colon is redundant with prominent stool throughout the colon. No mass or adenopathy. Evidence of prior anterior abdominal wall repair. Osseous structures unremarkable. IMPRESSION: 1. Bilateral pleural effusions. 2. No acute intra-abdominal process identified. POS: NURA
[2019-09-14] MEDS: Carvedilol 6.25 MG TAB PO SCH ×2 (12:51→18:26)
[2019-09-14] MEDS: Torsemide 20 MG TAB PO SCH (12:52)
[2019-09-14] MEDS: Aspirin Chewable 81 MG TAB PO SCH (12:52)
[2019-09-14] MEDS: Saccharomyces boulardii 250 MG CAP PO SCH (12:52)
[2019-09-14] MEDS: Polyethylene Glycol 3350 17 GM Packet PO SCH (12:53)
[2019-09-14] MEDS: Rosuvastatin 20 MG TAB PO SCH (12:54)
[2019-09-14] MEDS: Piperacillin/Tazobactam 3.375 GM in Sodium Chloride 0.9% 100 ML IVPB SCH (12:56)
[2019-09-14] MEDS: NS 0.9% w/ 20 MEQ KCL 1,000 ML/1,000 ML BAG IV SCH (13:24)
--- NOTE | 2019-09-14 14:22 | PDOC.HOSPP ---
- Subjective Encounter Date: 09/14/19 Encounter Time: 11:55 Subjective: ct scan today. pt and ok w.. rehab options. again, sig. amount of time spent w.pt and his and all their qs are answered. has lots of qs as usual and including what can they do at rehab. - Objective Vital Signs & Weight: Vital Signs (12 hours) Temp BP 09/14/19 12:51 106/84 09/14/19 12:35 98.9 F 09/14/19 07:42 98 F 09/14/19 04:00 97.9 F Weight Weight 162 lb 14.4 oz Most Recent Monitor Data Heart Rate from ECG 101 NIBP 120/76 NIBP BP-Mean 90 Respiration from ECG 23 SpO2 96 I&O: 09/13/19 09/14/19 09/15/19 06:59 06:59 06:59 Intake Total 1040 2050 Output Total 1165 1790 Balance -125 260 Result Diagrams: 09/14/19 03:29 09/14/19 03:29 Additional Labs: Accuchecks 09/14/19 09/14/19 09/14/19 10:21 06:42 02:17 POC Glucose 190 H 188 H 160 H 09/13/19 09/13/19 20:23 16:36 POC Glucose 315 H 163 H Hospitalist ROS - Medication Medications: Active Medications Generic Name Dose Route Start Last Admin Trade Name Freq PRN Reason Stop Dose Admin Acetaminophen 650 mg 09/10/19 23:14 09/14/19 00:58 Tylenol PO 650 mg Q4H PRN Administration Headache/Fever/Mild Pain (1-3) Al Hydroxide/Mg Hydroxide 30 ml 09/11/19 14:05 09/14/19 04:13 Maalox PO 30 ml Q4H PRN Administration Heartburn or Indigestion Aspirin 81 mg 09/11/19 09:00 09/14/19 12:52 Aspirin Chewable PO 81 mg DAILY ANA Administration Carvedilol 6.25 mg 09/11/19 08:00 09/14/19 12:51 Coreg PO 6.25 mg BID-WM ANA Administration Heparin Sodium (Porcine) 5,000 units 09/11/19 09:00 09/13/19 20:39 Heparin SC 5,000 units BID ANA Administration Piperacillin Sod/Tazobactam 100 mls @ 200 mls/hr 09/11/19 10:00 09/14/19 12: 56 Sod 3.375 gm/ Sodium Chloride IVPB 100 mls 1000,2200 ANA Administration Potassium Chloride/Sodium Chloride 1,000 ml in 1,000 mls @ 50 mls/hr 09/13/19 15:30 09/14/19 13:24 Ns 0.9% W/ 20 Meq Kcl IV 1,000 mls .Q20H ANA Administration Insulin Human Lispro 0 units 09/10/19 23:14 09/14/19 06:50 Humalog SC 2 unit .MODERATE SLIDING SC PRN Administration Moderate Correctional Scale Insulin Human Lispro 0 units 09/10/19 23:14 09/13/19 20:43 Humalog SC 4 unit .BEDTIME SLIDING SC PRN Administration Bedtime Correctional Scale Lorazepam 1 mg 09/12/19 16:42 09/13/19 16:39 Ativan PO 1 mg Q8H PRN Administration Anxiety/Agitation Ondansetron HCl 4 mg 09/10/19 23:14 09/14/19 08:19 Zofran IVP 4 mg Q6H PRN Administration Nausea/Vomiting Pantoprazole Sodium 40 mg 09/11/19 09:00 09/14/19 12:51 Protonix PO 40 mg DAILY ANA Administration Polyethylene Glycol 17 gm 09/13/19 09:00 09/14/19 12:53 Miralax PO 17 gm DAILY ANA Administration Saccharomyces Boulardii 500 mg 09/11/19 09:00 09/14/19 12:52 Florastor PO 500 mg DAILY ANA Administration Senna/Docusate Sodium 2 tab 09/10/19 23:14 09/12/19 10:55 Senokot S PO 2 tab BID PRN Administration Constipation Torsemide 20 mg 09/13/19 09:00 09/14/19 12:52 Demadex PO 20 mg DAILY ANA Administration Tramadol HCl 50 mg 09/12/19 14:39 09/14/19 06:46 Ultram PO 50 mg Q6H PRN Administration Pain - Exam General Appearance: NAD, awake alert Eye: PERRL ENT: normocephalic atraumatic Neck: supple Heart: RRR Respiratory: CTAB Gastrointestinal: normal bowel sounds Neurological: cranial nerve grossly intact, no focal deficits Hosp A/P - Plan Hypoxic resp failure - change ctx to zosyn as wbcs high =no blood tara done at the time of admission -UA is claer - but urine tara is cooking? acute on chorninc chf exacerbation cardiomyoptahy with current echo w.. EF of 25% asa/plavix, coreg - on coumadin at home?--we have to verify on that. renal has to see the pt. if needed, will transfer but prefer until wbcs improves is agreeable for the time being 23drd Acute on chronic Sys CHF exacerbation -starting back on his torsemide 20mg -hold plavix, as stomach upset. Leukocytosis -trending down -tara neg. -cw zosyn for now Mild Hyponatremia w.. Na of 133 is mostly giving the symptoms and concerns. pt is comfortable - denies nay chest or stomach pain this am but last night he had epigastric pain requirng maalox, PPi. [facility] accepting the pt there. wants to stay in ICU and does not want to be moved to the floor. Pt is stable to go to the [facility]. he had cath again today- rpt'dly negative. prior cath on -- LAD 100% steno of 24 mm length s/p stent at Prox RCA; R.PDA and ramus fw w.. CTA FW w.. speech therapy eval and GI input. if GI workup neg., and cTA neg and ST have no recomn, then we maximized our hospital workup for this pt and to be dc'd home in 1 to 2 days. restart ranexa and digoxin, pt/inr restart coumadin tomorrow. CT chest/adb - unremarkable.---no PE. Functional dyspepsia vs.. other. Thrombocytopenia --ok to cw hep bid -hold only if plts< 50 or active bleed. -cultures neg -afebrile, wbcs trended down -stop iv abx and change to po abx- augmentin PT and CM consult placed for rehab.
--- NOTE | 2019-09-14 17:58 | PDOC.CPN ---
- Subjective Date: 09/14/19 Time: 17:57 Interval history: He is doing well. No more epigastric pain. - Review of Systems General: denies: fever/chills, weight/appetite/sleep changes, night sweats, fatigue Respiratory: denies: cough, congestion, shortness of breath, exercise intolerance Cardiovascular: denies: chest pain, palpitation, edema, paroxysmal nocturnal dyspnea, orthopnea Gastrointestinal: denies: nausea, vomiting, diarrhea, constipation, abd pain, GI bleeding Musculoskeletal: denies: pain, tenderness, stiffness, swelling, arthritis/ arthralgias Neurological: denies: numbness, syncope, seizure, weakness - Objective Allergies/Adverse Reactions: Allergies Allergy/AdvReac Type Severity Reaction Status Date / Time No Known Drug Allergies Allergy Verified 11/06/17 00:05 Visit Medications: Current Medications Acetaminophen (Tylenol) 650 mg PO Q4H PRN PRN Reason: Headache/Fever/Mild Pain (1-3) Last Admin: 09/14/19 00:58 Dose: 650 mg Acetaminophen (Tylenol) 650 mg FL Q4H PRN PRN Reason: Headache/Fever/Mild Pain (1-3) Acetaminophen/Codeine Phosphate (Tylenol #3) 1 tab PO Q4H PRN PRN Reason: Mild Pain (1-3) Al Hydroxide/Mg Hydroxide (Maalox) 30 ml PO Q4H PRN PRN Reason: Heartburn or Indigestion Last Admin: 09/14/19 04:13 Dose: 30 ml Amoxicillin/Clavulanate Potassium (Augmentin) 875 mg PO Q12HR [facility] Stop: 09/19/19 21:01 Aspirin (Aspirin Chewable) 81 mg PO DAILY [facility] Last Admin: 09/14/19 12:52 Dose: 81 mg Bisacodyl (Dulcolax) 10 mg FL DAILYPRN PRN PRN Reason: Constipation Carvedilol (Coreg) 6.25 mg PO BID-[facility] Last Admin: 09/14/19 12:51 Dose: 6.25 mg Dextrose/Water (Dextrose 50%) 25 gm SLOW IVP PRN PRN PRN Reason: Hypoglycemia Famotidine (Pepcid) 20 mg PO QPM [facility] Glucagon (Glucagon) 1 mg IM PRN PRN PRN Reason: Hypoglycemia Guaifenesin/Dextromethorphan (Robitussin Dm) 15 ml PO Q4H PRN PRN Reason: Cough Heparin Sodium (Porcine) (Heparin) 5,000 units SC BID [facility] Last Admin: 09/13/19 20:39 Dose: 5,000 units Dextrose/Water (D5w) 1,000 mls @ 0 mls/hr IV .Q0M PRN PRN Reason: Hypoglycemia Potassium Chloride/Sodium Chloride (Ns 0.9% W/ 20 Meq Kcl) 1,000 ml in 1,000 mls @ 50 mls/hr IV .Q20H [facility] Last Admin: 09/14/19 13:24 Dose: 1,000 mls Insulin Human Lispro (Humalog) 0 units SC .MODERATE SLIDING SC PRN PRN Reason: Moderate Correctional Scale Last Admin: 09/14/19 06:50 Dose: 2 unit Insulin Human Lispro (Humalog) 0 units SC .BEDTIME SLIDING SC PRN PRN Reason: Bedtime Correctional Scale Last Admin: 09/13/19 20:43 Dose: 4 unit Lorazepam (Ativan) 1 mg PO Q8H PRN PRN Reason: Anxiety/Agitation Last Admin: 09/13/19 16:39 Dose: 1 mg Nitroglycerin (Nitrostat) 0.4 mg SL Q5MIN PRN PRN Reason: Chest Pain Ondansetron HCl (Zofran) 4 mg IVP Q6H PRN PRN Reason: Nausea/Vomiting Last Admin: 09/14/19 08:19 Dose: 4 mg Pantoprazole Sodium (Protonix) 40 mg PO DAILY [facility] Last Admin: 09/14/19 12:51 Dose: 40 mg Polyethylene Glycol (Miralax) 17 gm PO DAILY [facility] Last Admin: 09/14/19 12:53 Dose: 17 gm Rosuvastatin Calcium (Crestor) 40 mg PO [facility] Saccharomyces Boulardii (Florastor) 500 mg PO DAILY [facility] Last Admin: 09/14/19 12:52 Dose: 500 mg Senna/Docusate Sodium (Senokot S) 2 tab PO BID PRN PRN Reason: Constipation Last Admin: 09/12/19 10:55 Dose: 2 tab Torsemide (Demadex) 20 mg PO DAILY [facility] Last Admin: 09/14/19 12:52 Dose: 20 mg Tramadol HCl (Ultram) 50 mg PO Q6H PRN PRN Reason: Pain Last Admin: 09/14/19 06:46 Dose: 50 mg Vital Signs & Weight: Vital Signs Temp BP Pulse Ox 09/14/19 15:53 98.8 F 09/14/19 12:51 106/84 09/14/19 12:35 98.9 F 09/14/19 08:00 99 09/14/19 07:42 98 F Weight 162 lb 14.4 oz - Physical Exam General: alert & oriented x3 HEENT: mucus membranes moist Neck: supple neck Cardiac: regular rate and rhythm Lungs: normal breath sounds Neuro: grossly intact Abdomen: active bowel sounds Extremities: no edema Skin: clear Musculoskeletal: no pain - Labs Result Diagrams: 09/14/19 03:29 09/14/19 03:29 Troponin/CKMB CK-MB (CK-2) 3.5 ng/mL (0-6.6) 09/10/19 18:49 Troponin I 1.992 ng/mL (< 0.028) H* 09/11/19 00:53 - Telemetry Sinus rhythms and dysrhythmias: sinus rhythm - Assessment/Plan Assessment/Plan: 1. Epigastric pain 2. CAD, stable, no ACS. 3. Demand ischemic Type 2 [place]. 4. Severe Ischemic CM EF at 20-25% 5. Apical aneurysm. 6. Anemia PLAN: - CV stable, no ACS. - Evaluation by GI for abdominal pain. May need Endoscopy. - Hgb drop, continue to trend.
[2019-09-14] MEDS: Heparin 5,000 UNITS/ML VIAL SC SCH ×2 (18:25→21:43)
--- NOTE | 2019-09-14 20:15 | PRG ---
DATE OF SERVICE: 09/14/2019 SUBJECTIVE: Mr. Crockett had a good bowel movement after CT scan today. His abdominal pain is much improved today. He has had no nausea or vomiting. Tolerating oral diet. OBJECTIVE: VITAL SIGNS: Temperature 97.7, blood pressure 99/70, and pulse 83. GENERAL: He is in no acute distress. Alert and oriented x3. LUNGS: Clear to auscultation bilaterally. HEART: Regular rate and rhythm without murmur. ABDOMEN: Soft, nontender, and nondistended. Bowel sounds are present. EXTREMITIES: No lower extremity edema. IMPRESSION: 1. Constipation-predominant irritable bowel syndrome. He has had epigastric pain for the last 3 years. He had esophagogastroduodenoscopy and possible colonoscopy at [facility], now I have requested those records. CT scan is consistent with a clinical impression of constipation and colonic distention related to that. The tramadol that he has been taking for his abdominal pain slowly worsened the underlying problem. 2. Coronary artery disease. 3. Cardiomyopathy. 4. Chronic renal insufficiency. RECOMMENDATIONS: 1. We will obtain previous EGD and colonoscopy reports from [facility]. 2. Start taking the MiraLAX twice daily as previously recommended by the doctors at [facility]. If this is inadequate, then we can add Linzess daily to the regimen as well. He can follow up in GI Clinic and I can continue to adjust the laxatives and symptomatic treatment for his constipation predominant IBS. 3. Avoid opioid pain medications. 4. I will hold off endoscopy at this time. 5. I will sign off for now, but the patient is encouraged to follow up in GI Clinic for further management of his symptoms. Job ID: [id number]
[2019-09-14] MEDS ORDERED: Rosuvastatin 20 MG TAB PO SCH (21:00)
[2019-09-14] MEDS ORDERED: Famotidine 20 MG TAB PO SCH (21:00)
[2019-09-14] MEDS: Amoxicillin/Potassium Clav 875 MG TAB PO SCH (21:43)
[2019-09-14] MEDS: Lorazepam 1 MG TAB PO PRN (21:44)
[2019-09-15] MEDS: Acetaminophen 325 MG TAB PO PRN (02:32)
[2019-09-15 03:59] LABS: INR-International Normal Ratio 1.5; Prothrombin Time 18.1 SEC (12.0-14.7)
[2019-09-15] MEDS: HumaLOG 300 UNITS/3 ML VIAL SC PRN ×2 (06:53→11:13)
[2019-09-15] MEDS ORDERED: Digoxin 0.25 MG TAB PO SCH (09:00)
[2019-09-15] MEDS: Saccharomyces boulardii 250 MG CAP PO SCH (09:26)
[2019-09-15] MEDS: Polyethylene Glycol 3350 17 GM Packet PO SCH (09:26)
[2019-09-15] MEDS: Aspirin Chewable 81 MG TAB PO SCH (09:26)
[2019-09-15] MEDS: Amoxicillin/Potassium Clav 875 MG TAB PO SCH (09:27)
[2019-09-15] MEDS: Carvedilol 6.25 MG TAB PO SCH (09:27)
[2019-09-15] MEDS: NS 0.9% w/ 20 MEQ KCL 1,000 ML/1,000 ML BAG IV SCH (09:27)
[2019-09-15] MEDS: Heparin 5,000 UNITS/ML VIAL SC SCH (09:27)
[2019-09-15] MEDS: Torsemide 20 MG TAB PO SCH (09:28)
[2019-09-15 11:08] VITALS: TEMP 98.6
[2019-09-15 11:12] LABS: Anion Gap 14 mmol/L (10-20); BUN (Urea Nitrogen) 35 mg/dL (8.4-25.7); Calc. Creatinine Clearance 43 mL/min (70-130); Calcium 8.2 mg/dL (7.8-10.44); Carbon Dioxide 26 mmol/L (23-31); Chloride 94 mmol/L (98-107); Estimated GFR-MDRD 41; Glucose 220 mg/dL (83-110); Potassium 4.2 mmol/L (3.5-5.1); Sodium 130 mmol/L (136-145)
[2019-09-15 11:18] VITALS: BP 87/68
[2019-09-15] MEDS: Mag-Al 1200 mg/1200 mg/30 ML UDCUP PO PRN (12:27)
[2019-09-15] MEDS: traMADol HCl 50 MG TAB PO PRN (13:50)
--- NOTE | 2019-09-16 00:59 | DIS ---
DATE OF ADMISSION: 09/10/2019 DATE OF DISCHARGE: 09/15/2019 DISCHARGE DIAGNOSES: 1. Hypoxic respiratory failure. 2. Ischemic cardiomyopathy with ejection fraction of 25% based on current echo, not on Plavix due to intolerant to Plavix. 3. On Coumadin. 4. Acute on chronic systolic congestive heart failure exacerbation. 5. Leukocytosis. 6. Hyponatremia. 7. Functional dyspepsia. 8. Constipation predominant irritable bowel syndrome. 9. Coronary artery disease. 10. Chronic renal insufficiency. DISCHARGE MEDICATIONS: 1. Warfarin 5 mg at bedtime. 2. Tramadol 50 mg q.8 as needed. 3. Demadex 20 mg daily. 4. Potassium chloride 20 mEq daily. 5. Lorazepam 1 mg q.8 hour. 6. Imdur 15 mg daily. 7. Hydrocortisone topical. 8. Glyburide 7.5 mg twice a day. 9. Trulicity 1.5 mg subcu every seven days. 10. Digoxin 0.25 mg daily. 11. Coreg 12.5 mg twice a day. HOSPITAL COURSE: This is a 73-year-old male with multiple medical problems as addressed above, presented with acute respiratory failure with hypoxia as well as CHF exacerbation with a known systolic dysfunction, hyperkalemia, acute kidney injury on chronic kidney disease, as well as hyponatremia. He is medically stabilized. Patient had some ongoing epigastric discomfort despite the use of PPI, Maalox. Patient does have history of irritable bowel syndrome. He had an ongoing epigastric pain of 3-year duration. He had EGD as well as C scope at [facility] [place]. We have requested the records from them. Opioid-induced constipation cannot be ruled out as the patient is on tramadol and he takes it consistently. CT done here is not consistent with the impression of constipation and colonic distention related to his symptoms. GI involved and they will review the records from the [facility]. Recommended MiraLAX twice a day in addition to the PPI. If the symptoms are not controlled, they will add Linzess in the outpatient clinic. Decided not to do the endoscopy at this time and I advised him not to depend too much on his opioid pain medications. He is expected to follow up with the GI Clinic after his rehab course completed. DISCHARGE INSTRUCTION: Activity: As tolerated. Diet: Regular diet. Followup: Follow up with the primary care physician in one week. Follow up with your ndt inspector to consider titrating his medications Ranexa, digoxin as it is not given here. Follow up with the GI Clinic with Dr. Valentin Mendez in 1 to 2 weeks. Discharge time took over 30 minutes. Job ID: [id number] MTDD
--- NOTE | 2019-09-16 04:18 | PQF ---
SYEDBEATRIZMARCELLA STREETER [id number] CLINICAL DOCUMENTATION CLARIFICATION FORM: POST DISCHARGE Addendum to original discharge summary date: ____ Late entry note date: __ DATE:09/16/2019 ATTN: Marcella Cortes Please exercise your independent, professional judgment in responding to the clarification form. Clinical indicators are provided on the bottom of this form for your review Please check appropriate box(s) to clarify if the following diagnosis has been ruled in or ruled out: Demand Ischemic Type 2 [place] [ ] Ruled in diagnosis [ ] Continue to treat [ ] Resolved [ x ] Ruled out diagnosis [ ] Cannot rule out diagnosis [ ] Other diagnosis [ ] Unable to determine In addition, please specify: Present on Admission (POA): [ ] Yes [ ] No [ ] Unable to determine For continuity of documentation, please document condition throughout progress notes and discharge summary. Thank You. CLINICAL INDICATORS - SIGNS / SYMPTOMS / LABS Laboratory 09/10 BNP 795.9, Troponin I 0.134, CK-MB 3.5, Potassium 7.7 Vital signs 09/10 BP 140/85, Pulse 121, Resp 38, Temp 96.8 H&P p1 09/10 Dr Grier the pt gives history of being on the treadmill this morning which he normally does at an OP rehab. Currently, has no complaints of chest pain or palpitation H&P p3 09/10 Dr Grier He was also placed on nitroglycerin drip in ER for uncontrolled hypertension PN p1 09/12 Dr Yo Severe underlying coronary artery disease and congestive heart failure Cardiology consult p2 09/11 Dr Yo [id number] myocardial infarction, Troponin 1.992 Cardio PN p4 09/14 Dr Paige Demand Ischemic type 2 [place] [facility] Physician Report p1 09/10 Occluded LAD. 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 All Rights Reserved [email or web address]
== END 2019-09-15 17:16 | DRG 286 ==
LOC: ERS 18:20 → CCU 22:25 → IMCU/EMU 09-12 17:11
PROVIDERS: ADMIT Internal Medicine; ATTEND Internal Medicine
PROC: 5A09357 Assistance with Respiratory Ventilation, Less than 24 Consecutive Hours, Continuous Positive Airway Pressure (ICD-10-PCS; 2019-09-10)
PROC: B2111ZZ Fluoroscopy of Multiple Coronary Arteries using Low Osmolar Contrast (ICD-10-PCS; principal; 2019-09-13)
DX: I13.0 Hypertensive heart and chronic kidney disease with heart failure and stage 1 through stage 4 chronic kidney disease, or unspecified chronic kidney disease (principal); I50.23 Acute on chronic systolic (congestive) heart failure; J96.01 Acute respiratory failure with hypoxia; E87.1 Hypo-osmolality and hyponatremia; N17.9 Acute kidney failure, unspecified; E87.2 Acidosis; I25.3 Aneurysm of heart; I25.5 Ischemic cardiomyopathy; K30 Functional dyspepsia; K58.1 Irritable bowel syndrome with constipation; I25.10 Atherosclerotic heart disease of native coronary artery without angina pectoris; E87.5 Hyperkalemia; D69.6 Thrombocytopenia, unspecified; D72.829 Elevated white blood cell count, unspecified; N18.3 Chronic kidney disease, stage 3 (moderate); E11.22 Type 2 diabetes mellitus with diabetic chronic kidney disease; Z95.1 Presence of aortocoronary bypass graft; Z95.810 Presence of automatic (implantable) cardiac defibrillator; Z86.73 Personal history of transient ischemic attack (TIA), and cerebral infarction without residual deficits; Z90.49 Acquired absence of other specified parts of digestive tract; Z79.899 Other long term (current) drug therapy; Z79.01 Long term (current) use of anticoagulants; Z79.02 Long term (current) use of antithrombotics/antiplatelets; Z79.84 Long term (current) use of oral hypoglycemic drugs; Z87.891 Personal history of nicotine dependence
CPT/HCPCS: 36415; 36416; 71045; 71275; 74177; 80048; 80053; 80162; 81001; 82550; 82553; 82607; 82746; 82805; 83880; 84443; 84484; 85025; 85610; 85652; 85730; 87040; 87086; 93005; 93010; 93306; 93454; 93798; 94644; 94660; 96365; 96366; 96374; 96375; 96376; C1769; J0696; J1644; J1815; J1940; J2001; J2405; J2543; J3480; J3490; J7611; Q9967

== ENCOUNTER 2020-07-17 12:30 | Inpatient (IN) | payer MEDICARE, BC ==
[2020-07-17 13:06] LABS: #Basophils 0.1 thou/uL (0.0-0.2); #Eosinphils 0.3 thou/uL (0.0-0.7); #Lymphocytes 2.8 thou/uL (1.20-3.40); #Monocytes 1.2 thou/uL (0.11-0.59); #Neutrophils 13.6 thou/uL (1.40-6.50); %Basophils 0.7 % (0.0-1.0); %Eosinophils 1.6 % (0.0-10.0); %Lymphocytes 15.5 % (21.0-51.0); %Monocytes 6.7 % (0.0-10.0); %Neutrophils 75.4 % (42.0-75.0); Hemoglobin 17.2 g/dL (14.0-18.0); Mean Corpuscular HGB CONC 33.7 g/dL (32.0-36.0); Mean Corpuscular Hemoglobin 35.1 pg (27.0-31.0); Platelet Count 220 thou/uL (130-400); RBC Distribution Width 13.6 % (11.5-14.5); Red Blood Cell (RBC) Count 4.89 mill/uL (4.70-6.10)
[2020-07-17 13:11] LABS: INR-International Normal Ratio 3.1; PTT 41.1 sec (22.9-36.1); Prothrombin Time 32.7 sec (12.0-14.7)
--- NOTE | 2020-07-17 13:21 | RAD ---
XR Chest 1 View Portable HISTORY: Shortness of breath and cough COMPARISON: 09/10/2019 FINDINGS: The heart is enlarged. There are changes of median sternotomy. A left-sided AICD is present . 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 There are changes of pulmonary vascular congestion and bilateral pleural effusions. No pneumothoraces are seen. IMPRESSION: CHF.
[2020-07-17 13:32] LABS: ALT (SGPT) 19 U/L (8-55); AST (SGOT) 23 U/L (5-34); Albumin 4.4 g/dL (3.4-4.8); Alkaline Phosphatase 45 U/L (40-110); Anion Gap 21 mmol/L (10-20); BUN (Urea Nitrogen) 43 mg/dL (8.4-25.7); Bilirubin, Total 0.7 mg/dL (0.2-1.2); Calc. Creatinine Clearance 0 mL/min (70-130); Calcium 9.8 mg/dL (7.8-10.44); Carbon Dioxide 26 mmol/L (23-31); Chloride 85 mmol/L (98-107); Globulin 4.2 g/dL (2.4-3.5); Glucose 347 mg/dL (83-110); Protein, Total 8.6 g/dL (5.8-8.1); Sodium 128 mmol/L (136-145)
[2020-07-17] MEDS ORDERED: Furosemide 40 MG/4 ML VIAL ONE (14:23)
[2020-07-17 14:32] LABS: SARS-CoV-2 NAA Rapid Test Not Detected (NotDetected)
[2020-07-17 14:37] LABS: Bacteria/HPF None Seen HPF (None Seen); Bilirubin Negative (Negative); Blood, Urine Trace (Negative); Clarity Clear (Clear); Glucose, Urine (Dipstick) 200 mg/dL (Negative); Ketone, Urine Negative (Negative); Leukocyte Negative Leu/uL (Negative); Nitrite Negative (Negative); Protein, Urine (Dipstick) Negative (Neg-Trace); RBC/HPF 0-3 HPF (0-3); Specific Gravity, Urine 1.008 (1.002-1.036); Squamous Epithelial 0-3 HPF (0-3); Urobilinogen Normal mg/dL (Less than 2); WBC/HPF 0-3 HPF (0-3); pH, Urine 6.5 (5.0-9.0)
[2020-07-17] MEDS ORDERED: Vancomycin 1 GM/200 ML BAG ONE (15:17)
[2020-07-17] MEDS ORDERED: Piperacillin/Tazobactam 4.5 GM VIAL ONE (15:17)
[2020-07-17] MEDS ORDERED: Magnesium 2 GM/50 ML BAG (IN WATER) ONE (16:16)
[2020-07-17 16:33] LABS: Lactic Acid 1.7 mmol/L (0.5-2.2)
[2020-07-17 17:49] LABS: Troponin I 0.497 ng/mL (< 0.028)
[2020-07-17] MEDS ORDERED: Guaifenesin DM 100-10/5 ML UDCUP PO PRN (19:11)
[2020-07-17] MEDS ORDERED: Ondansetron ODT 4 MG TAB PO PRN (19:11)
[2020-07-17] MEDS ORDERED: Lorazepam 1 MG TAB PO PRN (19:11)
[2020-07-17] MEDS ORDERED: Acetaminophen 650 MG Suppository PR PRN (19:11)
[2020-07-17] MEDS ORDERED: Ondansetron PF 4 MG/2 ML Vial IVP PRN (19:11)
[2020-07-17] MEDS ORDERED: Senokot S 8.6-50 MG TAB PO PRN (19:11)
[2020-07-17] MEDS ORDERED: Acetaminophen 325 MG TAB PO PRN (19:11)
[2020-07-17] MEDS ORDERED: traMADol HCl 50 MG TAB PO PRN (19:11)
[2020-07-17] MEDS ORDERED: HumaLOG 300 UNITS/3 ML VIAL SC PRN (19:11)
[2020-07-17] MEDS ORDERED: Dextrose 50% Abboject 50 ML SYRINGE SLOW IVP PRN (19:11)
[2020-07-17] MEDS ORDERED: Nitroglycerin 0.4 MG TAB (25 Tab Bottle) SL PRN (19:11)
[2020-07-17] MEDS ORDERED: Dextrose 5% in Water 1,000 ML IV PRN (19:11)
[2020-07-17] MEDS ORDERED: glyBURIDE 5 MG TAB PO SCH (19:30)
[2020-07-17] MEDS ORDERED: Carvedilol 3.125 MG TAB PO SCH (19:30)
[2020-07-17] MEDS: Polyethylene Glycol 3350 17 GM Packet PO SCH (21:41)
[2020-07-17] MEDS ORDERED: Carvedilol 6.25 MG TAB PO SCH (22:15)
[2020-07-18 05:47] LABS: #Basophils 0.1 thou/uL (0.0-0.2); #Eosinphils 0.1 thou/uL (0.0-0.7); #Lymphocytes 1.6 thou/uL (1.20-3.40); #Monocytes 1.2 thou/uL (0.11-0.59); #Neutrophils 11.6 thou/uL (1.40-6.50); %Basophils 0.5 % (0.0-1.0); %Eosinophils 0.7 % (0.0-10.0); %Lymphocytes 10.9 % (21.0-51.0); %Monocytes 8.4 % (0.0-10.0); %Neutrophils 79.6 % (42.0-75.0); Anion Gap 17 mmol/L (10-20); BUN (Urea Nitrogen) 45 mg/dL (8.4-25.7); Calc. Creatinine Clearance 0 mL/min (70-130); Calcium 8.9 mg/dL (7.8-10.44); Carbon Dioxide 30 mmol/L (23-31); Chloride 89 mmol/L (98-107); Glucose 151 mg/dL (83-110); Mean Corpuscular HGB CONC 34.3 g/dL (32.0-36.0); Mean Corpuscular Hemoglobin 34.9 pg (27.0-31.0); Mean Platelet Volume 8.8 fL (7.4-10.4); Platelet Count 204 thou/uL (130-400); Potassium 3.4 mmol/L (3.5-5.1); RBC Distribution Width 13.4 % (11.5-14.5); Sodium 133 mmol/L (136-145); White Blood Cell (WBC) Count 14.6 thou/uL (4.8-10.8)
--- NOTE | 2020-07-18 05:47 | HP ---
PRIMARY CARE PHYSICIAN: Dr. Bond at [facility]. CHIEF COMPLAINT: Shortness of breath. HISTORY OF PRESENT ILLNESS: This is a 74-year-old white male with a known history of severe systolic congestive heart failure, most recent exacerbation he was admitted here back in August. The patient reports that he was doing well at his baseline without any shortness of breath until this morning when he started to get progressively short of breath. He did have a little bit of substernal chest pain that is now resolved. He did take aspirin, nitroglycerin tablet, nitroglycerin spray prior to arrival. The patient was found to be in respiratory distress by EMS. They did give him a liter of fluid per ER physician report and put him on CPAP in the ambulance. When he arrived to the emergency room, the patient was put on BiPAP. He was given nitroglycerin paste in the ambulance and he also was given Lasix in the ER. The patient is breathing much better now. He was very tachycardic with his atrial fibrillation going into the 120s. On arrival, however, with the implementation of BiPAP, his heart rate came down to normal. He is having no more chest pain as well. REVIEW OF SYSTEMS: CONSTITUTIONAL: No fevers. No chills. EYES: No double vision or blurred vision. ENT: No congestion, drainage, or sore throat. CARDIOVASCULAR: See HPI. EXTREMITIES: No lower extremity edema. PULMONARY: See HPI. No coughing or wheezing. GASTROINTESTINAL: No abdominal pain. No nausea or vomiting. No diarrhea as he does have chronic constipation. GENITOURINARY: No dysuria or hematuria. MUSCULOSKELETAL: No muscle aches or joint pain. SKIN: No rashes or other lesions noted. NEUROLOGIC: No numbness, tingling, or focal weakness. PAST MEDICAL HISTORY: 1. Coronary artery disease with previous 3-vessel CABG. 2. 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 3. History of stroke with some dysarthria. 4. Diabetes mellitus type 2. 5. Hypertension. 6. Hyperlipidemia. 7. Chronic kidney disease stage 3. PAST SURGICAL HISTORY: 1. CABG x3 vessels. 2. AICD with biventricular pacer placed. 3. Previously 5 stents. 4. Varicose vein surgery. 5. Appendectomy. 6. Cholecystectomy. SOCIAL HISTORY: No tobacco, alcohol, or illicit drug use. He lives with his . He is a full code. Should he be incapacitated, his would be his medical decision maker. Her name is Ilda Crockett. FAMILY HISTORY: Mother at age 91 with coronary artery disease. Father at age of 76 of natural causes. ALLERGIES: NO KNOWN DRUG ALLERGIES. MEDICATIONS: 1. Calcium 600 plus D3 of 600 mg once a day. 2. Carvedilol 3.125 mg twice a day. 3. Digoxin 250 mcg daily. 4. Trulicity 1.5/0.5 subcutaneous once a week. 5. Famotidine 20 mg daily. 6. Glyburide 5 mg twice a day. 7. Hydrochlorothiazide 25 mg daily. 8. Isosorbide mononitrate 30 mg daily. 9. Lorazepam 1 mg every 8 hours as needed. 10. Nitroglycerin as needed. 11. Protonix 40 mg daily. 12. MiraLAX 17 g orally as needed. 13. Potassium chloride 20 mEq daily. 14. Ranexa 500 mg twice a day. 15. Crestor 40 mg daily. 16. Florastor 500 mg twice a day. 17. Torsemide 20 mg daily. 18. Tramadol 50 mg as needed. 19. Warfarin 5 mg daily. 20. Entresto 24/26 mg daily. PHYSICAL EXAMINATION: VITAL SIGNS: Blood pressure 193/62, pulse 92, respirations 12, temperature 98.0, O2 saturation 100% on BiPAP. GENERAL: This is a well-developed elderly white male, in no acute distress. HEENT: Pupils equal, round, and reactive to light. Oropharynx is clear without lesions, erythema, or exudate. NECK: Supple. No lymphadenopathy. No thyroid nodules or enlargement. No JVD. HEART: Regular rate and rhythm. No murmurs, rubs, or gallops. LUNGS: The patient has some bibasilar crackles, but decent air movement on the BiPAP and no increased work of breathing currently. ABDOMEN: Soft, obese, nontender to palpation. Normoactive bowel sounds. No hepatosplenomegaly or other masses. EXTREMITIES: No clubbing, cyanosis, or edema. The patient does have varicose veins in his lower extremities. SKIN: No rashes or lesions noted. NEUROLOGIC: The patient moves all extremities equally. No facial droop. He does have some difficulty with slurring of his speech, this worsened by the BiPAP mask. LABORATORY DATA: White blood cell count 18,000 with 75% neutrophils; hemoglobin, hematocrit, and platelet count are normal. Coagulation profile with an INR of 3.1. Complete metabolic panel is notable for sodium of 128, chloride of 85, anion gap of 21, BUN of 43, creatinine of 2.49 which is above his baseline of between 1.2 and 1.6, glucose of 347, total serum protein of 8.6. Rest is normal. Lactic acid was initially elevated at 4.1. CK-MB was normal. Troponin was indeterminate at 0.190, which is fairly typical for him when he has an exacerbation. Urinalysis is negative for infection. His triple screen is negative for influenza A, B, and COVID-19. IMAGING STUDIES: Chest x-ray; I did review the chest x-ray done in the emergency room along with the radiologist's report. It does show congestive heart failure with bilateral pulmonary edema. EKG done in the emergency room does show an originally tachycardic rhythm with a left bundle-branch block that was similar to previous EKGs, on recheck the tachycardia was resolved, still with the persistent left bundle-branch block and same with his previous EKGs. ASSESSMENT: 1. Acute respiratory failure with hypoxia on BiPAP. 2. Acute on chronic systolic congestive heart failure. The patient has evidence of volume overload. He is improved after nitroglycerin paste, the BiPAP, and the Lasix given in the emergency room. We will continue diuresing him with IV Lasix. We will keep a close eye on his kidney function as we do this. For now, the patient will need to be in the [facility]. Hopefully, we can get him off the BiPAP soon and then can transfer him to a telemetry room. 3. Acute on chronic renal failure. The patient commonly has elevated creatinine when he comes in with exacerbation. We will monitor this closely for improvement with diuresis. If this worsens or if we are unable to diurese him, we may need to get Nephrology involved. 4. Hypertension. Resume the patient's antihypertensives. 5. Coronary artery disease. Resume the patient's Ranexa. 6. Diabetes mellitus type 2. Resume the patient's oral hypoglycemics and put him on a diabetic diet. 7. Chronic constipation. We will put the patient on MiraLAX twice a day and give Senokot as needed. 8. Gastrointestinal prophylaxis. Continue the patient's Protonix. 9. Deep venous thrombosis prophylaxis. The patient is already on Coumadin and is therapeutic. We will have pharmacy dose his Coumadin. We will also put the patient on sequential compression devices while in bed. 10. Code status: The patient is a full code. Should he be incapacitated, his would be his medical decision maker. Job ID: [id number]
[2020-07-18] MEDS ORDERED: Carvedilol 3.125 MG TAB PO SCH (08:00)
[2020-07-18] MEDS ORDERED: Potassium Chloride 20 MEQ TAB ONE (09:13)
[2020-07-18] MEDS ORDERED: Digoxin 0.25 MG TAB ONE (09:13)
[2020-07-18] MEDS ORDERED: Furosemide 40 MG/4 ML VIAL ONE (09:13)
[2020-07-18] MEDS ORDERED: Enoxaparin Sodium 30 MG/0.3 ML SYRINGE ONE (09:13)
[2020-07-18] MEDS: Potassium Chloride 10 MEQ TAB PO SCH (09:17)
[2020-07-18] MEDS: Digoxin 0.25 MG TAB PO SCH ×2 (09:17→10:37)
[2020-07-18] MEDS: Furosemide 40 MG/4 ML VIAL SLOW IVP SCH ×2 (09:17→13:28)
[2020-07-18] MEDS: Enoxaparin Sodium 30 MG/0.3 ML SYRINGE SC SCH (09:17)
--- NOTE | 2020-07-18 09:52 | PDOC.HOSPP ---
- Subjective Encounter Date: 07/18/20 Encounter Time: 11:00 Subjective: Patient was able to be weaned off Bipap, now sating well on RA on telemetry floor. No current chest pain though gets some if he gets short winded. - Objective Result Diagrams: 07/18/20 05:07 07/18/20 05:07 Additional Labs: Accuchecks 07/17/20 13:35 POC Glucose 296 H Hospitalist ROS - Review of Systems Constitutional: denies: fever, chills Respiratory: reports: SOB with excertion. denies: cough, shortness of breath Cardiovascular: denies: chest pain, palpitations Gastrointestinal: denies: nausea, vomiting, abdominal pain - Medication Medications: Active Medications Generic Name Dose Route Start Last Admin Trade Name Freq PRN Reason Stop Dose Admin Digoxin 0.25 mg 07/18/20 09:00 07/18/20 09:17 Digoxin 0.25 Mg Tab PO 0.25 mg DAILY ANA Administration Enoxaparin Sodium 30 mg 07/18/20 09:00 07/18/20 09:17 Enoxaparin Sodium 30 Mg/0.3 Ml Syringe SC 30 mg 0900 ANA Administration Furosemide 40 mg 07/18/20 06:00 07/18/20 09:17 Furosemide 40 Mg/4 Ml Vial SLOW IVP 40 mg 0600,1400 ANA Administration Pantoprazole Sodium 40 mg 07/18/20 09:00 07/18/20 09:17 Pantoprazole 40 Mg Tab PO 40 mg DAILY ANA Administration Polyethylene Glycol 17 gm 07/17/20 21:00 07/17/20 21:41 Polyethylene Glycol 3350 17 Gm Packet PO 17 gm BID ANA Administration Potassium Chloride 20 meq 07/18/20 09:00 07/18/20 09:17 Potassium Chloride 10 Meq Tab PO 20 meq DAILY ANA Administration Ranolazine 500 mg 07/17/20 21:00 07/17/20 21:50 Ranolazine 500 Mg Tab PO 500 mg BID ANA Administration Sacubitril/Valsartan 1 tab 07/17/20 21:00 07/17/20 21:51 Sacubitril 24mg/Valsartan 26mg Tab PO Not Given BID ANA - Exam General Appearance: NAD, awake alert ENT: moist mucosa Heart: RRR, no murmur, no gallops, no rubs Respiratory: no wheezes, no ronchi, no tachypnea Respiratory - other findings: some rales in bases Gastrointestinal: soft, non-tender, non-distended, normal bowel sounds Extremities: no edema Psychiatric: normal affect, normal behavior, A&O x 3 Hosp A/P (1) Acute respiratory failure with hypoxia and hypercapnia Code(s): J96.01 - ACUTE RESPIRATORY FAILURE WITH HYPOXIA; J96.02 - ACUTE RESPIRATORY FAILURE WITH HYPERCAPNIA Status: Acute (2) Acute cardiac pulmonary edema Status: Acute (3) Acute on chronic systolic (congestive) heart failure Code(s): I50.23 - ACUTE ON CHRONIC SYSTOLIC (CONGESTIVE) HEART FAILURE Status: Acute (4) Type [address] elevation Code(s): I21.A1 - MYOCARDIAL INFARCTION TYPE 2 Status: Acute (5) Acute on chronic renal failure Code(s): N17.9 - ACUTE KIDNEY FAILURE, UNSPECIFIED; N18.9 - CHRONIC KIDNEY DISEASE, UNSPECIFIED Status: Acute (6) Atrial fibrillation Code(s): I48.91 - UNSPECIFIED ATRIAL FIBRILLATION Status: Chronic Qualifiers: Atrial fibrillation type: persistent (not longstanding) Qualified Code(s): I48.19 - Other persistent atrial fibrillation; I48.1 - Persistent atrial fibrillation (7) CAD (coronary artery disease) Code(s): I25.10 - ATHSCL HEART DISEASE OF [place] CORONARY ARTERY W/O ANG PCTRS Status: Chronic (8) Chronic anticoagulation Code(s): Z79.01 - FDC (CURRENT) USE OF ANTICOAGULANTS Status: Chronic (9) DM type 2 (diabetes mellitus, type 2) Status: Chronic (10) Dyslipidemia Code(s): E78.5 - HYPERLIPIDEMIA, UNSPECIFIED Status: Chronic (11) Hypertension Code(s): I10 - ESSENTIAL (PRIMARY) HYPERTENSION Status: Chronic (12) Constipation Code(s): K59.00 - CONSTIPATION, UNSPECIFIED Status: Chronic - Plan Patient diuresing well. Creatinine improving with diuresis. Troponin bumped which is typical for his CHF exacerbations. Dr. Paige has seen the patient and thinks he can likely go home tomorrow after one more day of diuresis. DVT proph: Coumadin therapeutic GI proph: Protonix
[2020-07-18] MEDS ORDERED: Potassium Chloride 20 MEQ TAB PO SCH (10:00)
[2020-07-18 10:28] VITALS: BMI 24.3
[2020-07-18] MEDS: Polyethylene Glycol 3350 17 GM Packet PO SCH ×2 (10:37→21:41)
[2020-07-18] MEDS: Rosuvastatin 20 MG TAB PO SCH (10:38)
[2020-07-18] MEDS: glyBURIDE 5 MG TAB PO SCH ×2 (10:39→17:04)
[2020-07-18] MEDS: Calcium Carbonate 600 MG + Vit D TAB PO SCH (10:39)
[2020-07-18] MEDS: Carvedilol 6.25 MG TAB PO SCH ×2 (10:39→17:04)
[2020-07-18] MEDS: HumaLOG 300 UNITS/3 ML VIAL SC PRN ×2 (11:25→17:06)
--- NOTE | 2020-07-18 13:37 | CON ---
DATE OF CONSULTATION: 07/18/2020 PRIMARY PERSONAL LINES ACCOUNT EXECUTIVE: Dr. Bond at [facility]. REASON FOR CONSULTATION: Heart failure. HISTORY OF PRESENT ILLNESS: Mr. Crockett is a very pleasant 74-year-old gentleman who comes to the hospital for increased shortness of breath. He was brought in. Apparently, EMS was worried about him being dry, so he received IV fluids on arrival. He was already placed on a BiPAP and started to get diuresed and placed on nitroglycerin. He eventually was diuresed really well, and on my evaluation today, he is doing a lot better. He is on room air, lying comfortably on the bed. He states his breathing is back to baseline. He had some chest pain when he was really short-winded, but is a lot better and resolved once he was diuresed. He had a similar presentation back in August at which point his troponins bumped up to 1.8. He had a heart catheterization which was stable, so his troponin bump at that time was most likely related to demand ischemia from his CHF and his severely reduced EF. PAST MEDICAL HISTORY: 1. Coronary artery disease status post bypass x3 in the past. 2. Ischemic cardiomyopathy with an EF of 20%-25% back in August of this year. 3. Stroke. 4. Type 2 diabetes. 5. Hypertension. 6. Hyperlipidemia. 7. Chronic kidney disease stage 3. SURGICAL HISTORY: 1. CABG x3. 2. Multiple stents placed in the past. 3. AICD in place, biventricular pacer. 4. Vein stripping for varicose veins. 5. Appendectomy. 6. Cholecystectomy. SOCIAL HISTORY: No alcohol, tobacco, or drugs. FAMILY HISTORY: Mother at age 91 of coronary disease. Father at age 76 of natural cause. ALLERGIES: NO KNOWN DRUG ALLERGIES. OUTPATIENT MEDICATIONS: 1. Calcium with vitamin D. 2. Carvedilol 3.125 b.i.d. 3. Digoxin 250 mcg a day. 4. Trulicity. 5. Famotidine. 6. Glyburide. 7. Hydrochlorothiazide 25 mg a day. 8. Imdur 30 mg a day. 9. Lorazepam. 10. Sublingual nitroglycerin. 11. Protonix 40 mg a day. 12. MiraLAX. 13. Potassium chloride. 14. Ranexa 500 mg twice a day. 15. Crestor 40 mg a day. 16. Florastor 500 mg twice a day. 17. Torsemide 20 mg a day. 18. Tramadol 50 mg p.r.n. 19. Warfarin. 20. Entresto day. REVIEW OF SYSTEMS: A 12-point review of systems was done and was found to be negative other than stated in history of present illness. PHYSICAL EXAMINATION: VITAL SIGNS: Temperature 98.1, pulse 71, respiratory rate 18, sat 94% on room air, blood pressure 102/66. GENERAL: Awake, alert, and oriented x3. No distress. HEENT: Normocephalic, atraumatic. NECK: Supple. LUNGS: Very mild crackles at the bases. CARDIOVASCULAR: S1, S2. No S3 or S4. There is a grade 2/6 systolic murmur at the right upper sternal border. ABDOMEN: Soft. EXTREMITIES: No edema. SKIN: Warm and dry. LABORATORY DATA: Laboratory work was reviewed. CBC with a white count of 18 down to 14, hemoglobin of 14 down from 17, hematocrit of 40, and platelet count of 204. Coags; INR was 3.1. Chemistries; his creatinine on arrival was 2.5 down to 1.7 with diuresis. Troponin was 0.19, 0.49, and then 0.76. UA was reviewed. Influenza A and B were not detected. COVID PCR was not detected either. Chest x-ray was reviewed. ASSESSMENT: 1. Acute on chronic systolic heart failure. 2. Coronary artery disease. 3. Non-ST elevation myocardial infarction, likely type 2 demand ischemia. 4. Ischemic dilated cardiomyopathy with last ejection fraction at 20% to 25%. 5. Presence of biventricular AICD. PLAN: 1. Continue IV diuresis one more day. He is very close to euvolemia. More than likely, he will be able to go home tomorrow. 2. No plan for heart catheterization at this time as more likely his troponin bump is related to demand ischemia. 3. Would discharge home tomorrow if he remains stable on current regimen. No changes for now. Thank you for letting us to participate in the care of your patient. We will follow. Job ID: [id number]
[2020-07-18] MEDS ORDERED: Warfarin Sodium 5 MG TAB PO SCH (17:00)
[2020-07-18] MEDS ORDERED: Clopidogrel Bisulfate 75 MG TAB PO SCH (17:00)
[2020-07-19] MEDS: Furosemide 40 MG/4 ML VIAL SLOW IVP SCH (05:14)
[2020-07-19 05:40] LABS: Prothrombin Time 41.2 sec (12.0-14.7)
[2020-07-19 06:28] LABS: INR-International Normal Ratio 4.2
--- NOTE | 2020-07-19 07:29 | PDOC.HOSPP ---
- Subjective Encounter Date: 07/19/20 Encounter Time: 09:30 Subjective: Patient reports no SOB or cough. Ambulating well. Eager to go home. - Objective Vital Signs & Weight: Vital Signs (12 hours) Temp Pulse Resp BP BP Pulse Ox 07/19/20 07:08 97.7 F 83 16 90/62 97 07/19/20 05:11 97 07/19/20 03:21 97.7 F 78 17 118/56 L 97 07/19/20 00:00 86 18 111/64 97 Weight Weight 156 lb I&O: 07/18/20 07/19/20 07/20/20 06:59 06:59 06:59 Intake Total 1580 Balance 1580 Result Diagrams: 07/18/20 05:07 07/18/20 05:07 Additional Labs: Accuchecks 07/19/20 07/18/20 07/18/20 05:23 20:45 16:33 POC Glucose 100 275 H 188 H 07/18/20 11:11 POC Glucose 242 H Hospitalist ROS - Review of Systems Constitutional: denies: fever, chills Respiratory: denies: cough, shortness of breath Cardiovascular: denies: chest pain, palpitations Gastrointestinal: denies: nausea, vomiting, abdominal pain - Medication Medications: Active Medications Generic Name Dose Route Start Last Admin Trade Name Freq PRN Reason Stop Dose Admin Calcium/Vitamin D 1 tab 07/18/20 09:00 07/18/20 10:39 Calcium Carbonate 600 Mg + Vit D Tab PO 1 tab DAILY ANA Administration Carvedilol 6.25 mg 07/18/20 08:00 07/18/20 17:04 Carvedilol 6.25 Mg Tab PO 6.25 mg BID- ANA Administration Digoxin 0.25 mg 07/18/20 09:00 07/18/20 10:37 Digoxin 0.25 Mg Tab PO 0.25 mg DAILY ANA Administration Enoxaparin Sodium 30 mg 07/18/20 09:00 07/18/20 09:17 Enoxaparin Sodium 30 Mg/0.3 Ml Syringe SC 30 mg 0900 ANA Administration Furosemide 40 mg 07/18/20 06:00 07/19/20 05:14 Furosemide 40 Mg/4 Ml Vial SLOW IVP 40 mg 0600,1400 ANA Administration Glyburide 5 mg 07/18/20 08:00 07/18/20 17:04 Glyburide 5 Mg Tab PO 5 mg BID-WM ANA Administration Insulin Human Lispro 0 units 07/17/20 19:11 07/18/20 17:06 Humalog 300 Units/3 Ml Vial SC 2 unit .MILD SLIDING SCALE PRN Administration Mild Correctional Scale Insulin Human Lispro 0 units 07/17/20 19:11 07/18/20 21:42 Humalog 300 Units/3 Ml Vial SC 1 unit .BEDTIME SLIDING SC PRN Administration Bedtime Correctional Scale Isosorbide Mononitrate 30 mg 07/18/20 09:00 07/18/20 10:38 Isosorbide Mononitrate Er 30 Mg Tab PO 30 mg DAILY ANA Administration Pantoprazole Sodium 40 mg 07/18/20 09:00 07/18/20 10:38 Pantoprazole 40 Mg Tab PO 40 mg DAILY ANA Administration Polyethylene Glycol 17 gm 07/17/20 21:00 07/18/20 21:41 Polyethylene Glycol 3350 17 Gm Packet PO 17 gm BID ANA Administration Potassium Chloride 20 meq 07/18/20 09:00 07/18/20 09:17 Potassium Chloride 10 Meq Tab PO 20 meq DAILY ANA Administration Ranolazine 500 mg 07/17/20 21:00 07/18/20 21:40 Ranolazine 500 Mg Tab PO 500 mg BID ANA Administration Rosuvastatin Calcium 40 mg 07/18/20 09:00 07/18/20 10:38 Rosuvastatin 20 Mg Tab PO 40 mg DAILY ANA Administration Sacubitril/Valsartan 1 tab 07/17/20 21:00 07/18/20 21:41 Sacubitril 24mg/Valsartan 26mg Tab PO Not Given BID ANA - Exam General Appearance: NAD, awake alert ENT: moist mucosa Heart: RRR, no murmur, no gallops, no rubs Respiratory: CTAB, no wheezes, no rales, no ronchi Gastrointestinal: soft, non-tender, non-distended, normal bowel sounds Extremities: no edema Psychiatric: normal affect, normal behavior, A&O x 3 Hosp A/P (1) Acute respiratory failure with hypoxia and hypercapnia Code(s): J96.01 - ACUTE RESPIRATORY FAILURE WITH HYPOXIA; J96.02 - ACUTE RESPIRATORY FAILURE WITH HYPERCAPNIA Status: Resolved (2) Acute cardiac pulmonary edema Status: Acute (3) Acute on chronic systolic (congestive) heart failure Code(s): I50.23 - ACUTE ON CHRONIC SYSTOLIC (CONGESTIVE) HEART FAILURE Status: Acute (4) Type [address] elevation Code(s): I21.A1 - MYOCARDIAL INFARCTION TYPE 2 Status: Acute (5) Acute on chronic renal failure Code(s): N17.9 - ACUTE KIDNEY FAILURE, UNSPECIFIED; N18.9 - CHRONIC KIDNEY DISEASE, UNSPECIFIED Status: Acute (6) Atrial fibrillation Code(s): I48.91 - UNSPECIFIED ATRIAL FIBRILLATION Status: Chronic Qualifiers: Atrial fibrillation type: persistent (not longstanding) Qualified Code(s): I48.19 - Other persistent atrial fibrillation; I48.1 - Persistent atrial fibrillation (7) CAD (coronary artery disease) Code(s): I25.10 - ATHSCL HEART DISEASE OF [place] CORONARY ARTERY W/O ANG PCTRS Status: Chronic (8) Chronic anticoagulation Code(s): Z79.01 - COMPUTER [employer] (CURRENT) USE OF ANTICOAGULANTS Status: Chronic (9) DM type 2 (diabetes mellitus, type 2) Status: Chronic (10) Dyslipidemia Code(s): E78.5 - HYPERLIPIDEMIA, UNSPECIFIED Status: Chronic (11) Hypertension Code(s): I10 - ESSENTIAL (PRIMARY) HYPERTENSION Status: Chronic (12) Constipation Code(s): K59.00 - CONSTIPATION, UNSPECIFIED Status: Chronic - Plan Patient diuresing well. Creatinine improving with diuresis. Check once more this AM. Troponin bumped which is typical for his CHF exacerbations. Evaluated by cardiology and cleared for discharge today. D/C home. DVT proph: Coumadin therapeutic GI proph: Protonix
[2020-07-19] MEDS: Polyethylene Glycol 3350 17 GM Packet PO SCH (07:53)
[2020-07-19] MEDS: Potassium Chloride 10 MEQ TAB PO SCH (07:56)
[2020-07-19] MEDS: Digoxin 0.25 MG TAB PO SCH (07:56)
[2020-07-19] MEDS: Calcium Carbonate 600 MG + Vit D TAB PO SCH (07:56)
[2020-07-19] MEDS: Carvedilol 6.25 MG TAB PO SCH (07:57)
[2020-07-19] MEDS: Rosuvastatin 20 MG TAB PO SCH (07:57)
[2020-07-19] MEDS: Enoxaparin Sodium 30 MG/0.3 ML SYRINGE SC SCH (07:57)
[2020-07-19] MEDS: glyBURIDE 5 MG TAB PO SCH (07:57)
[2020-07-19] MEDS ORDERED: Magnesium Oxide 400 MG TAB PO SCH (09:00)
[2020-07-19] MEDS ORDERED: Famotidine 20 MG TAB PO SCH (09:00)
[2020-07-19] MEDS ORDERED: Calcium Carbonate 600 MG + Vit D TAB PO SCH (09:00)
[2020-07-19] MEDS ORDERED: Clopidogrel Bisulfate 75 MG TAB PO SCH (09:00)
[2020-07-19] MEDS ORDERED: Enoxaparin Sodium 30 MG/0.3 ML SYRINGE SC SCH (09:00)
[2020-07-19] MEDS ORDERED: Aspirin 81 mg Enteric Coated Tablet PO SCH (09:00)
[2020-07-19 11:06] VITALS: TEMP 98.1
[2020-07-19 12:31] LABS: Anion Gap 17 mmol/L (10-20); BUN (Urea Nitrogen) 43 mg/dL (8.4-25.7); Calc. Creatinine Clearance 36 mL/min (70-130); Calcium 9.5 mg/dL (7.8-10.44); Carbon Dioxide 31 mmol/L (23-31); Chloride 87 mmol/L (98-107); Glucose 204 mg/dL (83-110); Potassium 4.3 mmol/L (3.5-5.1); Sodium 131 mmol/L (136-145)
[2020-07-19] MEDS: HumaLOG 300 UNITS/3 ML VIAL SC PRN (13:09)
[2020-07-19 13:49] VITALS: BP 138/87
[2020-07-19] MEDS ORDERED: Warfarin Sodium 5 MG TAB PO SCH (17:00)
--- NOTE | 2020-07-20 14:08 | DIS ---
DATE OF ADMISSION: 07/17/2020 DATE OF DISCHARGE: 07/19/2020 PRIMARY CARE PHYSICIAN: Dr. Bond at [facility]. REASON FOR ADMISSION: Respiratory distress. DIAGNOSES AT DISCHARGE: 1. Acute respiratory failure with hypoxia and hypercapnia, resolved. 2. Acute cardiac pulmonary edema, resolved. 3. Acute on chronic systolic congestive heart failure, improved. 4. Type [address]-elevation. 5. Acute on chronic renal failure, improved. 6. Chronic atrial fibrillation. 7. Coronary artery disease. 8. Chronic anticoagulation. 9. Diabetes mellitus type 2. 10. Dyslipidemia. 11. Hypertension. 12. Constipation. CONSULTATIONS: Cardiology, Dr. Paige. PROCEDURES: None. SUMMARY OF HOSPITAL COURSE: This is a 74-year-old white male with a known history of severe systolic congestive heart failure. He reports that he may have been drinking too many fluids recently, but has not changed his medicines. He started having significant shortness of breath the day of admission, was at his baseline before that. He did have a little bit of substernal chest pain when he was really working hard to breathe. He was given aspirin and nitroglycerin spray and tablets prior to arrival. EMS had to put him on BiPAP. He also had nitroglycerin paste given and was given Lasix in the emergency room and started to breathe better. His atrial fibrillation was tachycardic on admission; however, this improved with improving his respiratory status. The patient was diuresed. He was able to be taken off the BiPAP fairly quickly. His chest x-ray did confirm pulmonary edema. The patient also had an elevated troponin, which is fairly typical for him with his exacerbations. Cardiology was consulted, and Dr. Paige did see him the next day. By then, the patient was doing much better after significant diuresis with Lasix. He was on room air without any shortness of breath at all. The patient did have an acute bump in his creatinine to above 2. This improved with diuresis. On the day of discharge, the patient was ambulating well. He was feeling back to baseline, had no shortness of breath. No oxygen requirement and is eager to go home. DISCHARGE MANAGEMENT: Discharged home. ACTIVITY: As tolerated. DIET: Diabetic, healthy heart fluid-restricted diet. THERAPY: Outpatient cardiac rehab. FOLLOWUP: Follow up with Dr. Bond in 7 days. DISCHARGE MEDICATIONS: The patient is to resume all of his home medications. 1. Aspirin 81 mg daily. 2. Calcium 600/vitamin D3 of 200 three tablets daily. 3. Clopidogrel 75 mg daily. 4. Digoxin 0.25 mg daily. 5. Famotidine 20 mg daily. 6. Glyburide 5 mg twice a day. 7. Isosorbide mononitrate 30 mg daily. 8. Lorazepam 1 mg every 8 hours as needed. 9. Magnesium oxide 400 mg daily. 10. Nitroglycerin sublingual as needed. 11. Protonix 40 mg daily. 12. MiraLAX 17 g twice a day. 13. Potassium chloride 20 mEq daily. 14. Rosuvastatin 40 mg daily. 15. Entresto 24/26 mg one tablet twice a day. 16. Tramadol as needed. 17. Warfarin 5 mg daily. 18. Carvedilol 3.125 mg twice a day. 19. Trulicity 1.5 mg subcu weekly. 20. Hydrochlorothiazide 25 mg daily. 21. Metolazone 2.5 mg daily. 22. Ranexa 500 mg twice a day. 23. Florastor 500 mg twice a day. 24. Torsemide 20 mg daily. 25. Triamcinolone acetonide apply topically twice a day. TIME SPENT: Arranging the details of this discharge took 35 minutes. Job ID: [id number]
[2020-07-20] MEDS ORDERED: Warfarin Sodium 5 MG TAB PO SCH (17:00)
[2020-07-24] MEDS ORDERED: Dulaglutide [Trulicity] 0.75 MG/0.5 ML Pen.Injctr SC SCH (09:00)
== END 2020-07-19 13:23 | disposition home or self-care (01) | DRG 280 ==
LOC: ERS 12:30 → ERHOLD 16:21 → 2NO 07-18 10:24 → T4-A 07-18 16:49 → 2NO 07-18 17:01
PROVIDERS: ADMIT Emergency Medicine; ATTEND Emergency Medicine
DX: I13.0 Hypertensive heart and chronic kidney disease with heart failure and stage 1 through stage 4 chronic kidney disease, or unspecified chronic kidney disease (principal); J96.01 Acute respiratory failure with hypoxia; I21.A1 Myocardial infarction type 2; I50.23 Acute on chronic systolic (congestive) heart failure; J96.02 Acute respiratory failure with hypercapnia; N17.9 Acute kidney failure, unspecified; I48.20 Chronic atrial fibrillation, unspecified; I25.10 Atherosclerotic heart disease of native coronary artery without angina pectoris; Z20.828 Contact with and (suspected) exposure to other viral communicable diseases; K59.09 Other constipation; I25.5 Ischemic cardiomyopathy; E11.22 Type 2 diabetes mellitus with diabetic chronic kidney disease; N18.30 Chronic kidney disease, stage 3 unspecified; E78.5 Hyperlipidemia, unspecified; I69.322 Dysarthria following cerebral infarction; Z95.1 Presence of aortocoronary bypass graft; Z95.810 Presence of automatic (implantable) cardiac defibrillator; Z90.49 Acquired absence of other specified parts of digestive tract; Z79.01 Long term (current) use of anticoagulants
CPT/HCPCS: 0240U; 36415; 36416; 71045; 80048; 80053; 81003; 81015; 82553; 83605; 84484; 85025; 85610; 85730; 87040; 87149; 93005; 93798; 94660; J1650; J1940; J2543; J3370; J3475

== ENCOUNTER 2020-08-13 02:08 | Inpatient (IN) | payer MEDICARE, BC ==
[2020-08-13] MEDS ORDERED: Mag-Al 1200 mg/1200 mg/30 ML UDCUP ONE (02:19)
[2020-08-13] MEDS ORDERED: Lidocaine Viscous Sol 2% 15 ml UD Cup ONE (02:19)
[2020-08-13 02:49] LABS: ALT (SGPT) 14 U/L (8-55); AST (SGOT) 19 U/L (5-34); Albumin 4.1 g/dL (3.4-4.8); Alkaline Phosphatase 34 U/L (40-110); Anion Gap 19 mmol/L (10-20); BUN (Urea Nitrogen) 48 mg/dL (8.4-25.7); Bilirubin, Total 0.9 mg/dL (0.2-1.2); Calc. Creatinine Clearance 0 mL/min (70-130); Calcium 8.9 mg/dL (7.8-10.44); Carbon Dioxide 26 mmol/L (23-31); Chloride 85 mmol/L (98-107); Globulin 3.3 g/dL (2.4-3.5); Glucose 339 mg/dL (83-110); Lipase 27 U/L (8-78); Potassium 3.3 mmol/L (3.5-5.1); Protein, Total 7.4 g/dL (5.8-8.1); Sodium 127 mmol/L (136-145)
[2020-08-13 02:51] LABS: #Basophils 0.1 thou/uL (0.0-0.2); #Eosinphils 0.1 thou/uL (0.0-0.7); #Lymphocytes 1.2 thou/uL (1.20-3.40); #Monocytes 0.6 thou/uL (0.11-0.59); #Neutrophils 9.8 thou/uL (1.40-6.50); %Basophils 0.6 % (0.0-1.0); %Eosinophils 0.9 % (0.0-10.0); %Neutrophils 83.5 % (42.0-75.0); Hemoglobin 13.5 g/dL (14.0-18.0); Mean Corpuscular HGB CONC 34.1 g/dL (32.0-36.0); Mean Corpuscular Hemoglobin 35.3 pg (27.0-31.0); Mean Platelet Volume 9.3 fL (7.4-10.4); Platelet Count 171 thou/uL (130-400); RBC Distribution Width 13.8 % (11.5-14.5); Red Blood Cell (RBC) Count 3.84 mill/uL (4.70-6.10); White Blood Cell (WBC) Count 11.8 thou/uL (4.8-10.8)
[2020-08-13 03:09] LABS: CKMB 2.7 ng/mL (0-6.6)
[2020-08-13] MEDS ORDERED: Furosemide 40 MG/4 ML VIAL ONE (03:27)
[2020-08-13] MEDS ORDERED: Acetaminophen 650 MG Suppository PR PRN (03:45)
--- NOTE | 2020-08-13 03:55 | PDOC.HHP ---
Hospitalist HPI - History of Present Illness sob History of Present Illness: Case of an 74y/o male with a pmhx of cad, hx of cva, systolic heart failure ef20-25% s/p PPM, htn, dm hdl ckd and atrial fibrillation on warfarin who comes to hospital due to sob. patient refers he was on his usual state of health until yesterday when he started with progressive sob. patient states dyspnea of 1 day of evolution which is worse when laying down, pt complains of orthopnea, PND and SURI. he states his abdomen and legs have been swelling for the last couple of days. patient with a recent admission 1 m/a due to similar presentation. patient states he has an pulse oxymeter and his sats where in the 85s% when he was lying flat in the bed for which he decided to come to hospital for evaluation. patient denies any chest pain or palpitations refers some diaphoresis, also denies any fever chills or cough. patient does refers recent change of spironolactone to eplerenone Hospitalist ROS - Review of Systems All other systems reviewed; all pertinent +/- noted in HPI/Subj Hospitalist History - Past Surgical History Past Surgical History: reports: CABG - Family History Family History: reports: diabetes mellitus, hyperlipidemia, hypertension - Social History Smoking Status: Former smoker Alcohol: reports: None Drugs: reports: none Living Situation: With Family - Exam General Appearance: NAD, awake alert Eye: PERRL, anicteric sclera ENT: normocephalic atraumatic, no oropharyngeal lesions Neck: supple, symmetric, no JVD Heart: RRR, no murmur, no gallops Respiratory: no wheezes, no ronchi, normal chest expansion, rales Gastrointestinal: soft, non-tender, non-distended, normal bowel sounds Extremities: 1+ LE edema Skin: normal turgor, no lesions, no rashes Neurological: cranial nerve grossly intact, normal sensation to touch Musculoskeletal: normal tone, normal strength, no muscle wasting Psychiatric: normal affect, normal behavior, A&O x 3 Hospitalist Results - Labs Result Diagrams: 08/13/20 02:41 08/13/20 02:18 Lab results: WBC 11.8 thou/uL (4.8-10.8) H 08/13/20 02:41 Hgb 13.5 g/dL (14.0-18.0) L 08/13/20 02:41 Hct 39.7 % (42.0-52.0) L 08/13/20 02:41 MCV 103.0 fL (78.0-98.0) H 08/13/20 02:41 Plt Count 171 thou/uL (130-400) 08/13/20 02:41 Neutrophils % 83.5 % (42.0-75.0) H 08/13/20 02:41 Sodium 127 mmol/L (136-145) L 08/13/20 02:18 Potassium 3.3 mmol/L (3.5-5.1) L 08/13/20 02:18 Chloride 85 mmol/L (98-107) L 08/13/20 02:18 Carbon Dioxide 26 mmol/L (23-31) 08/13/20 02:18 BUN 48 mg/dL (8.4-25.7) H 08/13/20 02:18 Creatinine 2.03 mg/dL (0.7-1.3) H 08/13/20 02:18 Glucose 339 mg/dL (83-110) H 08/13/20 02:18 Calcium 8.9 mg/dL (7.8-10.44) 08/13/20 02:18 Total Bilirubin 0.9 mg/dL (0.2-1.2) 08/13/20 02:18 AST 19 U/L (5-34) 08/13/20 02:18 ALT 14 U/L (8-55) 08/13/20 02:18 Alkaline Phosphatase 34 U/L (40-110) L 08/13/20 02:18 CK-MB (CK-2) 2.7 ng/mL (0-6.6) 08/13/20 02:18 Troponin I 0.142 ng/mL (< 0.028) H 08/13/20 02:18 B-Natriuretic Peptide 593.5 pg/mL (0-100) H 08/13/20 02:18 Serum Total Protein 7.4 g/dL (5.8-8.1) 08/13/20 02:18 Albumin 4.1 g/dL (3.4-4.8) 08/13/20 02:18 Lipase 27 U/L (8-78) 08/13/20 02:18 Hospitalist H&P A/P - Problem (1) Acute on chronic systolic (congestive) heart failure Code(s): I50.23 - ACUTE ON CHRONIC SYSTOLIC (CONGESTIVE) HEART FAILURE Status: Acute (2) CKD (chronic kidney disease) Code(s): N18.9 - CHRONIC KIDNEY DISEASE, UNSPECIFIED Status: Acute (3) Hyponatremia Code(s): E87.1 - HYPO-OSMOLALITY AND HYPONATREMIA Status: Acute (4) Atrial fibrillation Code(s): I48.91 - UNSPECIFIED ATRIAL FIBRILLATION Status: Chronic Qualifiers: Atrial fibrillation type: persistent (not longstanding) Qualified Code(s): I48.19 - Other persistent atrial fibrillation; I48.1 - Persistent atrial fibrillation (5) CAD (coronary artery disease) Code(s): I25.10 - ATHSCL HEART DISEASE OF [place] CORONARY ARTERY W/O ANG PCTRS Status: Chronic (6) DM type 2 (diabetes mellitus, type 2) Status: Chronic (7) Dyslipidemia Code(s): E78.5 - HYPERLIPIDEMIA, UNSPECIFIED Status: Chronic (8) Hypertension Code(s): I10 - ESSENTIAL (PRIMARY) HYPERTENSION Status: Chronic (9) Ischemic cardiomyopathy Code(s): I25.5 - ISCHEMIC CARDIOMYOPATHY Status: Chronic - Plan Plan: 74y/o male with the stated pmhx who presents with decompensated systolic heart failire systolic heart failure - cxr consistent w heart failure, seen by me pending oficial read - bnp over 500 - physical exam with b/l crackles - will start lasix iv q 12 - continue with optimal heartfailure medication with beta juvencio, entresto and eprelenone - last 2d echo almost a year old, ef 20-25%, will repeat - cardio evaluation - will trend troponins - 02 supplementation - on digoxin, will check levels hyponatremia - likely secondary to fluid overload - will f/u bmp ckd - monitor u/o and gfr due to aggresive diuretic therapy dm acc+ss htn - continue home meds atrial fib - continue rate control w beta juvencio cad - on optima tx, with beta juvencio, asa/plavix on entresto + statin
[2020-08-13] MEDS ORDERED: Potassium Chloride 20 MEQ TAB PO SCH (04:00)
[2020-08-13] MEDS ORDERED: Dextrose 50% Abboject 50 ML SYRINGE SLOW IVP PRN (04:08)
[2020-08-13] MEDS ORDERED: Dextrose 5% in Water 1,000 ML IV PRN (04:08)
[2020-08-13 04:48] LABS: INR-International Normal Ratio 2.1; Prothrombin Time 23.7 sec (12.0-14.7)
[2020-08-13 04:50] LABS: D-Dimer Test Less than 0.27 *mcg/mL (0.27-0.43)
[2020-08-13 05:47] LABS: Troponin I 0.367 ng/mL (< 0.028)
[2020-08-13] MEDS: Furosemide 20 MG/2 ML VIAL SLOW IVP SCH ×2 (07:22→14:02)
[2020-08-13 07:56] VITALS: BMI 25.3
[2020-08-13] MEDS ORDERED: Clopidogrel Bisulfate 75 MG TAB PO SCH (09:00)
[2020-08-13] MEDS: Rosuvastatin 20 MG TAB PO SCH (09:44)
--- NOTE | 2020-08-13 09:44 | RAD ---
PORTABLE CHEST: 08/13/20 PROVIDED CLINICAL HISTORY: Chest pain. COMPARISON: 07/17/2020 FINDINGS: The cardiac silhouette remains enlarged. Calcification overlying the left ventricular apex is similar . Median sternotomy changes, atherosclerosis and left subclavian cardiac pacing device are unchanged. Prominence of the pulmonary vasculature with patchy right lower lung zone air space disease possible . There is no pleural fluid or pneumothorax apparent. IMPRESSION: 1. Cardiomegaly and prominence of the pulmonary vasculature suggests congestive failure. 2. Right lower lung zone air space disease may be present. Correlate for edema versus pneumonia. POS: ELIEZER
[2020-08-13] MEDS: Hydrochlorothiazide 25 MG TAB PO SCH (09:45)
[2020-08-13] MEDS: Carvedilol 3.125 MG TAB PO SCH ×2 (09:45→17:29)
[2020-08-13] MEDS: Digoxin 0.25 MG TAB PO SCH (09:45)
[2020-08-13] MEDS: Aspirin 81 mg Enteric Coated Tablet PO SCH (09:45)
[2020-08-13 11:29] LABS: SARS-CoV-2 PCR by NAA Not Detected (NotDetected)
--- NOTE | 2020-08-13 11:42 | CON ---
DATE OF CONSULTATION: HISTORY: Jeffery Crockett is a 74 year old male with longstanding history of ischemic cardiomyopathy, admitted with increased shortness of breath. He has undergone previous CABG with left radial bypass to the obtuse marginal and PEYTON to the RCA. He also has undergone previous stents in the mid to distal right coronary artery and the distal right coronary artery into the right posterior descending and from the left main into the ramus. He presented here in November 2018 with flash pulmonary edema. 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 Ejection fraction was 15% to 20%. The LAD was totally occluded. The LAD was never seen to fill retrograde. The obtuse marginal was totally occluded proximally. There was a patent stent from the left main into the ramus. The mid to distal right coronary artery stent was patent. There was 80% in-stent restenosis in the distal right coronary artery-right posterior descending stent. He underwent placement of a Synergy 2.5 x 12 mm with reduction from 80% to 0%. He has had several hospitalizations for heart failure episodes. In August 2019, he underwent repeat catheterization by Dr. Paige. The radial to the obtuse marginal was patent. The stent placed 7 or 8 months prior in the right posterior descending continued to be patent. Yesterday, he began to have progressive shortness of breath as well as noting some peripheral edema. Pulse ox at home was in the 85% range. He came to the emergency room, was given intravenous diuretics, and states that his breathing is much better. He denies any chest discomfort. PAST MEDICAL HISTORY: Coronary artery disease, diabetes, hypertension, hyperlipidemia, history of CVA, varicose vein surgery. OPERATIONS: CABG, coronary artery stent placement, biventricular ICD placed in March 2012, appendectomy, cholecystectomy. MEDICATIONS: 1. Aspirin 81 daily. 2. Carvedilol 6.25 b.i.d. 3. Plavix 75 daily. 4. Digoxin 0.125 daily. 5. Trulicity q.7 days. 6. Eplerenone 25 daily. 7. Pepcid 20 at bedtime. 8. Glyburide. 9. Isosorbide mononitrate 15 daily. 10. Ativan 0.5-1 mg q.8 hours p.r.n. 11. Magnesium oxide 400 daily. 12. Metolazone 2.5 daily. 13. Nitroglycerin p.r.n. 14. Pantoprazole 40 daily. 15. Ranexa 500 mg b.i.d. 16. Rosuvastatin 40 daily. 17. Torsemide 20 mg b.i.d. 18. Warfarin. ALLERGIES: NONE. SOCIAL HISTORY: He does not smoke or drink. REVIEW OF SYSTEMS: A 12-point review of systems unremarkable. PHYSICAL EXAMINATION: HEENT: PERRL. NECK: Supple. CHEST: Clear. CARDIAC: S1 and S2 are normal without any S3, S4, or murmurs. ABDOMEN: Normal bowel sounds without tenderness or organomegaly. EXTREMITIES: Revealed trace pretibial edema. NEUROLOGIC: Grossly intact. SKIN: Warm and dry. LABORATORY DATA: EKG reveals biventricular pacing. Hemoglobin 13.5, hematocrit 39.7, white count 11,800, and platelets 171,000. Sodium 127, potassium 3.5, chloride 85, carbon dioxide 26, BUN 48, creatinine 2.03. Troponin-I is up to 0.367. BNP 593.5. IMPRESSION: 1. Acute on chronic systolic heart failure. 2. Ischemic cardiomyopathy with last ejection fraction of 20% to 25%. 3. Coronary artery disease. 4. Eyk-SL-upzjffiig myocardial infarction, type 2. 5. Biventricular ICD. 6. Chronic atrial fibrillation, on warfarin. 7. Hypertension. 8. Diabetes. 9. Hypercholesterolemia. 10. Chronic kidney disease. PLAN: The patient continues to be diuresed. His renal function will be watched closely. Job ID: [id number] MTDD
[2020-08-13 13:25] LABS: Troponin I 1.493 ng/mL (< 0.028)
--- NOTE | 2020-08-13 16:46 | PDOC.HOSPP ---
- Subjective Encounter Date: 08/13/20 Encounter Time: 15:30 Subjective: Patient seen this afternoon. Cardiology evaluated him. Echo has been completed but report is pending. wants to know when they will be discharged - Objective Vital Signs & Weight: Vital Signs (12 hours) Temp Pulse Pulse Pulse Resp BP BP 08/13/20 12:43 82 81 92/53 L 100/58 L 08/13/20 11:16 08/13/20 08:27 98.2 F 53 L 16 08/13/20 05:30 08/13/20 05:20 97.7 F 84 18 BP Pulse Ox Pulse Ox 08/13/20 12:43 98 08/13/20 11:16 109/56 L 08/13/20 08:27 145/74 H 95 08/13/20 05:30 97 08/13/20 05:20 143/82 H 97 Weight Weight 161 lb 13.109 oz I&O: 08/12/20 08/13/20 08/14/20 06:59 06:59 06:59 Intake Total 340 Output Total 360 Balance -20 Result Diagrams: 08/13/20 02:41 08/13/20 02:18 Additional Labs: Accuchecks 08/13/20 08/13/20 08/13/20 16:23 10:09 05:40 POC Glucose 236 H 166 H 186 H Hospitalist ROS - Medication Medications: Active Medications Generic Name Dose Route Start Last Admin Trade Name Freq PRN Reason Stop Dose Admin Aspirin 81 mg 08/13/20 09:00 08/13/20 09:45 Aspirin 81 Mg Enteric Coated Tablet PO 81 mg DAILY ANA Administration Carvedilol 3.125 mg 08/13/20 08:00 08/13/20 09:45 Carvedilol 3.125 Mg Tab PO 3.125 mg BID-WM ANA Administration Clopidogrel Bisulfate 75 mg 08/13/20 09:00 08/13/20 09:45 Clopidogrel Bisulfate 75 Mg Tab PO 75 mg DAILY ANA Administration Digoxin 0.25 mg 08/13/20 09:00 08/13/20 09:45 Digoxin 0.25 Mg Tab PO 0.25 mg DAILY ANA Administration Furosemide 20 mg 08/13/20 06:00 08/13/20 14:02 Furosemide 20 Mg/2 Ml Vial SLOW IVP 20 mg 0600,1400 ANA Administration Hydrochlorothiazide 25 mg 08/13/20 09:00 08/13/20 09:45 Hydrochlorothiazide 25 Mg Tab PO 25 mg DAILY ANA Administration Isosorbide Mononitrate 30 mg 08/13/20 09:00 08/13/20 09:45 Isosorbide Mononitrate Er 30 Mg Tab PO 30 mg DAILY ANA Administration Ranolazine 500 mg 08/13/20 09:00 08/13/20 09:44 Ranolazine 500 Mg Tab PO 500 mg BID ANA Administration Rosuvastatin Calcium 40 mg 08/13/20 09:00 08/13/20 09:44 Rosuvastatin 20 Mg Tab PO 40 mg DAILY ANA Administration Sacubitril/Valsartan 1 tab 08/13/20 09:00 08/13/20 09:44 Sacubitril 24mg/Valsartan 26mg Tab PO 1 tab BID ANA Administration - Exam General Appearance: NAD, awake alert Eye: PERRL ENT: normocephalic atraumatic Neck: supple Heart: RRR Respiratory: CTAB, normal chest expansion Gastrointestinal: soft, normal bowel sounds Neurological: no focal deficits Hosp A/P - Plan cute on chronic systolic (congestive) heart failure Code(s): I50.23 - ACUTE ON CHRONIC SYSTOLIC (CONGESTIVE) HEART FAILURE Status: Acute (2) CKD (chronic kidney disease) Code(s): N18.9 - CHRONIC KIDNEY DISEASE, UNSPECIFIED Status: Acute (3) Hyponatremia Code(s): E87.1 - HYPO-OSMOLALITY AND HYPONATREMIA Status: Acute (4) Atrial fibrillation Code(s): I48.91 - UNSPECIFIED ATRIAL FIBRILLATION Status: Chronic Qualifiers: Atrial fibrillation type: persistent (not longstanding) Qualified Code(s): I48.19 - Other persistent atrial fibrillation; I48.1 - Persistent atrial fibrillation (5) CAD (coronary artery disease) Code(s): I25.10 - ATHSCL HEART DISEASE OF [place] CORONARY ARTERY W/O ANG PCTRS Status: Chronic (6) DM type 2 (diabetes mellitus, type 2) Status: Chronic (7) Dyslipidemia Code(s): E78.5 - HYPERLIPIDEMIA, UNSPECIFIED Status: Chronic (8) Hypertension Code(s): I10 - ESSENTIAL (PRIMARY) HYPERTENSION Status: Chronic (9) Ischemic cardiomyopathy Code(s): I25.5 - ISCHEMIC CARDIOMYOPATHY Status: Chronic - Plan Plan: 74y/o male with the stated pmhx who presents with decompensated systolic heart failire systolic heart failure - bnp over 500 - lasix iv q 12 -Dr. Umana has seen the patient recommendation continue with the diuresis. - hyponatremia - likely secondary to fluid overload - will f/u bmp ckd - monitor u/o and gfr due to aggresive diuretic therapy dm acc+ss htn - continue home meds atrial fib - continue rate control w beta juvencio cad - on optima tx, with beta juvencio, asa/plavix on entresto + statin Echo has been completed but report is pending. Patient has an appointment on Friday afternoon at cardiac rehab at [place].
[2020-08-13] MEDS: HumaLOG 300 UNITS/3 ML VIAL SC PRN (17:14)
[2020-08-13] MEDS: Warfarin Sodium 5 MG TAB PO SCH (17:15)
[2020-08-13] MEDS: Insulin Glargine 10 UNITS in Pre-Filled Syringe 1 EACH SC SCH (22:07)
[2020-08-13] MEDS: Senokot 8.6 MG TAB PO SCH (22:18)
[2020-08-14 04:45] LABS: #Basophils 0.1 thou/uL (0.0-0.2); #Eosinphils 0.2 thou/uL (0.0-0.7); #Lymphocytes 1.9 thou/uL (1.20-3.40); #Monocytes 1.1 thou/uL (0.11-0.59); #Neutrophils 6.6 thou/uL (1.40-6.50); %Basophils 0.7 % (0.0-1.0); %Eosinophils 1.6 % (0.0-10.0); %Lymphocytes 19.1 % (21.0-51.0); %Monocytes 10.7 % (0.0-10.0); %Neutrophils 67.9 % (42.0-75.0); Hemoglobin 12.6 g/dL (14.0-18.0); Mean Corpuscular HGB CONC 34.3 g/dL (32.0-36.0); Mean Corpuscular Hemoglobin 35.5 pg (27.0-31.0); Mean Platelet Volume 9.7 fL (7.4-10.4); Platelet Count 155 thou/uL (130-400); RBC Distribution Width 13.6 % (11.5-14.5); Red Blood Cell (RBC) Count 3.57 mill/uL (4.70-6.10); White Blood Cell (WBC) Count 9.8 thou/uL (4.8-10.8)
[2020-08-14 05:12] LABS: Digoxin 1.66 ng/mL (0.8-2.0)
[2020-08-14 05:16] LABS: ALT (SGPT) 14 U/L (8-55); AST (SGOT) 22 U/L (5-34); Albumin 3.8 g/dL (3.4-4.8); Alkaline Phosphatase 26 U/L (40-110); Anion Gap 15 mmol/L (10-20); BUN (Urea Nitrogen) 42 mg/dL (8.4-25.7); Bilirubin, Total 1.1 mg/dL (0.2-1.2); Calc. Creatinine Clearance 38 mL/min (70-130); Calcium 9.1 mg/dL (7.8-10.44); Carbon Dioxide 36 mmol/L (23-31); Chloride 85 mmol/L (98-107); Globulin 2.8 g/dL (2.4-3.5); Glucose 122 mg/dL (83-110); Magnesium 2.2 mg/dL (1.6-2.6); Potassium 3.2 mmol/L (3.5-5.1); Protein, Total 6.6 g/dL (5.8-8.1); Sodium 133 mmol/L (136-145)
[2020-08-14] MEDS: Furosemide 20 MG/2 ML VIAL SLOW IVP SCH ×2 (06:35→13:46)
[2020-08-14] MEDS: Rosuvastatin 20 MG TAB PO SCH (09:27)
[2020-08-14] MEDS: Aspirin 81 mg Enteric Coated Tablet PO SCH (09:28)
[2020-08-14] MEDS: Senokot 8.6 MG TAB PO SCH ×2 (09:28→20:35)
[2020-08-14] MEDS ORDERED: Potassium Chloride 20 MEQ TAB PO SCH (09:30)
[2020-08-14] MEDS: Hydrochlorothiazide 25 MG TAB PO SCH (09:56)
[2020-08-14] MEDS: Carvedilol 3.125 MG TAB PO SCH (09:56)
[2020-08-14] MEDS: Digoxin 0.25 MG TAB PO SCH (09:56)
[2020-08-14] MEDS ORDERED: Furosemide 20 MG/2 ML VIAL SLOW IVP SCH (10:00)
[2020-08-14] MEDS ORDERED: Digoxin 0.25 MG TAB PO SCH (10:00)
[2020-08-14 10:45] LABS: Critical Call Chem Troponin I RESULT DECREASING
[2020-08-14 11:03] LABS: CKMB 2.8 ng/mL (0-6.6)
[2020-08-14] MEDS: HumaLOG 300 UNITS/3 ML VIAL SC PRN ×2 (11:34→16:51)
--- NOTE | 2020-08-14 12:49 | PDOC.CPN ---
- Subjective Date: 08/14/20 Time: 12:42 Interval history: He is doing much better. Breathing back to baseline. No other issues. - Review of Systems General: denies: fever/chills, weight/appetite/sleep changes, night sweats, fatigue Respiratory: denies: cough, congestion, shortness of breath, exercise intolerance Cardiovascular: denies: chest pain, palpitation, edema, paroxysmal nocturnal dyspnea, orthopnea Gastrointestinal: denies: nausea, vomiting, diarrhea, constipation, abd pain, GI bleeding Musculoskeletal: denies: pain, tenderness, stiffness, swelling, arthritis/arthralgias Neurological: denies: numbness, syncope, seizure, weakness - Objective Allergies/Adverse Reactions: Allergies Allergy/AdvReac Type Severity Reaction Status Date / Time No Known Drug Allergies Allergy Verified 08/13/20 06:02 Visit Medications: Current Medications Acetaminophen (Acetaminophen 325 Mg Tab) 650 mg PO Q4H PRN PRN Reason: Headache/Fever/Mild Pain (1-3) Acetaminophen (Acetaminophen 650 Mg Suppository) 650 mg AK Q4H PRN PRN Reason: Headache/Fever/Mild Pain (1-3) Aspirin (Aspirin 81 Mg Enteric Coated Tablet) 81 mg PO DAILY [facility] Last Admin: 08/14/20 09:28 Dose: 81 mg Documented by: Calcium Carbonate (Calcium Carbonate 500 Mg Chewtab) 1,000 mg PO Q4H PRN PRN Reason: Heartburn or Indigestion Dextrose/Water (Dextrose 50% Abboject 50 Ml Syringe) 25 gm SLOW IVP PRN PRN PRN Reason: Hypoglycemia Digoxin (Digoxin 0.25 Mg Tab) 0.125 mg PO DAILY [facility] Furosemide (Furosemide 20 Mg/2 Ml Vial) 20 mg SLOW IVP 0600,1400 [facility] Glucagon (Glucagon 1 Mg/Ml Vial) 1 mg IM PRN PRN PRN Reason: Hypoglycemia Dextrose/Water (D5w) 1,000 mls @ 0 mls/hr IV .Q0M PRN PRN Reason: Hypoglycemia Insulin Glargine 10 units/ (Miscellaneous Medication) 0.1 mls @ 0 mls/hr SC [facility] Last Admin: 08/13/20 22:07 Dose: Not Given Documented by: Insulin Human Lispro (Humalog 300 Units/3 Ml Vial) 0 units SC .MILD SLIDING SCALE PRN PRN Reason: Mild Correctional Scale Last Admin: 08/14/20 11:34 Dose: 3 unit Documented by: Isosorbide Mononitrate (Isosorbide Mononitrate Er 30 Mg Tab) 15 mg PO DAILY [facility] Pantoprazole Sodium (Pantoprazole 40 Mg Tab) 40 mg PO DAILY [facility] Last Admin: 08/14/20 09:27 Dose: 40 mg Documented by: Ranolazine (Ranolazine 500 Mg Tab) 500 mg PO BID [facility] Rosuvastatin Calcium (Rosuvastatin 20 Mg Tab) 40 mg PO DAILY [facility] Last Admin: 08/14/20 09:27 Dose: 40 mg Documented by: Sacubitril/Valsartan (Sacubitril 24mg/Valsartan 26mg Tab) 1 tab PO BID [facility] Last Admin: 08/14/20 11:32 Dose: 1 tab Documented by: Senna (Senokot 8.6 Mg Tab) 2 tab PO BID [facility] Last Admin: 08/14/20 09:28 Dose: 2 tab Documented by: Warfarin Sodium (Warfarin Sodium 5 Mg Tab) 5 mg PO DAILY@1700 [facility] Last Admin: 08/13/20 17:15 Dose: 5 mg Documented by: Vital Signs & Weight: Vital Signs Temp Pulse Pulse Resp BP BP BP 08/14/20 11:27 97.6 F 89 16 08/14/20 09:49 80 109/50 L 116/66 08/14/20 09:29 82 08/14/20 07:49 98.3 F 73 16 112/56 L 08/14/20 05:19 08/14/20 04:00 97.7 F 12 85/50 L BP Pulse Ox Pulse Ox 08/14/20 11:27 106/68 100 08/14/20 09:49 96 08/14/20 09:29 100/58 L 08/14/20 07:49 96 08/14/20 05:19 96 08/14/20 04:00 94 L Weight 157 lb 6.561 oz - Physical Exam General: alert & oriented x3 HEENT: mucus membranes moist Neck: supple neck Cardiac: regular rate and rhythm Lungs: clear to auscultation Neuro: grossly intact Abdomen: active bowel sounds Extremities: no edema Skin: clear Musculoskeletal: no pain - Labs Result Diagrams: 08/14/20 04:13 08/14/20 04:13 Troponin/CKMB CK-MB (CK-2) 2.8 ng/mL (0-6.6) 08/14/20 09:57 Troponin I 1.094 ng/mL (< 0.028) H* 08/14/20 09:57 - Telemetry Sinus rhythms and dysrhythmias: sinus rhythm - Assessment/Plan Assessment/Plan: 1. Acute on chronic systolic heart failurew 2. Ischgemic CM EF at 20-25% 3. CAD 4. Type 2 demand ischemia 5. Bi ventricular AICD. 6. Chronic afib on warfarin 7. HTN\ 8. DM 9. CKD PLAN: - Seems euvolemic now. Likely from dietary indiscretions. - Continue same dose of demadex. Will need PRN metolazone to take home PRN for edema or worsening SOB. - Also will need PRN potassium when using extra metolazone. - Otherwise may D/C home any time from cardiac perspective.
--- NOTE | 2020-08-14 12:50 | PDOC.HOSPP ---
- Subjective Encounter Date: 08/14/20 Encounter Time: 10:28 Subjective: Patient doing well. His blood pressure is on the low side so we have to hold a lot of his cardiac medications. I told him his rehab plan has to be postponed as we need to a address t his blood pressure - Objective Vital Signs & Weight: Vital Signs (12 hours) Temp Pulse Pulse Resp BP BP BP 08/14/20 11:27 97.6 F 89 16 08/14/20 09:49 80 109/50 L 116/66 08/14/20 09:29 82 08/14/20 07:49 98.3 F 73 16 112/56 L 08/14/20 05:19 08/14/20 04:00 97.7 F 12 85/50 L BP Pulse Ox Pulse Ox 08/14/20 11:27 106/68 100 08/14/20 09:49 96 08/14/20 09:29 100/58 L 08/14/20 07:49 96 08/14/20 05:19 96 08/14/20 04:00 94 L Weight Weight 157 lb 6.561 oz I&O: 08/13/20 08/14/20 08/15/20 06:59 06:59 06:59 Intake Total 540 Output Total 840 Balance -300 Result Diagrams: 08/14/20 04:13 08/14/20 04:13 Additional Labs: Accuchecks 08/14/20 08/14/20 08/13/20 10:30 05:22 20:21 POC Glucose 247 H 128 H 200 H 08/13/20 16:23 POC Glucose 236 H Hospitalist ROS - Medication Medications: Active Medications Generic Name Dose Route Start Last Admin Trade Name Freq PRN Reason Stop Dose Admin Aspirin 81 mg 08/13/20 09:00 08/14/20 09:28 Aspirin 81 Mg Enteric Coated Tablet PO 81 mg DAILY ANA Administration Insulin Glargine 10 units/ 0.1 mls @ 0 mls/hr 08/13/20 21:00 08/13/20 22:07 Miscellaneous Medication SC Not Given HS ANA Insulin Human Lispro 0 units 08/13/20 04:08 08/14/20 11:34 Humalog 300 Units/3 Ml Vial SC 3 unit .MILD SLIDING SCALE PRN Administration Mild Correctional Scale Pantoprazole Sodium 40 mg 08/14/20 09:00 08/14/20 09:27 Pantoprazole 40 Mg Tab PO 40 mg DAILY ANA Administration Rosuvastatin Calcium 40 mg 08/13/20 09:00 08/14/20 09:27 Rosuvastatin 20 Mg Tab PO 40 mg DAILY ANA Administration Sacubitril/Valsartan 1 tab 08/13/20 09:00 08/14/20 11:32 Sacubitril 24mg/Valsartan 26mg Tab PO 1 tab BID ANA Administration Senna 2 tab 08/13/20 21:00 08/14/20 09:28 Senokot 8.6 Mg Tab PO 2 tab BID ANA Administration Warfarin Sodium 5 mg 08/13/20 17:00 08/13/20 17:15 Warfarin Sodium 5 Mg Tab PO 5 mg DAILY@1700 ANA Administration - Exam General Appearance: NAD, awake alert Eye: PERRL ENT: normocephalic atraumatic Neck: supple Heart: RRR Respiratory: CTAB, normal chest expansion Gastrointestinal: soft, normal bowel sounds Neurological: cranial nerve grossly intact, no focal deficits Musculoskeletal: generalized weakness Psychiatric: normal affect, normal behavior, A&O x 3 Hosp A/P - Plan cute on chronic systolic (congestive) heart failure Code(s): I50.23 - ACUTE ON CHRONIC SYSTOLIC (CONGESTIVE) HEART FAILURE Status: Acute (2) CKD (chronic kidney disease) Code(s): N18.9 - CHRONIC KIDNEY DISEASE, UNSPECIFIED Status: Acute (3) Hyponatremia Code(s): E87.1 - HYPO-OSMOLALITY AND HYPONATREMIA Status: Acute (4) Atrial fibrillation Code(s): I48.91 - UNSPECIFIED ATRIAL FIBRILLATION Status: Chronic Qualifiers: Atrial fibrillation type: persistent (not longstanding) Qualified Code(s): I48.19 - Other persistent atrial fibrillation; I48.1 - Persistent atrial fibrillation (5) CAD (coronary artery disease) Code(s): I25.10 - ATHSCL HEART DISEASE OF [place] CORONARY ARTERY W/O ANG PCTRS Status: Chronic (6) DM type 2 (diabetes mellitus, type 2) Status: Chronic (7) Dyslipidemia Code(s): E78.5 - HYPERLIPIDEMIA, UNSPECIFIED Status: Chronic (8) Hypertension Code(s): I10 - ESSENTIAL (PRIMARY) HYPERTENSION Status: Chronic (9) Ischemic cardiomyopathy Code(s): I25.5 - ISCHEMIC CARDIOMYOPATHY Status: Chronic - Plan Plan: 74y/o male with the stated pmhx who presents with decompensated systolic heart failire Acute on chronic systolic heart failure - bnp over 500 - lasix iv q 12 -Dr. Umana has seen the patient recommendation continue with the diuresis. - Ischemic cardiomyopathy with EF of 25% -Repeat echo also explained the same. 25% -Remote status post AICD placement hyponatremia - likely secondary to fluid overload - will f/u bmp ckd - monitor u/o and gfr due to aggresive diuretic therapy dm acc+ss htn - continue home meds atrial fib - continue rate control w beta juvencio -He is on Coumadin and it is therapeutic. cad - on optima tx, with beta juvencio, asa/plavix on entresto + statin Echo has been completed but report is pending. Patient has an appointment on Friday at cardiac rehab at [place]. Due to low blood pressure, he will be here; his blood pressure medications need to be titrated further. Per Dr. Paige, continue with the Demadex and he may need as needed metolazone along with the potassium.
[2020-08-14] MEDS: Acetaminophen 325 MG TAB PO PRN (13:47)
[2020-08-14] MEDS: Calcium Carbonate 500 MG ChewTAB PO PRN (15:27)
[2020-08-14 16:15] LABS: Critical Call Chem Troponin I RESULT DECREASING
[2020-08-14 16:33] LABS: CKMB 2.5 ng/mL (0-6.6)
[2020-08-14] MEDS: Warfarin Sodium 5 MG TAB PO SCH (16:49)
[2020-08-14] MEDS ORDERED: Famotidine 20 MG TAB PO SCH (19:30)
[2020-08-14] MEDS: Insulin Glargine 10 UNITS in Pre-Filled Syringe 1 EACH SC SCH (20:33)
[2020-08-15 04:50] LABS: INR-International Normal Ratio 1.9; PTT 35.3 sec (22.9-36.1); Prothrombin Time 22.1 sec (12.0-14.7)
[2020-08-15 05:13] LABS: Anion Gap 17 mmol/L (10-20); BUN (Urea Nitrogen) 34 mg/dL (8.4-25.7); Calc. Creatinine Clearance 48 mL/min (70-130); Calcium 9.4 mg/dL (7.8-10.44); Carbon Dioxide 30 mmol/L (23-31); Chloride 88 mmol/L (98-107); Glucose 113 mg/dL (83-110); Potassium 3.6 mmol/L (3.5-5.1); Sodium 131 mmol/L (136-145)
[2020-08-15] MEDS: Furosemide 20 MG/2 ML VIAL SLOW IVP SCH (05:35)
[2020-08-15] MEDS: Rosuvastatin 20 MG TAB PO SCH (08:27)
[2020-08-15] MEDS: Famotidine 20 MG TAB PO SCH ×2 (08:28→20:38)
[2020-08-15] MEDS: Digoxin 0.25 MG TAB PO SCH (08:28)
[2020-08-15] MEDS: Aspirin 81 mg Enteric Coated Tablet PO SCH (08:29)
[2020-08-15] MEDS: Senokot 8.6 MG TAB PO SCH ×2 (08:29→20:38)
[2020-08-15] MEDS: Acetaminophen 325 MG TAB PO PRN (09:01)
[2020-08-15] MEDS: traMADol HCl 50 MG TAB PO PRN (10:15)
[2020-08-15] MEDS ORDERED: Iopamidol-370 76% 500 ML 1 ML ONE (10:17)
[2020-08-15] MEDS: HumaLOG 300 UNITS/3 ML VIAL SC PRN ×3 (10:50→17:27)
[2020-08-15] MEDS ORDERED: Mag-Al 1200 mg/1200 mg/30 ML UDCUP PO PRN (10:57)
[2020-08-15] MEDS: Calcium Carbonate 500 MG ChewTAB PO PRN (11:11)
[2020-08-15] MEDS: Sucralfate 1 GM TAB PO SCH ×2 (11:11→17:27)
[2020-08-15] MEDS ORDERED: Lorazepam 1 MG TAB PO SCH (11:15)
--- NOTE | 2020-08-15 12:32 | PDOC.HOSPP ---
- Subjective Encounter Date: 08/15/20 Encounter Time: 09:30 Subjective: Patient seen this morning I spend around 10 to 15 minutes talking to him as well as RN this morning his blood pressure still not improved systolic around 85 couple of readings for the last 2 days. I reduced all his medications to a minimum level to see whether pressure can be improved. With the low blood pressure and being symptomatic I cannot discharge this patient yesterday. This morning one of his blood glucose reading was 464 but the previous reading around 5:30 AM was 103. Patient's is extremely upset how we can let blood glucose going to 464. I know this couple very well from the last hospitalization. is quite demanding and do not understand his current advanced heart conditions. During my last management, they were transferred from [facility] for the same reason that they did not get enough care there[according to his ] and now she is complaining the same stating not providing enough care and she wants the patient to be transferred. Medically I cannot do that, as he is stable and does not require aggressive cardiac intervention but palliative evaluation. - Objective Vital Signs & Weight: Vital Signs (12 hours) Temp Pulse Resp BP BP Pulse Ox 08/15/20 11:53 98.3 F 78 17 112/65 94 L 08/15/20 11:29 98.1 F 96 16 121/79 98 08/15/20 08:28 77 08/15/20 07:46 98.3 F 77 15 103/54 L 95 08/15/20 03:15 98.0 F 80 18 112/69 94 L Weight Weight 72 lb 1 oz I&O: 08/14/20 08/15/20 08/16/20 06:59 06:59 06:59 Intake Total 540 1492 120 Output Total 840 125 Balance -300 1367 120 Result Diagrams: 08/14/20 04:13 08/15/20 03:59 Additional Labs: Accuchecks 08/15/20 08/15/20 08/14/20 10:45 05:31 20:28 POC Glucose 464 H 103 H 185 H 08/14/20 16:47 POC Glucose 215 H Hospitalist ROS - Medication Medications: Active Medications Generic Name Dose Route Start Last Admin Trade Name Freq PRN Reason Stop Dose Admin Acetaminophen 650 mg 08/13/20 03:45 01/26/21 09:01 Acetaminophen 325 Mg Tab PO 650 mg Q4H PRN Administration Headache/Fever/Mild Pain (1-3) Aspirin 81 mg 08/13/20 09:00 08/15/20 08:29 Aspirin 81 Mg Enteric Coated Tablet PO 81 mg DAILY [facility] Administration Calcium Carbonate 1,000 mg 08/13/20 03:45 08/15/20 11:11 Calcium Carbonate 500 Mg Chewtab PO 1,000 mg Q4H PRN Administration Heartburn or Indigestion Digoxin 0.125 mg 08/15/20 09:00 08/15/20 08:28 Digoxin 0.25 Mg Tab PO 0.125 mg DAILY [facility] Administration Famotidine 20 mg 08/15/20 09:00 08/15/20 08:28 Famotidine 20 Mg Tab PO 20 mg BID [facility] Administration Insulin Glargine 10 units/ 0.1 mls @ 0 mls/hr 08/13/20 21:00 08/14/20 20:33 Miscellaneous Medication SC Not Given [facility] Insulin Human Lispro 0 units 08/13/20 04:08 08/15/20 10:50 Humalog 300 Units/3 Ml Vial SC 465 unit .MILD SLIDING SCALE PRN Administration Mild Correctional Scale Isosorbide Mononitrate 15 mg 08/15/20 09:00 08/15/20 09:04 Isosorbide Mononitrate Er 30 Mg Tab PO Not Given DAILY [facility] Ranolazine 500 mg 08/14/20 21:00 08/15/20 08:29 Ranolazine 500 Mg Tab PO 500 mg BID [facility] Administration Rosuvastatin Calcium 40 mg 08/13/20 09:00 08/15/20 08:27 Rosuvastatin 20 Mg Tab PO 40 mg DAILY [facility] Administration Senna 2 tab 08/13/20 21:00 08/15/20 08:29 Senokot 8.6 Mg Tab PO 2 tab BID [facility] Administration Sucralfate 1 gm 08/15/20 11:30 08/15/20 11:11 Sucralfate 1 Gm Tab PO 1 gm AC [facility] Administration Tramadol HCl 50 mg 08/14/20 19:22 08/15/20 10:15 Tramadol Hcl 50 Mg Tab PO 50 mg Q6H PRN Administration Pain 4-6 Warfarin Sodium 5 mg 08/13/20 17:00 08/14/20 16:49 Warfarin Sodium 5 Mg Tab PO 5 mg DAILY@1700 [facility] Administration Hospitalist Exam Vitals: Vital Signs (12 hours) Temp Pulse Resp BP BP Pulse Ox 08/15/20 11:53 98.3 F 78 17 112/65 94 L 08/15/20 11:29 98.1 F 96 16 121/79 98 08/15/20 08:28 77 08/15/20 07:46 98.3 F 77 15 103/54 L 95 08/15/20 03:15 98.0 F 80 18 112/69 94 L Weight Weight 72 lb 1 oz General Appearance: NAD, awake alert Eye: PERRL ENT: normocephalic atraumatic Neck: supple Heart: RRR Respiratory: CTAB, normal chest expansion Gastrointestinal: soft, normal bowel sounds Neurological: cranial nerve grossly intact, no focal deficits Musculoskeletal: generalized weakness Psychiatric: A&O x 3 Hosp A/P - Plan cute on chronic systolic (congestive) heart failure Code(s): I50.23 - ACUTE ON CHRONIC SYSTOLIC (CONGESTIVE) HEART FAILURE Status: Acute (2) CKD (chronic kidney disease) Code(s): N18.9 - CHRONIC KIDNEY DISEASE, UNSPECIFIED Status: Acute (3) Hyponatremia Code(s): E87.1 - HYPO-OSMOLALITY AND HYPONATREMIA Status: Acute (4) Atrial fibrillation Code(s): I48.91 - UNSPECIFIED ATRIAL FIBRILLATION Status: Chronic Qualifiers: Atrial fibrillation type: persistent (not longstanding) Qualified Code(s): I48.19 - Other persistent atrial fibrillation; I48.1 - Persistent atrial fibrillation (5) CAD (coronary artery disease) Code(s): I25.10 - ATHSCL HEART DISEASE OF [place] CORONARY ARTERY W/O ANG PCTRS Status: Chronic (6) DM type 2 (diabetes mellitus, type 2) Status: Chronic (7) Dyslipidemia Code(s): E78.5 - HYPERLIPIDEMIA, UNSPECIFIED Status: Chronic (8) Hypertension Code(s): I10 - ESSENTIAL (PRIMARY) HYPERTENSION Status: Chronic (9) Ischemic cardiomyopathy Code(s): I25.5 - ISCHEMIC CARDIOMYOPATHY Status: Chronic - Plan Plan: 74y/o male with the stated pmhx who presents with decompensated systolic heart failire Acute on chronic systolic heart failure - bnp over 500 - lasix iv q 12 -Dr. Umana has seen the patient recommendation continue with the diuresis. - Ischemic cardiomyopathy with EF of 25% -Repeat echo also explained the same. 25% -Remote status post AICD placement hyponatremia - likely secondary to fluid overload - will f/u bmp ckd - monitor u/o and gfr due to aggresive diuretic therapy dm acc+ss htn - continue home meds atrial fib - continue rate control w beta juvencio -He is on Coumadin and it is therapeutic. cad - on optima tx, with beta juvencio, asa/plavix on entresto + statin Echo has been completed but report is pending. Patient has an appointment on Friday at cardiac rehab at [place]. Due to low blood pressure, he will be here; his blood pressure medications need to be titrated further. Per Dr. Paige, continue with the Demadex and he may need as needed metolazone along with the potassium. This morning one of his blood glucose reading was 464 but the previous reading around 5:30 AM was 103. Patient's is extremely upset how we can let blood glucose going to 464. I know this couple very well from the last hospitalization. is quite demanding and do not understand his current advanced heart conditions. During my last management, they were transferred from [facility] for the same reason that they did not get enough care there[according to his ] and now she is complaining the same stating not providing enough care and she wants the patient to be transferred. Medically I cannot do that, as he is stable and does not require aggressive cardiac intervention but palliative evaluation. I also discussed with the Dr. Sandoval.
--- NOTE | 2020-08-15 12:59 | PDOC.CPN ---
- Subjective Date: 08/15/20 Time: 12:57 Interval history: He is more SOB today. Abdominal distention likely from fluid. Orthopnea at 45 degrees. - Review of Systems General: reports: fatigue. denies: fever/chills, weight/appetite/sleep changes, night sweats Respiratory: reports: shortness of breath, exercise intolerance. denies: cough, congestion Cardiovascular: reports: orthopnea. denies: chest pain, palpitation, edema, paroxysmal nocturnal dyspnea Gastrointestinal: denies: nausea, vomiting, diarrhea, constipation, abd pain, GI bleeding Musculoskeletal: denies: pain, tenderness, stiffness, swelling, arthritis/arthralgias Neurological: denies: numbness, syncope, seizure, weakness - Objective Allergies/Adverse Reactions: Allergies Allergy/AdvReac Type Severity Reaction Status Date / Time No Known Drug Allergies Allergy Verified 08/13/20 06:02 Visit Medications: Current Medications Acetaminophen (Acetaminophen 325 Mg Tab) 650 mg PO Q4H PRN PRN Reason: Headache/Fever/Mild Pain (1-3) Last Admin: 08/15/20 09:01 Dose: 650 mg Documented by: Acetaminophen (Acetaminophen 650 Mg Suppository) 650 mg [place] Q4H PRN PRN Reason: Headache/Fever/Mild Pain (1-3) Al Hydroxide/Mg Hydroxide (Mag-Al 1200 Mg/1200 Mg/30 Ml Udcup) 15 ml PO Q4H PRN PRN Reason: Heartburn or Indigestion Aspirin (Aspirin 81 Mg Enteric Coated Tablet) 81 mg PO DAILY [facility] Last Admin: 08/15/20 08:29 Dose: 81 mg Documented by: Calcium Carbonate (Calcium Carbonate 500 Mg Chewtab) 1,000 mg PO Q4H PRN PRN Reason: Heartburn or Indigestion Last Admin: 08/15/20 11:11 Dose: 1,000 mg Documented by: Dextrose/Water (Dextrose 50% Abboject 50 Ml Syringe) 25 gm SLOW IVP PRN PRN PRN Reason: Hypoglycemia Digoxin (Digoxin 0.25 Mg Tab) 0.125 mg PO DAILY [facility] Last Admin: 08/15/20 08:28 Dose: 0.125 mg Documented by: Famotidine (Famotidine 20 Mg Tab) 20 mg PO BID [facility] Last Admin: 08/15/20 08:28 Dose: 20 mg Documented by: Furosemide (Furosemide 40 Mg/4 Ml Vial) 40 mg SLOW IVP NOW [facility] Stop: 08/15/20 16:00 Furosemide (Furosemide 40 Mg/4 Ml Vial) 40 mg SLOW IVP DAILY [facility] Glucagon (Glucagon 1 Mg/Ml Vial) 1 mg IM PRN PRN PRN Reason: Hypoglycemia Dextrose/Water (D5w) 1,000 mls @ 0 mls/hr IV .Q0M PRN PRN Reason: Hypoglycemia Insulin Glargine 10 units/ (Miscellaneous Medication) 0.1 mls @ 0 mls/hr SC [facility] Last Admin: 08/14/20 20:33 Dose: Not Given Documented by: Insulin Human Lispro (Humalog 300 Units/3 Ml Vial) 0 units SC .MILD SLIDING SCALE PRN PRN Reason: Mild Correctional Scale Last Admin: 08/15/20 10:50 Dose: 465 unit Documented by: Lorazepam (Lorazepam 1 Mg Tab) 1 mg PO TID [facility] Pantoprazole Sodium (Pantoprazole 40 Mg Tab) 40 mg PO DAILY [facility] Ranolazine (Ranolazine 500 Mg Tab) 500 mg PO BID [facility] Last Admin: 08/15/20 08:29 Dose: 500 mg Documented by: Rosuvastatin Calcium (Rosuvastatin 20 Mg Tab) 40 mg PO DAILY [facility] Last Admin: 08/15/20 08:27 Dose: 40 mg Documented by: Senna (Senokot 8.6 Mg Tab) 2 tab PO BID [facility] Last Admin: 08/15/20 08:29 Dose: 2 tab Documented by: Sodium Chloride (Flush - Normal Saline 10 Ml Syringe) 10 ml IVF Q12HR [facility] Sodium Chloride (Flush - Normal Saline 10 Ml Syringe) 10 ml IVF PRN PRN PRN Reason: Saline Flush Sucralfate (Sucralfate 1 Gm Tab) 1 gm PO AC [facility] Last Admin: 08/15/20 11:11 Dose: 1 gm Documented by: Tramadol HCl (Tramadol Hcl 50 Mg Tab) 50 mg PO Q6H PRN PRN Reason: Pain 4-6 Last Admin: 08/15/20 10:15 Dose: 50 mg Documented by: Warfarin Sodium (Warfarin Sodium 5 Mg Tab) 5 mg PO DAILY@1700 [facility] Last Admin: 08/14/20 16:49 Dose: 5 mg Documented by: Vital Signs & Weight: Vital Signs Temp Pulse Resp BP BP Pulse Ox 08/15/20 11:53 98.3 F 78 17 112/65 94 L 08/15/20 11:29 98.1 F 96 16 121/79 98 08/15/20 08:28 77 08/15/20 07:46 98.3 F 77 15 103/54 L 95 08/15/20 03:15 98.0 F 80 18 112/69 94 L Weight 72 lb 1 oz - Physical Exam General: alert & oriented x3 HEENT: mucus membranes moist Neck: supple neck Cardiac: irregularly regular Lungs: clear to auscultation Neuro: grossly intact Abdomen: active bowel sounds Extremities: no edema Skin: clear Musculoskeletal: no pain - Labs Result Diagrams: 08/14/20 04:13 08/15/20 03:59 Troponin/CKMB CK-MB (CK-2) 2.5 ng/mL (0-6.6) 08/14/20 15:28 Troponin I 0.708 ng/mL (< 0.028) H* 08/14/20 15:28 - Telemetry Supraventricular conduction: atrial fibrillation - Assessment/Plan Assessment/Plan: 1. Acute on chronic systolic heart failure 2. Ischgemic CM EF at 20-25% 3. CAD 4. Type 2 demand ischemia 5. Bi ventricular AICD. 6. Chronic afib on warfarin 7. HTN\ 8. DM 9. CKD PLAN: - Volume up again. Accumulated overnight. - Restart IV lasix. - Replace K as needed and check INR daily. - Will follow. If creatinine increases or hypotensive with IV lasix may need dobutamine infusion.
[2020-08-15] MEDS ORDERED: Furosemide 40 MG/4 ML VIAL SLOW IVP SCH (13:00)
[2020-08-15] MEDS: Lorazepam 1 MG TAB PO SCH ×2 (15:32→20:38)
[2020-08-15] MEDS: Warfarin Sodium 5 MG TAB PO SCH (17:27)
--- NOTE | 2020-08-15 19:22 | CT ---
CTA CHEST WITH CONTRAST: 08/15/20 Axial tomograms obtained following angio protocol. Multiplanar reconstructions with 3D postprocessing . FINDINGS: Pulmonary arteries show adequate enhancement. No evidence of pulmonary embolus identified. Thoracic a rosa is not opacified and cannot be adequately assessed. Mediastinal and hilar adenopathy. Bilateral pleural effusions. There are diffuse hazy ground glass opacity which may represent mild justin ma. IMPRESSION: 1. No evidence of pulmonary embolus. 2. Cardiomegaly with vascular congestion. 3. Bilateral effusions and hazy diffuse ground glass opacities suggesting edema rather than infl ammatory infiltrate. 4. There is a 6 to 7 mm nodule in the right mid lung which is indeterminate given the ground gla ss opacity. Follow-up is recommended. Code LN POS: [place]
[2020-08-15] MEDS ORDERED: HumaLOG 300 UNITS/3 ML VIAL SC PRN (20:30)
[2020-08-15] MEDS: Insulin Glargine 10 UNITS in Pre-Filled Syringe 1 EACH SC SCH (20:39)
[2020-08-16 04:36] LABS: INR-International Normal Ratio 2.1; PTT 43.8 sec (22.9-36.1); Prothrombin Time 23.7 sec (12.0-14.7)
[2020-08-16 04:36] LABS: #Basophils 0.1 thou/uL (0.0-0.2); #Eosinphils 0.1 thou/uL (0.0-0.7); #Lymphocytes 1.9 thou/uL (1.20-3.40); #Monocytes 0.9 thou/uL (0.11-0.59); #Neutrophils 13.7 thou/uL (1.40-6.50); %Basophils 0.4 % (0.0-1.0); %Eosinophils 0.5 % (0.0-10.0); %Lymphocytes 11.6 % (21.0-51.0); %Monocytes 5.5 % (0.0-10.0); %Neutrophils 82.1 % (42.0-75.0); Hemoglobin 13.2 g/dL (14.0-18.0); Mean Corpuscular HGB CONC 35.1 g/dL (32.0-36.0); Mean Corpuscular Hemoglobin 36.3 pg (27.0-31.0); Mean Platelet Volume 9.6 fL (7.4-10.4); Platelet Count 167 thou/uL (130-400); RBC Distribution Width 13.8 % (11.5-14.5); Red Blood Cell (RBC) Count 3.63 mill/uL (4.70-6.10); White Blood Cell (WBC) Count 16.6 thou/uL (4.8-10.8)
[2020-08-16 04:48] LABS: Anion Gap 17 mmol/L (10-20); BUN (Urea Nitrogen) 41 mg/dL (8.4-25.7); Calc. Creatinine Clearance 39 mL/min (70-130); Calcium 9.1 mg/dL (7.8-10.44); Carbon Dioxide 30 mmol/L (23-31); Chloride 88 mmol/L (98-107); Glucose 133 mg/dL (83-110); Sodium 132 mmol/L (136-145)
[2020-08-16] MEDS: Rosuvastatin 20 MG TAB PO SCH (08:20)
[2020-08-16] MEDS: Famotidine 20 MG TAB PO SCH (08:20)
[2020-08-16] MEDS: Digoxin 0.25 MG TAB PO SCH (08:21)
[2020-08-16] MEDS: Sucralfate 1 GM TAB PO SCH ×3 (08:22→17:21)
[2020-08-16] MEDS: Lorazepam 1 MG TAB PO SCH ×3 (08:22→19:58)
[2020-08-16] MEDS: Furosemide 40 MG/4 ML VIAL SLOW IVP SCH (08:22)
[2020-08-16] MEDS: Aspirin 81 mg Enteric Coated Tablet PO SCH (08:22)
[2020-08-16] MEDS: Acetaminophen 325 MG TAB PO PRN ×2 (08:32→19:59)
[2020-08-16] MEDS: Senokot 8.6 MG TAB PO SCH ×2 (08:33→19:58)
[2020-08-16] MEDS ORDERED: Potassium Chloride 20 MEQ TAB PO SCH ×2 (08:43→12:00)
[2020-08-16] MEDS ORDERED: Furosemide 20 MG TAB PO SCH (09:00)
[2020-08-16] MEDS: HumaLOG 300 UNITS/3 ML VIAL SC PRN (11:27)
--- NOTE | 2020-08-16 13:10 | PDOC.CPN ---
- Subjective Date: 08/16/20 Time: 13:10 Interval history: He is feeling better today. His creatinine increased today. He hd a CT yesterday that showed still fluid overload with pleural effusions and tissue swelling. - Review of Systems General: denies: fever/chills, weight/appetite/sleep changes, night sweats, fatigue Respiratory: denies: cough, congestion, shortness of breath, exercise intolerance Cardiovascular: denies: chest pain, palpitation, edema, paroxysmal nocturnal dyspnea, orthopnea Gastrointestinal: denies: nausea, vomiting, diarrhea, constipation, abd pain, GI bleeding Musculoskeletal: denies: pain, tenderness, stiffness, swelling, arth ritis/arthralgias Neurological: denies: numbness, syncope, seizure, weakness - Objective Allergies/Adverse Reactions: Allergies Allergy/AdvReac Type Severity Reaction Status Date / Time No Known Drug Allergies Allergy Verified 08/13/20 06:02 Visit Medications: Current Medications Acetaminophen (Acetaminophen 325 Mg Tab) 650 mg PO Q4H PRN PRN Reason: Headache/Fever/Mild Pain (1-3) Last Admin: 08/16/20 08:32 Dose: 650 mg Documented by: Acetaminophen (Acetaminophen 650 Mg Suppository) 650 mg [place] Q4H PRN PRN Reason: Headache/Fever/Mild Pain (1-3) Al Hydroxide/Mg Hydroxide (Mag-Al 1200 Mg/1200 Mg/30 Ml Udcup) 15 ml PO Q4H PRN PRN Reason: Heartburn or Indigestion Aspirin (Aspirin 81 Mg Enteric Coated Tablet) 81 mg PO DAILY [facility] Last Admin: 08/16/20 08:22 Dose: 81 mg Documented by: Calcium Carbonate (Calcium Carbonate 500 Mg Chewtab) 1,000 mg PO Q4H PRN PRN Reason: Heartburn or Indigestion Last Admin: 08/15/20 11:11 Dose: 1,000 mg Documented by: Dextrose/Water (Dextrose 50% Abboject 50 Ml Syringe) 25 gm SLOW IVP PRN PRN PRN Reason: Hypoglycemia Digoxin (Digoxin 0.25 Mg Tab) 0.125 mg PO DAILY [facility] Last Admin: 08/16/20 08:21 Dose: 0.125 mg Documented by: Famotidine (Famotidine 20 Mg Tab) 20 mg PO DAILY [facility] Furosemide (Furosemide 40 Mg/4 Ml Vial) 40 mg SLOW IVP DAILY [facility] Last Admin: 08/16/20 08:22 Dose: 40 mg Documented by: Glucagon (Glucagon 1 Mg/Ml Vial) 1 mg IM PRN PRN PRN Reason: Hypoglycemia Dextrose/Water (D5w) 1,000 mls @ 0 mls/hr IV .Q0M PRN PRN Reason: Hypoglycemia Insulin Glargine 10 units/ (Miscellaneous Medication) 0.1 mls @ 0 mls/hr SC HS [facility] Last Admin: 08/15/20 20:39 Dose: Not Given Documented by: Dobutamine HCl/Dextrose (Dobutamine 500 Mg/250 Ml) 250 mls @ 10.86 mls/hr IVPB INF [facility]; Protocol Insulin Human Lispro (Humalog 300 Units/3 Ml Vial) 0 units SC .MILD SLIDING SCALE PRN PRN Reason: Mild Correctional Scale Last Admin: 08/16/20 11:27 Dose: 4 unit Documented by: Insulin Human Lispro (Humalog 300 Units/3 Ml Vial) 0 units SC .BEDTIME SLIDING SC PRN PRN Reason: Bedtime Correctional Scale Last Admin: 08/15/20 20:36 Dose: 3 unit Documented by: Lorazepam (Lorazepam 1 Mg Tab) 1 mg PO TID [facility] Last Admin: 08/16/20 08:22 Dose: Not Given Documented by: Pantoprazole Sodium (Pantoprazole 40 Mg Tab) 40 mg PO DAILY [facility] Last Admin: 08/16/20 08:22 Dose: 40 mg Documented by: Potassium Chloride (Potassium Chloride 20 Meq Tab) 40 meq PO 1200 [facility] Stop: 08/16/20 14:00 Last Admin: 08/16/20 11:24 Dose: 40 meq Documented by: Ranolazine (Ranolazine 500 Mg Tab) 500 mg PO BID [facility] Last Admin: 08/16/20 08:20 Dose: 500 mg Documented by: Rosuvastatin Calcium (Rosuvastatin 20 Mg Tab) 40 mg PO DAILY [facility] Last Admin: 08/16/20 08:20 Dose: 40 mg Documented by: Senna (Senokot 8.6 Mg Tab) 2 tab PO BID [facility] Last Admin: 08/16/20 08:33 Dose: 2 tab Documented by: Sodium Chloride (Flush - Normal Saline 10 Ml Syringe) 10 ml IVF Q12HR [facility] Last Admin: 08/16/20 09:23 Dose: 10 ml Documented by: Sodium Chloride (Flush - Normal Saline 10 Ml Syringe) 10 ml IVF PRN PRN PRN Reason: Saline Flush Sucralfate (Sucralfate 1 Gm Tab) 1 gm PO AC [facility] Last Admin: 08/16/20 11:24 Dose: 1 gm Documented by: Tramadol HCl (Tramadol Hcl 50 Mg Tab) 50 mg PO Q6H PRN PRN Reason: Pain 4-6 Last Admin: 08/15/20 10:15 Dose: 50 mg Documented by: Warfarin Sodium (Warfarin Sodium 5 Mg Tab) 5 mg PO DAILY@1700 [facility] Last Admin: 08/15/20 17:27 Dose: 5 mg Documented by: Vital Signs & Weight: Vital Signs Temp Pulse Resp BP BP Pulse Ox 08/16/20 11:32 97.7 F 90 15 112/51 L 81 L 08/16/20 08:21 97 08/16/20 07:42 98.2 F 97 16 97/55 L 97 08/16/20 04:00 98.3 F 70 16 108/57 L 98 Weight 159 lb 9.835 oz - Physical Exam General: alert & oriented x3 HEENT: mucus membranes moist Neck: supple neck Cardiac: irregularly regular Lungs: normal breath sounds Neuro: no lateralizing findings Abdomen: active bowel sounds Extremities: no edema Skin: clear - Labs Result Diagrams: 08/16/20 03:50 08/16/20 14:35 Troponin/CKMB CK-MB (CK-2) 2.5 ng/mL (0-6.6) 08/14/20 15:28 Troponin I 0.708 ng/mL (< 0.028) H* 08/14/20 15:28 - Telemetry Supraventricular conduction: atrial fibrillation - Assessment/Plan Assessment/Plan: 1. Acute on chronic systolic heart failure 2. Ischgemic CM EF at 20-25% 3. CAD 4. Type 2 demand ischemia 5. Bi ventricular AICD. 6. Chronic afib on warfarin 7. HTN\ 8. DM 9. CKD PLAN: - Remains volume up but kidney function worsening. - Continue IV lasix. - Replace K as needed and check INR daily. - Will start dobutamine for better cardiac output.
--- NOTE | 2020-08-16 13:47 | PDOC.HOSPP ---
- Subjective Encounter Date: 08/16/20 Encounter Time: 09:30 Subjective: Patient appears little sleepy. He is afebrile but white count is little high. His electrolytes also off range. I cannot give him any fluid but provide fluid restrictions. I will let Dr. Tinoco know about this patient [place] patient possibly having a cardiorenal syndrome. His CT chest done yesterday no evidence of pulmonary embolism but vascular congestion and cardiomegaly. There is 7 mm nodule in the right midlung probably follow-up recommended per radiologist. - Objective Vital Signs & Weight: Vital Signs (12 hours) Temp Pulse Resp BP BP Pulse Ox 08/16/20 11:32 97.7 F 90 15 112/51 L 81 L 08/16/20 08:21 97 08/16/20 07:42 98.2 F 97 16 97/55 L 97 08/16/20 04:00 98.3 F 70 16 108/57 L 98 Weight Weight 159 lb 9.835 oz I&O: 08/15/20 08/16/20 08/17/20 06:59 06:59 06:59 Intake Total 1492 1230 240 Output Total 125 1050 Balance 1367 180 240 Result Diagrams: 08/16/20 03:50 08/16/20 03:50 Additional Labs: Accuchecks 08/16/20 08/16/20 08/15/20 10:18 05:34 20:19 POC Glucose 292 H 119 H 276 H 08/15/20 16:28 POC Glucose 215 H Hospitalist ROS - Medication Medications: Active Medications Generic Name Dose Route Start Last Admin Trade Name Freq PRN Reason Stop Dose Admin Acetaminophen 650 mg 08/13/20 03:45 08/16/20 08:32 Acetaminophen 325 Mg Tab PO 650 mg Q4H PRN Administration Headache/Fever/Mild Pain (1-3) Aspirin 81 mg 08/13/20 09:00 08/16/20 08:22 Aspirin 81 Mg Enteric Coated Tablet PO 81 mg DAILY ANA Administration Calcium Carbonate 1,000 mg 08/13/20 03:45 08/15/20 11:11 Calcium Carbonate 500 Mg Chewtab PO 1,000 mg Q4H PRN Administration Heartburn or Indigestion Digoxin 0.125 mg 08/15/20 09:00 08/16/20 08:21 Digoxin 0.25 Mg Tab PO 0.125 mg DAILY ANA Administration Furosemide 40 mg 08/16/20 09:00 08/16/20 08:22 Furosemide 40 Mg/4 Ml Vial SLOW IVP 40 mg DAILY ANA Administration Insulin Glargine 10 units/ 0.1 mls @ 0 mls/hr 08/13/20 21:00 08/15/20 20:39 Miscellaneous Medication SC Not Given HS ANA Insulin Human Lispro 0 units 08/13/20 04:08 08/16/20 11:27 Humalog 300 Units/3 Ml Vial SC 4 unit .MILD SLIDING SCALE PRN Administration Mild Correctional Scale Insulin Human Lispro 0 units 08/15/20 20:30 08/15/20 20:36 Humalog 300 Units/3 Ml Vial SC 3 unit .BEDTIME SLIDING SC PRN Administration Bedtime Correctional Scale Lorazepam 1 mg 08/15/20 15:00 08/16/20 08:22 Lorazepam 1 Mg Tab PO Not Given TID ANA Pantoprazole Sodium 40 mg 08/16/20 09:00 08/16/20 08:22 Pantoprazole 40 Mg Tab PO 40 mg DAILY ANA Administration Potassium Chloride 40 meq 08/16/20 12:00 08/16/20 11:24 Potassium Chloride 20 Meq Tab PO 08/16/20 14:00 40 meq 1200 ANA Administration Ranolazine 500 mg 08/14/20 21:00 08/16/20 08:20 Ranolazine 500 Mg Tab PO 500 mg BID ANA Administration Rosuvastatin Calcium 40 mg 08/13/20 09:00 08/16/20 08:20 Rosuvastatin 20 Mg Tab PO 40 mg DAILY ANA Administration Senna 2 tab 08/13/20 21:00 08/16/20 08:33 Senokot 8.6 Mg Tab PO 2 tab BID ANA Administration Sodium Chloride 10 ml 08/15/20 21:00 08/16/20 09:23 Flush - Normal Saline 10 Ml Syringe IVF 10 ml Q12HR ANA Administration Sucralfate 1 gm 08/15/20 11:30 08/16/20 11:24 Sucralfate 1 Gm Tab PO 1 gm AC ANA Administration Tramadol HCl 50 mg 08/14/20 19:22 08/15/20 10:15 Tramadol Hcl 50 Mg Tab PO 50 mg Q6H PRN Administration Pain 4-6 Warfarin Sodium 5 mg 08/13/20 17:00 08/15/20 17:27 Warfarin Sodium 5 Mg Tab PO 5 mg DAILY@1700 [facility] Administration Hospitalist Exam Vitals: Vital Signs (12 hours) Temp Pulse Resp BP BP Pulse Ox 08/16/20 11:32 97.7 F 90 15 112/51 L 81 L 08/16/20 08:21 97 08/16/20 07:42 98.2 F 97 16 97/55 L 97 08/16/20 04:00 98.3 F 70 16 108/57 L 98 Weight Weight 159 lb 9.835 oz General Appearance: NAD, awake alert Eye: PERRL ENT: normocephalic atraumatic Neck: supple Heart: RRR, normal peripheral pulses Respiratory: CTAB, normal chest expansion Gastrointestinal: soft, normal bowel sounds Neurological: no focal deficits Musculoskeletal: generalized weakness Psychiatric: somnolent, lethargic Hosp A/P - Plan cute on chronic systolic (congestive) heart failure Code(s): I50.23 - ACUTE ON CHRONIC SYSTOLIC (CONGESTIVE) HEART FAILURE Status: Acute (2) CKD (chronic kidney disease) Code(s): N18.9 - CHRONIC KIDNEY DISEASE, UNSPECIFIED Status: Acute (3) Hyponatremia Code(s): E87.1 - HYPO-OSMOLALITY AND HYPONATREMIA Status: Acute (4) Atrial fibrillation Code(s): I48.91 - UNSPECIFIED ATRIAL FIBRILLATION Status: Chronic Qualifiers: Atrial fibrillation type: persistent (not longstanding) Qualified Code(s): I48.19 - Other persistent atrial fibrillation; I48.1 - Persistent atrial fibrillation (5) CAD (coronary artery disease) Code(s): I25.10 - ATHSCL HEART DISEASE OF [place] CORONARY ARTERY W/O ANG PCTRS Status: Chronic (6) DM type 2 (diabetes mellitus, type 2) Status: Chronic (7) Dyslipidemia Code(s): E78.5 - HYPERLIPIDEMIA, UNSPECIFIED Status: Chronic (8) Hypertension Code(s): I10 - ESSENTIAL (PRIMARY) HYPERTENSION Status: Chronic (9) Ischemic cardiomyopathy Code(s): I25.5 - ISCHEMIC CARDIOMYOPATHY Status: Chronic - Plan Plan: 74y/o male with the stated pmhx who presents with decompensated systolic heart failire Acute on chronic systolic heart failure - bnp over 500 - lasix iv q 12 -Dr. Umana has seen the patient recommendation continue with the diuresis. - Ischemic cardiomyopathy with EF of 25% -Repeat echo also explained the same. 25% -Remote status post AICD placement hyponatremia - likely secondary to fluid overload - will f/u bmp ckd - monitor u/o and gfr due to aggresive diuretic therapy dm acc+ss htn - continue home meds atrial fib - continue rate control w beta juvencio -He is on Coumadin and it is therapeutic. cad - on optima tx, with beta juvencio, asa/plavix on entresto + statin Echo has been completed but report is pending. Patient has an appointment on Friday at cardiac rehab at [place]. Due to low blood pressure, he will be here; his blood pressure medications need to be titrated further. Per Dr. Paige, continue with the Demadex and he may need as needed metolazone along with the potassium. This morning one of his blood glucose reading was 464 but the previous reading around 5:30 AM was 103. Patient's is extremely upset how we can let blood glucose going to 464. I know this couple very well from the last hospitalization. is quite demanding and do not understand his current advanced heart conditions. During my last management, they were transferred from [facility] for the same reason that they did not get enough care there[according to his ] and now she is complaining the same stating not providing enough care and she wants the patient to be transferred. Medically I cannot do that, as he is stable and does not require aggressive cardiac intervention but palliative evaluation. I also discussed with the Dr. Sandoval. Leukocytosis -Patient not on any insulin. Unclear why he has elevated white count with a bandemia. A CT chest performed yesterday did not show any active infiltrate other than ongoing haziness. -We will follow up with the urine analysis 7 mm pulmonary nodule in the right middle lobe- no evidence of pulmonary embolism but vascular congestion and cardiomegaly. - follow-up recommended in 3 to 6 months Hyponatremia Hypokalemia Worsening of his kidney function Cardiorenal syndrome -Nephrology consult placed. Dr. Tinoco has seen this patient in the past. --With his advanced heart disease it is an ongoing fine titration of his medications and the diet compliance to maintain his functional status. -Also need to be more realistic --consulted the palliative care as well. -PT OT consult placed
[2020-08-16] MEDS ORDERED: Dextrose 5% in Water 1,000 ML IV PRN (13:52)
[2020-08-16] MEDS ORDERED: Dextrose 50% Abboject 50 ML SYRINGE SLOW IVP PRN (13:52)
[2020-08-16] MEDS: traMADol HCl 50 MG TAB PO PRN (14:07)
[2020-08-16 15:10] LABS: Anion Gap 17 mmol/L (10-20); BUN (Urea Nitrogen) 45 mg/dL (8.4-25.7); Calc. Creatinine Clearance 34 mL/min (70-130); Calcium 9.5 mg/dL (7.8-10.44); Carbon Dioxide 29 mmol/L (23-31); Chloride 89 mmol/L (98-107); Glucose 187 mg/dL (83-110); Potassium 4.5 mmol/L (3.5-5.1); Sodium 130 mmol/L (136-145)
[2020-08-16] MEDS: Warfarin Sodium 5 MG TAB PO SCH (17:21)
[2020-08-16] MEDS: HumaLOG 300 UNITS/3 ML VIAL SC SCH (17:24)
[2020-08-16 17:37] LABS: Bacteria/HPF None Seen HPF (None Seen); Bilirubin Negative (Negative); Blood, Urine Trace (Negative); Clarity Clear (Clear); Glucose, Urine (Dipstick) 70 mg/dL (Negative); Ketone, Urine Negative (Negative); Leukocyte Negative Leu/uL (Negative); Nitrite Negative (Negative); Protein, Urine (Dipstick) Negative (Neg-Trace); RBC/HPF 0-3 HPF (0-3); Squamous Epithelial 0-3 HPF (0-3); Urobilinogen Normal mg/dL (Less than 2); WBC/HPF 0-3 HPF (0-3); pH, Urine 5.5 (5.0-9.0)
[2020-08-16] MEDS: DOBUTamine 500 mg/250 ml 250 ML IVPB SCH (17:37)
--- NOTE | 2020-08-16 20:30 | CON ---
DATE OF CONSULTATION: CONSULTING PHYSICIAN: Earnest Sullivan MD REQUESTING PHYSICIAN: Dr. Wilson. REASON FOR CONSULTATION: [id number] kidney disease. IMPRESSION: 1. [id number] kidney disease. This is likely cardiorenal syndrome compounded by the recent exposure to contrast in the face of diuresis. 2. Baseline chronic kidney disease stage 3. 3. Congestive heart failure contributing to changes in the renal function. 4. Hyponatremia, query cause. PLAN: 1. The patient may benefit from increase in the inotropic . 2. The patient clinically does not look fluid overloaded at this point, therefore we will not push for increased diuresis. 3. Renally dose all medications per low GFR. 4. Avoid potentially nephrotoxic agents. 5. I would not be surprised if the renal function deteriorates further in the next 24 to 48 hours contrast nephropathy. 6. Further management to be dependent on the clinical course. HISTORY OF PRESENT ILLNESS: History is that of a 74-year-old gentleman with ischemic cardiomyopathy, who presented here with worsening shortness of breath in the context of decompensated cardiac failure. The patient did undergo diuresis with improvement in the renal function as evidenced by creatinine that improved from 2.03 on presentation to about 1.41. However, the patient did undergo a contrast-based CT scan study in the past 24 hours and since then was noticing rise in creatinine. Current creatinine of 1.74 causing the need for renal consultation. The patient still continues to make urine and has been given several doses of Lasix diuretic. Otherwise, the patient seems to be clinically stable at this point. PAST MEDICAL HISTORY: Significant for; 1. Ischemic cardiomyopathy with EF of about 20% to 25%. 2. Chronic kidney disease stage 3. 3. Diabetes. 4. Hypertension. 5. Dyslipidemia. 6. CVA. 7. Varicose veins. MEDICATIONS: Reviewed and as documented on [facility]. ALLERGIES: NO KNOWN DRUG ALLERGIES. SOCIAL HISTORY: No alcohol. No tobacco. No illicit drug use. FAMILY HISTORY: Not significantly related to present illness. REVIEW OF SYSTEMS: As documented in the body of history. All the other systems were reviewed and found not to be significantly related to present illness. PHYSICAL EXAMINATION: VITAL SIGNS: The patient is noted to be afebrile with temperature of 97.7, pulse 90, respiratory rate of 15, O2 saturation of 97% with blood pressure of 116/60. HEENT: Unremarkable. CARDIOVASCULAR: First and second heart sounds were heard. RESPIRATORY: Clear to auscultation. DIGESTIVE SYSTEM: Revealed a benign abdomen with positive bowel sounds. EXTREMITIES: No peripheral edema. SKIN: No new gross rash. LYMPHATICS: No peripheral lymphadenopathy. In summary, 74-year-old gentleman with advanced cardiomyopathy, presented here with evidence of cardiac decompensation. Over the course of hospitalization, experiencing deteriorating renal function after initial improvement, status post contrast exposure. Thank you for this consultation. We will follow with you. Job ID: [id number]
[2020-08-16] MEDS ORDERED: Insulin Glargine 12 UNITS in Pre-Filled Syringe SC SCH (21:00)
[2020-08-17] MEDS: Acetaminophen 325 MG TAB PO PRN ×2 (00:26→09:06)
[2020-08-17 04:27] LABS: #Basophils 0.1 thou/uL (0.0-0.2); #Eosinphils 0.1 thou/uL (0.0-0.7); #Lymphocytes 1.9 thou/uL (1.20-3.40); #Neutrophils 7.3 thou/uL (1.40-6.50); %Basophils 0.7 % (0.0-1.0); %Eosinophils 1.2 % (0.0-10.0); %Lymphocytes 18.4 % (21.0-51.0); %Monocytes 9.4 % (0.0-10.0); %Neutrophils 70.3 % (42.0-75.0); Hemoglobin 12.6 g/dL (14.0-18.0); Mean Corpuscular HGB CONC 34.3 g/dL (32.0-36.0); Mean Corpuscular Hemoglobin 35.6 pg (27.0-31.0); Mean Platelet Volume 9.4 fL (7.4-10.4); Platelet Count 154 thou/uL (130-400); RBC Distribution Width 13.9 % (11.5-14.5); Red Blood Cell (RBC) Count 3.52 mill/uL (4.70-6.10); White Blood Cell (WBC) Count 10.4 thou/uL (4.8-10.8)
[2020-08-17 04:30] LABS: INR-International Normal Ratio 2.3; PTT 40.8 sec (22.9-36.1); Prothrombin Time 25.6 sec (12.0-14.7)
[2020-08-17 04:47] LABS: Anion Gap 13 mmol/L (10-20); BUN (Urea Nitrogen) 44 mg/dL (8.4-25.7); Calc. Creatinine Clearance 43 mL/min (70-130); Calcium 8.8 mg/dL (7.8-10.44); Carbon Dioxide 32 mmol/L (23-31); Chloride 92 mmol/L (98-107); Glucose 91 mg/dL (83-110); Potassium 3.6 mmol/L (3.5-5.1); Sodium 133 mmol/L (136-145)
[2020-08-17] MEDS ORDERED: Famotidine 20 MG TAB PO SCH (09:00)
[2020-08-17] MEDS: Sucralfate 1 GM TAB PO SCH ×3 (09:02→16:23)
[2020-08-17] MEDS: Lorazepam 1 MG TAB PO SCH ×3 (09:05→21:53)
[2020-08-17] MEDS: Aspirin 81 mg Enteric Coated Tablet PO SCH (09:05)
[2020-08-17] MEDS: Senokot 8.6 MG TAB PO SCH ×2 (09:06→21:53)
[2020-08-17] MEDS: Rosuvastatin 20 MG TAB PO SCH (09:06)
[2020-08-17] MEDS: Furosemide 40 MG/4 ML VIAL SLOW IVP SCH (09:11)
[2020-08-17] MEDS: Digoxin 0.25 MG TAB PO SCH (09:11)
[2020-08-17] MEDS: HumaLOG 300 UNITS/3 ML VIAL SC SCH (11:09)
[2020-08-17] MEDS ORDERED: Lorazepam 1 MG TAB PO PRN (12:16)
--- NOTE | 2020-08-17 12:16 | PDOC.PALCO ---
Palliative Care Consult - Consult Details Requesting Physician: Dr Wilson Reason for Consult: goals of care, advance directives assistance, assistance with communication prognosis/disease, coping issues Family Members Present: none - Pertinent HPI 74 yo male with admission through ED for decompensated HFrEF with increased MCKINNEY, orthopnea, PND and edema. Had recent admission for same symptoms. The only recent change in meds was switching from spironolactone to eplerenone for c/o breast pain. Na was low at 127, K 3.3, BUN 48, Creat 2.03, BNP 593.5. CXR with cardiomegaly and pulmonary congestion. Is being diuresed with IV Lasix and BP supported with dobutamine 5 mcg/kg/min. Repeat echo with EF 20-25%. Has had Heart Cath and CT scan and dye load may have contributed to kidney function worsening. Renal consult with Dr Tinoco for suspected cardiorenal syndrome. In visit with patient, discussed advanced directives and he says that decision is his 's and she wants everything done. Discussed goals of care and he "wants to go home". Explained that he still needs more diuresis or he will readmit again. Discussed his low heart function and need to take his home meds consistently as ordered. His wants him transferred to [facility] because "he is not well yet" but hospitalist does not feel transfer to same level of care is appropriate as he is currently stable and progressing as expected. - Pertinent PMH coronary artery disease, diabetes, hypertension, hyperlipidemia, history of CVA, CABG, coronary stent placements, BIV AICD - Social History Smoking Status: Never smoker Alcohol Use: none Drug Use History: none Living Situation: - Medications MAR Reviewed: Yes - Allergies Allergies/Adverse Reactions: Allergies Allergy/AdvReac Type Severity Reaction Status Date / Time No Known Drug Allergies Allergy Verified 08/13/20 06:02 - Subjective "I want to go home" - ROS Constitutional: alert (Conversive, appropriate) Eyes: other (No problems) ENT: other (No problems) Respiratory: dry cough, shortness of breath with extertion Cardiology: other (Denies palpitations ) Gastrointestinal: bloating, stomach discomfort (with meds) - Objective Vital Signs: Vital Signs - Most Recent Temp Pulse Resp BP Pulse Ox 97.8 F 79 16 126/59 L 99 08/17/20 11:02 08/17/20 11:02 08/17/20 11:02 08/17/20 11:02 08/17/20 11:02 - Advance Directives Medical Power of Supervisor Assembling: Specific Directives: Full Code - Physical Exam Constitutional: NAD HEENT: EOMI, moist MMs, sclera anicteric Respiratory: clear to auscultation bilateral, no rales, no rhonchi, no wheezing, unlabored breathing Cardiovascular: no rub, no significant murmur Deviation from normal: Distant heart sounds - irregular/irregualr- 100% BiV paced Gastrointestinal: continent Genitourinary: continent Musculoskeletal: no cyanosis, no clubbing, no edema, pulses present Neurology: moves all 4 limbs, no focal deficits, normal sensation Skin: cap refill <2 seconds, normal turgor Psychiatric: A&O x 3, normal affect, normal mood - Problem List (1) Encounter for palliative care Code(s): Z51.5 - ENCOUNTER FOR PALLIATIVE CARE Current Visit: Yes Status: Acute (2) Acute cardiac pulmonary edema Current Visit: No Status: Acute (3) Acute on chronic renal failure Code(s): N17.9 - ACUTE KIDNEY FAILURE, UNSPECIFIED; N18.9 - CHRONIC KIDNEY DISEASE, UNSPECIFIED Current Visit: Yes Status: Acute (4) Acute on chronic systolic (congestive) heart failure Code(s): I50.23 - ACUTE ON CHRONIC SYSTOLIC (CONGESTIVE) HEART FAILURE Current Visit: Yes Status: Acute Comments: Improving with IV lasix and dobutamine (5) Hyponatremia Code(s): E87.1 - HYPO-OSMOLALITY AND HYPONATREMIA Current Visit: No Status: Acute - Plan/Recommendations Plan: Introduced Palliative Care - was not present today- he states that she makes all decisions and he has" nothing to say about anything"- he will follow her directives and remain Full Code Discussed disease process and prognosis- that HFrEF is a progressive disease and rehospitalizations for decompensation are sign that HF is worsening Discussed Coping Issues and he again stated that whatever his wants to do, he will go along with. Per hospitalist, is wanting to move him to [facility] but transfer to same level of care is not appropriate. I showed Mr Crockett his AICD i nterrogation demonstrating that he still has fluid in his thoracic cavity and that he needs to remain in hospital and complete the treatment plan - he agrees. Palliative Care will sign off as is adamant about any alterations in Advanced Directives or Plan of Care 90 minutes spent on this encounter with >50% of the time in counseling and coordination of care. Thank you for this very appropriate consult.
[2020-08-17] MEDS ORDERED: Mag-Al Plus 1200 MG/1200 MG/120 MG/30 ML UDCUP PO PRN (12:18)
--- NOTE | 2020-08-17 12:29 | PDOC.HOSPP ---
- Subjective Encounter Date: 08/17/20 Encounter Time: 09:10 Subjective: Patient seen this morning. He is complaining of abdominal discomfort as well as chest discomfort more like acid reflux issue. He is normotensive and his blood glucose is labile but less than 200. He is getting dobutamine drip. - Objective Vital Signs & Weight: Vital Signs (12 hours) Temp Pulse Pulse Pulse Resp BP BP 08/17/20 11:02 97.8 F 79 16 08/17/20 09:33 88 97 110/59 L 119/57 L 08/17/20 08:39 79 86 118/71 115/65 08/17/20 07:49 97.4 F L 78 17 08/17/20 04:53 97.4 F L 80 18 BP BP Pulse Ox Pulse Ox Pulse Ox 08/17/20 11:02 126/59 L 99 08/17/20 09:33 98 98 08/17/20 08:39 98 08/17/20 07:49 111/57 L 98 08/17/20 04:53 119/62 98 Weight Weight 158 lb 4.67 oz I&O: 08/16/20 08/17/20 08/18/20 06:59 06:59 06:59 Intake Total 1230 950 Output Total 1050 1520 Balance 180 -570 Result Diagrams: 08/17/20 03:54 08/17/20 03:54 Additional Labs: Accuchecks 08/17/20 08/17/20 08/16/20 10:38 05:55 19:55 POC Glucose 243 H 82 128 H 08/16/20 16:46 POC Glucose 183 H Hospitalist ROS - Medication Medications: Active Medications Generic Name Dose Route Start Last Admin Trade Name Freq PRN Reason Stop Dose Admin Acetaminophen 650 mg 08/13/20 03:45 08/17/20 09:06 Acetaminophen 325 Mg Tab PO 650 mg Q4H PRN Administration Headache/Fever/Mild Pain (1-3) Aspirin 81 mg 08/13/20 09:00 08/17/20 09:05 Aspirin 81 Mg Enteric Coated Tablet PO 81 mg DAILY ANA Administration Calcium Carbonate 1,000 mg 08/13/20 03:45 08/15/20 11:11 Calcium Carbonate 500 Mg Chewtab PO 1,000 mg Q4H PRN Administration Heartburn or Indigestion Digoxin 0.125 mg 08/15/20 09:00 08/17/20 09:11 Digoxin 0.25 Mg Tab PO Not Given DAILY ANA Famotidine 20 mg 08/17/20 09:00 08/17/20 09:05 Famotidine 20 Mg Tab PO 20 mg DAILY ANA Administration Furosemide 40 mg 08/16/20 09:00 08/17/20 09:11 Furosemide 40 Mg/4 Ml Vial SLOW IVP 40 mg DAILY ANA Administration Dobutamine HCl/Dextrose 250 mls @ 10.86 mls/hr 08/16/20 13:15 08/16/20 17:37 Dobutamine 500 Mg/250 Ml IVPB 250 mls INF ANA Administration Protocol 5 MCG/KG/MIN Insulin Human Lispro 0 units 08/15/20 20:30 08/15/20 20:36 Humalog 300 Units/3 Ml Vial SC 3 unit .BEDTIME SLIDING SC PRN Administration Bedtime Correctional Scale Insulin Human Lispro 0 units 08/16/20 14:00 08/17/20 11:09 Humalog 300 Units/3 Ml Vial SC 4 unit .MODERATE SLIDING SC ANA Administration Lorazepam 1 mg 08/15/20 15:00 08/17/20 09:05 Lorazepam 1 Mg Tab PO 1 mg TID ANA Administration Pantoprazole Sodium 40 mg 08/16/20 09:00 08/17/20 09:03 Pantoprazole 40 Mg Tab PO 40 mg DAILY ANA Administration Ranolazine 500 mg 08/14/20 21:00 08/17/20 09:06 Ranolazine 500 Mg Tab PO 500 mg BID ANA Administration Rosuvastatin Calcium 40 mg 08/13/20 09:00 08/17/20 09:06 Rosuvastatin 20 Mg Tab PO 40 mg DAILY ANA Administration Senna 2 tab 08/13/20 21:00 08/17/20 09:06 Senokot 8.6 Mg Tab PO 2 tab BID ANA Administration Sodium Chloride 10 ml 08/15/20 21:00 08/17/20 09:10 Flush - Normal Saline 10 Ml Syringe IVF 10 ml Q12HR ANA Administration Sucralfate 1 gm 08/15/20 11:30 08/17/20 11:06 Sucralfate 1 Gm Tab PO 1 gm AC ANA Administration Tramadol HCl 50 mg 08/14/20 19:22 08/16/20 14:07 Tramadol Hcl 50 Mg Tab PO 50 mg Q6H PRN Administration Pain 4-6 Warfarin Sodium 5 mg 08/13/20 17:00 08/16/20 17:21 Warfarin Sodium 5 Mg Tab PO 5 mg DAILY@1700 [facility] Administration Hospitalist Exam Vitals: Vital Signs (12 hours) Temp Pulse Pulse Pulse Resp BP BP 08/17/20 11:02 97.8 F 79 16 08/17/20 09:33 88 97 110/59 L 119/57 L 08/17/20 08:39 79 86 118/71 115/65 08/17/20 07:49 97.4 F L 78 17 08/17/20 04:53 97.4 F L 80 18 BP BP Pulse Ox Pulse Ox Pulse Ox 08/17/20 11:02 126/59 L 99 08/17/20 09:33 98 98 08/17/20 08:39 98 08/17/20 07:49 111/57 L 98 08/17/20 04:53 119/62 98 Weight Weight 158 lb 4.67 oz General Appearance: NAD, awake alert Eye: PERRL ENT: normocephalic atraumatic Neck: supple Heart: RRR Respiratory: CTAB, normal chest expansion Gastrointestinal: soft, normal bowel sounds Extremities: 1+ LE edema Neurological: cranial nerve grossly intact, no new deficit Musculoskeletal: generalized weakness Psychiatric: A&O x 3 Hosp A/P - Plan cute on chronic systolic (congestive) heart failure Code(s): I50.23 - ACUTE ON CHRONIC SYSTOLIC (CONGESTIVE) HEART FAILURE Status: Acute (2) CKD (chronic kidney disease) Code(s): N18.9 - CHRONIC KIDNEY DISEASE, UNSPECIFIED Status: Acute (3) Hyponatremia Code(s): E87.1 - HYPO-OSMOLALITY AND HYPONATREMIA Status: Acute (4) Atrial fibrillation Code(s): I48.91 - UNSPECIFIED ATRIAL FIBRILLATION Status: Chronic Qualifiers: Atrial fibrillation type: persistent (not longstanding) Qualified Code(s): I48.19 - Other persistent atrial fibrillation; I48.1 - Persistent atrial fibrillation (5) CAD (coronary artery disease) Code(s): I25.10 - ATHSCL HEART DISEASE OF PLATINUM CORONARY ARTERY W/O ANG PCTRS Status: Chronic (6) DM type 2 (diabetes mellitus, type 2) Status: Chronic (7) Dyslipidemia Code(s): E78.5 - HYPERLIPIDEMIA, UNSPECIFIED Status: Chronic (8) Hypertension Code(s): I10 - ESSENTIAL (PRIMARY) HYPERTENSION Status: Chronic (9) Ischemic cardiomyopathy Code(s): I25.5 - ISCHEMIC CARDIOMYOPATHY Status: Chronic - Plan Plan: 74y/o male with the stated pmhx who presents with decompensated systolic heart failire Acute on chronic systolic heart failure - bnp over 500 - lasix iv q 12 -Dr. Umana has seen the patient recommendation continue with the diuresis. - Ischemic cardiomyopathy with EF of 25% -Repeat echo also explained the same. 25% -Remote status post AICD placement hyponatremia - likely secondary to fluid overload - will f/u bmp ckd - monitor u/o and gfr due to aggresive diuretic therapy dm acc+ss htn - continue home meds atrial fib - continue rate control w beta juvencio -He is on Coumadin and it is therapeutic. cad - on optima tx, with beta juvencio, asa/plavix on entresto + statin Echo has been completed but report is pending. Patient has an appointment on Friday at cardiac rehab at [place]. Due to low blood pressure, he will be here; his blood pressure medications need to be titrated further. Per Dr. Paige, continue with the Demadex and he may need as needed metolazone along with the potassium. This morning one of his blood glucose reading was 464 but the previous reading around 5:30 AM was 103. Patient's is extremely upset how we can let blood glucose going to 464. I know this couple very well from the last hospitalization. is quite demanding and do not understand his current advanced heart conditions. During my last management, they were transferred from [facility] for the same reason that they did not get enough care there[according to his ] and now she is complaining the same stating not providing enough care and she wants the patient to be transferred. Medically I cannot do that, as he is stable and does not require aggressive cardiac intervention but palliative evaluation. I also discussed with the Dr. Sandoval. Leukocytosis -Patient not on any insulin. Unclear why he has elevated white count with a bandemia. A CT chest performed yesterday did not show any active infiltrate other than ongoing haziness. -We will follow up with the urine analysis 7 mm pulmonary nodule in the right middle lobe- no evidence of pulmonary embolism but vascular congestion and cardiomegaly. - follow-up recommended in 3 to 6 months Hyponatremia Hypokalemia Worsening of his kidney function Cardiorenal syndrome -Nephrology consult placed. Dr. Tinoco has seen this patient in the past. --With his advanced heart disease it is an ongoing fine titration of his medications and the diet compliance to maintain his functional status. -Also need to be more realistic --consulted the palliative care as well. -PT OT consult placed Cardiac rehab following with us. -GERD Functional dyspepsia Irritable bowel syndrome with constipation predominant --He is on Protonix as well as Tums -We will add MaaLAX as needed. -Patient wants the GI specialist to see him today even though I tried to convince him that his GERD can be treated with these medications. but he wants specialist to see him. Dr. Mendez has seen him last year in August. He was off Plavix and H. pylori since last year. He is not taking any NSAIDs. He is at home both Protonix as well as H2 juvencio which I will continue to here. -During August 2019 discharge he is expected to follow-up with GI clinic. unclear whether he followed through. Type 2 diabetes mellitus Labile blood glucose We could switch him to Humalog 70/30 for easy titration. on lantus at 11 units. Continue with the dobutamine drip and his cr seems to be better today.
[2020-08-17] MEDS: glyBURIDE 5 MG TAB PO SCH (16:23)
[2020-08-17] MEDS: Warfarin Sodium 5 MG TAB PO SCH (16:24)
[2020-08-17] MEDS: DOBUTamine 500 mg/250 ml 250 ML IVPB SCH (16:25)
--- NOTE | 2020-08-17 17:08 | PDOC.CPN ---
- Subjective Date: 08/17/20 Time: 17:02 Interval history: He is feeling well. He has diuresed and his creatinine is improving since starting dobutamine. Discussed situation with his . She believes that a high sugar caused all his decompensation. I tried to explain that his sugar being high is not ideal and needs to be treated but certainly would not cause decompensation of his cardiac hemodynamics, most likely LV failure as he was also hypotensive at that time and glucose was checked after that moment of stress sand likely caused elevated blood sugar. She is not buying any of it as she states she has type 1 diabetes and she knows what high sugars can do. She asked to please go read on the book what high sugar can do. I politely responded "will see you folks tomorrow". - Review of Systems General: reports: fatigue. denies: fever/chills, weight/appetite/sleep changes, night sweats Respiratory: reports: shortness of breath, exercise intolerance. denies: cough, congestion Cardiovascular: denies: chest pain, palpitation, edema, paroxysmal nocturnal dyspnea, orthopnea Gastrointestinal: denies: nausea, vomiting, diarrhea, constipation, abd pain, GI bleeding Musculoskeletal: denies: pain, tenderness, stiffness, swelling, arthritis/arthralgias Neurological: denies: numbness, syncope, seizure, weakness - Objective Allergies/Adverse Reactions: Allergies Allergy/AdvReac Type Severity Reaction Status Date / Time No Known Drug Allergies Allergy Verified 08/13/20 06:02 Visit Medications: Current Medications Acetaminophen (Acetaminophen 325 Mg Tab) 650 mg PO Q4H PRN PRN Reason: Headache/Fever/Mild Pain (1-3) Last Admin: 08/17/20 09:06 Dose: 650 mg Documented by: Acetaminophen (Acetaminophen 650 Mg Suppository) 650 mg UT Q4H PRN PRN Reason: Headache/Fever/Mild Pain (1-3) Al Hydroxide/Mg Hydroxide (Mag-Al 1200 Mg/1200 Mg/30 Ml Udcup) 15 ml PO Q4H PRN PRN Reason: Heartburn or Indigestion Al Hydroxide/Mg Hydroxide (Mag-Al Plus 1200 Mg/1200 Mg/120 Mg/30 Ml Udcup) 30 ml PO DAILYPRN PRN PRN Reason: Heartburn or Indigestion Aspirin (Aspirin 81 Mg Enteric Coated Tablet) 81 mg PO DAILY [facility] Last Admin: 08/17/20 09:05 Dose: 81 mg Documented by: Calcium Carbonate (Calcium Carbonate 500 Mg Chewtab) 1,000 mg PO Q4H PRN PRN Reason: Heartburn or Indigestion Last Admin: 08/15/20 11:11 Dose: 1,000 mg Documented by: Calcium/Vitamin D (Calcium Carbonate 600 Mg + Vit D Tab) 1 tab PO DAILY [facility] Dextrose/Water (Dextrose 50% Abboject 50 Ml Syringe) 25 gm SLOW IVP PRN PRN PRN Reason: Hypoglycemia Digoxin (Digoxin 0.25 Mg Tab) 0.125 mg PO DAILY [facility] Last Admin: 08/17/20 09:11 Dose: Not Given Documented by: Furosemide (Furosemide 40 Mg/4 Ml Vial) 40 mg SLOW IVP DAILY [facility] Last Admin: 08/17/20 09:11 Dose: 40 mg Documented by: Glucagon (Glucagon 1 Mg/Ml Vial) 1 mg IM PRN PRN PRN Reason: Hypoglycemia Glyburide (Glyburide 5 Mg Tab) 7.5 mg PO 1700 [facility] Last Admin: 08/17/20 16:23 Dose: 7.5 mg Documented by: Dobutamine HCl/Dextrose (Dobutamine 500 Mg/250 Ml) 250 mls @ 10.86 mls/hr IVPB INF [facility]; Protocol Last Admin: 08/17/20 16:25 Dose: 250 mls Documented by: Dextrose/Water (D5w) 1,000 mls @ 0 mls/hr IV .Q0M PRN PRN Reason: Hypoglycemia Insulin Glargine 11 units/ (Miscellaneous Medication) 0.11 mls @ 0 mls/hr SC [facility] Insulin Human Lispro (Humalog 300 Units/3 Ml Vial) 0 units SC .BEDTIME SLIDING SC PRN PRN Reason: Bedtime Correctional Scale Last Admin: 08/15/20 20:36 Dose: 3 unit Documented by: Insulin Human Lispro (Humalog 300 Units/3 Ml Vial) 0 units SC .MODERATE SLIDING SC [facility] Last Admin: 08/17/20 11:09 Dose: 4 unit Documented by: Lorazepam (Lorazepam 1 Mg Tab) 1 mg PO TID [facility] Last Admin: 08/17/20 14:34 Dose: Not Given Documented by: Lorazepam (Lorazepam 1 Mg Tab) 1 mg PO Q8H PRN PRN Reason: Anxiety Magnesium Oxide (Magnesium Oxide 400 Mg Tab) 400 mg PO DAILY [facility] Non-Formulary Medication (Eplerenone [Eplerenone]) 25 mg PO DAILY [facility] Non-Formulary Medication (Hydrocortisone [Hydrocortisone 2.5% Cream]) 1 applic TOP BID [facility] Pantoprazole Sodium (Pantoprazole 40 Mg Tab) 40 mg PO DAILY [facility] Last Admin: 08/17/20 09:03 Dose: 40 mg Documented by: Polyethylene Glycol (Polyethylene Glycol 3350 17 Gm Packet) 17 gm PO BID [facility] Ranolazine (Ranolazine 500 Mg Tab) 500 mg PO BID [facility] Last Admin: 08/17/20 09:06 Dose: 500 mg Documented by: Rosuvastatin Calcium (Rosuvastatin 20 Mg Tab) 40 mg PO DAILY [facility] Last Admin: 08/17/20 09:06 Dose: 40 mg Documented by: Saccharomyces Boulardii (Saccharomyces Boulardii 250 Mg Cap) 500 mg PO DAILY [facility] Senna (Senokot 8.6 Mg Tab) 2 tab PO BID [facility] Last Admin: 08/17/20 09:06 Dose: 2 tab Documented by: Sodium Chloride (Flush - Normal Saline 10 Ml Syringe) 10 ml IVF Q12HR [facility] Last Admin: 08/17/20 09:10 Dose: 10 ml Documented by: Sodium Chloride (Flush - Normal Saline 10 Ml Syringe) 10 ml IVF PRN PRN PRN Reason: Saline Flush Sucralfate (Sucralfate 1 Gm Tab) 1 gm PO AC [facility] Last Admin: 08/17/20 16:23 Dose: 1 gm Documented by: Tramadol HCl (Tramadol Hcl 50 Mg Tab) 50 mg PO Q6H PRN PRN Reason: Pain 4-6 Last Admin: 08/16/20 14:07 Dose: 50 mg Documented by: Triamcinolone Acetonide (Triamcinolone 0.1% Oint 15 Gm Tube) 0 gm TOP BID [facility] Warfarin Sodium (Warfarin Sodium 5 Mg Tab) 5 mg PO DAILY@1700 [facility] Last Admin: 08/17/20 16:24 Dose: 5 mg Documented by: Vital Signs & Weight: Vital Signs Temp Pulse Pulse Pulse Resp BP BP 08/17/20 16:21 19 08/17/20 15:35 98.9 F 87 27 H 08/17/20 11:02 97.8 F 79 16 08/17/20 09:33 88 97 110/59 L 119/57 L 08/17/20 08:39 79 86 118/71 115/65 08/17/20 07:49 97.4 F L 78 17 BP BP Pulse Ox Pulse Ox Pulse Ox 08/17/20 16:21 08/17/20 15:35 102/59 L 97 08/17/20 11:02 126/59 L 99 08/17/20 09:33 98 98 08/17/20 08:39 98 08/17/20 07:49 111/57 L 98 Weight 158 lb 4.67 oz - Physical Exam General: alert & oriented x3 HEENT: mucus membranes moist Neck: supple neck Cardiac: regular rate and rhythm Lungs: normal breath sounds Neuro: no lateralizing findings Abdomen: active bowel sounds Extremities: 1+ LE edema Skin: clear Musculoskeletal: no pain - Labs Result Diagrams: 08/17/20 03:54 08/17/20 03:54 Troponin/CKMB CK-MB (CK-2) 2.5 ng/mL (0-6.6) 08/14/20 15:28 Troponin I 0.708 ng/mL (< 0.028) H* 08/14/20 15:28 - Telemetry Supraventricular conduction: other (BiV paced.) - Assessment/Plan Assessment/Plan: 1. Acute on chronic systolic heart failure 2. Ischemic CM EF at 20-25% 3. CAD 4. Type 2 demand ischemia 5. Bi ventricular AICD. 6. Chronic afib on warfarin 7. HTN 8. DM 9. CKD PLAN: - Renal function improving today with addition of dobutamine. - Continue IV lasix. - Replace K as needed and check INR daily. - Would not be surprised if asks for transfer to [facility] as she has done this in the past. She is not trusting our therapies and thinks he should be going home now instead. I told them this is not a shelter and they can leave against medical advice at any time. Mr. Crockett is actually very pleased with his care and he wants to stay and do what we recommend. - Will consult Dr. Domingo with advanced heart failure for more opinions in his care.
--- NOTE | 2020-08-17 18:29 | PRG ---
DATE OF SERVICE: 08/17/2020 SUBJECTIVE: The patient noted with the following vital signs. OBJECTIVE: VITAL SIGNS: Afebrile, temperature 98.9, pulse 87, respiratory rate of 19, O2 saturations of 97%, blood pressure 102/59. HEENT: Unremarkable. CARDIOVASCULAR SYSTEM: First and second heart sounds were heard. RESPIRATORY SYSTEM: Clear to auscultation. DIGESTIVE SYSTEM: Revealed a benign abdomen. EXTREMITIES: No peripheral edema. SKIN: No new gross rash. LYMPHATICS: No peripheral lymphadenopathy. IMPRESSION: 1. Acute on chronic kidney disease, which seems to be turning round since increasing the inotropic . 2. Chronic kidney disease, stage 3. 3. Metabolic alkalosis, possibly contraction alkalosis. PLAN: 1. Gradually begin to transition this patient to oral outpatient friendly diuretics. 2. Renally dose all medications. 3. Further management will be dependent on the clinical course. Job ID: [id number]
[2020-08-17] MEDS ORDERED: HumuLIN 70/30 (300 UNITS/3 ML VIAL) SC SCH (21:00)
[2020-08-17] MEDS: Insulin Glargine 11 UNITS in Pre-Filled Syringe 1 EACH SC SCH (21:52)
[2020-08-17] MEDS: Polyethylene Glycol 3350 17 GM Packet PO SCH (21:53)
[2020-08-17] MEDS: traMADol HCl 50 MG TAB PO PRN (21:58)
--- NOTE | 2020-08-18 00:06 | CON ---
DATE OF CONSULTATION: 08/17/2020 REASON FOR CONSULTATION: Right upper quadrant abdominal discomfort. CONSULTING PROVIDER: Marcella Wilson MD HISTORY OF PRESENT ILLNESS: The patient is a 74-year-old male, with past medical history of coronary artery disease, CVA, systolic heart failure with an ejection fraction of 20% to 25%, status post AICD, hypertension, diabetes, hyperlipidemia, chronic kidney disease, and atrial fibrillation on warfarin/chronic anticoagulation, who initially presented to the hospital with complaints of shortness of breath, orthopnea, and PND. However, during the course of this admission, he has been progressively having worsening right upper quadrant/midepigastric abdominal pain that he characterized as a pressure type sensation, is nonradiating, constant with waxing/waning severity, and reaches a severity of 6/10. The pain is worse with ingestion of foods, primarily spicy and salty foods in addition to chocolate and possibly sodas. He also endorses increased abdominal pain with pressure to the region. This pain is better with ingestion of olive oil, use of tramadol, and having a bowel movement. When concerning his bowel habits he states that while on the tramadol for chronic aches and pains, he is having approximately one solid bowel movement every 1 to 2 days with increased straining in order to facilitate defecation and one instance where he did have to attempt manual disimpaction in order to have a bowel movement. Currently, he seems to be responding to treatment for his congestive heart failure exacerbation. Currently, he denies any nausea, vomiting, fevers, chills, hematemesis, melena, hematochezia, dysphagia, odynophagia, diarrhea, or weight loss. Of note, the patient was diagnosed with an H pylori infection via blood serologies and placed on antibiotics and an acid reflux medication for approximately 10 days. He cannot recall the regimen itself nor can he recall confirmation of eradication. He also underwent a colonoscopy approximately 5 years ago at an outside institution that was normal per patient with recommendations to repeat in 10 years. REVIEW OF SYSTEMS: A 10-category review of systems was obtained with all responses negative except for the pertinent positives as listed in HPI. PAST MEDICAL HISTORY: As per HPI. PAST SURGICAL HISTORY: CABG, AICD placement. FAMILY HISTORY: Denies any GI malignancies. SOCIAL HISTORY: Denies any tobacco, alcohol, or illicit drug use but is a former smoker. OUTPATIENT MEDICATIONS: Reviewed. ALLERGIES: NO KNOWN DRUG ALLERGIES. PHYSICAL EXAMINATION: VITAL SIGNS: Temperature 98.9, pulse 87, blood pressure 102/59, respiratory rate 19, saturating 97% on room air. GENERAL: The patient was lying in bed, in no acute distress alert and oriented x4, although some of his speech was difficult to understand due to a strong accent. HEENT: Normocephalic, atraumatic. NECK: Supple. No JVD or scleral icterus noted. CARDIOVASCULAR: Irregularly irregular rhythm with no discernible murmurs, gallops, or rubs. RESPIRATORY: Clear to auscultation bilaterally with no discernible wheezes or rales. ABDOMEN: Normoactive bowel sounds. Soft, nondistended, but tympanic to percussion. Tenderness to palpation in the midepigastric and periumbilical regions. EXTREMITIES: 1+/2+ bilateral lower extremity edema extending to mid hsieh. LABORATORY DATA: CBC with a white blood cell count of 10.4, hemoglobin 12.6, hematocrit 36.6, platelets 154. Chemistry with a sodium of 133, potassium 3.6, chloride 92, CO2 of 32, BUN 44, creatinine 1.58, glucose 91. INR 2.3. IMAGING DATA: CT scan of the chest was obtained on August 15, 2020, which showed no evidence of pulmonary emboli, but cardiomegaly with vascular congestion, bilateral effusions, and hazy ground-glass opacities. We were also suggesting edema rather than an inflammatory infiltrate. There was a 6-7 mm nodule in the right mid lung with indeterminate clinical significance. ASSESSMENT AND PLAN: The patient is a 74-year-old male, with past medical history of coronary artery disease, stroke, systolic heart failure with an ejection fraction of 20% to 25%, status post automatic implantable cardioverter-defibrillator, hypertension, diabetes, hyperlipidemia, chronic kidney disease, and atrial fibrillation on chronic anticoagulation with Coumadin, presenting with midepigastric/right upper quadrant abdominal pain consistent with constipation. Right upper quadrant/midepigastric abdominal pain. The patient is presenting with fairly acute onset of right upper quadrant/midepigastric abdominal pain during the course of this admission that he states that has been intermittently present for the last 6-12 months. It is characterized as a pressure type sensation, nonradiating, with stated constant severity, but on further questioning has been intermittent over the last year and reaching a severity of 6/10. At this time the patient's pain seems to be much improved with having a bowel movement and he does have a history of chronic constipation with concurrent administration of tramadol for general aches and pains. The patient was also seen in the hospital in August of 2019 for the exact same symptoms and placed on a bowel regimen with complete resolution of his pain while on that regimen. At this time, the most likely etiology of his abdominal pain is centered around constipation and he would benefit from a bowel regimen. Also within the differential could include gastroesophageal reflux disease, especially given the typical food triggers contributing to worsening of his abdominal pain. Helicobacter pylori and peptic ulcer disease are also within the differential, but unlikely given treatment in the past, although he will need confirmation of eradication here in the near future. RECOMMENDATIONS: 1. Agree with placing the patient on MiraLAX 1 capsule twice daily until he has a bowel movement for alleviation of his abdominal pain. 2. Agree with placing the patient on famotidine. I agree with placing the patient on pantoprazole 40 mg daily in light of possible acid reflux as the causative mechanism of his abdominal pain. 3. Advance diet as tolerated. 4. We would attempt to avoid any narcotics or constipating medications. 5. We would maintain strict antireflux precautions with having the patient sit up in bed during this hospitalization. We will sign off at this time. Please call with any questions. Job ID: [id number]
[2020-08-18 04:41] LABS: #Lymphocytes 0.8 thou/uL (1.20-3.40); #Monocytes 1.1 thou/uL (0.11-0.59); #Neutrophils 14.2 thou/uL (1.40-6.50); %Basophils 0.1 % (0.0-1.0); %Eosinophils 0.2 % (0.0-10.0); %Lymphocytes 4.9 % (21.0-51.0); %Neutrophils 87.7 % (42.0-75.0); Hemoglobin 13.5 g/dL (14.0-18.0); Mean Corpuscular HGB CONC 33.5 g/dL (32.0-36.0); Mean Corpuscular Hemoglobin 34.8 pg (27.0-31.0); Mean Platelet Volume 9.2 fL (7.4-10.4); Platelet Count 180 thou/uL (130-400); Red Blood Cell (RBC) Count 3.87 mill/uL (4.70-6.10); White Blood Cell (WBC) Count 16.1 thou/uL (4.8-10.8)
[2020-08-18 04:45] LABS: INR-International Normal Ratio 2.2; Prothrombin Time 25.3 sec (12.0-14.7)
[2020-08-18 05:01] LABS: Anion Gap 15 mmol/L (10-20); BUN (Urea Nitrogen) 44 mg/dL (8.4-25.7); Calc. Creatinine Clearance 40 mL/min (70-130); Calcium 9.5 mg/dL (7.8-10.44); Carbon Dioxide 26 mmol/L (23-31); Chloride 94 mmol/L (98-107); Glucose 112 mg/dL (83-110); Potassium 3.7 mmol/L (3.5-5.1); Sodium 131 mmol/L (136-145)
--- NOTE | 2020-08-18 09:09 | PDOC.CPN ---
- Subjective Date: 08/18/20 Time: 08:30 Interval history: Breathing is closer to baseline. Creatinine was higher today. He denies chest pain. Abdominal pain yesterday. - Review of Systems General: denies: fever/chills, weight/appetite/sleep changes, night sweats, fatigue Respiratory: reports: shortness of breath. denies: cough, congestion, exercise intolerance Cardiovascular: reports: edema. denies: chest pain, palpitation, paroxysmal nocturnal dyspnea, orthopnea Gastrointestinal: denies: nausea, vomiting, diarrhea, constipation, abd pain, GI bleeding Neurological: denies: numbness, syncope, seizure, weakness - Objective Allergies/Adverse Reactions: Allergies Allergy/AdvReac Type Severity Reaction Status Date / Time No Known Drug Allergies Allergy Verified 08/13/20 06:02 Visit Medications: Current Medications Acetaminophen (Acetaminophen 325 Mg Tab) 650 mg PO Q4H PRN PRN Reason: Headache/Fever/Mild Pain (1-3) Last Admin: 08/17/20 09:06 Dose: 650 mg Documented by: Acetaminophen (Acetaminophen 650 Mg Suppository) 650 mg [place] Q4H PRN PRN Reason: Headache/Fever/Mild Pain (1-3) Al Hydroxide/Mg Hydroxide (Mag-Al 1200 Mg/1200 Mg/30 Ml Udcup) 15 ml PO Q4H PRN PRN Reason: Heartburn or Indigestion Al Hydroxide/Mg Hydroxide (Mag-Al Plus 1200 Mg/1200 Mg/120 Mg/30 Ml Udcup) 30 ml PO DAILYPRN PRN PRN Reason: Heartburn or Indigestion Last Admin: 08/17/20 23:36 Dose: 30 ml Documented by: Aspirin (Aspirin 81 Mg Enteric Coated Tablet) 81 mg PO DAILY [facility] Last Admin: 08/17/20 09:05 Dose: 81 mg Documented by: Calcium Carbonate (Calcium Carbonate 500 Mg Chewtab) 1,000 mg PO Q4H PRN PRN Reason: Heartburn or Indigestion Last Admin: 08/15/20 11:11 Dose: 1,000 mg Documented by: Calcium/Vitamin D (Calcium Carbonate 600 Mg + Vit D Tab) 1 tab PO DAILY [facility] Dextrose/Water (Dextrose 50% Abboject 50 Ml Syringe) 25 gm SLOW IVP PRN PRN PRN Reason: Hypoglycemia Digoxin (Digoxin 0.25 Mg Tab) 0.125 mg PO DAILY [facility] Last Admin: 08/17/20 09:11 Dose: Not Given Documented by: Glucagon (Glucagon 1 Mg/Ml Vial) 1 mg IM PRN PRN PRN Reason: Hypoglycemia Glyburide (Glyburide 5 Mg Tab) 7.5 mg PO 1700 [facility] Last Admin: 08/17/20 16:23 Dose: 7.5 mg Documented by: Dextrose/Water (D5w) 1,000 mls @ 0 mls/hr IV .Q0M PRN PRN Reason: Hypoglycemia Insulin Glargine 11 units/ (Miscellaneous Medication) 0.11 mls @ 0 mls/hr SC HS [facility] Last Admin: 08/17/20 21:52 Dose: Not Given Documented by: Dobutamine HCl/Dextrose (Dobutamine 500 Mg/250 Ml) 250 mls @ 16.29 mls/hr IVPB INF [facility]; Protocol Insulin Human Lispro (Humalog 300 Units/3 Ml Vial) 0 units SC .BEDTIME SLIDING SC PRN PRN Reason: Bedtime Correctional Scale Last Admin: 08/15/20 20:36 Dose: 3 unit Documented by: Insulin Human Lispro (Humalog 300 Units/3 Ml Vial) 0 units SC .MODERATE SLIDING SC [facility] Last Admin: 08/17/20 11:09 Dose: 4 unit Documented by: Lorazepam (Lorazepam 1 Mg Tab) 1 mg PO TID [facility] Last Admin: 08/17/20 21:53 Dose: 1 mg Documented by: Lorazepam (Lorazepam 1 Mg Tab) 1 mg PO Q8H PRN PRN Reason: Anxiety Magnesium Oxide (Magnesium Oxide 400 Mg Tab) 400 mg PO DAILY [facility] Non-Formulary Medication (Hydrocortisone [Hydrocortisone 2.5% Cream]) 1 applic TOP BID [facility] Pantoprazole Sodium (Pantoprazole 40 Mg Tab) 40 mg PO DAILY [facility] Last Admin: 08/17/20 09:03 Dose: 40 mg Documented by: Eplerenone [ Eplerenone] 25 Mg Tablet 1 each PO DAILY [facility] Polyethylene Glycol (Polyethylene Glycol 3350 17 Gm Packet) 17 gm PO BID [facility] Last Admin: 08/17/20 21:53 Dose: 17 gm Documented by: Ranolazine (Ranolazine 500 Mg Tab) 500 mg PO BID [facility] Last Admin: 08/17/20 21:53 Dose: 500 mg Documented by: Rosuvastatin Calcium (Rosuvastatin 20 Mg Tab) 40 mg PO DAILY [facility] Last Admin: 08/17/20 09:06 Dose: 40 mg Documented by: Saccharomyces Boulardii (Saccharomyces Boulardii 250 Mg Cap) 500 mg PO DAILY [facility] Senna (Senokot 8.6 Mg Tab) 2 tab PO BID [facility] Last Admin: 08/17/20 21:53 Dose: 2 tab Documented by: Sodium Chloride (Flush - Normal Saline 10 Ml Syringe) 10 ml IVF Q12HR [facility] Last Admin: 08/17/20 21:53 Dose: 10 ml Documented by: Sodium Chloride (Flush - Normal Saline 10 Ml Syringe) 10 ml IVF PRN PRN PRN Reason: Saline Flush Sucralfate (Sucralfate 1 Gm Tab) 1 gm PO AC [facility] Last Admin: 08/17/20 16:23 Dose: 1 gm Documented by: Torsemide (Torsemide 20 Mg Tab) 20 mg PO BID@0900,1400 [facility] Tramadol HCl (Tramadol Hcl 50 Mg Tab) 50 mg PO Q6H PRN PRN Reason: Pain 4-6 Last Admin: 08/17/20 21:58 Dose: 50 mg Documented by: Triamcinolone Acetonide (Triamcinolone 0.1% Oint 15 Gm Tube) 0 gm TOP BID [facility] Last Admin: 08/17/20 21:52 Dose: 1 applic Documented by: Warfarin Sodium (Warfarin Sodium 5 Mg Tab) 5 mg PO DAILY@1700 [facility] Last Admin: 08/17/20 16:24 Dose: 5 mg Documented by: Vital Signs & Weight: Vital Signs Temp Pulse Resp BP BP Pulse Ox 08/18/20 07:52 98.0 F 85 16 100/57 L 97 08/18/20 06:00 100 08/18/20 04:30 97.6 F 50 L 18 91/53 L 08/18/20 00:00 96 08/17/20 23:50 119/77 96 08/17/20 23:30 78 L Weight 157 lb 13.616 oz - Physical Exam General: alert & oriented x3 HEENT: mucus membranes moist Neck: supple neck Cardiac: irregularly regular Lungs: normal breath sounds Neuro: no lateralizing findings Abdomen: active bowel sounds Extremities: 1+ LE edema Skin: clear Musculoskeletal: no pain - Labs Result Diagrams: 08/18/20 04:07 08/18/20 14:01 Troponin/CKMB CK-MB (CK-2) 2.5 ng/mL (0-6.6) 08/14/20 15:28 Troponin I 0.708 ng/mL (< 0.028) H* 08/14/20 15:28 - Telemetry Sinus rhythms and dysrhythmias: other (BiV paced) Supraventricular conduction: atrial fibrillation (AV paced) - Assessment/Plan Assessment/Plan: 1. Acute on chronic systolic heart failure 2. Ischemic CM EF at 20-25% 3. CAD 4. Type 2 demand ischemia 5. Bi ventricular AICD. 6. Chronic afib on warfarin 7. HTN 8. DM 9. CKD PLAN: - Renal function worse today. ns and outs positive today. Will increase dobutamine rate. - Continue to diurese. - Replace K as needed and check INR daily. - BP borderline. - Dr. Domingo to evaluate later today.
[2020-08-18] MEDS: DOBUTamine 500 mg/250 ml 250 ML IVPB SCH ×2 (09:31→13:49)
[2020-08-18] MEDS: Sucralfate 1 GM TAB PO SCH ×3 (09:34→17:54)
[2020-08-18] MEDS: Digoxin 0.25 MG TAB PO SCH (09:35)
[2020-08-18] MEDS: Lorazepam 1 MG TAB PO SCH ×3 (09:36→20:44)
[2020-08-18] MEDS: Aspirin 81 mg Enteric Coated Tablet PO SCH (09:36)
[2020-08-18] MEDS: Calcium Carbonate 600 MG + Vit D TAB PO SCH (09:36)
[2020-08-18] MEDS: Magnesium Oxide 400 MG TAB PO SCH (09:37)
[2020-08-18] MEDS: Eplerenone [Eplerenone] 25 MG Tablet PO SCH (09:38)
[2020-08-18] MEDS: Saccharomyces boulardii 250 MG CAP PO SCH (09:39)
[2020-08-18] MEDS: Polyethylene Glycol 3350 17 GM Packet PO SCH ×2 (09:39→20:54)
[2020-08-18] MEDS: Rosuvastatin 20 MG TAB PO SCH (09:39)
[2020-08-18] MEDS: Senokot 8.6 MG TAB PO SCH ×2 (09:40→20:54)
[2020-08-18] MEDS: Torsemide 20 MG TAB PO SCH ×2 (09:40→13:49)
[2020-08-18] MEDS: Acetaminophen 325 MG TAB PO PRN (09:41)
[2020-08-18] MEDS: Hydrocortisone 1% Cream 30 GM TUBE TOP SCH ×3 (10:02→22:28)
--- NOTE | 2020-08-18 13:11 | PRG ---
DATE OF SERVICE: 08/18/2020 SUBJECTIVE: Noted with the following vital signs with no new complaint. OBJECTIVE: VITAL SIGNS: Afebrile, temperature 97.5, pulse 79, respiratory rate of 16, O2 saturations are 100%, blood pressure . HEENT: Unremarkable. CARDIOVASCULAR SYSTEM: First and second heart sounds were heard. RESPIRATORY SYSTEM: Clear to auscultation. DIGESTIVE SYSTEM: Revealed a benign abdomen with positive bowel sounds. EXTREMITIES: No peripheral edema. SKIN: No new gross rash. LYMPHATICS: No peripheral lymphadenopathy. LABORATORY INVESTIGATION: Showed a creatinine of 1.7. IMPRESSION: 1. Acute on chronic kidney disease in the context of problem #2. 2. Cardiorenal syndrome. 3. Congestive heart failure, systolic. 4. Mild hyponatremia. PLAN: 1. The patient can be transitioned over to oral diuretics. 2. Renally dose all medications. 3. Outpatient Nephrology followup status post discharge strongly recommended. Job ID: [id number]
[2020-08-18 14:25] LABS: Anion Gap 14 mmol/L (10-20); BUN (Urea Nitrogen) 43 mg/dL (8.4-25.7); Calc. Creatinine Clearance 40 mL/min (70-130); Carbon Dioxide 33 mmol/L (23-31); Chloride 90 mmol/L (98-107); Glucose 140 mg/dL (83-110); Potassium 3.5 mmol/L (3.5-5.1); Sodium 133 mmol/L (136-145)
--- NOTE | 2020-08-18 14:44 | PDOC.HOSPP ---
- Subjective Encounter Date: 08/18/20 Encounter Time: 09:10 Subjective: Patient feels slightly better than yesterday. Abdominal ultrasound ordered. Currently it is pending possible ascites secondary to portal hypertension secondary to end-stage heart disease. Blood pressure on the low normal side and blood glucose seems to be better. - Objective Vital Signs & Weight: Vital Signs (12 hours) Temp Pulse Pulse Pulse Resp BP BP 08/18/20 11:40 97.5 F L 79 16 08/18/20 08:34 86 81 118/55 L 102/55 L 08/18/20 07:52 98.0 F 85 16 08/18/20 06:00 08/18/20 04:30 97.6 F 50 L 18 BP Pulse Ox Pulse Ox Pulse Ox 08/18/20 11:40 95/50 L 100 08/18/20 08:34 95 95 08/18/20 07:52 100/57 L 97 08/18/20 06:00 100 08/18/20 04:30 91/53 L Weight Weight 157 lb 13.616 oz I&O: 08/17/20 08/18/20 08/19/20 06:59 06:59 06:59 Intake Total 950 2570 Output Total 1520 2175 Balance -570 395 Result Diagrams: 08/18/20 04:07 08/18/20 14:01 Additional Labs: Accuchecks 08/18/20 08/17/20 08/17/20 05:59 22:22 20:40 POC Glucose 137 H 161 H 176 H 08/17/20 17:02 POC Glucose 114 H Hospitalist ROS - Medication Medications: Active Medications Generic Name Dose Route Start Last Admin Trade Name Hubertq PRN Reason Stop Dose Admin Acetaminophen 650 mg 08/13/20 03:45 08/18/20 09:41 Acetaminophen 325 Mg Tab PO 650 mg Q4H PRN Administration Headache/Fever/Mild Pain (1-3) Al Hydroxide/Mg Hydroxide 30 ml 08/17/20 12:18 08/17/20 23:36 Mag-Al Plus 1200 Mg/1200 Mg/120 Mg/30 Ml Udcup PO 30 ml DAILYPRN PRN Administration Heartburn or Indigestion Aspirin 81 mg 08/13/20 09:00 08/18/20 09:36 Aspirin 81 Mg Enteric Coated Tablet PO 81 mg DAILY ANA Administration Calcium Carbonate 1,000 mg 08/13/20 03:45 08/15/20 11:11 Calcium Carbonate 500 Mg Chewtab PO 1,000 mg Q4H PRN Administration Heartburn or Indigestion Calcium/Vitamin D 1 tab 08/18/20 09:00 08/18/20 09:36 Calcium Carbonate 600 Mg + Vit D Tab PO 1 tab DAILY ANA Administration Digoxin 0.125 mg 08/15/20 09:00 08/18/20 09:35 Digoxin 0.25 Mg Tab PO Not Given DAILY ANA Glyburide 7.5 mg 08/17/20 17:00 08/17/20 16:23 Glyburide 5 Mg Tab PO 7.5 mg 1700 ANA Administration Hydrocortisone/Aloe 0 gm 08/17/20 21:00 08/18/20 10:03 Hydrocortisone 1% Cream 30 Gm Tube TOP Not Given BID ANA Insulin Glargine 11 units/ 0.11 mls @ 0 mls/hr 08/17/20 21:00 08/17/20 21:52 Miscellaneous Medication SC Not Given HS [facility] Dobutamine HCl/Dextrose 250 mls @ 16.29 mls/hr 08/18/20 09:01 08/18/20 13:49 Dobutamine 500 Mg/250 Ml IVPB 250 mls INF ANA Administration Protocol 7.5 MCG/KG/MIN Insulin Human Lispro 0 units 08/15/20 20:30 08/15/20 20:36 Humalog 300 Units/3 Ml Vial SC 3 unit .BEDTIME SLIDING SC PRN Administration Bedtime Correctional Scale Insulin Human Lispro 0 units 08/16/20 14:00 08/17/20 11:09 Humalog 300 Units/3 Ml Vial SC 4 unit .MODERATE SLIDING SC ANA Administration Lorazepam 1 mg 08/15/20 15:00 08/18/20 09:36 Lorazepam 1 Mg Tab PO 1 mg TID ANA Administration Magnesium Oxide 400 mg 08/18/20 09:00 08/18/20 09:37 Magnesium Oxide 400 Mg Tab PO 400 mg DAILY ANA Administration Pantoprazole Sodium 40 mg 08/16/20 09:00 08/18/20 09:37 Pantoprazole 40 Mg Tab PO 40 mg DAILY ANA Administration Eplerenone [ 1 each 08/18/20 09:00 08/18/20 09:38 Eplerenone] 25 Mg PO 1 each Tablet DAILY ANA Administration Polyethylene Glycol 17 gm 08/17/20 21:00 08/18/20 09:39 Polyethylene Glycol 3350 17 Gm Packet PO 17 gm BID [facility] Administration Rosuvastatin Calcium 40 mg 08/13/20 09:00 08/18/20 09:39 Rosuvastatin 20 Mg Tab PO 40 mg DAILY ANA Administration Saccharomyces Boulardii 500 mg 08/18/20 09:00 08/18/20 09:39 Saccharomyces Boulardii 250 Mg Cap PO 500 mg DAILY [facility] Administration Senna 2 tab 08/13/20 21:00 08/18/20 09:40 Senokot 8.6 Mg Tab PO 2 tab BID [facility] Administration Sodium Chloride 10 ml 08/15/20 21:00 08/18/20 09:40 Flush - Normal Saline 10 Ml Syringe IVF 10 ml Q12HR [facility] Administration Sucralfate 1 gm 08/15/20 11:30 08/18/20 10:33 Sucralfate 1 Gm Tab PO Not Given AC [facility] Torsemide 20 mg 08/18/20 09:00 08/18/20 13:49 Torsemide 20 Mg Tab PO 20 mg BID@0900,1400 [facility] Administration Tramadol HCl 50 mg 08/14/20 19:22 08/17/20 21:58 Tramadol Hcl 50 Mg Tab PO 50 mg Q6H PRN Administration Pain 4-6 Triamcinolone Acetonide 0 gm 08/17/20 21:00 08/18/20 09:41 Triamcinolone 0.1% Oint 15 Gm Tube TOP Not Given BID [facility] Warfarin Sodium 5 mg 08/13/20 17:00 08/17/20 16:24 Warfarin Sodium 5 Mg Tab PO 5 mg DAILY@1700 [facility] Administration Hospitalist Exam Vitals: Vital Signs (12 hours) Temp Pulse Pulse Pulse Resp BP BP 08/18/20 11:40 97.5 F L 79 16 08/18/20 08:34 86 81 118/55 L 102/55 L 08/18/20 07:52 98.0 F 85 16 08/18/20 06:00 08/18/20 04:30 97.6 F 50 L 18 BP Pulse Ox Pulse Ox Pulse Ox 08/18/20 11:40 95/50 L 100 08/18/20 08:34 95 95 08/18/20 07:52 100/57 L 97 08/18/20 06:00 100 08/18/20 04:30 91/53 L Weight Weight 157 lb 13.616 oz General Appearance: NAD, awake alert Eye: PERRL ENT: normocephalic atraumatic Neck: supple Heart: RRR Respiratory: CTAB, normal chest expansion Gastrointestinal: soft, normal bowel sounds Extremities - other findings: Swelling in his hands noted. Musculoskeletal: generalized weakness Psychiatric: A&O x 3 Hosp A/P - Plan cute on chronic systolic (congestive) heart failure Code(s): I50.23 - ACUTE ON CHRONIC SYSTOLIC (CONGESTIVE) HEART FAILURE Status: Acute (2) CKD (chronic kidney disease) Code(s): N18.9 - CHRONIC KIDNEY DISEASE, UNSPECIFIED Status: Acute (3) Hyponatremia Code(s): E87.1 - HYPO-OSMOLALITY AND HYPONATREMIA Status: Acute (4) Atrial fibrillation Code(s): I48.91 - UNSPECIFIED ATRIAL FIBRILLATION Status: Chronic Qualifiers: Atrial fibrillation type: persistent (not longstanding) Qualified Code(s): I48.19 - Other persistent atrial fibrillation; I48.1 - Persistent atrial fibrillation (5) CAD (coronary artery disease) Code(s): I25.10 - ATHSCL HEART DISEASE OF [place] CORONARY ARTERY W/O ANG PCTRS Status: Chronic (6) DM type 2 (diabetes mellitus, type 2) Status: Chronic (7) Dyslipidemia Code(s): E78.5 - HYPERLIPIDEMIA, UNSPECIFIED Status: Chronic (8) Hypertension Code(s): I10 - ESSENTIAL (PRIMARY) HYPERTENSION Status: Chronic (9) Ischemic cardiomyopathy Code(s): I25.5 - ISCHEMIC CARDIOMYOPATHY Status: Chronic - Plan Plan: 74y/o male with the stated pmhx who presents with decompensated systolic heart failire Acute on chronic systolic heart failure - bnp over 500 - lasix iv q 12 -Dr. Umana has seen the patient recommendation continue with the diuresis. - Ischemic cardiomyopathy with EF of 25% -Repeat echo also explained the same. 25% -Remote status post AICD placement hyponatremia - likely secondary to fluid overload - will f/u bmp ckd - monitor u/o and gfr due to aggresive diuretic therapy dm acc+ss htn - continue home meds atrial fib - continue rate control w beta juvencio -He is on Coumadin and it is therapeutic. cad - on optima tx, with beta juvencio, asa/plavix on entresto + statin Echo has been completed but report is pending. Patient has an appointment on Friday afternoon at cardiac rehab at [place]. Due to low blood pressure, he will be here; his blood pressure medications need to be titrated further. Per Dr. Paige, continue with the Demadex and he may need as needed metolazone along with the potassium. This morning one of his blood glucose reading was 464 but the previous reading around 5:30 AM was 103. Patient's is extremely upset how we can let blood glucose going to 464. I know this couple very well from the last hospitalization. is quite demanding and do not understand his current advanced heart conditions. During my last management, they were transferred from [facility] for the same vidya son that they did not get enough care there[according to his ] and now she is complaining the same stating not providing enough care and she wants the patient to be transferred. Medically I cannot do that, as he is stable and does not require aggressive cardiac intervention but palliative evaluation. I also discussed with the Dr. Sandoval. Leukocytosis -Patient not on any insulin. Unclear why he has elevated white count with a bandemia. A CT chest performed yesterday did not show any active infiltrate other than ongoing haziness. -We will follow up with the urine analysis 7 mm pulmonary nodule in the right middle lobe- no evidence of pulmonary embolism but vascular congestion and cardiomegaly. - follow-up recommended in 3 to 6 months Hyponatremia Hypokalemia Worsening of his kidney function Cardiorenal syndrome -Nephrology consult placed. Dr. Tinoco has seen this patient in the past. --With his advanced heart disease it is an ongoing fine titration of his med ications and the diet compliance to maintain his functional status. -Also need to be more realistic --consulted the palliative care as well. -PT OT consult placed Cardiac rehab following with us. -GERD Functional dyspepsia Irritable bowel syndrome with constipation predominant --He is on Protonix as well as Tums -We will add MaaLAX as needed. -Patient wants the GI specialist to see him today even though I tried to convince him that his GERD can be treated with these medications. but he wants specialist to see him. Dr. Mendez has seen him last year in August. He was off Plavix and H. pylori since last year. He is not taking any NSAIDs. He is at home both Protonix as well as H2 juvencio which I will continue to here. -During August 2019 discharge he is expected to follow-up with GI clinic. unclear whether he followed through. Type 2 diabetes mellitus Labile blood glucose We could switch him to Humalog 70/30 for easy titration. on lantus at 11 units. Continue with the dobutamine drip and his cr seems to be better today. -Follow-up on abdominal ultrasound to rule out ascites as an etiology for his abdominal discomfort. -Expected that he will have some degree of portal hypertension secondary to severe ischemic cardiomyopathy EF of 20 -Appreciate GI revisiting him will continue with the MiraLAX Pepcid as well as famotidine Possible discharge over the weekend with the home health o rmonday if he is hemodynamically stable and has no further acute complaints/symptoms.
[2020-08-18] MEDS ORDERED: Furosemide 40 MG/4 ML VIAL SLOW IVP SCH (14:45)
[2020-08-18] MEDS ORDERED: DOBUTamine 500 mg/250 ml 250 ML IVPB SCH ×2 (14:57→21:15)
[2020-08-18] MEDS: glyBURIDE 5 MG TAB PO SCH (17:53)
[2020-08-18] MEDS: Warfarin Sodium 5 MG TAB PO SCH (17:54)
--- NOTE | 2020-08-18 18:09 | ULT ---
US Abdominal: 08/18/2020 5:00 PM CLINICAL HISTORY: Abdominal pain. STUDY: Complete abdominal ultrasound COMPARISON: 11/06/2017; CT abdomen/pelvis 09/14/2019 FINDINGS: Liver: Size: Normal. Echogenicity: Normal. Contour: Smooth. Mass: None. Common bile duct: 3 mm Gallbladder: Normal. Pancreas: Head, body, and tail appear normal. Inferior vena cava: Normal in caliber Aorta: Normal in caliber Spleen: No focal lesions. Spleen measuring 8.2 cm in length. Right kidney: No pelvicalyceal dilatation. Right kidney measuring 9.4 cm in length. Left kidney: No pelvicalyceal dilatation. Left kidney measuring 11.2 cm in length. There is an incidentally seen right pleural effusion. IMPRESSION: 1. No significant intra-abdominal abnormality 2. Right pleural effusion
[2020-08-18 19:00] LABS: ALT (SGPT) 16 U/L (8-55); AST (SGOT) 28 U/L (5-34); Albumin 3.9 g/dL (3.4-4.8); Alkaline Phosphatase 33 U/L (40-110); Anion Gap 18 mmol/L (10-20); BUN (Urea Nitrogen) 40 mg/dL (8.4-25.7); Bilirubin, Total 1.2 mg/dL (0.2-1.2); Calc. Creatinine Clearance 43 mL/min (70-130); Calcium 9.2 mg/dL (7.8-10.44); Carbon Dioxide 28 mmol/L (23-31); Chloride 91 mmol/L (98-107); Globulin 3.2 g/dL (2.4-3.5); Glucose 135 mg/dL (83-110); Potassium 3.5 mmol/L (3.5-5.1); Protein, Total 7.1 g/dL (5.8-8.1); Sodium 133 mmol/L (136-145)
--- NOTE | 2020-08-18 20:14 | CON ---
DATE OF CONSULTATION: 08/18/2020 SERVICE: Advanced Heart Failure Transplant Cardiology Consult Service. REASON FOR CONSULT: Management of acute on chronic heart failure. HISTORY OF PRESENT ILLNESS: Mr. Jeffery Crockett, 74-year-old gentleman with known heart failure with reduced ejection fraction, EF about 20%, presented with a syndrome of problems. He was admitted for what appears to be heart failure exacerbation and high white cell count, and abdominal discomfort back in June. He was discharged after diuresis and antibiotic treatment. He said that he did well for about 2 to 3 weeks. Then, things did not go well. On August 12, as he was going to bed, he could not lie down. Normally, he sleeps on two pillows; that night, he was quiet orthopneic. He also has chest discomfort. He also had abdominal discomfort and abdominal bloating, and then he had episodes of diaphoresis. He was also very short of breath. So consequently, he was admitted. He did admit to that he was progressive short of breath at home. Activities such as walking 10 yards that is about all he can do. However, his insists that he can walk 10 minutes on treadmill. At this point, the two stories do not exactly match. He did say that he did not have peripheral edema. Since admission, he did not believe he has done much better. He feels continued to be short of breath and weak. He will like to have something that is better. I was able to contact his heart failure agricultural researcher at [facility]. His heart failure agricultural researcher at [facility] is Dr. Comfort Goss. Dr. Goss observed the patient to be declining for about a year, year and half. Dr. Goss presented the idea of left ventricular assist device. His completely rejected the idea. His believes that heart failure is not a big problem that someone just needed to stay positive. Dr. Goss then also approached the family about chronic milrinone infusion. Again, that was rejected by his . Dr. Goss attempted to refer the patient to Palliative Care, again his rejected it. However, at this point, [facility] will be happy to take the patient back if the family decided to pursue the left ventricle assist device again. Of note, he developed breast pain. For this reason, Dr. Goss changed from spironolactone to eplerenone. His attributed his most recent heart failure decompensation to this change. PAST MEDICAL HISTORY: 1. Heart failure with reduced ejection fraction, EF about 20%. 2. Coronary artery disease with ischemic cardiomyopathy. He has a first myocardial infarction in the year 1984, in which he recovered for a while. Eventually, he received coronary artery bypass graft back in 2008. It was documented as a left radial to obtuse marginal and PEYTON to the RCA. In 2019, he received a stent at the distal right coronary artery. 3. Chronic atrial fibrillation. 4. Hyperlipidemia. 5. Chronic kidney disease. 6. Type 2 diabetes. 7. Stroke in 2008 that left with right-sided weakness. SOCIAL HISTORY: 1. He did smoke in the past but stopped in 1984 with his heart attack. 2. He does not drink alcohol. He might have a drink, a slight bit occasionally. 3. He does not use illicit drugs. 4. He lives with his of 32 years. FAMILY HISTORY: His father of myocardial infarction at age 56. His mother of heart disease at age 92. One of his sisters has uterine cancer, but then she is a cancer survivor. REVIEW OF SYSTEMS: GENERAL: He is fatigued. HEENT: There is no change in vision, hearing, or swallowing. PULMONARY: He is short of breath with minimal amount of exertion. CARDIAC: There is no complaint of syncope. GI: He said he has some abdominal bloating and pain and constipation. Right now, he does not have complaints. : He is able to urinate on his own. MUSCULOSKELETAL: There are no muscle or joint pains. INTEGUMENT: There is no new skin breakdown. NEUROLOGIC: There are no new focal deficits or weaknesses. PSYCHIATRIC: He is not depressed. MEDICATIONS: His home medications currently are not clear. Some important items to know was that 1. He was on carvedilol 6.25 mg twice a day. 2. He was on Entresto twice a day. However, he decreased that to just once per day due to low blood pressure 3. He was on spironolactone, but was changed over to eplerenone due to breast pain. 4. He was on torsemide 20 mg daily. The current medications include: 1. Aspirin 81 mg daily. 2. Digoxin 0.125 mg daily, it is unclear if it is given or not. 3. Dobutamine currently at 5 mcg/kg/minute. 4. Glyburide 7.5 mg daily. 5. Sliding scale insulin. 6. Magnesium oxide 400 mg daily. 7. Protonix 40 mg daily. 8. Eplerenone 25 mg daily. 9. Ranolazine 250 mg b.i.d. 10. Rosuvastatin 40 mg at bedtime. 11. Senokot 2 tabs b.i.d. 12. Torsemide 20 mg daily. 13. Warfarin 5 mg p.o. at bedtime. PHYSICAL EXAMINATION: Telemetry was reviewed. It showed a paced rhythm with occasional atrial fibrillation breakthroughs. There are no signs of ventricular tachycardia. VITAL SIGNS: He has a range of blood pressure measures. When I walked in, his systolic blood pressure was only 86, but then it increased to about 110. The blood pressure that is recorded in the system is 99/63 with a heart rate of 80. GENERAL: He is a thin gentleman looking frail, fatigued, and mildly short of breath while sitting up. HEENT: Showed EOMI. Oropharynx showed that he has dentures on top and bottom, so he does not have any teeth left. However, oropharynx is benign. There is moist mucosa. NECK: His JVP is about 10 cm with positive hepatojugular reflux. PULMONARY: There are good air movements. Clear to auscultation bilaterally. CARDIAC EXAM: There is combination of regular and irregular rhythm, so he is paced with some atrial fibrillation breakthrough. There is normal S1, S2. There is 2/6 holosystolic murmur at apex with radiation to the left axilla. ABDOMEN: Positive bowel sounds, but hyperactive. He has low right quadrant tenderness to deep palpation. EXTREMITIES: Lower extremities are cool to touch. There is no edema. Minimal dorsalis pedis pulses. He has minimal radial pulses also. LABORATORY VALUE: White cell count 16.1, hemoglobin 13.5, platelet count 180, neutrophil percent is about 88%. His chemistry shows sodium 133, potassium 3.5, chloride 90, bicarb at 33, BUN 48, creatinine at 1.71. His BNP is elevated to ~ 1000. His echocardiogram from August 13 was also briefly reviewed. He has a dilated left ventricle with LVIDd of 7.8 cm. 1. Visually, his left ventricular ejection fraction is only 20% or less with diastolic dysfunction. 2. There is mild to moderate mitral regurgitation. 3. He has a thick-appearing mitral valve with fluttering on the mitral valve leaflet. 4. It has apparent normal size right ventricle with normal right ventricular function. ASSESSMENT: A 74-year-old gentleman has two major problems. He may have an underlying infection. His white cell count is 16,000. His white cell count has been going up and down. He also has low blood pressure, requiring dobutamine augmentation. He had night sweats. There are also fluttering seen on the mitral valve of transthoracic echocardiogram. He also has abdominal pain, thus investigation for both endocarditis and GI causes of infection needs to be done. He will also need to be watched for blood pressure drop. If he does, he will need to go in ICU to put on norepinephrine. He also has heart failure. He likely resides in an [place] Heart Association stage D, [place] Heart Association class 3B or 4 heart failure with reduced ejection fraction. He has been progressively worsening. The carvedilol has been decreased to 6.25. Entresto has been halved by himself. He is presenting with lower blood pressure. Right now, he is requiring dobutamine to augment for his insufficient cardiac output and he has a low perfusion cardiac exam. However, he is euvolemic. At this point, he will likely need chronic inotropic support. His best chance of living a meaningful life beyond a year will be left ventricular assist device. I would try to present his heart failure prognosis to him. He understands the situation well. He wants to pursue a left ventricular assist device option. However, his is completely against such an idea. She insists upon that heart failure would not be a problem. She insists upon if he gets some exercise, then he will get better. I also noted that Palliative Care was consulted. She told the Palliative Care that she wants everything done. So at this point, there is an impasse on their pursue. On one hand Mrs. Crockett does not want anything that can help with him done. Conversely, she also does not want to pursue palliative care route. Thus, we are somewhat in the medical-ethical impasse, especially in light that Mr. Crockett himself wants to pursue left ventricular assist device. RECOMMENDATIONS: 1. Please do blood culture. 2. Please do urine culture. 3. Please consider transesophageal echocardiogram. This will help to diagnose if he has endocarditis or not. 4. The patient can benefit from sinus rhythm. While KAMLESH is being done, cardioversion could follow. Will start amiodarone to help him to stay in sinus rhythm after cardioversion. 5. Agree with continued dobutamine for now. We can attempt to convert him to milrinone. 6. As noted before, if the family decides to pursue left ventricular assist device option or a chronic infusion, [facility] would be happy to take him back as an inpatient for LVAD evaluation or follow him as outpatient for chronic milrinone drip. It has been a pleasure taking care of Mr. Crockett. If you have any questions, please give me a call. This has been a very complicated visit with extensive family discussion and coordinating care with [facility] and Dr. Paige. So, the total time of this visit is about 90 minutes. Job ID: [id number] MTDD
[2020-08-18] MEDS ORDERED: Sodium Chloride 0.9% 500 ML IV SCH (20:45)
[2020-08-18] MEDS: Amiodarone 200 MG TAB PO SCH (20:47)
[2020-08-18] MEDS: Insulin Glargine 11 UNITS in Pre-Filled Syringe 1 EACH SC SCH (20:52)
[2020-08-19] MEDS: Lorazepam 1 MG TAB PO SCH ×3 (01:11→15:26)
[2020-08-19] MEDS: traMADol HCl 50 MG TAB PO PRN ×2 (01:13→11:38)
[2020-08-19 05:06] LABS: Anion Gap 15 mmol/L (10-20); BUN (Urea Nitrogen) 34 mg/dL (8.4-25.7); Calc. Creatinine Clearance 52 mL/min (70-130); Calcium 8.9 mg/dL (7.8-10.44); Carbon Dioxide 27 mmol/L (23-31); Chloride 93 mmol/L (98-107); Glucose 89 mg/dL (83-110); Magnesium 1.8 mg/dL (1.6-2.6); Potassium 3.1 mmol/L (3.5-5.1); Sodium 132 mmol/L (136-145)
[2020-08-19 05:15] LABS: INR-International Normal Ratio 2.5; Prothrombin Time 27.9 sec (12.0-14.7)
[2020-08-19 06:19] LABS: #Basophils 0.1 thou/uL (0.0-0.2); #Eosinphils 0.1 thou/uL (0.0-0.7); #Lymphocytes 1.7 thou/uL (1.20-3.40); #Monocytes 0.9 thou/uL (0.11-0.59); %Basophils 0.7 % (0.0-1.0); %Eosinophils 1.2 % (0.0-10.0); %Lymphocytes 17.7 % (21.0-51.0); %Monocytes 8.8 % (0.0-10.0); %Neutrophils 71.7 % (42.0-75.0); Hemoglobin 11.9 g/dL (14.0-18.0); MDiff Complete? YES; Macrocytosis SLIGHT = 6-15 cells (100X) (0-5/hpf); Mean Corpuscular HGB CONC 32.7 g/dL (32.0-36.0); Mean Corpuscular Hemoglobin 34.3 pg (27.0-31.0); Mean Platelet Volume 9.3 fL (7.4-10.4); Platelet Count 163 thou/uL (130-400); RBC Distribution Width 14.1 % (11.5-14.5); Red Blood Cell (RBC) Count 3.46 mill/uL (4.70-6.10); White Blood Cell (WBC) Count 9.8 thou/uL (4.8-10.8)
[2020-08-19] MEDS ORDERED: Potassium Chloride 20 MEQ TAB PO SCH (09:00)
[2020-08-19] MEDS: Digoxin 0.25 MG TAB PO SCH (09:04)
[2020-08-19] MEDS: Aspirin 81 mg Enteric Coated Tablet PO SCH (09:04)
[2020-08-19] MEDS: Calcium Carbonate 600 MG + Vit D TAB PO SCH (09:04)
[2020-08-19] MEDS: Sucralfate 1 GM TAB PO SCH ×2 (09:05→11:35)
[2020-08-19] MEDS: Amiodarone 200 MG TAB PO SCH (09:05)
[2020-08-19] MEDS: Magnesium Oxide 400 MG TAB PO SCH (09:05)
[2020-08-19] MEDS: Rosuvastatin 20 MG TAB PO SCH (09:05)
[2020-08-19] MEDS: Hydrocortisone 1% Cream 30 GM TUBE TOP SCH (09:08)
[2020-08-19] MEDS: Polyethylene Glycol 3350 17 GM Packet PO SCH (09:09)
[2020-08-19] MEDS: Saccharomyces boulardii 250 MG CAP PO SCH (09:09)
[2020-08-19] MEDS: Senokot 8.6 MG TAB PO SCH (09:09)
[2020-08-19] MEDS: Torsemide 20 MG TAB PO SCH ×2 (09:20→15:25)
[2020-08-19] MEDS: Acetaminophen 325 MG TAB PO PRN (10:21)
[2020-08-19 11:33] VITALS: TEMP 97.6
[2020-08-19] MEDS: Eplerenone [Eplerenone] 25 MG Tablet PO SCH (11:36)
[2020-08-19] MEDS: HumaLOG 300 UNITS/3 ML VIAL SC SCH (11:48)
--- NOTE | 2020-08-19 12:10 | PDOC.HOSPP ---
- Subjective Encounter Date: 08/19/20 Encounter Time: 12:08 Subjective: Mr. Crockett was seen today in follow-up of respiratory failure due to CHF exacerbation. He notes some pain in the epigastric and upper chest. He says he is breathing better. - Objective Vital Signs & Weight: Vital Signs (12 hours) Temp Pulse Resp BP BP Pulse Ox 08/19/20 11:30 97.6 F 88 16 123/74 92 L 08/19/20 09:04 88 08/19/20 07:47 97.5 F L 90 18 94/53 L 98 08/19/20 03:32 97.5 F L 94 18 107/70 95 Weight Weight 156 lb 14.4 oz I&O: 08/18/20 08/19/20 08/20/20 06:59 06:59 06:59 Intake Total 2570 1310 Output Total 2175 1450 Balance 395 -140 Result Diagrams: 08/19/20 04:15 08/19/20 04:15 Additional Labs: Accuchecks 08/19/20 08/18/20 08/18/20 05:39 20:59 20:30 POC Glucose 77 195 H 222 H 08/18/20 16:59 POC Glucose 132 H Hospitalist ROS - Medication Medications: Active Medications Generic Name Dose Route Start Last Admin Trade Name Freq PRN Reason Stop Dose Admin Acetaminophen 650 mg 08/13/20 03:45 08/19/20 10:21 Acetaminophen 325 Mg Tab PO 650 mg Q4H PRN Administration Headache/Fever/Mild Pain (1-3) Al Hydroxide/Mg Hydroxide 15 ml 08/15/20 10:57 08/19/20 11:34 Mag-Al 1200 Mg/1200 Mg/30 Ml Udcup PO 15 ml Q4H PRN Administration Heartburn or Indigestion Al Hydroxide/Mg Hydroxide 30 ml 08/17/20 12:18 08/17/20 23:36 Mag-Al Plus 1200 Mg/1200 Mg/120 Mg/30 Ml Udcup PO 30 ml DAILYPRN PRN Administration Heartburn or Indigestion Aspirin 81 mg 08/13/20 09:00 08/19/20 09:04 Aspirin 81 Mg Enteric Coated Tablet PO 81 mg DAILY ANA Administration Calcium Carbonate 1,000 mg 08/13/20 03:45 08/15/20 11:11 Calcium Carbonate 500 Mg Chewtab PO 1,000 mg Q4H PRN Administration Heartburn or Indigestion Calcium/Vitamin D 1 tab 08/18/20 09:00 08/19/20 09:04 Calcium Carbonate 600 Mg + Vit D Tab PO 1 tab DAILY ANA Administration Digoxin 0.125 mg 08/15/20 09:00 08/19/20 09:04 Digoxin 0.25 Mg Tab PO 0.125 mg DAILY ANA Administration Glyburide 7.5 mg 08/17/20 17:00 08/18/20 17:53 Glyburide 5 Mg Tab PO 7.5 mg 1700 ANA Administration Hydrocortisone/Aloe 0 gm 08/17/20 21:00 08/19/20 09:08 Hydrocortisone 1% Cream 30 Gm Tube TOP 1 applic BID ANA Administration Insulin Glargine 11 units/ 0.11 mls @ 0 mls/hr 08/17/20 21:00 08/18/20 20:52 Miscellaneous Medication SC Not Given HS ANA Insulin Human Lispro 0 units 08/15/20 20:30 08/15/20 20:36 Humalog 300 Units/3 Ml Vial SC 3 unit .BEDTIME SLIDING SC PRN Administration Bedtime Correctional Scale Insulin Human Lispro 0 units 08/16/20 14:00 08/19/20 11:48 Humalog 300 Units/3 Ml Vial SC 8 unit .MODERATE SLIDING SC ANA Administration Lorazepam 1 mg 08/15/20 15:00 08/19/20 09:08 Lorazepam 1 Mg Tab PO Not Given TID ANA Magnesium Oxide 400 mg 08/18/20 09:00 08/19/20 09:05 Magnesium Oxide 400 Mg Tab PO 400 mg DAILY ANA Administration Pantoprazole Sodium 40 mg 08/16/20 09:00 08/19/20 09:06 Pantoprazole 40 Mg Tab PO 40 mg DAILY ANA Administration Eplerenone [ 1 each 08/18/20 09:00 08/19/20 11:36 Eplerenone] 25 Mg PO 1 each Tablet DAILY ANA Administration Polyethylene Glycol 17 gm 08/17/20 21:00 08/19/20 09:09 Polyethylene Glycol 3350 17 Gm Packet PO Not Given BID ANA Rosuvastatin Calcium 40 mg 08/13/20 09:00 08/19/20 09:05 Rosuvastatin 20 Mg Tab PO 40 mg DAILY ANA Administration Saccharomyces Boulardii 500 mg 08/18/20 09:00 08/19/20 09:09 Saccharomyces Boulardii 250 Mg Cap PO 500 mg DAILY ANA Administration Senna 2 tab 08/13/20 21:00 08/19/20 09:09 Senokot 8.6 Mg Tab PO Not Given BID ANA Sodium Chloride 10 ml 08/15/20 21:00 08/19/20 09:20 Flush - Normal Saline 10 Ml Syringe IVF 10 ml Q12HR ANA Administration Sucralfate 1 gm 08/15/20 11:30 08/19/20 11:35 Sucralfate 1 Gm Tab PO 1 gm AC ANA Administration Torsemide 20 mg 08/18/20 09:00 08/19/20 09:20 Torsemide 20 Mg Tab PO 20 mg BID@0900,1400 ANA Administration Tramadol HCl 50 mg 08/14/20 19:22 08/19/20 11:38 Tramadol Hcl 50 Mg Tab PO 50 mg Q6H PRN Administration Pain 4-6 Triamcinolone Acetonide 0 gm 08/17/20 21:00 08/19/20 09:07 Triamcinolone 0.1% Oint 15 Gm Tube TOP 1 applic BID ANA Administration Warfarin Sodium 5 mg 08/13/20 17:00 08/18/20 17:54 Warfarin Sodium 5 Mg Tab PO 5 mg DAILY@1700 [facility] Administration Hospitalist Exam Vitals: Vital Signs (12 hours) Temp Pulse Resp BP BP Pulse Ox 08/19/20 11:30 97.6 F 88 16 123/74 92 L 08/19/20 09:04 88 08/19/20 07:47 97.5 F L 90 18 94/53 L 98 08/19/20 03:32 97.5 F L 94 18 107/70 95 Weight Weight 156 lb 14.4 oz Eye: PERRL, anicteric sclera ENT: normocephalic atraumatic Heart: RRR, no murmur, no gallops, no rubs, normal peripheral pulses Respiratory: rales (at the bases, and occasional rhonchi) Gastrointestinal: soft, non-tender, non-distended, normal bowel sounds, no palpable masses, no hepatomegaly Extremities: no cyanosis, no edema Psychiatric: normal affect, normal behavior, A&O x 3 Hosp A/P (1) GERD (gastroesophageal reflux disease) Code(s): K21.9 - GASTRO-ESOPHAGEAL REFLUX DISEASE WITHOUT ESOPHAGITIS Status: Acute (2) Acute on chronic renal failure Code(s): N17.9 - ACUTE KIDNEY FAILURE, UNSPECIFIED; N18.9 - CHRONIC KIDNEY DISEASE, UNSPECIFIED Status: Acute (3) Acute on chronic systolic (congestive) heart failure Code(s): I50.23 - ACUTE ON CHRONIC SYSTOLIC (CONGESTIVE) HEART FAILURE Status: Acute (4) CKD (chronic kidney disease) Code(s): N18.9 - CHRONIC KIDNEY DISEASE, UNSPECIFIED Status: Acute (5) Atrial fibrillation Code(s): I48.91 - UNSPECIFIED ATRIAL FIBRILLATION Status: Chronic Qualifiers: Atrial fibrillation type: persistent (not longstanding) Qualified Code(s): I48.19 - Other persistent atrial fibrillation; I48.1 - Persistent atrial fibrillation (6) CAD (coronary artery disease) Code(s): I25.10 - ATHSCL HEART DISEASE OF [place] CORONARY ARTERY W/O ANG PCTRS Status: Chronic (7) Chronic anticoagulation Code(s): Z79.01 - FDC (CURRENT) USE OF ANTICOAGULANTS Status: Chronic (8) DM type 2 (diabetes mellitus, type 2) Status: Chronic (9) Hypertension Code(s): I10 - ESSENTIAL (PRIMARY) HYPERTENSION Status: Chronic - Plan * Acute on chronic systolic heart failure- better compensated- He has been taken off the Dobutamine drip * AFIB- his heart rate is controlled * Continue Coumadin- his INR is 2.5 * DM- blood glucose is variable- but within a reasonable range * CKD- stable * Epigastric pain- from GERD- continue Carafate as needed and PPI, and H2 juvencio * Stable for discharge home later
[2020-08-19] MEDS ORDERED: Sucralfate 1 GM/10 ML UDCUP PO SCH (12:15)
[2020-08-19] MEDS: Calcium Carbonate 500 MG ChewTAB PO PRN (15:36)
[2020-08-19 15:40] VITALS: BP 113/62
--- NOTE | 2020-08-19 16:18 | PDOC.DS.DS ---
Provider Date of Admission: 08/13/20 05:45 Date of Discharge: 08/19/20 Admitting Provider: Jonas Starkey Consultations: Cardiology Primary Care Physician: CHAPINCITO JETER Course Hospital Course: Mr. Crockett is a pleasant 74-year-old gentleman that has a history of coronary artery disease systolic heart failure with an ejection fraction of 20 to 25% as well as hypertension. He was admitted to the hospital after experiencing shortness of breath. He was found to be in acute on chronic congestive heart failure exacerbation. He was evaluated in the ER and had a CT scan of the chest this was negative for pulmonary embolism but did show cardiomegaly with increased pulmonary vascular congestion. He was admitted and started on IV diuretics. He was improving but it was noted that as he was being diuresed his serum creatinine would rise. This limited the ability to use IV diuretics. Cardiology was consulted and he was placed on a dobutamine drip. He was still experiencing only marginal diuresis with this regimen. As a result the heart failure specialist Dr. Domingo was consulted. He evaluated the patient and felt that his best chance for long-term survival would be to be transferred to the [facility] in [place]. There he could be evaluated for a left ventricular assist device. This was communicated to the patient as well as the family/his . After discussing these options they decided not to be transferred and would prefer to actually just go home and discuss this with their private ultrasound tech in the near future. It is also notable that he had to be taken off of all of his heart failure medications including carvedilol and and angiotensin receptor juvencio due to the acute kidney injury and also due to limitations due to his hypotension. The patient experienced some abdominal discomfort during his hospital stay and this was determined to be due to gastritis. He was placed on a proton pump inhibitor as well as an H2 juvencio and Carafate as needed with some improvement in his symptoms. He was also evaluated by gastroenterology during this hospital stay as well. The patient developed some acute kidney injury due to diuresis but this did improve during the course of his hospital stay. Pertinent Studies: Echocardiogram CTA of the chest Abdominal Ultrasound Resuscitation Status: 08/13/20 03:45 Resuscitation Status Routine Resuscitation Status: FULL: Full Resuscitation Lab Results: 08/19/20 04:15 08/19/20 04:15 Abnormal Lab Results - Last 48 hrs 08/18/20 04:07: PT 25.3 H 08/18/20 04:07: Sodium 131 L, Chloride 94 L, BUN 44 H, Creatinine 1.71 H 08/18/20 04:07: WBC 16.1 H, RBC 3.87 L, Hgb 13.5 L, Hct 40.3 L, MCV 104.0 H, MCH 34.8 H, Neutrophils % 87.7 H, Lymphocytes % 4.9 L, Neutrophils # 14.2 H, Lymphocytes # 0.8 L, Monocytes # 1.1 H 08/18/20 14:01: Sodium 133 L, Chloride 90 L, Carbon Dioxide 33 H, BUN 43 H, Creatinine 1.71 H 08/18/20 14:01: B-Natriuretic Peptide 1098.6 H 08/18/20 18:22: C-Reactive Protein 1.29 H 08/18/20 18:23: Sodium 133 L, Chloride 91 L, BUN 40 H, Creatinine 1.56 H, Alkaline Phosphatase 33 L 08/18/20 18:23: ESR Westergren 23 H 08/19/20 04:15: PT 27.9 H 08/19/20 04:15: Sodium 132 L, Potassium 3.1 L, Chloride 93 L, BUN 34 H, Creatinine 1.31 H 08/19/20 04:15: RBC 3.46 L, Hgb 11.9 L, Hct 36.3 L, MCV 105.0 H, MCH 34.3 H, Lymphocytes % 17.7 L, Neutrophils # 7.0 H, Monocytes # 0.9 H Microbiology - Entire Visit 08/18/20 Unknown Urine clean catch Urine Culture - Preliminary NO GROWTH AT 12 HOURS 08/18/20 18:11 Venous blood - Right Hand Blood Culture - Preliminary Specimen has been received and culture in progress. No Growth to date. 08/18/20 18:22 Venous blood - Left Hand Blood Culture - Preliminary Specimen has been received and culture in progress. No Growth to date. Vitals: Vital Signs (12 hours) Temp Pulse Resp BP BP Pulse Ox 08/19/20 15:37 97.6 F 82 12 113/62 95 08/19/20 11:30 97.6 F 88 16 123/74 92 L 08/19/20 09:04 88 08/19/20 07:47 97.5 F L 90 18 94/53 L 98 Weight Weight 156 lb 14.4 oz Physical Exam: The patient was seen and examined on the day of discharge. Problem (1) Acute on chronic systolic (congestive) heart failure Code(s): I50.23 - ACUTE ON CHRONIC SYSTOLIC (CONGESTIVE) HEART FAILURE Status: Acute (2) GERD (gastroesophageal reflux disease) Code(s): K21.9 - GASTRO-ESOPHAGEAL REFLUX DISEASE WITHOUT ESOPHAGITIS Status: Acute (3) Acute on chronic renal failure Code(s): N17.9 - ACUTE KIDNEY FAILURE, UNSPECIFIED; N18.9 - CHRONIC KIDNEY DISEASE, UNSPECIFIED Status: Acute (4) CKD (chronic kidney disease) Code(s): N18.9 - CHRONIC KIDNEY DISEASE, UNSPECIFIED Status: Acute (5) Atrial fibrillation Code(s): I48.91 - UNSPECIFIED ATRIAL FIBRILLATION Status: Chronic Qualifiers: Atrial fibrillation type: persistent (not longstanding) Qualified Code(s): I48.19 - Other persistent atrial fibrillation; I48.1 - Persistent atrial fibrillation (6) CAD (coronary artery disease) Code(s): I25.10 - ATHSCL HEART DISEASE OF [place] CORONARY ARTERY W/O ANG PCTRS Status: Chronic (7) Chronic anticoagulation Code(s): Z79.01 - INTERMEDIATE (CURRENT) USE OF ANTICOAGULANTS Status: Chronic (8) DM type 2 (diabetes mellitus, type 2) Status: Chronic (9) Hypertension Code(s): I10 - ESSENTIAL (PRIMARY) HYPERTENSION Status: Chronic Plan Prescriptions: Sucralfate [Carafate] 1 gm PO AC #30 tab Home Medications: Medication Instructions Recorded Confirmed Type Lorazepam [Ativan] 0.5 - 1 mg PO Q8HR PRN 05/02/17 08/13/20 History Dulaglutide [Trulicity] 1.5 mg SC Q7DAYS 10/02/17 08/13/20 History Pantoprazole Sodium 40 mg PO DAILY 10/02/17 08/13/20 History traMADol HCl [Tramadol HCl] 50 mg PO Q12HR 11/06/17 08/13/20 History Famotidine [Pepcid] 20 mg PO HS 11/27/18 08/13/20 History Nitroglycerin 0.4 mg SL Q5MIN PRN 11/27/18 08/13/20 History Saccharomyces boulardii [Florastor] 500 mg PO DAILY 11/27/18 08/13/20 History glyBURIDE [Glyburide] 12.5 mg PO ASDIR 01/12/19 08/13/20 History Digoxin [Lanoxin] 0.125 mg PO DAILY 01/15/19 08/13/20 History Rosuvastatin Calcium [Crestor] 40 mg PO DAILY 01/15/19 08/13/20 History Polyethylene Glycol 3350 [Miralax] 17 gm PO BID 10 Days #10 pk 09/15/19 08/13/20 Rx Acetaminophen [Acetaminophen ER] 650 mg PO Q6HR PRN 07/18/20 08/13/20 History Aspirin [Ecotrin Low Strength] 81 mg PO DAILY 07/18/20 08/13/20 History Calcium Carbonate/Vitamin D3 3 each PO DAILY 07/18/20 08/13/20 History [Calcium 600-Vit D3 200 Tablet] Magnesium Oxide [Mag-Oxide 400 mg PO DAILY 07/18/20 08/13/20 History Magnesium] Ranolazine [Ranexa] 500 mg PO BID 07/18/20 08/13/20 History Triamcinolone Acetonide 1 applic TOP BID 07/18/20 08/13/20 History [Triamcinolone Acetonide 0.1% Ointment] Warfarin Sodium [Coumadin] 5 mg PO DAILY 07/18/20 08/13/20 History Eplerenone 25 mg PO DAILY 08/13/20 08/13/20 History Hydrocortisone [Hydrocortisone 1 applic TOP BID 08/13/20 08/13/20 History 2.5% Cream] Ketoconazole [Ketoconazole 2% Foam] 1 applic TOP HS 08/13/20 08/13/20 History Torsemide [Demadex] 20 mg PO BID 08/13/20 08/13/20 History Warfarin Sodium [Coumadin] 7.5 mg PO DAILY@1700 08/13/20 08/13/20 History glyBURIDE [Glyburide] 7.5 mg PO ASDIR 08/13/20 08/13/20 History Sucralfate [Carafate] 1 gm PO AC #30 tab 08/19/20 Rx Allergies: No Known Drug Allergies Allergy (Verified 08/13/20 06:02) per pt Discharge Instructions:: Follow-up with your Primary Care Provider in 1 week Activity:: Activity as Tolerated Nourishment:: Heart Healthy Diet Referrals: Cardiac Rehab - [facility] [Outside] - 7 Days (Your doctor has ordered outpatient cardiac rehab for you to begin within 1-2 weeks after you go home from the hospital. The location nearest to you is the [facility]. We will call you in 3-5 days to get you scheduled for your evaluation. If you do not receive a call, please reach out to us at [phone] and request an appointment. ) MURPHY GONZALEZ MD [ Not on Staff] - 09/06/20 2:15 pm (Please follow up with your ultrasound tech with your regularly scheduled appointment on September 06, 2020 at 2:15 PM. ) Doc Forbes DO [ Not on Staff] - 09/08/20 3:25 pm (Please follow up with your paint maker with your already scheduled appointment on September 08, 2020 at 3:25 PM. ) MACARIO VIDAL MD [ Not on Staff] - 7 Days (An appointment will be made for you to see your primary care provider in a week or so.) Disposition: HOME Quality CORE MEASURES:: N/A
--- NOTE | 2020-08-19 17:13 | PRG ---
DATE OF SERVICE: 08/19/2020 I spoke with Mr. Crockett this morning. He is feeling well. He denies any abdominal pain anymore. He does admit to chest pain. He states this is his typical reflux pain. I told him this could be ischemic pain. He is currently not interested in pursuing any further evaluation in this hospital. His has been very adamant about his situation. She has been wanting him to go home all this time. The reason he has been here in the hospital is because every time we feel he is euvolemic, he drops his blood pressure and we had to start him on inotropic support for his severe LV dysfunction. I thought that he was very close to be euvolemic yesterday and we weaned off his dobutamine. He actually had an episode of hypotension overnight. This morning, Dr. Domingo was coming to see Mr. Crockett and the was in the room and she started yelling at Dr. Domingo telling him that it was his fault that Mr. Crockett had gotten worse. Mr. Crockett was actually not doing any worse. We were just trying to figure out why he had been returning to the hospital once a month ago and then again now. Our thought was that his mitral valve may become an issue. He has moderate MR as compared to last year he only had mild MR. Mrs. Crockett was not happy with any of this. She just wanted her to go home. We voiced her concern that we think his heart dysfunction is becoming worse and worse and his episodes of hypotension is probably just his heart failure getting worse. Our concern is that he is going to go home and he may not make it back. Mrs. Crockett just wants him to go home. Mr. Crockett does not really say much when his is shouting at personnel. Currently, Mr. Crockett's creatinine is the best it has been. He is euvolemic. I believe it will be okay for him to go home, however, he has to understand that if he does not go for higher level of care, may be an LVAD or may be just home milrinone drip. He may be looking at worsening heart failure and he may have a lot more recurrent hospitalizations from this. Currently, his blood pressure is so borderline that we cannot restart any of his Entresto or beta blockers. He has been taken off the dobutamine since the morning and his blood pressure has remained stable throughout, but I am sure that it will drop if we restarted any of these medications. We would send him home on his current dose of torsemide. He is more than welcome to come back to this hospital if he were to require to have another hospitalization. He verbalized understanding of this. I am concerned about him going home. However, I think that if they are not going to pursue any further therapies. He is euvolemic and he no longer requires any IV therapies and he has been weaned off the dobutamine, so there is nothing else that can be accomplished here in the hospital. They were offered palliative services and they adamantly refused, especially with the . They were also offered transfer to a higher level of care for LVAD/milrinone drips things of that sort, and they also adamantly refuse especially his . At this point, Mr. Crockett is stable for discharge as there is no more else to achieve in the hospital. We will send him home. He hopefully will follow up with Cardiology within the next two weeks. 45 minutes was spent talking with patient, family, and discharging patient. Job ID: [id number]
--- NOTE | 2020-08-20 06:01 | PRG ---
DATE OF SERVICE: 08/19/2020 SUBJECTIVE: Mr. Jeffery Crockett had an eventful night. Apparently, his systolic blood pressure dropped last night. It was reported that his systolic blood pressure dropped down to the 70s. Dobutamine was increased to 7.5 mcg/kg/minute, there might have a small bolus of fluid. Since then, his systolic blood pressure has been in 90s. This morning, he said he is still breathing well and feeling generally good. He does not have any more abdominal pains. He did go through the ultrasound of the abdomen without any problems. REVIEW OF SYSTEMS: GENERAL: Fatigued. There is no fever, chills, productive cough. HEENT: There is no change in vision, hearing, swallowing. PULMONARY: Please see HPI. CARDIAC: There is no complaints of palpitations or syncope. Today there is no complaint of chest discomfort. GI: There are no GI complaints today. : He is able to urinate on his own. MUSCULOSKELETAL: There are no complaints of muscle or joint pains. INTEGUMENT: There is no new skin breakdown. NEUROLOGIC: There are no focal deficits or weaknesses. His telemetry was reviewed. When I first saw it, he was showing that he was biventricular paced and pacing was approximately 70%. There were escaped beats. It looks like escaped atrial fibrillation with aberrancy and there is also some PVCs. Sometime this morning he also had 10-beat run of wide-complex tachycardia resembling ventricular tachycardia with rate a little bit over 200 bpm. CURRENT MEDICATIONS: Include 1. Amiodarone 200 mg twice a day. I do not think his was allowing that to be given. 2. Aspirin 81 mg daily. 3. Calcium with vitamin D 1 tab daily. 4. Digoxin 0.125 mg daily. 5. Dobutamine at 7.5 mcg/kg/minute. 6. Eplerenone 25 mg daily. 7. Glyburide 7.5 mg daily. 8. Sliding scale insulin .. 9. Protonix 40 mg daily. 10. MiraLAX 17 g b.i.d. 11. Ranolazine 250 mg b.i.d. 12. Rosuvastatin 40 mg daily. 13. Senokot 2 tabs b.i.d. 14. Sucralfate 1 g daily. 15. Torsemide currently at 20 mg twice a day at 9 a.m. and 2 p.m. 16. Warfarin 4 mg by mouth daily. PHYSICAL EXAMINATION: VITAL SIGNS: Heart rate paced at 80, blood pressure 94/53, oxygen saturations 88% on 1 or 2 L of O2 by NC. GENERAL: He is alert, conversational, appears to be a little weak. HEENT: EOMI. Oropharynx benign. He has dentures. NECK: His JVP is more elevated today about 12 cm, higher than yesterday with positive hepatojugular reflux. PULMONARY: He has some slight bibasilar crackles today. Also decreased breath sounds in bilateral bases. He has slight return of pulmonary edema. CARDIAC: combination of regular and irregular rate-rhythm, normal S1/S2, 2/6 holosystolic murmur near the apex ABDOMEN: Soft, nontender with positive bowel sounds today. EXTREMITIES: His lower extremities are cool to touch. They are without edema. LABORATORY DATA: White cell count 9.8, hemoglobin 11.9, platelets is about 163. His chemistries today, sodium 132, potassium 3.1, chloride 93, BUN at 34, creatinine 1.31. His magnesium is at 1.8. Procalcitonin level is 0.21. His C-reactive protein level is 1.29. Thus, he most likely does not have an acute large infection. Abominal ultrasound was done yesterday afternoon. It did not show any pathologies. 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 It is an ischemic cardiomyopathy. He has both systolic and diastolic dysfunctions. It is a poor prognosis that he is requiring increasing doses of dobutamine to keep his blood pressure. At this point, the most reasonable course of action will be transfer to a center that can do an urgent left ventricular assist device evaluation. Dr. Goss at [facility] will be happy to take him back in [place] for urgent left ventricular assist device evaluation. This idea was presented to the patient. However, the patient wanted me to talk to his . Mrs. Crockett does not accept this premise. She believes all he needs to be done is go home. She insists upon taking him home and restart carvedilol and Entresto. Normally carvedilol and Entresto are excellent drugs to treat heart failure and restore cardiac function. However, at this point, he is requiring dobutamine drip at 7.5 mcg/kg/minute. This showed that he has progressed to beyond the ability of outpatient oral medication. The severity of his situation was explained to Mr. Crockett. It was also explained to him it is very difficult, if not impossible, to suddenly stop dobutamine. It can drop the blood pressure quickly and he will do poorly or even pass away if he only goes home like this. Unfortunately, his will not accept any of the heart failure prognosis. At this point, she demands that he be discharged today and she asked me not to come back to see her . Mrs. Crockett also demanded that a falsely positive description to be spoken to her . She firmly believes that the power of positive thinking will restore his heart. Overall, given his condition, his 3 options are: (1) urgent LVAD evaluation, an LVAD will likely provide > 3 years of life with good quality (2) palliative care with chronic infusion (likely dobutamine because his SBP is too low for milrinone; however, a future transition from dobutamine to milrinone is possible) (3) hospice RECOMMENDATIONS: 1. If the family does come to terms with his situation, the best course of action still remains transferring to a center that can provide an urgent left ventricular assist device evaluation. 2. Please provide amiodarone to decrease the chance of ventricular tachycardia. 3. Please give potassium chloride 40 mEq one dose now in order to bring the potassium to 4.0. This will need to be checked and supplemented. 4. If he drops blood pressure some more, he will need to have a central line and use a combination of norepinephrine and dobutamine to provide sufficient perfusion pressure. However, I am not sure this could even be possible with his 's insistence. 5. Mr. Crockett himself seemed to understand his prognosis and reasonable course of action of urgent LVAD evaluation. However, his has complete divergent idea that will not help him. He is deferring all his decision to his . At this point, one may need to consider an ethics consult about his harming Mr. Crockett by denying medical care. It has been a pleasure taking care of Mr. Crockett. At this point, per 's insistence and request, I will sign off the service now. The total visitation time was about 60 minutes. This includes a family meeting and consultations with Dr. Goss and Dr. Paige. Job ID: [id number] [facility]
--- NOTE | 2020-08-21 21:33 | PQF ---
CLINICAL DOCUMENTATION CLARIFICATION FORM: Dear : Mitesh Wilde Date / Time: 08/21/202131 Please exercise your independent, professional judgment in responding to the clarification form. Clinical indicators are provided on the bottom of this form for your review Please check appropriate box(es): [ ] Type 2 ID (T2MI) secondary to heart failure [X ] Demand Ischemia without ID [ ] Other diagnosis [ ] Unable to determine Physician Signature: Date/Time: For continuity of documentation, please document condition throughout progress notes and discharge summary. Thank You. To be completed by CDI/Coding staff for physician review: Present Clinical Indicators - Signs / Symptoms / Labs Results and Location in Medical Record [x] CK-MB 2.7, BNP 59.3.5, Troponin I 0.142; 0.367; 1.493; 1.094; 0.708 Laboratory 08/13-08/14 [x] Echocardiogram: 20-25% EF Procedure Dr Garcias 08/13 [x] BP 104/82, Pulse 97, Resp 18, Temp 99.1 Vital signs 08/13 [x] Presented with SOB and dyspnea of 1 day of evolution which is worse when laying down H&P p1 08/13 Dr Starkey [x] [id number] Myocardial infarction, type [address] Umana 08/13 [x] Type 2demand ischemia Cardio PN 08/14 Dr Paige Present Risk Factors Results and Location in Medical Record [x] 74 year-old Male H&P p1 08/13 Dr Starkey [x] CAD H&P p1 08/13 Dr Starkey [x] Hx of CVA H&P p1 08/13 Dr Starkey [x] CHF H&P p1 08/13 Dr Starkey [x] HTN H&P p1 08/13 Dr Starkey [x] DM H&P p1 08/13 Dr Starkey [x] CKD H&P p1 08/13 Dr Starkey [x] HLD H&P p1 08/13 Dr Starkey [x] Former Smoker H&P p1 08/13 Dr Starkey Present Treatments Results and Location in Medical Record [x] Aspirin 81 mg oral SEP 18 [x] Plavix 75 mg oral SEP 18 [x] IV Dobutamine 500mg SEP 18 [x] IV Lasix 20 mg SEP 18 [x] Coumadin 5 mg oral SEP 18 [x] Cardiology Consult Consult Dr Umana 08/13 [facility] [employer] [facility] [facility] Signature: Sowmya Guerra Phone #: [phone] Date/Time: 08/21/202131 This is a permanent part of the Medical Record [facility]
[2020-08-25 17:31] LABS: EliA RAS New Method **** NEW METHOD ****; Rheumatoid Factor IgM Antibody Less than 0.5 IU/mL (<3.5 Negative)
--- NOTE | 2020-08-26 21:02 | EKG ---
Test Reason : Blood Pressure : / mmHG Vent. Rate : 083 BPM Atrial Rate : 083 BPM P-R Int : 000 ms QRS Dur : 128 ms QT Int : 452 ms P-R-T Axes : 000 029 137 degrees QTc Int : 531 ms Demand pacemaker; interpretation is based on intrinsic rhythm Undetermined rhythm Non-specific intra-ventricular conduction block T wave abnormality, consider lateral ischemia Abnormal ECG Confirmed by NONI MIRANDA ([id number]), graphics editor ASIYA VILLELA ([id number]) on 08/26/2020 9:02:27 PM Referred By: Confirmed By:NONI MIRANDA
== END 2020-08-19 16:50 | disposition home or self-care (01) | DRG 291 ==
LOC: ERS 02:08 → 2NO 05:45
PROVIDERS: ADMIT Internal Medicine; ATTEND Internal Medicine
PROC: 3E033XZ Introduction of Vasopressor into Peripheral Vein, Percutaneous Approach (ICD-10-PCS; principal; 2020-08-16)
DX: I13.0 Hypertensive heart and chronic kidney disease with heart failure and stage 1 through stage 4 chronic kidney disease, or unspecified chronic kidney disease (principal); I50.23 Acute on chronic systolic (congestive) heart failure; N17.9 Acute kidney failure, unspecified; I48.19 Other persistent atrial fibrillation; E87.1 Hypo-osmolality and hyponatremia; I69.351 Hemiplegia and hemiparesis following cerebral infarction affecting right dominant side; E87.3 Alkalosis; I24.8 Other forms of acute ischemic heart disease; Z20.822 Contact with and (suspected) exposure to COVID-19; K21.9 Gastro-esophageal reflux disease without esophagitis; I25.10 Atherosclerotic heart disease of native coronary artery without angina pectoris; E11.22 Type 2 diabetes mellitus with diabetic chronic kidney disease; K29.70 Gastritis, unspecified, without bleeding; I25.5 Ischemic cardiomyopathy; E78.5 Hyperlipidemia, unspecified; E87.6 Hypokalemia; N18.30 Chronic kidney disease, stage 3 unspecified; D72.825 Bandemia; I50.84 End stage heart failure; R91.8 Other nonspecific abnormal finding of lung field; I25.2 Old myocardial infarction; Z87.891 Personal history of nicotine dependence; Z90.49 Acquired absence of other specified parts of digestive tract; Z79.82 Long term (current) use of aspirin; Z79.02 Long term (current) use of antithrombotics/antiplatelets; Z79.01 Long term (current) use of anticoagulants; Z95.810 Presence of automatic (implantable) cardiac defibrillator
CPT/HCPCS: 36415; 36416; 71045; 71275; 80048; 80053; 80162; 81003; 81015; 82553; 83520; 83690; 83735; 83880; 84145; 84443; 84484; 85025; 85379; 85610; 85652; 85730; 86140; 87040; 87086; 87635; 93005; 93306; 93798; 93975; 94760; 96374; J1250; J1815; J1940; Q9967; U0003; U0005

== ENCOUNTER 2020-10-29 06:12 | Inpatient (IN) | payer MEDICARE, BC ==
[2020-10-29] MEDS ORDERED: Furosemide 40 MG/4 ML VIAL ONE (06:42)
[2020-10-29 07:01] LABS: #Eosinphils 0.1 thou/uL (0.0-0.7); #Lymphocytes 0.6 thou/uL (1.20-3.40); #Monocytes 0.8 thou/uL (0.11-0.59); #Neutrophils 11.2 thou/uL (1.40-6.50); %Basophils 0.3 % (0.0-1.0); %Eosinophils 0.5 % (0.0-10.0); %Lymphocytes 4.5 % (21.0-51.0); %Monocytes 5.9 % (0.0-10.0); %Neutrophils 88.8 % (42.0-75.0); Hemoglobin 13.9 g/dL (14.0-18.0); Mean Corpuscular HGB CONC 32.9 g/dL (32.0-36.0); Mean Corpuscular Hemoglobin 33.4 pg (27.0-31.0); Mean Platelet Volume 9.2 fL (7.4-10.4); Platelet Count 251 thou/uL (130-400); RBC Distribution Width 14.4 % (11.5-14.5); Red Blood Cell (RBC) Count 4.14 mill/uL (4.70-6.10); White Blood Cell (WBC) Count 12.6 thou/uL (4.8-10.8)
[2020-10-29 07:43] LABS: CKMB 2.2 ng/mL (0-6.6)
[2020-10-29] MEDS ORDERED: cefTRIAXone\\ROCEPHIN 2 GM VIAL ONE (07:52)
[2020-10-29] MEDS ORDERED: Dexamethasone 10 MG/ML VIAL ONE (07:52)
[2020-10-29] MEDS ORDERED: Aspirin Chewable 81 MG TAB ONE (07:52)
[2020-10-29 08:01] LABS: Actual Bicarbonate (HCO3a) 24.3 mEq/L (22-28); Analyzer IN Cardio ER; Base Excess (BEa) 1.3 mEq/L (-2.0 to +3.0); CO2 Tension 33.4 mmHg (35.0-45.0); Calcium, Ionized (arterial) 1.11 mmol/L (1.12-1.30); Carboxyhemoglobin (COHb) 0.5 gm% (0.0-3.0); Hemoglobin (Hb) 13.3 g/dL (14.0-18.0); O2 Tension (PaO2), arterial 166.1 mmHg (> 70.0); Potassium - ABG Lab 3.33 mmol/L (3.70-5.30); pH, Arterial 7.48 (7.35-7.45)
[2020-10-29 08:08] LABS: Puncture Site RRA
[2020-10-29 08:19] LABS: ALT (SGPT) 19 U/L (8-55); AST (SGOT) 28 U/L (5-34); Albumin 3.5 g/dL (3.4-4.8); Alkaline Phosphatase 53 U/L (40-110); Anion Gap 19 mmol/L (10-20); BUN (Urea Nitrogen) 52 mg/dL (8.4-25.7); Bilirubin, Total 1.1 mg/dL (0.2-1.2); Calc. Creatinine Clearance 0 mL/min (70-130); Carbon Dioxide 25 mmol/L (23-31); Chloride 90 mmol/L (98-107); Globulin 3.4 g/dL (2.4-3.5); Glucose 201 mg/dL (83-110); Lipase 17 U/L (8-78); Potassium 3.5 mmol/L (3.5-5.1); Protein, Total 6.9 g/dL (5.8-8.1); Sodium 130 mmol/L (136-145)
[2020-10-29] MEDS ORDERED: Vancomycin 1 GM/200 ML BAG ONE (08:29)
[2020-10-29] MEDS ORDERED: Enoxaparin Sodium 80 MG/0.8 ML SYRINGE ONE (08:29)
[2020-10-29 08:40] LABS: INR-International Normal Ratio 2.9; Prothrombin Time 30.9 sec (12.0-14.7)
[2020-10-29 10:05] LABS: Lactic Acid 1.7 mmol/L (0.5-2.2)
[2020-10-29 10:07] LABS: SARS-CoV-2 NAA Rapid Test Not Detected (NotDetected)
[2020-10-29 14:23] LABS: Troponin I 0.605 ng/mL (< 0.028)
[2020-10-29] MEDS ORDERED: Dextrose 50% Abboject 50 ML SYRINGE SLOW IVP PRN (15:07)
[2020-10-29] MEDS ORDERED: Dextrose 5% in Water 1,000 ML IV PRN (15:07)
[2020-10-29] MEDS ORDERED: HYDROcodone/Acetaminophen 5/325 mg Tablet PO PRN (15:07)
[2020-10-29] MEDS ORDERED: Loperamide HCl 2 MG CAP PO PRN (15:07)
[2020-10-29] MEDS ORDERED: Bisacodyl 10 MG SUPP PR PRN (15:07)
[2020-10-29 15:34] VITALS: BMI 24.5
[2020-10-29 16:27] LABS: Critical Call Chem Troponin I RESULT DECREASING
[2020-10-29] MEDS: HumaLOG 300 UNITS/3 ML VIAL SC PRN ×2 (16:54→21:08)
[2020-10-29] MEDS: DOBUTamine 500 mg/250 ml 500 MG in Premix Bag 1 BAG IVPB SCH (16:54)
[2020-10-29] MEDS: Doxycycline 100 MG CAP PO SCH (21:05)
[2020-10-30] MEDS: Morphine 2 MG/ML VIAL SLOW IVP PRN ×2 (01:13→21:56)
[2020-10-30] MEDS: Acetaminophen 325 MG TAB PO PRN ×4 (01:41→22:46)
[2020-10-30] MEDS ORDERED: Lorazepam 0.5 MG TAB PO SCH (02:15)
[2020-10-30] MEDS: Calcium Carbonate 500 MG ChewTAB PO PRN ×2 (03:01→20:04)
[2020-10-30] MEDS ORDERED: traMADol HCl 50 MG TAB PO SCH ×2 (03:45→09:00)
[2020-10-30 04:14] LABS: INR-International Normal Ratio 3.1; Prothrombin Time 32.8 sec (12.0-14.7)
[2020-10-30 04:22] LABS: ALT (SGPT) 49 U/L (8-55); AST (SGOT) 57 U/L (5-34); Albumin 3.5 g/dL (3.4-4.8); Alkaline Phosphatase 65 U/L (40-110); Anion Gap 28 mmol/L (10-20); BUN (Urea Nitrogen) 50 mg/dL (8.4-25.7); Calc. Creatinine Clearance 29 mL/min (70-130); Calcium 8.8 mg/dL (7.8-10.44); Carbon Dioxide 13 mmol/L (23-31); Chloride 93 mmol/L (98-107); Globulin 3.2 g/dL (2.4-3.5); Glucose 390 mg/dL (83-110); Magnesium 2.3 mg/dL (1.6-2.6); Protein, Total 6.7 g/dL (5.8-8.1); Sodium 129 mmol/L (136-145); Uric Acid 9.3 mg/dL (3.5-7.2)
[2020-10-30 05:05] LABS: Band 8 % (5-11); Hemoglobin 13.4 g/dL (14.0-18.0); Lymphocytes 7 % (21-51); MDiff Complete? YES; Mean Corpuscular HGB CONC 31.9 g/dL (32.0-36.0); Mean Corpuscular Hemoglobin 32.9 pg (27.0-31.0); Mean Platelet Volume 9.6 fL (7.4-10.4); Monocytes 5 % (0-10); Neutrophil 80 % (42-75); Platelet Count 256 thou/uL (130-400); RBC Distribution Width 14.6 % (11.5-14.5); Red Blood Cell (RBC) Count 4.08 mill/uL (4.70-6.10); White Blood Cell (WBC) Count 23.6 thou/uL (4.8-10.8)
[2020-10-30] MEDS ORDERED: Furosemide 20 MG/2 ML VIAL SLOW IVP SCH ×3 (06:00→12:00)
[2020-10-30] MEDS: HumaLOG 300 UNITS/3 ML VIAL SC PRN ×4 (06:31→19:54)
[2020-10-30] MEDS ORDERED: cefTRIAXone\\ROCEPHIN 1 GM in Sodium Chloride 0.9% 100 ML IVPB SCH (08:00)
[2020-10-30] MEDS: Doxycycline 100 MG CAP PO SCH ×2 (10:18→20:02)
[2020-10-30] MEDS: Lorazepam 0.5 MG TAB PO PRN ×2 (10:19→21:32)
[2020-10-30] MEDS: Lantus 1000 UNITS/10 ML VIAL SC SCH (10:21)
[2020-10-30] MEDS: Sucralfate 1 GM TAB PO SCH ×2 (14:41→16:28)
[2020-10-30] MEDS: Furosemide 20 MG/2 ML VIAL SLOW IVP SCH (15:58)
[2020-10-30] MEDS: MEROPENEM 1 GM/50 ML 1 GM in Premix Bag 1 BAG IVPB SCH ×2 (15:58→21:34)
[2020-10-30] MEDS: traMADol HCl 50 MG TAB PO PRN ×2 (16:01→22:48)
[2020-10-30] MEDS: DOBUTamine 500 mg/250 ml 500 MG in Premix Bag 1 BAG IVPB SCH (16:27)
[2020-10-30 16:55] LABS: #Monocytes 1.6 thou/uL (0.11-0.59); %Basophils 0.1 % (0.0-1.0); %Eosinophils 0.1 % (0.0-10.0); %Lymphocytes 5.6 % (21.0-51.0); %Monocytes 8.9 % (0.0-10.0); %Neutrophils 85.3 % (42.0-75.0); Hemoglobin 12.6 g/dL (14.0-18.0); Mean Corpuscular HGB CONC 33.7 g/dL (32.0-36.0); Mean Corpuscular Hemoglobin 34.2 pg (27.0-31.0); Mean Platelet Volume 9.7 fL (7.4-10.4); Platelet Count 211 thou/uL (130-400); RBC Distribution Width 14.5 % (11.5-14.5); Red Blood Cell (RBC) Count 3.67 mill/uL (4.70-6.10); White Blood Cell (WBC) Count 17.6 thou/uL (4.8-10.8)
[2020-10-31 04:04] LABS: INR-International Normal Ratio 3.2; Prothrombin Time 33.7 sec (12.0-14.7)
[2020-10-31 04:07] LABS: #Basophils 0.1 thou/uL (0.0-0.2); #Lymphocytes 1.3 thou/uL (1.20-3.40); #Monocytes 1.6 thou/uL (0.11-0.59); #Neutrophils 15.4 thou/uL (1.40-6.50); %Basophils 0.3 % (0.0-1.0); %Eosinophils 0.1 % (0.0-10.0); %Lymphocytes 7.1 % (21.0-51.0); %Monocytes 8.7 % (0.0-10.0); %Neutrophils 83.9 % (42.0-75.0); Mean Corpuscular HGB CONC 34.5 g/dL (32.0-36.0); Mean Corpuscular Hemoglobin 34.9 pg (27.0-31.0); Mean Platelet Volume 9.6 fL (7.4-10.4); Platelet Count 221 thou/uL (130-400); RBC Distribution Width 14.5 % (11.5-14.5); Red Blood Cell (RBC) Count 3.43 mill/uL (4.70-6.10); White Blood Cell (WBC) Count 18.3 thou/uL (4.8-10.8)
[2020-10-31 04:12] LABS: Anion Gap 18 mmol/L (10-20); BUN (Urea Nitrogen) 56 mg/dL (8.4-25.7); Calc. Creatinine Clearance 38 mL/min (70-130); Calcium 8.9 mg/dL (7.8-10.44); Carbon Dioxide 24 mmol/L (23-31); Chloride 94 mmol/L (98-107); Glucose 173 mg/dL (83-110); Potassium 3.6 mmol/L (3.5-5.1); Sodium 132 mmol/L (136-145)
[2020-10-31] MEDS: MEROPENEM 1 GM/50 ML 1 GM in Premix Bag 1 BAG IVPB SCH ×2 (06:12→13:11)
[2020-10-31] MEDS: Furosemide 20 MG/2 ML VIAL SLOW IVP SCH ×2 (06:13→13:11)
[2020-10-31] MEDS: HumaLOG 300 UNITS/3 ML VIAL SC PRN ×3 (06:18→21:48)
[2020-10-31] MEDS: Sucralfate 1 GM TAB PO SCH ×3 (08:08→17:07)
[2020-10-31] MEDS: Rosuvastatin 20 MG TAB PO SCH (08:08)
[2020-10-31] MEDS: Doxycycline 100 MG CAP PO SCH (08:08)
[2020-10-31] MEDS: Lantus 1000 UNITS/10 ML VIAL SC SCH (08:09)
[2020-10-31] MEDS: traMADol HCl 50 MG TAB PO PRN ×2 (11:04→20:42)
[2020-10-31] MEDS: Acetaminophen 325 MG TAB PO PRN ×2 (11:06→20:41)
[2020-10-31 11:19] LABS: Hemoglobin 11.9 g/dL (14.0-18.0); Platelet Count 226 thou/uL (130-400)
[2020-10-31 12:14] LABS: Lactic Acid 3.3 mmol/L (0.5-2.2)
[2020-10-31 12:19] LABS: ALT (SGPT) 272 U/L (8-55); AST (SGOT) 218 U/L (5-34); Albumin 3.4 g/dL (3.4-4.8); Alkaline Phosphatase 87 U/L (40-110); Bilirubin, Direct 0.5 mg/dL (0.1-0.3); Lipase 18 U/L (8-78); Protein, Total 6.5 g/dL (5.8-8.1)
[2020-10-31] MEDS: Heparin 25,000 units/D5W 500 ML IVPB SCH (13:10)
[2020-10-31] MEDS: Heparin 10,000 UNITS/ 10 ML VIAL SLOW IVP SCH (13:12)
[2020-10-31] MEDS: Morphine 2 MG/ML VIAL SLOW IVP PRN (13:24)
[2020-10-31] MEDS: Pantoprazole 40 MG VIAL IVP SCH (20:46)
[2020-10-31] MEDS: Amiodarone 450 MG, Admixture Fee 1 EACH in Dextrose 5% in Water 250 ML IVPB SCH (20:50)
[2020-10-31] MEDS: Lorazepam 0.5 MG TAB PO PRN (21:46)
[2020-11-01] MEDS: Calcium Carbonate 500 MG ChewTAB PO PRN ×2 (03:33→09:43)
[2020-11-01 03:44] LABS: Prothrombin Time 31.7 sec (12.0-14.7)
[2020-11-01 03:51] LABS: Anion Gap 20 mmol/L (10-20); BUN (Urea Nitrogen) 56 mg/dL (8.4-25.7); Calc. Creatinine Clearance 38 mL/min (70-130); Calcium 9.3 mg/dL (7.8-10.44); Carbon Dioxide 24 mmol/L (23-31); Chloride 93 mmol/L (98-107); Glucose 130 mg/dL (83-110); Potassium 4.5 mmol/L (3.5-5.1); Sodium 132 mmol/L (136-145)
[2020-11-01 04:35] LABS: Band 3 % (5-11); Eosinophils 1 % (0-10); Hemoglobin 13.2 g/dL (14.0-18.0); Lymphocytes 8 % (21-51); MDiff Complete? YES; Mean Corpuscular HGB CONC 33.4 g/dL (32.0-36.0); Mean Corpuscular Hemoglobin 34.1 pg (27.0-31.0); Mean Platelet Volume 9.8 fL (7.4-10.4); Metamyelocyte 1 % (0-0); Monocytes 9 % (0-10); Neutrophil 78 % (42-75); Platelet Count 233 thou/uL (130-400); RBC Distribution Width 14.8 % (11.5-14.5); Red Blood Cell (RBC) Count 3.86 mill/uL (4.70-6.10)
[2020-11-01] MEDS: Amiodarone 450 MG, Admixture Fee 1 EACH in Dextrose 5% in Water 250 ML IVPB SCH ×2 (05:29→21:38)
[2020-11-01] MEDS: DOBUTamine 500 mg/250 ml 500 MG in Premix Bag 1 BAG IVPB SCH (05:31)
[2020-11-01] MEDS: Furosemide 20 MG/2 ML VIAL SLOW IVP SCH (06:46)
[2020-11-01] MEDS: Sucralfate 1 GM TAB PO SCH ×3 (07:38→18:04)
[2020-11-01] MEDS: Rosuvastatin 20 MG TAB PO SCH (07:39)
[2020-11-01] MEDS: Lantus 1000 UNITS/10 ML VIAL SC SCH (07:40)
[2020-11-01] MEDS: Pantoprazole 40 MG VIAL IVP SCH ×2 (07:40→20:32)
[2020-11-01] MEDS: Lorazepam 0.5 MG TAB PO PRN ×2 (09:37→21:35)
[2020-11-01] MEDS: traMADol HCl 50 MG TAB PO PRN (09:42)
[2020-11-01 11:00] VITALS: BP 113/75
[2020-11-01] MEDS: Acetaminophen 325 MG TAB PO PRN (11:36)
[2020-11-01] MEDS: HumaLOG 300 UNITS/3 ML VIAL SC PRN ×3 (11:37→20:41)
[2020-11-01] MEDS: Heparin 10,000 UNITS/ 10 ML VIAL SLOW IVP SCH (12:08)
[2020-11-01] MEDS ORDERED: DOBUTamine 500 mg/250 ml 500 MG in Premix Bag 1 BAG IVPB SCH (13:30)
[2020-11-01] MEDS: Furosemide 40 MG/4 ML VIAL SLOW IVP SCH (13:43)
[2020-11-01] MEDS: Milrinone Lactate/D5W 20 MG in Premix Bag 1 BAG IVPB SCH (13:43)
[2020-11-01] MEDS ORDERED: Polyethylene Glycol 3350 17 GM Packet PO SCH (18:00)
[2020-11-01 18:43] LABS: PTT 120.4 sec (22.9-36.1)
[2020-11-01] MEDS: Senokot S 8.6-50 MG TAB PO PRN (20:31)
[2020-11-01] MEDS ORDERED: Docusate 100 MG CAP PO SCH (21:30)
[2020-11-01] MEDS: Heparin 25,000 units/D5W 500 ML IVPB SCH (22:10)
[2020-11-02] MEDS: Calcium Carbonate 500 MG ChewTAB PO PRN (00:36)
[2020-11-02] MEDS: Milrinone Lactate/D5W 20 MG in Premix Bag 1 BAG IVPB SCH ×3 (01:00→23:38)
[2020-11-02] MEDS: traMADol HCl 50 MG TAB PO PRN (02:57)
[2020-11-02 04:04] LABS: Anion Gap 16 mmol/L (10-20); BUN (Urea Nitrogen) 51 mg/dL (8.4-25.7); Calc. Creatinine Clearance 42 mL/min (70-130); Calcium 8.6 mg/dL (7.8-10.44); Carbon Dioxide 27 mmol/L (23-31); Chloride 91 mmol/L (98-107); Glucose 182 mg/dL (83-110); Potassium 3.4 mmol/L (3.5-5.1); Sodium 131 mmol/L (136-145)
[2020-11-02 04:08] LABS: INR-International Normal Ratio 2.3; Prothrombin Time 25.4 sec (12.0-14.7)
[2020-11-02 04:32] LABS: #Eosinphils 0.2 thou/uL (0.0-0.7); #Lymphocytes 1.3 thou/uL (1.20-3.40); #Monocytes 0.7 thou/uL (0.11-0.59); #Neutrophils 10.2 thou/uL (1.40-6.50); %Basophils 0.2 % (0.0-1.0); %Eosinophils 1.8 % (0.0-10.0); %Lymphocytes 10.2 % (21.0-51.0); %Monocytes 5.6 % (0.0-10.0); %Neutrophils 82.2 % (42.0-75.0); Hemoglobin 12.2 g/dL (14.0-18.0); MDiff Complete? YES; Macrocytosis SLIGHT = 6-15 cells (100X) (0-5/hpf); Mean Corpuscular HGB CONC 33.9 g/dL (32.0-36.0); Mean Corpuscular Hemoglobin 34.3 pg (27.0-31.0); Mean Platelet Volume 9.8 fL (7.4-10.4); Platelet Count 163 thou/uL (130-400); RBC Distribution Width 14.4 % (11.5-14.5); Red Blood Cell (RBC) Count 3.56 mill/uL (4.70-6.10); White Blood Cell (WBC) Count 12.4 thou/uL (4.8-10.8)
[2020-11-02] MEDS: Morphine 2 MG/ML VIAL SLOW IVP PRN ×2 (04:46→09:00)
[2020-11-02] MEDS: Furosemide 40 MG/4 ML VIAL SLOW IVP SCH ×2 (06:00→13:02)
[2020-11-02] MEDS ORDERED: Potassium Chloride 20 MEQ TAB PO SCH (06:15)
[2020-11-02] MEDS ORDERED: Morphine 2 MG/ML VIAL SLOW IVP SCH (07:00)
[2020-11-02] MEDS: HumaLOG 300 UNITS/3 ML VIAL SC PRN ×2 (07:23→11:17)
[2020-11-02] MEDS: Sucralfate 1 GM TAB PO SCH ×3 (08:01→18:47)
[2020-11-02] MEDS: Potassium Chloride 10 MEQ TAB PO SCH (08:01)
[2020-11-02] MEDS: Pantoprazole 40 MG VIAL IVP SCH ×2 (08:01→20:35)
[2020-11-02] MEDS: Rosuvastatin 20 MG TAB PO SCH (08:01)
[2020-11-02] MEDS: Saccharomyces boulardii 250 MG CAP PO SCH (08:01)
[2020-11-02] MEDS: Lantus 1000 UNITS/10 ML VIAL SC SCH (08:02)
[2020-11-02] MEDS ORDERED: Lantus 1000 UNITS/10 ML VIAL SC SCH (09:45)
[2020-11-02] MEDS: Senokot S 8.6-50 MG TAB PO PRN ×2 (10:15→20:35)
[2020-11-02 10:17] LABS: Hemoglobin 12.6 g/dL (14.0-18.0); Platelet Count 182 thou/uL (130-400)
[2020-11-02] MEDS: Amiodarone 450 MG, Admixture Fee 1 EACH in Dextrose 5% in Water 250 ML IVPB SCH (13:03)
[2020-11-02] MEDS: DOBUTamine 500 mg/250 ml 500 MG in Premix Bag 1 BAG IVPB SCH ×2 (18:48→23:37)
[2020-11-02] MEDS: Lorazepam 0.5 MG TAB PO PRN (20:38)
[2020-11-02] MEDS: Heparin 25,000 units/D5W 500 ML IVPB SCH (23:39)
[2020-11-03] MEDS: Amiodarone 450 MG, Admixture Fee 1 EACH in Dextrose 5% in Water 250 ML IVPB SCH (01:13)
[2020-11-03 04:22] LABS: #Eosinphils 0.3 thou/uL (0.0-0.7); #Lymphocytes 2.1 thou/uL (1.20-3.40); #Monocytes 1.5 thou/uL (0.11-0.59); #Neutrophils 13.8 thou/uL (1.40-6.50); %Basophils 0.2 % (0.0-1.0); %Eosinophils 1.8 % (0.0-10.0); %Lymphocytes 11.6 % (21.0-51.0); %Monocytes 8.4 % (0.0-10.0); Hemoglobin 11.8 g/dL (14.0-18.0); Mean Corpuscular HGB CONC 32.7 g/dL (32.0-36.0); Mean Corpuscular Hemoglobin 33.3 pg (27.0-31.0); Mean Platelet Volume 10.2 fL (7.4-10.4); Platelet Count 171 thou/uL (130-400); RBC Distribution Width 14.7 % (11.5-14.5); Red Blood Cell (RBC) Count 3.55 mill/uL (4.70-6.10); White Blood Cell (WBC) Count 17.7 thou/uL (4.8-10.8)
[2020-11-03 04:27] LABS: INR-International Normal Ratio 1.8
[2020-11-03 04:28] LABS: PTT 97.7 sec (22.9-36.1)
[2020-11-03 04:40] LABS: Anion Gap 17 mmol/L (10-20); BUN (Urea Nitrogen) 42 mg/dL (8.4-25.7); Calc. Creatinine Clearance 48 mL/min (70-130); Calcium 8.2 mg/dL (7.8-10.44); Carbon Dioxide 27 mmol/L (23-31); Chloride 90 mmol/L (98-107); Glucose 123 mg/dL (83-110); Potassium 3.7 mmol/L (3.5-5.1); Sodium 130 mmol/L (136-145)
[2020-11-03] MEDS: Furosemide 40 MG/4 ML VIAL SLOW IVP SCH ×2 (05:47→15:16)
[2020-11-03] MEDS: Saccharomyces boulardii 250 MG CAP PO SCH (07:18)
[2020-11-03] MEDS: Pantoprazole 40 MG VIAL IVP SCH ×2 (07:18→19:40)
[2020-11-03] MEDS: Rosuvastatin 20 MG TAB PO SCH (07:18)
[2020-11-03] MEDS: Lorazepam 0.5 MG TAB PO PRN ×2 (07:18→15:16)
[2020-11-03] MEDS: Potassium Chloride 10 MEQ TAB PO SCH (07:18)
[2020-11-03] MEDS: Sucralfate 1 GM TAB PO SCH ×4 (07:18→18:24)
[2020-11-03] MEDS: traMADol HCl 50 MG TAB PO PRN (07:18)
[2020-11-03] MEDS ORDERED: Lantus 1000 UNITS/10 ML VIAL SC SCH (09:00)
[2020-11-03] MEDS ORDERED: Promethazine 25 MG TAB PO PRN ×2 (11:20→11:21)
[2020-11-03] MEDS ORDERED: Ondansetron PF 4 MG/2 ML Vial IVP PRN (11:31)
[2020-11-03] MEDS: HumaLOG 300 UNITS/3 ML VIAL SC PRN ×2 (11:43→21:52)
[2020-11-03] MEDS ORDERED: Ondansetron PF 4 MG/2 ML Vial IVP SCH (11:45)
[2020-11-03] MEDS: Calcium Carbonate 500 MG ChewTAB PO PRN (18:24)
[2020-11-03] MEDS ORDERED: Polyethylene Glycol 3350 17 GM Packet PO SCH (19:15)
[2020-11-03] MEDS: Furosemide 100 MG in Sodium Chloride 0.9% 90 ML IVPB SCH ×2 (19:48→21:28)
[2020-11-03 23:57] VITALS: TEMP 99.1
[2020-11-04] MEDS: Milrinone Lactate/D5W 20 MG in Premix Bag 1 BAG IVPB SCH (00:43)
[2020-11-04] MEDS: Heparin 25,000 units/D5W 500 ML IVPB SCH (02:18)
[2020-11-04] MEDS ORDERED: Polyethylene Glycol 3350 17 GM Packet PO SCH (09:00)
== END 2020-11-04 02:28 | disposition short-term general hospital (02) | DRG 280 ==
LOC: ERS 06:12 → IMCU/EMU 13:03
PROVIDERS: ADMIT Internal Medicine; ATTEND Internal Medicine
DX: I13.0 Hypertensive heart and chronic kidney disease with heart failure and stage 1 through stage 4 chronic kidney disease, or unspecified chronic kidney disease (principal); I50.23 Acute on chronic systolic (congestive) heart failure; I21.A1 Myocardial infarction type 2; J96.01 Acute respiratory failure with hypoxia; J18.9 Pneumonia, unspecified organism; N17.9 Acute kidney failure, unspecified; N18.4 Chronic kidney disease, stage 4 (severe); E87.2 Acidosis; I48.19 Other persistent atrial fibrillation; E87.1 Hypo-osmolality and hyponatremia; I69.351 Hemiplegia and hemiparesis following cerebral infarction affecting right dominant side; Z20.822 Contact with and (suspected) exposure to COVID-19; E11.22 Type 2 diabetes mellitus with diabetic chronic kidney disease; I25.5 Ischemic cardiomyopathy; K21.9 Gastro-esophageal reflux disease without esophagitis; I25.10 Atherosclerotic heart disease of native coronary artery without angina pectoris; E78.5 Hyperlipidemia, unspecified; D75.89 Other specified diseases of blood and blood-forming organs; F41.1 Generalized anxiety disorder; G89.29 Other chronic pain; R10.9 Unspecified abdominal pain; Z79.01 Long term (current) use of anticoagulants; Z79.82 Long term (current) use of aspirin; Z79.899 Other long term (current) drug therapy; Z95.1 Presence of aortocoronary bypass graft; Z95.810 Presence of automatic (implantable) cardiac defibrillator; Z87.891 Personal history of nicotine dependence
CPT/HCPCS: 0240U; 36415; 36416; 36600; 71045; 74176; 76705; 78227; 80048; 80053; 80076; 82553; 82805; 82962; 83605; 83690; 83735; 83880; 84484; 84550; 85025; 85610; 85730; 87040; 93005; 93306; 93798; 96365; 96367; 96372; 96375; A9537; C9113; J0282; J0696; J1100; J1250; J1644; J1650; J1815; J1940; J2185; J2260; J2270; J3370; J3490; J7070; Q0169